=== PATIENT | male | born 1935 | race Caucasian/White ===

== ENCOUNTER 2022-10-25 07:07 | Emergency (ER) | payer OTHER, SELFPAY ==
[2022-10-25 07:12] VITALS: BP 136/78; PULSE 87; RESP 18; TEMP 36.4; O2SAT 96
--- NOTE | 2022-10-25 07:37 | ED_ITS ---
HPI - General Adult General Date Seen: 10/25/22 Chief complaint: Weakness Stated complaint: fall Time Seen by Provider: 10/25/22 07:20 History of Present Illness HPI narrative: Patient is an 87-year-old male with multiple medical problems who was just discharged from a residential to [facility] yesterday. This morning when he attempted to get out of bed his feet slid away from the bed and he slid to the floor. He denies any injury. He did not his head or lose consciousness. EMS was called and when they arrived they did attempt to stand him but his legs were weak and he is brought in for evaluation. He tells me that he feels just fine other than the fact that he is hungry. He is a diabetic in his medications have been recently adjusted. He denies any chest pain or shortness of breath. I did review his EPIC chart and update our record. 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 The reason he was placed in the residential to begin with was generalized weakness. Apparently his has a medical background and was concerned that his bed was going to be difficult for him to get out of. He normally uses a walker. Review of systems is otherwise noted to be negative. [facility] Medical History (Updated 10/25/22 @ 07:27 by Omi Sequeira MD) Diastolic congestive heart failure ?I50.30 - Unspecified diastolic (congestive) heart failure (ICD-10) History of osteomyelitis ?Z87.39 - Personal history of other diseases of the musculoskeletal system and connective tissue (ICD-10) Diabetic retinopathy ?E11.319 - Type 2 diabetes mellitus with unspecified diabetic retinopathy without macular edema (ICD-10) Hyperlipidemia ?E78.5 - Hyperlipidemia, unspecified (ICD-10) ASCVD (arteriosclerotic cardiovascular disease) ?I25.10 - Atherosclerotic heart disease of [place] coronary artery without angina pectoris (ICD-10) History of prostate cancer ?Z85.46 - Personal history of malignant neoplasm of prostate (ICD-10) Adenomatous polyps ?D36.9 - Benign neoplasm, unspecified site (ICD-10) B12 deficiency ?E53.8 - Deficiency of other specified B group vitamins (ICD-10) Peripheral arterial disease ?I73.9 - Peripheral vascular disease, unspecified (ICD-10) DNR (do not resuscitate) ?Z66 - Do not resuscitate (ICD-10) Diabetic nephropathy ?E11.21 - Type 2 diabetes mellitus with diabetic nephropathy (ICD-10) Primary hypertension ?I10 - Essential (primary) hypertension (ICD-10) Type 2 diabetes mellitus, with long-term current use of insulin ?E11.9 - Type 2 diabetes mellitus without complications (ICD-10) ?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 Cognitively he is sharp. HEENT: Conjunctiva clear. Tympanic membranes are pearly white bilaterally. Posterior pharynx is clear without erythema or exudate. Neck is supple without adenopathy, thyromegaly, carotid bruit. Lungs: Clear to auscultation in all plasencia. No wheezes, rales, rhonchi. Heart: Regular rate and rhythm without murmur. Pacemaker in the left upper chest. Abdomen: Soft and nontender. No guarding, rigidity, rebound. Bowel sounds are normal. No palpable masses. Extremities: He has dressings covering his legs from the knees down and I did not open those. No apparent edema. Skin: No abnormalities noted of the exposed skin. Neurologic: Awake, alert, fully oriented. Neurologic exam is nonfocal. Const: Vital Signs, click to edit/add: Vital Signs - 24 hr 10/25/22 07:12 Temperature 97.5 F L Pulse Rate [Right Pulse Oximeter] 87 Respiratory Rate 18 Blood Pressure [Ri ght Upper Arm] 136/78 Pulse Oximetry 96 Oxygen Delivery Me thod Room Air Course Course Hospital Course: Patient is seen and examined. Labs are ordered. His is on her way. He would like some breakfast and I think it would be fine to feed him. He denies any injury and I do not see any indication for imaging. Vital Signs Vital signs: Initial Vital Signs Temperature 97.5 F L 10/25/22 07:12 Temperature Source Temporal Artery Scan 10/25/22 07:12 Pulse Rate 87 10/25/22 07:12 Respiratory Rate 18 10/25/22 07:12 Blood Pressure 136/78 10/25/22 07:12 Blood Pressure Mean 97 10/25/22 07:12 Blood Pressure Position Sitting 10/25/22 07:12 Pulse Oximetry 96 10/25/22 07:12 Oxygen Delivery Method Room Air 10/25/22 07:12 Vital Signs Temperature 97.5 F L 10/25/22 07:12 Pulse Rate 87 10/25/22 07:12 Respiratory Rate 18 10/25/22 07:12 Blood Pressure 136/78 10/25/22 07:12 Pulse Oximetry 96 10/25/22 07:12 Oxygen Delivery Method Room Air 10/25/22 07:12 Temperature 97.5 F L 10/25/22 07:12 Pulse Rate 87 10/25/22 07:12 Respiratory Rate 18 10/25/22 07:12 Blood Pressure 136/78 10/25/22 07:12 Pulse Oximetry 96 10/25/22 07:12 Oxygen Delivery Method Room Air 10/25/22 07:12
[2022-10-25 08:10] LABS: Basophils Absolute Auto 0.03 K/uL (0.00-0.30); Basophils Percent Auto 0.5 % (0.0-3.0); Eosinophils Absolute Auto 0.18 K/uL (0.00-0.50); Eosinophils Percent Auto 2.9 % (0.0-7.0); Hematocrit 45.7 % (37.0-53.0); Hemoglobin* 14.6 gm/dL (13.5-17.5); Lymphocytes Percent Auto 18.3 % (20-44); Mean Corpuscular HGB Conc 32 gm/dL (32-36); Mean Corpuscular Hemoglobin 27 pg (26-34); Mean Corpuscular Volume 86 fL (80-100); Monocytes Percent Auto 11.7 % (0.0-11.0); Neutrophils Absolute Auto 4.14 K/uL (1.7-7.0); Neutrophils Percent Auto 66.6 % (42.0-72.0); Platelet Count* 186 K/uL (140-440); Red Blood Count 5.32 m/uL (4.30-5.90); White Blood Count* 6.22 K/uL (4.50-11.00)
[2022-10-25 08:14] LABS: Slide Review Reflex No
[2022-10-25 08:19] LABS: Chloride* 107 mmol/L (96-114); Potassium* 3.7 mmol/L (3.6-5.1); Sodium* 138 mmol/L (135-149)
[2022-10-25 08:22] LABS: Blood Urea Nitrogen* 26 mg/dL (7-30); Carbon Dioxide* 26 mmol/L (20-32); Estimated Glomerular Filt Rate 73 ml/min; Glucose* 85 mg/dL (60-115)
[2022-10-25 08:23] LABS: Calcium* 9.1 mg/dL (8.4-10.6)
--- NOTE | 2022-10-25 08:39 | ED.NURSE ---
sitting up in bed eating breakfast
== END 2022-10-25 09:50 | disposition home or self-care (01) ==
PROVIDERS: Family Medicine; Emergency Provider Family Medicine
DX: Z71.1 Person with feared health complaint in whom no diagnosis is made (principal); W06.XXXA Fall from bed, initial encounter
CPT/HCPCS: 36415; 80048; 85025; 99282; 99283; A0425; A0429

== ENCOUNTER 2022-11-18 16:37 | Outpatient (CLI) | payer OTHER, SELFPAY | END 2022-11-18 16:38 | disposition home or self-care (01) | LOC: AMB 12-11 15:59 | PROVIDERS: Visit Provider Student in an Organized Health Care Education/Training Program | DX: R53.1 Weakness (principal) | CPT/HCPCS: A0998 ==

== ENCOUNTER 2023-01-01 18:30 | Outpatient (CLI) | payer OTHER, MEDICARE, SELFPAY | END 2023-01-01 18:31 | disposition home or self-care (01) | LOC: AMB 01-31 01:48 | PROVIDERS: Visit Provider Family Medicine | DX: R53.1 Weakness (principal) | CPT/HCPCS: A0998 ==

== ENCOUNTER 2023-01-02 09:05 | Inpatient (IN) | payer OTHER, MEDICARE, SELFPAY ==
[2023-01-02] VITALS (21 sets, daily range): BP systolic 139–171; BP diastolic 65–89; PULSE 60–90; RESP 18–20; TEMP 36.8–37; O2SAT 96–98; BMI 21.9
--- NOTE | 2023-01-02 09:16 | ED.WEAKNESS ---
HPI - Weakness General Time Seen by Provider: 09:16 Date Seen: 01/02/23 Chief complaint: Weakness Stated complaint: weakness / COVID + Time Seen by Provider: 01/02/23 09:15 Source: patient, EMS and RN notes reviewed Mode of arrival: EMS Limitations: no limitations History of Present Illness HPI Narrative: This 87-year-old male is brought in by ambulance from [facility] where he resides in assisted living. He is coming in with weakness, they do not feel that he can manage his ADLs there. He developed weakness yesterday and did test positive for COVID on an antigen test last night. His whom is a physician at [facility] was here later, she did state that he got his 2nd by Debra and COVID booster just on Friday. He had had 1 prior already. He denies any myalgias, no sore throat, no nasal congestion, no cough or respiratory symptoms. Outside of the weakness he states he is having no symptoms. He has a history of type 2 diabetes with diabetic neuropathy, is insulin-dependent. History of chronic diastolic congestive heart failure. History of lumbar spondylosis. Hypertension. Peripheral vascular disease. Deficiency of B12. He has had a pacemaker placed. He does have stage 2 chronic kidney disease. Hyperlipidemia. ASCVD without angina. Atherosclerosis of aorta. Chronic vascular disorders of intestine. Age-related physical debility. History of heart valve replacement, further details not known at this time. History of prostate cancer. History of falling. Left great toe absence. Current medications 81 mg aspirin, atorvastatin 40 mg daily at bedtime. Vitamin B12 1000 mcg injected monthly. Zetia 10 mg daily Jardiance 25 mg daily Linzess 145 mcg daily Metamucil 1 tbsp b.i.d.. Novolin an 32 units q.a.m.. P.r.n. acetaminophen, biscadol, gavalax. Complaint: generalized weakness Related Data Home Medications Medication Instructions Recorded Confirmed atorvastatin 40 mg tablet 40 mg PO DAILY 01/02/23 01/02/23 cyanocobalamin (vitamin B-12) 1,000 mcg IM Q30D 01/02/23 01/02/23 1,000 mcg/mL injection solution empagliflozin 25 mg tablet 25 mg PO DAILY 01/02/23 01/02/23 (Jardiance) ezetimibe 10 mg tablet 10 mg PO DAILY 01/02/23 01/02/23 Allergies Allergy/AdvReac Type Severity Reaction Status Date / Time No Known Drug Allergies Allergy Verified 01/02/23 09:16 Review of Systems Status of ROS: Reports: 6 or more systems reviewed and unremarkable except as noted in History and below [facility] Medical History Diastolic congestive heart failure ?I50.30 - Unspecified diastolic (congestive) heart failure (ICD-10) History of osteomyelitis ?Z87.39 - Personal history of other diseases of the musculoskeletal system and connective tissue (ICD-10) Diabetic retinopathy ?E11.319 - Type 2 diabetes mellitus with unspecified diabetic retinopathy without macular edema (ICD-10) Hyperlipidemia ?E78.5 - Hyperlipidemia, unspecified (ICD-10) ASCVD (arteriosclerotic cardiovascular disease) ?I25.10 - Atherosclerotic heart disease of [place] coronary artery without angina pectoris (ICD-10) History of prostate cancer ?Z85.46 - Personal history of malignant neoplasm of prostate (ICD-10) Adenomatous polyps ?D36.9 - Benign neoplasm, unspecified site (ICD-10) B12 deficiency ?E53.8 - Deficiency of other specified B group vitamins (ICD-10) Peripheral arterial disease ?I73.9 - Peripheral vascular disease, unspecified (ICD-10) DNR (do not resuscitate) ?Z66 - Do not resuscitate (ICD-10) Diabetic nephropathy ?E11.21 - Type 2 diabetes mellitus with diabetic nephropathy (ICD-10) Primary hypertension ?I10 - Essential (primary) hypertension (ICD-10) Type 2 diabetes mellitus, with long-term current use of insulin ?E11.9 - Type 2 diabetes mellitus without complications (ICD-10) ?Z79.4 - longterm (current) use of insulin (ICD-10) Surgical History History of cardiac pacemaker ?Z95.0 - Presence of cardiac pacemaker (ICD-10) History of aortic valve replacement ?Z95.2 - Presence of prosthetic heart valve (ICD-10) Amputated toe of left foot ?S98.132A - Complete traumatic amputation of one left lesser toe, initial encounter (ICD-10) Social History Smoking Status: Never smoker Exam Const: Vital Signs, click to edit/add: Vital Signs - 24 hr 01/02/23 09:12 01/02/23 10:23 01/02/23 10:24 Temperature 98.3 F Pulse Rate 76 78 Pulse Rate [Right Pulse Oximeter] 73 Respiratory Rate 18 Blood Pressure 149/87 H Blood Pressure [Ri ght Upper Arm] 157/74 H Pulse Oximetry 96 96 96 Oxygen Delivery Me thod Room Air 01/02/23 10:30 01/02/23 10:32 01/02/23 10:39 Temperature Pulse Rate 70 70 Pulse Rate [Right Pulse Oximeter] Respiratory Rate Blood Pressure 157/82 H Blood Pressure [Ri ght Upper Arm] Pulse Oximetry 98 97 98 Oxygen Delivery Me thod This is a very pleasant 87-year-old male conversive, seen in exam room 2. He is tall stature, thin. Sclera clear, symmetrical facial function. Neck is slender, no masses noted, no thyromegaly masses or nodules. He is lying nearly flat. CV regular rate and rhythm, lungs are clear anteriorly. Abdomen is soft, no rebound or guarding, no organomegaly. He has Donald wraps on his lower extremities, do not feel any underlying edema. No focal neurologic deficit noted. Documenting provider has reviewed patient's vital signs: yes Course Course ED Course: This is a patient with new diagnosis of COVID last night and only other symptom is weakness but has profound. Did discuss with him oral treatment verses IV remdesivir. He would like to defer to his . He was hoping to be transferred to [facility]. Reviewed with him that I feel that that is extremely unlikely. Most often [facility] are on divert which is usually the case for [facility] but I will call immediately after leaving his room. We will get portable chest x-ray, EKG, labs and guide therapy accordingly. We will likely need to talk to his whom is a physician at [facility] at some point. Reevaluation(s) Time of Reevaluation #1: 09:19 Reevaluation #1: Did call [facility] in spoke with Magdalena HERNANDEZ in triage. [facility] is on MS/PCU diversion, [facility] is on ICU/MS/PCU diversion. I will let the patient know this. He will likely need hospitalization as he feels too weak to go home. He maybe candidate for 1 of the surrounding hospitals. We will have to see how are bed availability here pans out and what I find in his workup. Right now he is not hypoxic, really only symptom is that he is just significantly weak. Time of Reevaluation #2: 11:34 Reevaluation #2: Dr. Webb is actually in the room with the patient. Again the conversation about Paxlovid and remdesivir has come up. She still has not made a decision. His calculated creatinine clearance is 40, thus, would require renally dosed Paxlovid. Dr. Webb will let me know if I need to send in a prescription or order the 1st dose of remdesivir. Consultations Consultation #1: Did speak with Dr. Webb regarding this patient. Question him about the oral outpatient medication verses remdesivir. Our pharmacy does not carry Paxlovid but we can do the 3 day IV remdesivir while here. His alternatively could pick this up and we could administer the pills. We are still waiting for his kidney function. Time: 10:49 Vital Signs Vital signs: Initial Vital Signs Temperature 98.3 F 01/02/23 09:12 Temperature Source Temporal Artery Scan 01/02/23 09:12 Pulse Rate 73 01/02/23 09:12 Respiratory Rate 18 01/02/23 09:12 Blood Pressure 157/74 H 01/02/23 09:12 Blood Pressure Mean 101 01/02/23 09:12 Blood Pressure Position Sitting 01/02/23 09:12 Pulse Oximetry 96 01/02/23 09:12 Oxygen Delivery Method Room Air 01/02/23 09:12 Vital Signs Temperature 98.3 F 01/02/23 09:12 Pulse Rate 73 01/02/23 09:12 Respiratory Rate 18 01/02/23 09:12 Blood Pressure 157/74 H 01/02/23 09:12 Pulse Oximetry 96 01/02/23 09:12 Oxygen Delivery Method Room Air 01/02/23 09:12 Temperature 98.3 F 01/02/23 09:12 Pulse Rate 70 01/02/23 10:32 Respiratory Rate 18 01/02/23 09:12 Blood Pressure 157/82 H 01/02/23 10:32 Pulse Oximetry 98 01/02/23 10:39 Oxygen Delivery Method Room Air 01/02/23 09:12 MDM - Weakness Lab Data Attestation: I reviewed the patient's lab results. Labs: Lab Results 01/02/23 Range/Units 10:10 WBC 5.15 (4.50-11.00) K/uL RBC 5.82 (4.30-5.90) m/uL Hgb 15.9 (13.5-17.5) gm/dL Hct 50.3 (37.0-53.0) % MCV 86 (80-100) fL MCH 27 (26-34) pg MCHC 32 (32-36) gm/dL RDW Coeff of [place] 15.7 H (11.5-15.5) % Plt Count 150 (140-440) K/uL Neut % (Auto) 69.9 (42.0-72.0) % Lymph % (Auto) 9.1 L (20-44) % [place] % (Auto) 20.0 H (0.0-11.0) % Eos % (Auto) 0.4 (0.0-7.0) % Baso % (Auto) 0.4 (0.0-3.0) % Neut # (Auto) 3.60 (1.7-7.0) K/uL Lymph # (Auto) 0.50 L (0.90-2.90) K/uL [place] # (Auto) 1.00 H (0.00-0.90) K/UL Eos # (Auto) 0.02 (0.00-0.50) K/uL Baso # (Auto) 0.02 (0.00-0.30) K/uL Abs Immat Gran (auto) 0.01 (0.00-0.30) K/uL Imm/Tot Granulo (auto) 0.2 % VBG pH 7.391 (7.32-7.43) VBG pCO2 43 (40-50) mmHG VBG pO2 28.2 (25-47) mmHG VBG HCO3 26 (21-28) mmol/L Sodium 141 (135-149) mmol/L Potassium 4.3 (3.6-5.1) mmol/L Chloride 104 (96-114) mmol/L Carbon Dioxide 24 (20-32) mmol/L Anion Gap 13 (7-15) mEq/L BUN 25 (7-30) mg/dL Creatinine 1.2 (0.5-1.5) mg/dL Estimated GFR 59 ml/min Glucose 104 (60-115) mg/dL Lactate 1.3 (0.5-1.9) mmol/L Calcium 9.4 (8.4-10.6) mg/dL Total Bilirubin 0.7 (0.1-1.5) mg/dL AST 39 H (12-35) U/L ALT 42 (4-50) U/L Alkaline Phosphatase 92 (40-150) U/L Troponin I 0.02 (0.01-0.04) ng/mL C-Reactive Protein 1.2 H (0.5-1.0) mg/dL Total Protein 7.6 (6.0-8.3) g/dL Albumin 4.5 (3.3-5.0) g/dL Imaging Data Chest x-ray: Attestation: I have reviewed the pertinent imaging results. My impression: See patient's pacemaker, do not appreciate any COVID pneumonia. Radiologist's impression: Patient: [facility] Facility:?[facility] Patient ID:?[id number] Site Patient ID:?[id number]. Site :?[id number] Study:?XRay Chest 1V-01/02/2023 9:39:27 AM Ordering Physician:Tess Palacio Final Report: INDICATION: COVID, WEAKNESS (sic) TECHNIQUE: Chest 1 view (2 images). COMPARISON: 09/27/2019. FINDINGS: Heart and mediastinum: Interval aortic valve replacement. Otherwise unremarkable cardiomediastinal silhouette. Lungs and pleural spaces: A skinfold projects upon the peripheral left lung base on the 2nd image centered on the lower chest. Otherwise, lungs and pleural spaces are clear. Bones and soft tissues: Interval placement of a left-sided dual lead cardiac conduction device and aortic valve replacement. IMPRESSION: No acute cardiopulmonary process. Dictated by Jabari Slater MD @ 01/02/2023 9:46:46 AM (Electronic Signature) ECG Data Attestation: I personally reviewed and interpreted this ECG as follows: (Paced rhythm, 74 beats per minute.) ECG interpretation date: 01/02/23 ECG interpretation time: 12:02 Prior ECG tracings: not available for review Discharge Plan Discharge Clinical Impression: COVID-19, Weakness Patient Disposition: Admitted As Observation Prescriptions: No Action atorvastatin 40 mg tablet 40 mg PO DAILY cyanocobalamin (vitamin B-12) 1,000 mcg/mL solution 1,000 mcg IM Q30D ezetimibe 10 mg tablet 10 mg PO DAILY Jardiance 25 mg tablet 25 mg PO DAILY Follow Up/Referrals: Provider,Not a Local [Primary Care Provider] -
--- NOTE | 2023-01-02 09:17 | CRLHL7_ITS ---
For Patients: As a result of the Century Cures Act, medical imaging exams and procedure reports are released immediately into your electronic medical record. You may view this report before your referring provider. If you have questions, please contact your health care provider. INDICATION: COVID, WEAKNESS (sic) TECHNIQUE: Chest 1 view (2 images). COMPARISON: 09/27/2019. FINDINGS: Heart and mediastinum: Interval aortic valve replacement. Otherwise unremarkable cardiomediastinal silhouette. Lungs and pleural spaces: A skinfold projects upon the peripheral left lung base on the 2nd image centered on the lower chest. Otherwise, lungs and pleural spaces are clear. Bones and soft tissues: Interval placement of a left-sided dual lead cardiac conduction device and aortic valve replacement. IMPRESSION: No acute cardiopulmonary process. Dictated by Jabari Slater MD @ 01/02/2023 9:46:46 AM (Electronically Signed)
[2023-01-02 10:21] LABS: HCO3 VBG 26 mmol/L (21-28); PCO2 VBG 43 mmHG (40-50); PO2 VBG 28.2 mmHG (25-47); pH VBG 7.391 (7.32-7.43)
[2023-01-02 10:22] LABS: Lactate* 1.3 mmol/L (0.5-1.9)
[2023-01-02 10:23] LABS: Basophils Absolute Auto 0.02 K/uL (0.00-0.30); Basophils Percent Auto 0.4 % (0.0-3.0); Eosinophils Absolute Auto 0.02 K/uL (0.00-0.50); Eosinophils Percent Auto 0.4 % (0.0-7.0); Hematocrit 50.3 % (37.0-53.0); Hemoglobin* 15.9 gm/dL (13.5-17.5); Immature Granulocytes Abs Auto 0.01 K/uL (0.00-0.30); Immature Granulocytes Pct Auto 0.2 %; Lymphocytes Percent Auto 9.1 % (20-44); Mean Corpuscular HGB Conc 32 gm/dL (32-36); Mean Corpuscular Hemoglobin 27 pg (26-34); Mean Corpuscular Volume 86 fL (80-100); Neutrophils Percent Auto 69.9 % (42.0-72.0); Platelet Count* 150 K/uL (140-440); RDW Coefficient of Variation % 15.7 % (11.5-15.5); Red Blood Count 5.82 m/uL (4.30-5.90); White Blood Count* 5.15 K/uL (4.50-11.00)
[2023-01-02 10:28] LABS: Slide Review Reflex No
--- NOTE | 2023-01-02 10:42 | PC.NURSE ---
patients came out- BS on her monitor showed 69. Apple juice was given. Food was ordered about 15min ago.
[2023-01-02 10:43] LABS: Albumin* 4.5 g/dL (3.3-5.0); Chloride* 104 mmol/L (96-114)
[2023-01-02 10:44] LABS: Potassium* 4.3 mmol/L (3.6-5.1); Sodium* 141 mmol/L (135-149)
[2023-01-02 10:46] LABS: Bilirubin Total* 0.7 mg/dL (0.1-1.5); Creatinine* 1.2 mg/dL (0.5-1.5); Estimated Glomerular Filt Rate 59 ml/min
[2023-01-02 10:47] LABS: Alanine Aminotransferase* 42 U/L (4-50); Alkaline Phosphatase* 92 U/L (40-150); Anion Gap 13 mEq/L (7-15); Aspartate Amino Transferase* 39 U/L (12-35); Blood Urea Nitrogen* 25 mg/dL (7-30); Calcium* 9.4 mg/dL (8.4-10.6); Carbon Dioxide* 24 mmol/L (20-32); Glucose* 104 mg/dL (60-115); Total Protein* 7.6 g/dL (6.0-8.3)
[2023-01-02 10:50] LABS: C Reactive Protein* 1.2 mg/dL (0.5-1.0)
[2023-01-02 10:58] LABS: Troponin I* 0.02 ng/mL (0.01-0.04)
--- NOTE | 2023-01-02 12:12 | ED.NURSE ---
Patient transfered to M/S room 276. Report given to ADVID Chavez. All belongings sent with patient. at bedside. Renal dose Paxlovid called into [facility] pharmacy per request.
--- NOTE | 2023-01-02 14:38 | PC.NURSE ---
patient alert and oriented x4, comes from [facility] and lives there temporarily. Lives at home with Codie normally. Patient denies chest pain, n/V/sob. Patient is 95% on RA, Afebrile this shift. Tolerating a reg diet. Patient received first oral dose of paxlovid, will receive second dose at PM. Patient is a 1-2 assist with walker and GB, Incont. of bowel and bladder. Patient is SL, IV patent in left AC. Patient is type 2 DM and uses a Dexcom device to check BG. Plan for patient, Admit to observation, all forms signed by patient and patient verbalized understanding of observation status.
--- NOTE | 2023-01-02 17:58 | P.IMHP_ITS ---
Hospitalist- H&P: HPI History of Present Illness Date Seen: 01/02/23 Chief complaint: weakness / COVID + Narrative: Sheldon Bryson is a 87 year old male with dementia, diabetes, heart failure, TAVR, coronary artery disease, pacemaker, chronic kidney disease, prostate cancer, peripheral neuropathy and hypertension presents to the hospital with acute onset of weakness. Starting about a day or 2 prior to admission patient had onset of generalized weakness. He had fallen at his residence at [facility]. He was too weak to ambulate. He had a positive COVID test there. Three days ago he had influenza and COVID vaccination. Patient is had some frailty. He has been at [facility] since the end of September. Prior to that he was in a nursing facility getting rehab from a previous infection. He walks with a walker. He has some confusion which is significantly worse today with his current illness. Review of Systems Narrative: He has been generally doing fairly well in the past couple months up until the last couple days. His provides care to his legs which are prone to edema and diabetic foot ulcers. [facility] Medical History (Updated 01/02/23 @ 18:14 by Ángel Webb MD) Diastolic congestive heart failure ?I50.30 - Unspecified diastolic (congestive) heart failure (ICD-10) History of osteomyelitis ?Z87.39 - Personal history of other diseases of the musculoskeletal system and connective tissue (ICD-10) Diabetic retinopathy ?E11.319 - Type 2 diabetes mellitus with unspecified diabetic retinopathy without macular edema (ICD-10) Hyperlipidemia ?E78.5 - Hyperlipidemia, unspecified (ICD-10) ASCVD (arteriosclerotic cardiovascular disease) ?I25.10 - Atherosclerotic heart disease of [place] coronary artery without angina pectoris (ICD-10) History of prostate cancer ?Z85.46 - Personal history of malignant neoplasm of prostate (ICD-10) Adenomatous polyps ?D36.9 - Benign neoplasm, unspecified site (ICD-10) B12 deficiency ?E53.8 - Deficiency of other specified B group vitamins (ICD-10) Peripheral arterial disease ?I73.9 - Peripheral vascular disease, unspecified (ICD-10) DNR (do not resuscitate) ?Z66 - Do not resuscitate (ICD-10) Diabetic nephropathy ?E11.21 - Type 2 diabetes mellitus with diabetic nephropathy (ICD-10) Primary hypertension ?I10 - Essential (primary) hypertension (ICD-10) Type 2 diabetes mellitus, with long-term current use of insulin ?E11.9 - Type 2 diabetes mellitus without complications (ICD-10) ?Z79.4 - watermaster (current) use of insulin (ICD-10) Surgical History (Updated 01/02/23 @ 18:05 by Ángel Webb MD) H/O radical prostatectomy ?Z90.79 - Acquired absence of other genital organ(s) (ICD-10) History of cardiac pacemaker ?Z95.0 - Presence of cardiac pacemaker (ICD-10) History of aortic valve replacement ?Z95.2 - Presence of prosthetic heart valve (ICD-10) Amputated toe of left foot ?S98.132A - Complete traumatic amputation of one left lesser toe, initial encounter (ICD-10) Social History (Updated 01/02/23 @ 18:06 by Ángel Webb MD) Narrative: He lives at [facility]. He walks with a walker. Is relatively independent there. He is here today with his . She works at [employer]. 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 Does not drink alcohol. He does not smoke cigarettes. Code status is DNR DNI What is your current living situation?: I presently have a place to live Problems where you live: no known problems Problems where you live details: na In the past 12 months, utilities in danger of being shut off: no In past 12 months, lack of transportation kept you from medical appts, meetings, work, or getting things needed for daily living: no In the past 12 mos, have been you worried that your food would run out before you had money to buy more?: never true In the past 12 mos, the food you bought just didn't last and you didn't have money to buy more?: never true Highest level of school completed/degree received: Doctoral degree Smoking Status: Never smoker How often do you have a drink containing alcohol: never AUDIT-C Alcohol total score: 0 Non-prescribed substance use: denies use Caffeine: Yes (coffee) How often does anyone, including family, friends and others, physically hurt you : never How often does anyone, including family, friends and others, insult or talk down to you: never How often does anyone, including family, friends and others, threaten you with harm: never How often does anyone, including family, friends and others, scream or curse at you: never service: No Meds Home Medications and Allergies Home Medications Medication Instructions Recorded Confirmed Type acetaminophen 500 mg tablet 1,000 mg PO Q6H PRN 01/02/23 01/02/23 History aspirin 81 mg tablet,delayed 81 mg PO DAILY 01/02/23 01/02/23 History release atorvastatin 40 mg tablet 40 mg PO HS 01/02/23 01/02/23 History bisacodyl 10 mg rectal suppository 10 mg AL DAILY PRN 01/02/23 01/02/23 History cyanocobalamin (vitamin B-12) 1,000 mcg IM Q30D 01/02/23 01/02/23 History 1,000 mcg/mL injection solution empagliflozin 25 mg tablet 25 mg PO DAILY 01/02/23 01/02/23 History (Jardiance) ezetimibe 10 mg tablet 10 mg PO DAILY 01/02/23 01/02/23 History insulin NPH isoph U-100 human 100 32 unit subcut QAM 01/02/23 01/02/23 History unit/mL (3 mL) subcutaneous pen (Novolin N FlexPen) ketoconazole 2 % shampoo 1 applic topical 2XW PRN 01/02/23 01/02/23 History ketoconazole 2 % topical cream 1 applic topical BID PRN 01/02/23 01/02/23 History linaclotide 145 mcg capsule 145 mcg PO DAILY 01/02/23 01/02/23 History (Linzess) Allergies Allergy/AdvReac Type Severity Reaction Status Date / Time No Known Drug Allergies Allergy Verified 01/02/23 09:16 Exam Narrative: Exam Narrative: He is alert and appears in no distress. He is able to answer most questions though his passed answer number of questions especially about recent events. Head is without obvious trauma. Eyes normal. Oropharynx with some dental decay. Dry mucous membranes. Neck is supple without mass or adenopathy. Respirations are clear to auscultation. No wheezing rales or rhonchi. Cardiovascular: S1, S2, regular rate and rhythm. Abdomen is soft without tenderness or mass. He has approximately equal strength in upper and lower extremities. request I do not do the dressing changes on his legs today secondary to concerns about complications from inappropriately of reapplied dressings. (she will assist with this in the next day or 2). Const: Vital Signs, click to edit/add: Vital Signs - 24 hr 01/02/23 09:12 01/02/23 10:23 01/02/23 10:24 Temperature 98.3 F Pulse Rate 76 78 Pulse Rate [Left R adial] Pulse Rate [Right Pulse Oximeter] 73 Respiratory Rate 18 Blood Pressure 149/87 H Blood Pressure [Ri ght Arm] Blood Pressure [Ri ght Upper Arm] 157/74 H Pulse Oximetry 96 96 96 Oxygen Delivery Me thod Room Air 01/02/23 10:30 01/02/23 10:32 01/02/23 10:33 Temperature Pulse Rate 70 70 81 Pulse Rate [Left R adial] Pulse Rate [Right Pulse Oximeter] Respiratory Rate Blood Pressure 157/82 H Blood Pressure [Ri ght Arm] Blood Pressure [Ri ght Upper Arm] Pulse Oximetry 98 97 97 Oxygen Delivery Me thod 01/02/23 10:39 01/02/23 10:45 01/02/23 11:00 Temperature Pulse Rate 90 75 Pulse Rate [Left R adial] Pulse Rate [Right Pulse Oximeter] Respiratory Rate Blood Pressure Blood Pressure [Ri ght Arm] Blood Pressure [Ri ght Upper Arm] Pulse Oximetry 98 97 96 Oxygen Delivery Me thod 01/02/23 11:02 01/02/23 11:15 01/02/23 11:30 Temperature Pulse Rate 84 81 85 Pulse Rate [Left R adial] Pulse Rate [Right Pulse Oximeter] Respiratory Rate Blood Pressure 165/83 H Blood Pressure [Ri ght Arm] Blood Pressure [Ri ght Upper Arm] Pulse Oximetry 97 96 97 Oxygen Delivery Me thod 01/02/23 11:32 01/02/23 11:45 01/02/23 12:00 Temperature Pulse Rate 84 86 74 Pulse Rate [Left R adial] Pulse Rate [Right Pulse Oximeter] Respiratory Rate Blood Pressure 151/82 H Blood Pressure [Ri ght Arm] Blood Pressure [Ri ght Upper Arm] Pulse Oximetry 97 98 96 Oxygen Delivery Me thod 01/02/23 12:02 01/02/23 12:41 01/02/23 12:49 Temperature 98.6 F Pulse Rate 72 Pulse Rate [Left R adial] 76 Pulse Rate [Right Pulse Oximeter] Respiratory Rate 18 18 Blood Pressure 146/76 H Blood Pressure [Ri ght Arm] 171/89 H Blood Pressure [Ri ght Upper Arm] Pulse Oximetry 96 98 98 Oxygen Delivery Me thod Room Air Room Air Room Air Documenting provider has reviewed patient's vital signs: yes Hospitalist - H&P: Result Labs Labs: Short CBC 01/02/23 Range/Units 10:10 WBC 5.15 (4.50-11.00) K/uL Hgb 15.9 (13.5-17.5) gm/dL Hct 50.3 (37.0-53.0) % Plt Count 150 (140-440) K/uL BMP 01/02/23 10:10 Sodium 141 Potassium 4.3 Chloride 104 Carbon Dioxide 24 BUN 25 Creatinine 1.2 Glucose 104 Calcium 9.4 Cardiac Enzymes 01/02/23 Range/Units 10:10 Troponin I 0.02 (0.01-0.04) ng/mL Liver Function 01/02/23 Range/Units 10:10 Total Bilirubin 0.7 (0.1-1.5) mg/dL AST 39 H (12-35) U/L ALT 42 (4-50) U/L Alkaline Phosphatase 92 (40-150) U/L Albumin 4.5 (3.3-5.0) g/dL Assessment and Plan Assessment and plan (1) COVID-19: Problem comment: Discussed with patient and options for management. This point recommend Remdesivir or Paxlovid. She elects Paxil of id and obtains an outpatient prescription which he is initiated on taking here. This will be dosed for renal function Status: Acute (2) ASCVD (arteriosclerotic cardiovascular disease): Problem comment: Currently asymptomatic. Status: Acute (3) Diastolic congestive heart failure: Problem comment: Does not appear to be in heart failure at this time. Status: Acute (4) Hyperlipidemia: Problem comment: Hold atorvastatin due to interactions with Paxlovid Status: Acute (5) Weakness: Problem comment: Acute on chronic due to COVID infection. PT and OT to evaluate. Possible discharge when able to ambulate with a walker Status: Acute (6) Diabetic nephropathy: Problem comment: Monitor renal function Status: Acute (7) Type 2 diabetes mellitus, with long-term current use of insulin: Problem comment: According to his he has been having some low sugars. Current regiment for diabetes is NPH insulin 32 units in the morning. Will reduce this dose and provide sliding scale. Status: Acute Plan Patient is admitted to the hospital for management of COVID illness. Current affects appear to be primarily profound weakness and cognitive impairment or brain fog. Not obviously having respiratory illness. Will continue to monitor his functional status, p.o. intake, cardiac and respiratory status. VTE prophylaxis with enoxaparin. Paxlovid dosed for renal function. Monitor diabetes and renal function. I anticipate clinical improvement over the next few days with possible discharge back to [facility]. had requested transfer to [facility] in [place]. They are on divert for all medical admissions. Total time spent today is 80 minutes, 50 minutes in coordination of care and discussing with patient and and other providers ongoing evaluation management of COVID illness, other medical problems and disposition
--- NOTE | 2023-01-02 18:57 | PC.NURSE ---
Pt calm and cooperative with nsg interventions. Codie present for nursing assessment. Mars Chaney assisted the couple with signing documents. Pt up in recliner for meals. BG 188 and pt received 2 units of SS Novolog insulin. Report will be given to oncoming shift RN.
[2023-01-02] MEDS: ENOXAPARIN 40 MG/0.4 ML INJ SUBCUT (20:20)
[2023-01-02] MEDS: SODIUM CHLORIDE 0.9 % (FLUSH) 10 ML SYRINGE 5 ML IVF (20:21)
[2023-01-03] VITALS (7 sets, daily range): BP systolic 117–164; BP diastolic 60–82; PULSE 60–66; RESP 16–20; TEMP 36.6–36.9; O2SAT 96–99
--- NOTE | 2023-01-03 07:41 | PC.NURSE ---
SHIFT NOTE 19-7: Pt pleasant and cooperative, A&O. Denies pain, SOB, CP, and N/V. Pt in the recliner at the beginning of shift, attempted to get pt 2 assist with a walker from the recliner to bed, pt was hardly able to move his feet and needed a third person to get the pt from the chair to bed. Pt turned and repositioned with 2 assist, incontinent of urine, nancy care provided. VSS on RA. Pt's blood sugar reader, Dexcom, alarmed at a low blood sugar of 68 in the middle of the night, Apple juice and cheese stick given to pt, 15 minute recheck was 74, gave pt a pudding and rechecked at 109, pt asymptomatic.
[2023-01-03] MEDS: INSULIN NPH 100 UNIT/ML 20 UNIT SUBCUT (08:49)
[2023-01-03] MEDS: ASPIRIN 81 MG TABLET EC PO (09:02)
[2023-01-03] MEDS: EMPAGLIFLOZIN 10 MG TABLET 25 MG PO (09:03)
[2023-01-03] MEDS: EZETIMIBE 10 MG TABLET PO (09:04)
[2023-01-03] MEDS: SODIUM CHLORIDE 0.9 % (FLUSH) 10 ML SYRINGE 5 ML IVF ×2 (09:07→21:46)
--- NOTE | 2023-01-03 16:30 | PM.IMPN1 ---
Progress Note: A&P Assessment and plan (1) COVID-19: Problem details: Discussed with patient and options for management. This point recommend Remdesivir or Paxlovid. She elects Paxlovid and obtains an outpatient prescription which he is initiated on taking here. This will be dosed for renal function Status: Acute (2) Weakness: Problem details: Acute on chronic due to COVID infection. PT and OT to evaluate. Possible discharge when able to ambulate with a walker. Making good progress over the last day. Status: Acute (3) Diastolic congestive heart failure: Problem details: Does not appear to be in heart failure at this time. Status: Acute (4) ASCVD (arteriosclerotic cardiovascular disease): Problem details: Currently asymptomatic. Status: Acute (5) Type 2 diabetes mellitus, with long-term current use of insulin: Problem details: According to his he has been having some low sugars. Current regiment for diabetes is NPH insulin 32 units in the morning. Will reduce this dose and provide sliding scale. Status: Acute (6) Cognitive impairment: Problem details: Cognitive function seems worse with recent illness. A little better today. Status: Acute Plan Continue in hospital for management illness and disability associated with COVID. Monitor for further complications of COVID, development of pneumonia. Anticipate discharge to home when able to ambulate independently with a walker and therefore able to return home to assisted living Time Spent With Patient Total time spent: Total time spent today is 35 minutes, 25 minutes in coordination of care and discussing with patient and other providers ongoing evaluation management of COVID, diabetes and disposition Subjective Date Seen: 01/03/23 Interval history: 87-year-old male admitted to the hospital with profound weakness and increased confusion associated with COVID infection. No other obvious acute infection. No other obvious injury. Unable to care for himself at home in his assisted living environment. Unable to walk on admission. Overnight he feels quite a bit better. He is up walking with a walker with standby assistance. He is less confused today. Generally pleasant and cooperative. Exam Narrative: Exam Narrative: He is alert and appears in no distress. Speech is normal. Has some confusion about recent events. Respirations are clear to auscultation. Breathing is unlabored. Cardiovascular: S1, S2, regular rhythm. Abdomen is soft without tenderness or mass. Wraps on his legs noted. Plan for to change these. Const: Vital Signs, click to edit/add: Vital Signs - 24 hr 01/02/23 19:00 01/02/23 23:00 01/02/23 23:00 Temperature 98.5 F 98.2 F Pulse Rate [Left R adial] 66 60 60 Respiratory Rate 20 18 18 Blood Pressure [Ri ght Arm] 146/75 H 139/65 Pulse Oximetry 96 97 Oxygen Delivery Me thod Room Air Room Air 01/03/23 03:00 01/03/23 09:12 01/03/23 12:00 Temperature 98 F 98.3 F 98.3 F Pulse Rate [Left R adial] 61 62 66 Respiratory Rate 20 18 16 Blood Pressure [Ri ght Arm] 119/60 119/71 117/70 Pulse Oximetry 97 96 96 Oxygen Delivery Me thod Room Air Room Air Room Air 01/03/23 14:18 Temperature 98.2 F Pulse Rate [Left R adial] 60 Respiratory Rate 18 Blood Pressure [Ri ght Arm] 164/82 H Pulse Oximetry 99 Oxygen Delivery Me thod Room Air Documenting provider has reviewed patient's vital signs: yes
--- NOTE | 2023-01-03 18:37 | PC.NURSE ---
End of shift: COVID precautions... A&O but forgetful and repeats himself at times.. patient is pleasant and loves to converse. No respiratory symptoms other than occasional flem in his throat. Weakness is his main complaint at this time. Consult to physical therapy was completed. VSS on RA.Upon assessment patient had a reddened sacrum/coccyx.... right below his coccyx there is a hardened callus like bump that has developed. Sacral Mepilex was applied. Great appetite throughout the day. Incontinent at baseline, multiple voids throughout the day. Average fluid intake. The patients changed his lower extremity wraps this evening. Per the patients we should not put on the [place] [facility] socks... because they cause him to develop ulcers on his toes... instead use his slippers. He will call appropriately at times. Call light within reach in the chair eating dinner.
[2023-01-03] MEDS: ENOXAPARIN 40 MG/0.4 ML INJ SUBCUT (21:46)
[2023-01-04 03:00] VITALS: BP 146/76; PULSE 61; RESP 18; TEMP 36.6; O2SAT 96
--- NOTE | 2023-01-04 06:33 | PC.NURSE ---
End of Shift: Pt pleasant and cooperative throughout shift. Denied pain, remained on RA, VSS. Pt ambulated with walker, GB, SBA*2. Moved slow, tolerated well. Daily weight obtained at 0600. One void in bedside urinal, one incontinent in brief. No BM. LS CTAB.
[2023-01-04 07:00] VITALS: BP 159/80; PULSE 66; RESP 16; RESP 18; TEMP 36.5; O2SAT 97
[2023-01-04] MEDS: EMPAGLIFLOZIN 10 MG TABLET 25 MG PO (09:09)
[2023-01-04] MEDS: INSULIN NPH 100 UNIT/ML 24 UNIT SUBCUT (09:12)
[2023-01-04] MEDS: ASPIRIN 81 MG TABLET EC PO (09:13)
[2023-01-04] MEDS: SODIUM CHLORIDE 0.9 % (FLUSH) 10 ML SYRINGE 5 ML IVF ×2 (09:14→21:51)
[2023-01-04] MEDS: EZETIMIBE 10 MG TABLET PO (09:14)
[2023-01-04 11:00] VITALS: BP 147/73; PULSE 60; RESP 16; TEMP 36.6; O2SAT 97
--- NOTE | 2023-01-04 13:29 | P.IMPN_ITS ---
Progress Note: A&P Assessment and plan (1) COVID-19: Problem details: -Paxlovid day 3 of 5 -no oxygen -weakness improving Status: Acute (2) Weakness: Problem details: Acute on chronic due to COVID infection. PT and OT to evaluate. Possible discharge when able to ambulate with a walker. Making good progress. Status: Acute (3) Diastolic congestive heart failure: Problem details: Does not appear to be in heart failure at this time. Status: Acute (4) ASCVD (arteriosclerotic cardiovascular disease): Problem details: Currently asymptomatic. Status: Acute (5) Type 2 diabetes mellitus, with long-term current use of insulin: Problem details: According to his he has been having some low sugars. Current regiment for diabetes is NPH insulin 32 units in the morning. Will reduce this dose and provide sliding scale. Status: Acute (6) Cognitive impairment: Problem details: repeats himself. overall improving. Status: Acute Subjective Date Seen: 01/04/23 Interval history: Daily Progress Note - Hospital Medicine Day #: 3 Covid Day: 4, day 3 of Paxlovid Covid symptoms: 01/01 Covid Positive Test: Antigen test positive at [facility] on 01/01 CC: weakness related to Covid OVERNIGHT UPDATES FROM STAFF & MED, LAB, IMAGING UPDATES -slowly improving. up with 1SBA and gait belt with walker. - no new symtpoms - interested in chatting about the [place] [facility] from [facility] 147/73. Pulse 60. Respirations 16. Afebrile. Room air sats are 97%. Weight 76.6 kilos No new labs since arrival in the ED on 01/02 Objective: Vitals: see above Lungs: Clear. Cardiac: S1S2. Disposition/Potential discharge - Likely to return to previous living situation. Today I spent 50minutes seeing the patient, reviewing Expanse and EPIC notes/diagnostics, discussing the care plan with our care time that includes social work, PT/OT, pharmacy, RT, half-way and documenting my impressions and plan in the medical record. Exam Const: Vital Signs, click to edit/add: Vital Signs - 24 hr 01/03/23 14:18 01/03/23 19:00 01/03/23 22:24 Temperature 98.2 F 98.4 F 98.2 F Pulse Rate [Left R adial] 60 66 61 Pulse Rate [Pulse Oximeter] Respiratory Rate 18 18 18 Blood Pressure [Ri ght Arm] 164/82 H 155/77 H 126/60 Pulse Oximetry 99 96 96 Oxygen Delivery De thod Room Air Room Air Room Air 01/03/23 23:00 01/04/23 03:00 01/04/23 07:00 Temperature 98 F 97.7 F Pulse Rate [Left R adial] 60 61 Pulse Rate [Pulse Oximeter] 66 Respiratory Rate 18 18 16 Blood Pressure [Ri ght Arm] 146/76 H 159/80 H Pulse Oximetry 96 97 Oxygen Delivery De thod Room Air Room Air 01/04/23 07:00 01/04/23 11:00 Temperature 97.9 F Pulse Rate [Left R adial] Pulse Rate [Pulse Oximeter] 66 60 Respiratory Rate 18 16 Blood Pressure [Ri ght Arm] 147/73 H Pulse Oximetry 97 Oxygen Delivery De thod Room Air
[2023-01-04 15:00] VITALS: BP 134/71; PULSE 64; RESP 16; TEMP 36.8; O2SAT 96
--- NOTE | 2023-01-04 18:32 | PC.NURSE ---
VSS. RA. Some forgetfulness, repeats himself. LS diminshed. Tolerating regular diet, drinking well. Blood sugars well controlled, 2 units ss insulin w/ lunch & 2 units with dinner. Incontinent of bladder- wet brief x3. Pt has not had BM since 12/31, had prune juice w/ breakfast. Smear this evening. Gave dulcolax. Up with assist of 1 & walker, sat in chair a lot of the day. Moves slow. PIV- SL. Spouse visited this afternoon. Will continue to monitor, follow POC, and keep pt and family updated. Maria Victoria Wallace RN
[2023-01-04] MEDS: bisacodyL 5 MG TABLET DR 10 MG PO (19:07)
[2023-01-04 21:38] VITALS: BP 146/81; PULSE 60; RESP 28; TEMP 36.3; O2SAT 96
[2023-01-04] MEDS: ENOXAPARIN 40 MG/0.4 ML INJ SUBCUT (21:49)
[2023-01-05] VITALS (8 sets, daily range): BP systolic 123–152; BP diastolic 54–79; PULSE 60–77; RESP 16–33; TEMP 36.3–37.4; O2SAT 91–98
--- NOTE | 2023-01-05 05:54 | PC.NURSE ---
END OF SHIFT NOTE: PT PLEASANT AND COOPERATIVE. A&O WITH CONFUSION. HX OF DEMENTIA. PT DENIES?CP, SOB, N/V. AMBULATES WITH A1-2/WALKER. VSS ON RA; AFEBRILE. PT INCONTINENT OF BOWEL AND BLADDER. DENIES PAIN. BED ALARM ON AND CALL LIGHT WITHIN PT?S REACH.?
[2023-01-05] MEDS: INSULIN NPH 100 UNIT/ML 24 UNIT SUBCUT (09:28)
[2023-01-05] MEDS: EMPAGLIFLOZIN 10 MG TABLET 25 MG PO (09:29)
[2023-01-05] MEDS: ASPIRIN 81 MG TABLET EC PO (09:29)
[2023-01-05] MEDS: SODIUM CHLORIDE 0.9 % (FLUSH) 10 ML SYRINGE 5 ML IVF ×2 (09:30→20:41)
[2023-01-05] MEDS: EZETIMIBE 10 MG TABLET PO (09:30)
--- NOTE | 2023-01-05 15:06 | PM.IMPN1 ---
Progress Note: A&P Assessment and plan (1) COVID-19: Problem details: -Paxlovid day 4 of 5 -no oxygen -weakness improving Status: Acute (2) Weakness: Problem details: Acute on chronic due to COVID infection. PT and OT to evaluate. Possible discharge when able to ambulate with a walker. Making good progress. Status: Acute (3) Diastolic congestive heart failure: Problem details: Does not appear to be in heart failure at this time. Status: Acute (4) ASCVD (arteriosclerotic cardiovascular disease): Problem details: Currently asymptomatic. Status: Acute (5) Type 2 diabetes mellitus, with long-term current use of insulin: Problem details: According to his he has been having some low sugars. Current regiment for diabetes is NPH insulin 32 units in the morning. Will reduce this dose and provide sliding scale. Status: Acute (6) Cognitive impairment: Problem details: repeats himself. overall improving. Status: Acute Subjective Date Seen: 01/05/23 Interval history: Daily Progress Note - Hospital Medicine Day #: 4 Covid Day: 5, day 4 of Paxlovid Covid symptoms: 01/01 Covid Positive Test: Antigen test positive at [facility] on 01/01 CC: weakness related to Covid OVERNIGHT UPDATES FROM STAFF & MED, LAB, IMAGING UPDATES -continues to improve. Can stand up today, unassisted. - no new symtpoms - met with , bedside. 124/54. Pulse 60. Respirations 16. Afebrile. Room air sats are 97%. Weight 76.6 kilos No new labs since arrival in the ED on 01/02 Objective: Vitals: see above Lungs: Clear. Cardiac: S1S2. Disposition/Potential discharge - Likely to return to previous living situation. Today I spent 50minutes seeing the patient, reviewing Expanse and EPIC notes/diagnostics, discussing the care plan with our care time that includes social work, PT/OT, pharmacy, RT, care home and documenting my impressions and plan in the medical record. Exam Const: Vital Signs, click to edit/add: Vital Signs - 24 hr 01/04/23 21:38 01/04/23 21:38 01/05/23 00:00 Temperature 97.4 F L Pulse Rate [Pulse Oximeter] 60 60 60 Respiratory Rate 28 H 28 H 16 Blood Pressure [Le ft Arm] 131/70 Blood Pressure [Ri ght Arm] 146/81 H Pulse Oximetry 96 95 Oxygen Delivery Me thod Room Air Room Air Oxygen Flow Rate 01/05/23 03:45 01/05/23 07:00 01/05/23 07:00 Temperature 97.9 F Pulse Rate [Pulse Oximeter] 61 65 75 Respiratory Rate 16 18 18 Blood Pressure [Le ft Arm] 135/77 142/76 H Blood Pressure [Ri ght Arm] Pulse Oximetry 95 95 Oxygen Delivery Me thod Room Air Room Air Oxygen Flow Rate 01/05/23 10:55 Temperature 99.3 F Pulse Rate [Pulse Oximeter] 77 Respiratory Rate 33 H Blood Pressure [Le ft Arm] 124/54 L Blood Pressure [Ri ght Arm] Pulse Oximetry 91 Oxygen Delivery Me thod Nasal Cannula Oxygen Flow Rate 1
--- NOTE | 2023-01-05 19:41 | PC.NURSE ---
Nursing Care Hours: [id number] Pt this shift calm and cooperative, alert and oriented with occasional repetitive statements. VSS and on room air. Ax1 with walker and gait belt, walking from recliner to bathroom and back. In morning, pt needed the recliner brought closer as legs were beginning to feel weak. Rest of shift pt able to complete task. Multiple BMs this shift, one large urgent incontinent that leaked from brief. Bilat leg wraps that pt spouse puts on specially needed to be removed. Business Services Manager replaced with tubi director special education and celso wrap without socks until spouse could come with new supplies. Spouse shares that home medication Linzess would have prevented the loose stools. Business Services Manager explained that pharmacy does not carry that medication. Spouse unable to bring it in, pt planning on discharging tomorrow anyway. New Mepilex to coccyx applied. Pt eating and drinking sufficiently.
[2023-01-05] MEDS: ENOXAPARIN 40 MG/0.4 ML INJ SUBCUT (20:40)
[2023-01-06 07:00] VITALS: BP 115/61; PULSE 59; RESP 16; TEMP 35.9; O2SAT 95
--- NOTE | 2023-01-06 07:38 | PC.NURSE ---
END OF SHIFT NOTE: PT PLEASANT AND COOPERATIVE WITH OCCASIONAL CONFUSION. A&O. DENIES CP, SOB, N/V. AMBULATES A1/WALKER. VSS ON RA; AFEBRILE. INCONTINENT. BED ALARM ON AND CALL LIGHT WITHIN PT?S REACH.
[2023-01-06] MEDS: INSULIN NPH 100 UNIT/ML 24 UNIT SUBCUT (08:51)
[2023-01-06] MEDS: ASPIRIN 81 MG TABLET EC PO (08:56)
[2023-01-06] MEDS: EMPAGLIFLOZIN 10 MG TABLET 25 MG PO (08:56)
[2023-01-06] MEDS: EZETIMIBE 10 MG TABLET PO (08:57)
[2023-01-06] MEDS: SODIUM CHLORIDE 0.9 % (FLUSH) 10 ML SYRINGE 5 ML IVF ×2 (08:57→20:59)
--- NOTE | 2023-01-06 12:23 | P.DS_ITS ---
DS: Providers Provider Date Seen: 01/06/23 Date of admission: 01/05/23 14:18 Primary care physician: Not a Local Provider Admitting Clinician: Pia Polanco MD Attending Physician on discharge: Ángel Webb MD Date of Discharge: 01/06/23 DS: Diagnosis Discharge Diagnosis (1) COVID-19: Status: Acute Problem details: -Paxlovid day 4 of 5 -no oxygen -weakness improving (2) Weakness: Status: Acute Problem details: Acute on chronic due to COVID infection. PT and OT to evaluate. Possible discharge when able to ambulate with a walker. Making good progress. (3) Cognitive impairment: Status: Acute Problem details: repeats himself. overall improving. (4) Diastolic congestive heart failure: Status: Acute Problem details: Does not appear to be in heart failure at this time. (5) Type 2 diabetes mellitus, with long-term current use of insulin: Status: Acute Problem details: According to his he has been having some low sugars. Current regiment for diabetes is NPH insulin 32 units in the morning. Will reduce this dose and provide sliding scale. DS: Summary Hospital Course Hospital Course: 87-year-old male admitted to the hospital with acute weakness, inability to walk and acute confusion. Time of admission he was found to have a COVID infection thought to be the cause of his mental status changes and his weakness. He did not have hypoxia or pneumonia. He was treated with Paxlovid which he seemed to tolerate well. He had a good appetite. He made progress with improving strength and was able to walk with his walker independently. On admission his reported that he had been having some hypoglycemia. His diabetes management was NPH 32 units in the morning. This was decreased to 24 units in the morning and over the subsequent 2 days his blood sugars have ranged from 90-208. Status at Discharge Functional status at discharge: uses cane/walker Overall status at discharge: patient is progressing back to baseline Time Spent with Patient Time attestation: Total time spent providing and/or coordinating discharge services: 40 minutes Exam Narrative: Exam Narrative: He is alert and appears in no distress. Speech is normal. He is oriented to his circumstances. Respirations are clear to auscultation. Cardiovascular: S1, S2, relatively regular rhythm. Abdomen is soft without tenderness. Extremities are wrapped with dressings without edema Const: Vital Signs, click to edit/add: Vital Signs - 24 hr 01/05/23 15:00 01/05/23 15:00 01/05/23 19:00 Temperature 97.7 F 97.6 F Pulse Rate [Pulse Oximeter] 64 64 60 Respiratory Rate 18 18 18 Blood Pressure [Le ft Arm] 123/63 138/74 Pulse Oximetry 98 96 Oxygen Delivery Me thod Room Air Room Air 01/05/23 21:30 01/05/23 23:00 01/05/23 23:00 Temperature 97.4 F L Pulse Rate [Pulse Oximeter] 60 60 Respiratory Rate 18 18 18 Blood Pressure [Le ft Arm] 152/79 H Pulse Oximetry 95 Oxygen Delivery Me thod Room Air 01/06/23 07:00 01/06/23 07:00 Temperature 96.7 F L Pulse Rate [Pulse Oximeter] 59 L 59 L Respiratory Rate 16 16 Blood Pressure [Le ft Arm] 115/61 Pulse Oximetry 95 Oxygen Delivery Me thod Room Air Documenting provider has reviewed patient's vital signs: yes Discharge Plan Discharge Disposition: Home, Self-Care Date of Admission: 01/05/23 14:18 Attending Provider on Discharge: Ángel Webb Primary Care Provider: Provider,Not a Local Condition: Stable Anticipated Discharge Date/Time: 01/06/23 10:09 Discharge Medications: New Paxlovid 300 mg (150 mg x 2)-100 mg Tablets,Dose Pack 2 ea PO BID Qty: 30 0RF Continued cyanocobalamin (vitamin B-12) 1,000 mcg/mL solution 1,000 mcg IM Q30D ezetimibe 10 mg tablet 10 mg PO DAILY Jardiance 25 mg tablet 25 mg PO DAILY aspirin 81 mg tablet,delayed release (DR/EC) 81 mg PO DAILY Novolin N FlexPen 100 unit/mL (3 mL) insulin pen 32 unit subcut QAM Linzess 145 mcg capsule 145 mcg PO DAILY acetaminophen 500 mg tablet 1,000 mg PO Q6H PRN bisacodyl 10 mg suppository 10 mg MS DAILY PRN ketoconazole 2 % cream 1 applic topical BID PRN ketoconazole 2 % shampoo 1 applic topical 2XW PRN Held atorvastatin 40 mg tablet 40 mg PO HS Hold Instructions: Resume on 01/10/23. Restart atorvastatin 3 days after finishing paxlovid Discharge Orders: Discharge Order (Routine); Ordered 01/06/23 Ordered By: Ángel Webb Patient Education: Nirmatrelvir/Ritonavir (By mouth) (Paxlovid), COVID-19 (Coronavirus Disease 2019) (DC) Additional Instructions: Finish the 5 day treatment of paxlovid. Do not take atorvastatin until 3 days after finishing Paxlovid Activity Level: Activity as Tolerated and Use Walker Discharge Diet: Diabetic Follow Up Appointments: Provider,Not a Local [Primary Care Provider] - Forms: [employer] Info Instructions
--- NOTE | 2023-01-06 13:14 | PC.SOCIAL ---
Discharge planning: Pt lives at [facility]. Called [facility] and spoke with nurse, Linette, who is aware of recommendation for increased assistance with bathing and dressing. They requested a nurse to nurse call and that pt arrive back by 3:00 today. Called , Codie, who is aware of recommendation for discharge back to [facility] today with bathing and dressing assistance. had questions for MD regarding his level of care and functioning. states pt went for intensive rehab after a hospital stay at [place] and is intetested in exploring if this is needed at this time. MD to call regarding these questions. glassworker to follow up as needed.
[2023-01-06 13:18] LABS: SARS Antigen* POSITIVE (Negative)
--- NOTE | 2023-01-06 14:06 | PC.SOCIAL ---
Discharge planning: is refusing discharge to [facility] requesting short term rehab stay in a fpc facility. is requesting placement in [facility] where pt was for short term rehab after a stay at [facility] in June. Called [facility] [phone] and spoke with staff who confirmed there is availability and requested fax be sent to [phone]. Staff requested director social leave a message for DON as they were unsure about whether they could accept a COVID positive patient. distillery worker general to follow up as needed.
[2023-01-06 15:00] VITALS: BP 137/77; PULSE 60; PULSE 61; RESP 16; TEMP 37; O2SAT 97
[2023-01-06 19:00] VITALS: BP 157/73; PULSE 60; RESP 16; TEMP 35.7; O2SAT 98
--- NOTE | 2023-01-06 19:18 | PC.NURSE ---
End of shift-- Pleasant and cooperative, alert and oriented but forgetful patient. VSS and pt is afebrile. SPO2 maintained >90% on RA. He denied any pain. LS CTA. BS+ x4, he denied nausea and pt is passing flatus. No BM today. He ate 100% of 3 meals today with minor set up and no difficulty. He was up to the BR with SBA and walker and tolerated it well. Nurse to nurse report was given to Katherine at [facility] as it was planned for patient to return there and per her request an antigen COVID test was obtained. Per note from social work, plan has changed and pt will now discharge to rehab facility pending acceptance. Report to Daniella.
[2023-01-06] MEDS: ENOXAPARIN 40 MG/0.4 ML INJ SUBCUT (20:59)
--- NOTE | 2023-01-06 21:47 | PC.NURSE ---
VSS, RA. Denies pain. Tolerating regular diet- 2 units SS insulin w/ dinner, none at bedtime. Encouraged fluids. Void x2, no BM. Up stand-by assist + walker, in chair for dinner. PIV- SL'd. Will continue to monitor, follow POC, and keep pt and family updated. Maria Victoria Wallace RN
[2023-01-06 23:28] VITALS: BP 169/86; PULSE 60; RESP 16; TEMP 36.5; O2SAT 96
[2023-01-06 23:30] VITALS: PULSE 60; PULSE 61; RESP 16
[2023-01-07] VITALS (8 sets, daily range): BP systolic 123–137; BP diastolic 64–74; PULSE 60–65; RESP 16–18; TEMP 36.3–36.5; O2SAT 97–98
--- NOTE | 2023-01-07 02:54 | PC.NURSE ---
Pt rested well this night. Pleasant and cooperative. VSS.
[2023-01-07] MEDS: INSULIN NPH 100 UNIT/ML 24 UNIT SUBCUT (09:37)
[2023-01-07] MEDS: EZETIMIBE 10 MG TABLET PO (09:41)
[2023-01-07] MEDS: EMPAGLIFLOZIN 10 MG TABLET 25 MG PO (09:41)
[2023-01-07] MEDS: ASPIRIN 81 MG TABLET EC PO (09:41)
--- NOTE | 2023-01-07 10:11 | P.IMPN_ITS ---
Progress Note: A&P Assessment and plan (1) COVID-19: Problem details: -Paxlovid day 4 of 5 -no oxygen -weakness improving Status: Acute (2) Weakness: Problem details: Acute on chronic due to COVID infection. PT and OT to evaluate. Possible discharge when able to ambulate with a walker. Making good progress. Status: Acute (3) Cognitive impairment: Problem details: repeats himself. overall improving. Status: Acute (4) Diastolic congestive heart failure: Problem details: Does not appear to be in heart failure at this time. Status: Acute (5) Type 2 diabetes mellitus, with long-term current use of insulin: Problem details: According to his he has been having some low sugars. Current regiment for diabetes is NPH insulin 32 units in the morning. Reduced to 24 units in the morning with blood sugars between 90 and 210 Status: Acute Plan Patient is able to ambulate with a walker but he still needs assistance with toileting and dressing. This is a new deficit or disability. is seeking rehab for evaluation and management of this. Time Spent With Patient Total time spent: Total time spent today is 35 minutes, 25 minutes in coordination of care and discussing with other providers ongoing evaluation management of COVID weakness and confusion. Subjective Date Seen: 01/07/23 Interval history: 87-year-old male admitted to the hospital with acute confusion and weakness. At time of admission he was diagnosed with COVID infection. This was thought to be the cause of his acute deterioration. He has been treated with Paxlovid. Other than mental status changes and generalized weakness he has had no other acute complications attributable to COVID infection. Prior to hospitalization his notes that he has been having low blood sugars. Prior to hospitalization his insulin dosing was NPH 32 units in the morning. Here he has been on NPH 24 units in the morning. Blood sugars are fluctuating between about 90 and 210. He has no symptoms with this. He reports no current symptoms of illness. Specifically denies fever, cough, shortness of breath, chest pain, abdominal pain, nausea, loss of appetite, new bowel or bladder problems. Exam Narrative: Exam Narrative: He is alert and appears in no distress. Speech is normal. Respirations are clear to auscultation. Cardiovascular: S1, S2, regular rate and rhythm. Abdomen is soft without tenderness or mass. Extremities with bilateral knee- high compression bandages Const: Vital Signs, click to edit/add: Vital Signs - 24 hr 01/06/23 15:00 01/06/23 15:00 01/06/23 19:00 Temperature 98.6 F 96.3 F L Pulse Rate [Left R adial] 61 Pulse Rate [Pulse Oximeter] 60 60 60 Respiratory Rate 16 16 16 Blood Pressure [Le ft Arm] 157/73 H Blood Pressure [Ri ght Arm] 137/77 Pulse Oximetry 97 98 Oxygen Delivery Me thod Room Air Room Air 01/06/23 23:28 01/06/23 23:30 01/06/23 23:30 Temperature 97.7 F Pulse Rate [Left R adial] 61 Pulse Rate [Pulse Oximeter] 60 60 Respiratory Rate 16 16 16 Blood Pressure [Le ft Arm] 169/86 H Blood Pressure [Ri ght Arm] Pulse Oximetry 96 Oxygen Delivery Me thod Room Air 01/07/23 02:40 01/07/23 05:01 01/07/23 07:00 Temperature Pulse Rate [Left R adial] Pulse Rate [Pulse Oximeter] 61 Respiratory Rate 18 16 18 Blood Pressure [Le ft Arm] 137/64 Blood Pressure [Ri ght Arm] Pulse Oximetry 97 Oxygen Delivery Me thod Room Air Documenting provider has reviewed patient's vital signs: yes Labs Labs: Laboratory Results - last 24 hr 01/06/23 12:26 SARS-CoV-2 Ag (Rapid) POSITIVE A
--- NOTE | 2023-01-07 11:11 | PC.SOCIAL ---
Discharge planning: is requesting short term rehab placement at [facility] [phone]. section gang worker had talked to staff,faxed information and was awaiting call back yesterday. Called back and left additional message for Nayana requesting call back regarding decision on admission. section gang worker to follow up as needed.
[2023-01-07] MEDS: SODIUM CHLORIDE 0.9 % (FLUSH) 10 ML SYRINGE 5 ML IVF ×2 (17:31→20:56)
--- NOTE | 2023-01-07 19:20 | PC.NURSE ---
Addendum entered by Kaylie Martinez RN 01/07/23 19:54: Paxlovid therapy finished yesterday 01/06, one tab of evening dose found untouched in package. Per pharmacy, ok to discard. Original Note: Nursing Care Hours: [id number] Pt this shift calm and cooperative, alert and oriented to person, month, and place. Incontinent void x4, no BM. VSS on room air. IV patent et SL. SB assist with walker and gait belt, pt able to do most cares for self. Eating and drinking sufficiently. Insulin given per sliding scale. No c/o pain or SOB.
[2023-01-07] MEDS: ENOXAPARIN 40 MG/0.4 ML INJ SUBCUT (20:55)
[2023-01-08] VITALS (7 sets, daily range): BP systolic 130–150; BP diastolic 66–81; PULSE 60–61; RESP 16–18; TEMP 36.5–36.6; O2SAT 96–98
--- NOTE | 2023-01-08 07:26 | PC.NURSE ---
19-: pleasant and cooperative. T&R. Incont, assists with brief changes in bed. VS WNL.
[2023-01-08] MEDS: INSULIN NPH 100 UNIT/ML 24 UNIT SUBCUT (09:04)
[2023-01-08] MEDS: EZETIMIBE 10 MG TABLET PO (09:06)
[2023-01-08] MEDS: EMPAGLIFLOZIN 10 MG TABLET 25 MG PO (09:06)
[2023-01-08] MEDS: ASPIRIN 81 MG TABLET EC PO (09:06)
[2023-01-08] MEDS: SODIUM CHLORIDE 0.9 % (FLUSH) 10 ML SYRINGE 5 ML IVF ×2 (09:07→20:04)
--- NOTE | 2023-01-08 16:47 | PM.IMPN1 ---
Progress Note: A&P Assessment and plan (1) COVID-19: Problem details: Five days of Paxlovid. No hypoxia. Primary manifestation is weakness and acute confusion. Both are much better. Status: Acute (2) Weakness: Problem details: Acute on chronic due to COVID infection. PT and OT to evaluate. Possible discharge when able to ambulate with a walker. Making good progress. Status: Acute (3) Cognitive impairment: Problem details: Likely close to being back to baseline Status: Acute (4) Diastolic congestive heart failure: Problem details: Does not appear to be in heart failure at this time. Status: Acute (5) Type 2 diabetes mellitus, with long-term current use of insulin: Problem details: According to his he has been having some low sugars. Current regiment for diabetes is NPH insulin 32 units in the morning. Reduced to 24 units in the morning with blood sugars between 93 and 160. Reduce insulin to 20 units in the morning and follow Status: Acute Plan Continue in-hospital pending assessment to return home to [facility]. Time Spent With Patient Total time spent: Total time spent today is 45 minutes, 35 minutes in coordination of care and discussing with other providers ongoing evaluation management and discharge planning Subjective Date Seen: 01/08/23 Interval history: 87-year-old male admitted to the hospital with acute confusion and weakness. At time of admission he was diagnosed with COVID infection. This was thought to be the cause of his acute deterioration. He has been treated with Paxlovid. Other than mental status changes and generalized weakness he has had no other acute complications attributable to COVID infection. Prior to hospitalization his notes that he has been having low blood sugars. Prior to hospitalization his insulin dosing was NPH 32 units in the morning. Here he has been on NPH 24 units in the morning. Blood sugars are fluctuating between about 90 and 210. He has no symptoms with this. He reports no current symptoms of illness. Specifically denies fever, cough, shortness of breath, chest pain, abdominal pain, nausea, loss of appetite, new bowel or bladder problems. Patient and physical therapist both report that he is able to walk with a walker independently, get dressed and toilet himself. Exam Narrative: Exam Narrative: He is alert and appears in no distress. Respirations are clear to auscultation. Cardiovascular: S1, S2, regular rate and rhythm. Abdomen: Bowel sounds active. Abdomen is soft without tenderness or mass. No significant edema. Const: Vital Signs, click to edit/add: Vital Signs - 24 hr 01/07/23 20:00 01/07/23 22:55 01/07/23 23:30 Temperature 97.7 F Pulse Rate [Pulse Oximeter] 60 60 Respiratory Rate 16 16 16 Blood Pressure [Le ft Arm] 135/74 Pulse Oximetry 97 Oxygen Delivery Me thod Room Air 01/08/23 06:00 01/08/23 07:49 01/08/23 11:15 Temperature 97.7 F 97.9 F Pulse Rate [Pulse Oximeter] 60 60 Respiratory Rate 18 16 18 Blood Pressure [Le ft Arm] 150/72 H 137/81 Pulse Oximetry 96 96 Oxygen Delivery Me thod Room Air Room Air 01/08/23 15:40 Temperature 97.9 F Pulse Rate [Pulse Oximeter] 61 Respiratory Rate 18 Blood Pressure [Le ft Arm] 138/69 Pulse Oximetry 98 Oxygen Delivery Me thod Room Air Documenting provider has reviewed patient's vital signs: yes
--- NOTE | 2023-01-08 16:56 | PC.SOCIAL ---
Discharge planning: Called regarding discharge plan. Informed that per therapy, pt is back at baseline and will not meet criteria for short term [facility]ci rehab as he has been receiving rehab at the hospital daily and has made significant progress recently. questioned this and states she agrees to pt returning to [facility] assisted living only if the [facility] nurse does an assessment and determines that he is back to baseline and will not need any additional assistance there at discharge. When offered out-pt or home PT, states it is not going to be helpful in his environment and she is not interested in this being arranged. Shared by phone Important Notice From Medicare and reminded of right to appeal discharge if she feels pt is being discharged too early. states she wants the input of [facility] nurse regarding discharge plan. Called [facility] and spoke with nurse, Nahomy, who has spoken with . Nahomy states she will visit pt in the hospital tomorrow morning at 8:30 to assess his level of functioning to determine if he can return to [facility] without needing increased services. Secure emailed MD, PT/OT and nursing notes to Nahomy for assessment of pt's return to [facility]. carnival worker to follow up as needed.
--- NOTE | 2023-01-08 18:16 | PC.NURSE ---
Pt alert to self and place. Pt had no complaints of pain. Pt SBA with walker and gait belt. Pt?s spouse wraps Pt?s legs and does not want staff to unwrap or rewrap; BLE edema. RN from [facility] to assess Pt in am on 01/09.?
[2023-01-08] MEDS: ENOXAPARIN 40 MG/0.4 ML INJ SUBCUT (20:03)
[2023-01-09] VITALS (7 sets, daily range): BP systolic 126–152; BP diastolic 68–83; PULSE 60–64; RESP 16–18; TEMP 36.3–36.5; O2SAT 96–99
--- NOTE | 2023-01-09 05:47 | PC.NURSE ---
END OF SHIFT NOTE: PT IS PLEASANTLY CONFUSED. A&O TO SELF AND PLACE. DENIES CP, SOB, N/V. AMBULATES WITH SBA/WALKER. INCONTINENT OF BLADDER. T&R @HS. UNEVENTFUL NIGHT. VSS ON RA; AFEBRILE. BED ALARM ON AND CALL LIGHT WITHIN PT REACH.
[2023-01-09] MEDS: INSULIN NPH 100 UNIT/ML 20 UNIT SUBCUT (08:00)
[2023-01-09] MEDS: ASPIRIN 81 MG TABLET EC PO (08:09)
[2023-01-09] MEDS: EMPAGLIFLOZIN 10 MG TABLET 25 MG PO (08:09)
[2023-01-09] MEDS: SODIUM CHLORIDE 0.9 % (FLUSH) 10 ML SYRINGE 5 ML IVF ×2 (08:09→21:29)
[2023-01-09] MEDS: EZETIMIBE 10 MG TABLET PO (08:10)
--- NOTE | 2023-01-09 14:37 | PC.SOCIAL ---
[facility] for [facility] to return. Nahomy states they can meet pt's needs at [facility] with increasing care for check in morning and night for a few days. Nahomy spoke with regarding her assessment and called back to manager social media at request of the to state that she wants retirement rehab at discharge and does not want pt to return to [facility] with increased services. Per Nahomy, agrees to placement at [facility] if accepted. Called [facility] and faxed information for evaluation for admit. Received call back stating they can accept pt on Friday, 10 days post COVID positive test at [facility]. Stacie at [facility] to check insurance coverage and confirm coverage tomorrow. Called [facility] and spoke with Kristin who has already received the referral as requested by on Friday. They are assessing pt for admit and will call with decision. Per Nahomy at [facility], is not available to be contacted regarding discharge plans today and will receive a call with update tomorrow. hospitality workers to follow up as needed.
--- NOTE | 2023-01-09 17:50 | PM.IMPN1 ---
Progress Note: A&P Assessment and plan (1) COVID-19: Problem details: Five days of Paxlovid. No hypoxia. Primary manifestation is weakness and acute confusion. Both are much better. Status: Acute (2) Weakness: Problem details: Acute on chronic due to COVID infection. PT and OT to evaluate. Possible discharge when able to ambulate with a walker. Making good progress. Status: Acute (3) Cognitive impairment: Problem details: Likely close to being back to baseline Status: Acute (4) Diastolic congestive heart failure: Problem details: Does not appear to be in heart failure at this time. Status: Acute (5) Type 2 diabetes mellitus, with long-term current use of insulin: Problem details: According to his he has been having some low sugars. Current regiment for diabetes is NPH insulin 32 units in the morning. Reduced to 20 units in the morning with blood sugars between 137 and 234. Adjust insulin to 22 units in the morning. Status: Acute Plan Continuing in hospital for appropriate discharge plan Time Spent With Patient Total time spent: Total time spent is 45 minutes, 40 minutes in coordination of care and discussing with patient, other providers and geriatric social work professor plan of disposition Subjective Date Seen: 01/09/23 Interval history: 87-year-old male admitted to the hospital with acute confusion and weakness. At time of admission he was diagnosed with COVID infection. This was thought to be the cause of his acute deterioration. He has been treated with Paxlovid. Other than mental status changes and generalized weakness he has had no other acute complications attributable to COVID infection. Prior to hospitalization his notes that he has been having low blood sugars. Prior to hospitalization his insulin dosing was NPH 32 units in the morning. Here he has been on NPH 24 units in the morning. Blood sugars are fluctuating between about 90 and 210. He has no symptoms with this. He reports no current symptoms of illness. Specifically denies fever, cough, shortness of breath, chest pain, abdominal pain, nausea, loss of appetite, new bowel or bladder problems. Patient and physical therapist both report that he is able to walk with a walker independently, get dressed and toilet himself. He had evaluation by staff at [facility] who recommended some increase in Services, primarily checking on him in the morning. His is interested in custodial facility for rehab stay Exam Narrative: Exam Narrative: He is alert, pleasant and in no distress. He is oriented to his circumstances. Respirations are clear to auscultation. Cardiovascular: S1, S2, regular rate and rhythm. No murmur gallop or rub. Abdomen is soft without tenderness or mass. Const: Vital Signs, click to edit/add: Vital Signs - 24 hr 01/08/23 19:55 01/08/23 20:00 01/08/23 23:30 Temperature 97.7 F Pulse Rate [Pulse Oximeter] 60 60 Respiratory Rate 18 18 16 Blood Pressure [Le ft Arm] Blood Pressure [Ri ght Arm] 130/66 Pulse Oximetry 96 Oxygen Delivery Me thod Room Air 01/09/23 06:00 01/09/23 07:50 01/09/23 11:29 Temperature 97.5 F L 97.5 F L Pulse Rate [Pulse Oximeter] 63 64 Respiratory Rate 18 16 18 Blood Pressure [Le ft Arm] 132/74 138/83 Blood Pressure [Ri ght Arm] Pulse Oximetry 96 99 Oxygen Delivery Me thod Room Air Room Air 01/09/23 15:40 Temperature 97.7 F Pulse Rate [Pulse Oximeter] 60 Respiratory Rate 18 Blood Pressure [Le ft Arm] 139/68 Blood Pressure [Ri ght Arm] Pulse Oximetry 98 Oxygen Delivery Me thod Room Air Documenting provider has reviewed patient's vital signs: yes
--- NOTE | 2023-01-09 18:47 | PC.NURSE ---
Pt alert to self and place. Pt had no complaints of pain. Pt independent in room with walker. VSS.?
[2023-01-09] MEDS: ENOXAPARIN 40 MG/0.4 ML INJ SUBCUT (21:28)
--- NOTE | 2023-01-09 22:46 | PC.NURSE ---
End of shift nursing note, care provided from [id number]: Pt alert and oriented to questions this evening, pleasant, cooperative. Pt ind in room, pt states he feels stronger than days prior, denies pain. Vitals stable, on RA. Briefs in room for incontinence PRN. Tolerating diet, drinking fluids. Blood glucose 163, 2 units SSI admin per order. Pt has call light within reach and uses appropriately.
[2023-01-10 04:40] VITALS: BP 146/76; PULSE 60; RESP 16; TEMP 36.3; O2SAT 97
[2023-01-10 05:44] VITALS: RESP 16
--- NOTE | 2023-01-10 06:42 | PC.NURSE ---
Shift note [id number]: Pt is alert and oriented x3. Afebrile. Pt denies, pain, chest pain, SOB and N/V. Pt is up ad augie in room with walker. Pt slept throughout most of night. Night uneventful.???
[2023-01-10 07:30] VITALS: BP 153/75; PULSE 67; PULSE 71; RESP 16; RESP 18; TEMP 36.3; O2SAT 96
[2023-01-10] MEDS: EZETIMIBE 10 MG TABLET PO (09:17)
[2023-01-10] MEDS: ASPIRIN 81 MG TABLET EC PO (09:17)
[2023-01-10] MEDS: EMPAGLIFLOZIN 10 MG TABLET 25 MG PO (09:17)
[2023-01-10] MEDS: SODIUM CHLORIDE 0.9 % (FLUSH) 10 ML SYRINGE 5 ML IVF (09:18)
[2023-01-10] MEDS: INSULIN NPH 100 UNIT/ML 22 UNIT SUBCUT (09:38)
[2023-01-10 10:27] VITALS: BMI 21.4
--- NOTE | 2023-01-10 10:54 | P.IMPN_ITS ---
Progress Note: A&P Assessment and plan (1) COVID-19: Problem details: Five days of Paxlovid. No hypoxia. Primary manifestation is weakness and acute confusion. Both are much better. 01/10: completed paxlovid therapy; PT and OT feel patient does not require SNF/TCU for inpatient rehab; discussed with PT recommending [facility] for PT she feels he would benefit from short term rehab, she will be contacting for Medicare appeal of discharge larisa here in hospital till Friday for decision on appeals process Status: Acute (2) Cognitive impairment: Problem details: Likely close to being back to baseline Status: Acute (3) Diastolic congestive heart failure: Problem details: Does not appear to be in heart failure at this time. Status: Acute (4) Type 2 diabetes mellitus, with long-term current use of insulin: Problem details: According to his he has been having some low sugars. Current regiment for diabetes is NPH insulin 32 units in the morning. Reduced to 20 units in the morning with blood sugars between 137 and 234. Adjust insulin to 22 units in the morning. 01/10: AM glucose 97 units in the morning will decrease NPH 18 units Status: Acute (5) DNR (do not resuscitate): Status: Acute Subjective Date Seen: 01/10/23 Interval history: patient new to [place] patient remains in good spirits denies sob, cough cleared by PT for PT HHC discussed with patient's she feels he would benefit from short term rehab, she will be contacting for Medicare appeal of discharge Exam Narrative: Exam Narrative: Gen: no acute distress HEENT: NCAT EOMI mmm CV: RRR normal s1 s2 Lungs: CTAB Abd: Soft,nt, nd Neuro: Alert, nonfocal screening?exam Psych: appropriate affect MSK: age appropriate muscle mass Skin; Warm, dry no rash on face Const: Vital Signs, click to edit/add: Vital Signs - 24 hr 01/09/23 11:29 01/09/23 15:40 01/09/23 20:10 Temperature 97.5 F L 97.7 F 97.6 F Pulse Rate [Pulse Oximeter] 64 60 60 Respiratory Rate 18 18 18 Blood Pressure [Le ft Arm] 138/83 139/68 126/76 Pulse Oximetry 99 98 98 Oxygen Delivery Me thod Room Air Room Air Room Air Oxygen Flow Rate 0 01/10/23 04:40 01/10/23 05:44 01/10/23 07:30 Temperature 97.4 F L 97.4 F L Pulse Rate [Pulse Oximeter] 60 67 Respiratory Rate 16 16 16 Blood Pressure [Le ft Arm] 146/76 H 153/75 H Pulse Oximetry 97 96 Oxygen Delivery Me thod Room Air Room Air Oxygen Flow Rate 0
[2023-01-10 12:00] VITALS: BP 135/71; PULSE 78; RESP 18; TEMP 36.6; O2SAT 97
--- NOTE | 2023-01-10 12:37 | P.DS_ITS ---
DS: Providers Provider Date Seen: 01/10/23 Date of admission: 01/05/23 14:18 Primary care physician: Not a Local Provider Admitting Clinician: Pia Polanco MD Consults: 01/03/23 09:35 Consult to Physical Therapy [CONS] Routine Comment: Reason(s) for PT Consult:: Weakness Any Restrictions?:: No Restrictions Comment: Weakness due to COVID 01/03/23 10:18 Consult to Occupational Therapy [CONS] Routine Comment: Reason(s) for OT Consult:: Evaluate and Treat Any Restrictions?:: No Restrictions Consult to Physical Therapy [CONS] Routine Comment: Reason(s) for PT Consult:: Evaluate and Treat Any Restrictions?:: No Restrictions Attending Physician on discharge: Frank Prado Date of Discharge: 01/10/23 DS: Diagnosis Discharge Diagnosis (1) COVID-19: Status: Acute Problem details: Five days of Paxlovid. No hypoxia. Primary manifestation is weakness and acute confusion. Both are much better. 01/10: completed paxlovid therapy; PT and OT feel patient does not require SNF/TCU for inpatient rehab; discussed with PT recommending HHC for PT discharging back to [place] with HHC PT (2) Weakness: Status: Acute Problem details: Acute on chronic due to COVID infection. PT and OT evaluation completed (3) Diastolic congestive heart failure: Status: Acute Problem details: Does not appear to be in heart failure at this time. (4) Type 2 diabetes mellitus, with long-term current use of insulin: Status: Acute Problem details: According to his he has been having some low sugars. Current regiment for diabetes is NPH insulin 32 units in the morning. Reduced to 20 units in the morning with blood sugars between 137 and 234. Adjust insulin to 22 units in the morning. (5) Cognitive impairment: Status: Acute Problem details: Likely close to being back to baseline (6) DNR (do not resuscitate): Status: Acute DS: Summary Hospital Course Hospital Course: 87-year-old male admitted to the hospital with acute weakness, inability to walk and acute confusion. Time of admission he was found to have a COVID infection thought to be the cause of his mental status changes and his weakness. He did not have hypoxia or pneumonia. He was treated with Paxlovid which he seemed to tolerate well. Time Spent with Patient Time attestation: Total time spent providing and/or coordinating discharge services: Exam Narrative: Exam Narrative: Gen: no acute distress HEENT: NCAT EOMI mmm CV: RRR normal s1 s2 Lungs: CTAB Abd: Soft,nt, nd Neuro: Alert, nonfocal screening?exam Psych: appropriate affect MSK: age appropriate muscle mass Skin; Warm, dry no rash on face Const: Vital Signs, click to edit/add: Vital Signs - 24 hr 01/09/23 15:40 01/09/23 20:10 01/10/23 04:40 Temperature 97.7 F 97.6 F 97.4 F L Pulse Rate [Pulse Oximeter] 60 60 60 Respiratory Rate 18 18 16 Blood Pressure [Le ft Arm] 139/68 126/76 146/76 H Pulse Oximetry 98 98 97 Oxygen Delivery Me thod Room Air Room Air Room Air Oxygen Flow Rate 0 01/10/23 05:44 01/10/23 07:30 Temperature 97.4 F L Pulse Rate [Pulse Oximeter] 67 Respiratory Rate 16 16 Blood Pressure [Le ft Arm] 153/75 H Pulse Oximetry 96 Oxygen Delivery Me thod Room Air Oxygen Flow Rate 0 Discharge Plan Discharge Disposition: Home, Self-Care Date of Admission: 01/05/23 14:18 Attending Provider on Discharge: Ángel Webb Primary Care Provider: Provider,Not a Local Condition: Stable Anticipated Discharge Date/Time: 01/06/23 10:09 Discharge Medications: Continued atorvastatin 40 mg tablet 40 mg PO HS Hold Instructions: Resume on 01/10/23. Restart atorvastatin 3 days after finishing paxlovid cyanocobalamin (vitamin B-12) 1,000 mcg/mL solution 1,000 mcg IM Q30D ezetimibe 10 mg tablet 10 mg PO DAILY Jardiance 25 mg tablet 25 mg PO DAILY aspirin 81 mg tablet,delayed release (DR/EC) 81 mg PO DAILY Linzess 145 mcg capsule 145 mcg PO DAILY acetaminophen 500 mg tablet 1,000 mg PO Q6H PRN bisacodyl 10 mg suppository 10 mg VA DAILY PRN ketoconazole 2 % cream 1 applic topical BID PRN ketoconazole 2 % shampoo 1 applic topical 2XW PRN Changed Novolin N FlexPen 100 unit/mL (3 mL) insulin pen 20 unit subcut QAM Qty: 15 0RF Discharge Orders: Discharge Order (Routine); Ordered 01/10/23 Ordered By: Frank Prado Patient Education: COVID-19 (Coronavirus Disease 2019) (DC) Activity Level: Activity as Tolerated and Use Walker Discharge Diet: Diabetic Follow Up Appointments: Provider,Not a Local [Primary Care Provider] - (please follow up with PCP in 3- 5 days for post hospital follow up) Forms: [employer] Info Instructions
--- NOTE | 2023-01-10 16:39 | PC.SOCIAL ---
Discharge planning: Per healthcare team, pt no longer meets criteria for Medicare covered short term rehab stay and can return to [facility] assisted living at discharge today. Received a call from [facility] stating wants pt to return to [facility] today instead of going to a custodial. Called who confirms she wants pt to return to [facility] and wants home care with [facility] arranged to start next week for PT. Again, shared information on the Important Message from Medicare and her right to appeal pt's discharge and secure emailed the form to her at her request. states she is not going to appeal discharge and wants pt to return to [facility] today. called back later to confirm she will pick pt up at 3:00 today for admission [facility]. Face to face for home health PT faxed to [facility] at 's request and confirmed PT will start at [facility] on Friday01/13/23.
--- NOTE | 2023-01-10 17:59 | PC.NURSE ---
PATIENT DENIED PAIN AND TOLERATING REGULAR DIET WITH NO C/O N/V. UP WITH SBA AND WALKER TO BATHROOM. INC OF URINE. MAINTAINING O2 SATS 93-96%RA. SALINE LOCK D'D. REVIEWED DC INSTRUCTIONS WITH PATIENT AND . PATIENT DC'D TO [facility] VIA .
== END 2023-01-10 15:15 | disposition home or self-care (01) | DRG 178 ==
LOC: ED 12:08 → MEDSURG 12:10
PROVIDERS: Admitting Provider Family Medicine; Emergency Provider Family Medicine; Visit Provider Family Medicine
DX: U07.1 COVID-19 (principal); I13.0 Hypertensive heart and chronic kidney disease with heart failure and stage 1 through stage 4 chronic kidney disease, or unspecified chronic kidney disease; I50.32 Chronic diastolic (congestive) heart failure; I50.30 Unspecified diastolic (congestive) heart failure; R53.1 Weakness; E11.40 Type 2 diabetes mellitus with diabetic neuropathy, unspecified; E11.51 Type 2 diabetes mellitus with diabetic peripheral angiopathy without gangrene; E11.319 Type 2 diabetes mellitus with unspecified diabetic retinopathy without macular edema; E11.21 Type 2 diabetes mellitus with diabetic nephropathy; E11.22 Type 2 diabetes mellitus with diabetic chronic kidney disease; N18.2 Chronic kidney disease, stage 2 (mild); G31.84 Mild cognitive impairment of uncertain or unknown etiology; E53.8 Deficiency of other specified B group vitamins; Z79.4 Long term (current) use of insulin; E78.5 Hyperlipidemia, unspecified; I70.0 Atherosclerosis of aorta; I25.10 Atherosclerotic heart disease of native coronary artery without angina pectoris; Z95.2 Presence of prosthetic heart valve; Z95.0 Presence of cardiac pacemaker; Z85.46 Personal history of malignant neoplasm of prostate
CPT/HCPCS: 36415; 71045; 80053; 82803; 82962; 83605; 84484; 85025; 86140; 87426; 87635; 93005; 94761; 97110; 97116; 97161; 97165; 97530; 97535; 99284; 99285; A0425; A0427; A9270; G0378; J1650

== ENCOUNTER 2023-01-29 11:53 | Outpatient (CLI) | payer OTHER, SELFPAY | END 2023-01-29 11:54 | disposition home or self-care (01) | LOC: AMB 02-01 16:27 | PROVIDERS: Visit Provider Student in an Organized Health Care Education/Training Program | DX: R53.1 Weakness (principal) | CPT/HCPCS: A0998 ==

== ENCOUNTER 2023-02-06 14:39 | Outpatient (CLI) | payer OTHER, SELFPAY | END 2023-02-06 14:40 | disposition home or self-care (01) | LOC: AMB 02-07 12:27 | PROVIDERS: Visit Provider Student in an Organized Health Care Education/Training Program | DX: R53.1 Weakness (principal) | CPT/HCPCS: A0998 ==

== ENCOUNTER 2023-03-21 14:34 | Observation (INO) | payer OTHER, SELFPAY ==
[2023-03-21 14:48] VITALS: BP 166/91; PULSE 98; RESP 18; TEMP 37.2; O2SAT 96
--- NOTE | 2023-03-21 15:30 | CRLHL7_ITS ---
For Patients: As a result of the Cures Act, medical imaging exams and procedure reports are released immediately into your electronic medical record. You may view this report before your referring provider. If you have questions, please contact your health care provider. INDICATION: Chest pain. TECHNIQUE: Chest 2 views. COMPARISON: Chest radiograph on January 02, 2023 FINDINGS: Cardiovascular and mediastinum: Heart size and vasculature are normal in caliber and appearance. 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 Lungs and pleural spaces: Lungs are clear. No sign of infiltrate or mass. No sign of pleural effusion. No pneumothorax. Bones and soft tissues: No significant findings. IMPRESSION: No acute cardiopulmonary process. Dictated by Frankie Ridley MD @ 03/21/2023 4:56:00 PM (Electronically Signed)
--- NOTE | 2023-03-21 15:31 | ED_ITS ---
HPI - General Adult General Date Seen: 03/21/23 Chief complaint: Weakness Stated complaint: Weakness Time Seen by Provider: 03/21/23 15:01 History of Present Illness HPI narrative: This is a very pleasant 87-year-old male who was brought to the ER today from his assisted living by EMS for evaluation after for generalized weakness after he slipped and fell off the toilet today. 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 He has a past medical history including diastolic CHF, diabetes (on NovoLog, has CGM), diabetic retinopathy, hyperlipidemia, peripheral artery disease. He has advanced directives indicates that he does not want resuscitation. He reports that he has intermittent episodes of left leg weakness dating back months to years. He says they started a long time ago when he had an accidental slip and fall on his left side. Says some days his left leg is weaker than others. He also has a trouble with chronic constipation. He had gone at least 3 days at home without having had a bowel movement. He has also had a cough that started yesterday perhaps 2 days ago. He says actually the cough is getting better today than it was yesterday. He has not had a fever. No shortness of breath. No chest pain. No nausea or vomiting. He was feeling very weak yesterday, and the weakness was worse in his left leg than the rest of his body which is typical for him) and was feeling run down. This morning he was still having a mild cough but getting better. He was still weak but not as weak as yesterday. He went to the bathroom and had a large bowel movement while sitting on the toilet. While on the toilet he got weak and could not get up. He slid off the toilet onto the floor. He was not injured when he fell. He does not have any pain. However because of his weakness, he was sent here to the ER. EMS indicates that he was tested for COVID and influenza by his assisted facility staff today and the results came back negative for both just prior to them leaving the facility. His blood sugar is 263 according to his glucose monitor. At this time he has no complaints. He says he is not having any pain. No trouble breathing. He says he does feel a little bit weak but overall is feeling stronger today than yesterday. Related Data Home Medications Medication Instructions Recorded Confirmed acetaminophen 500 mg tablet 1,000 mg PO Q6H PRN 01/02/23 01/02/23 aspirin 81 mg tablet,delayed 81 mg PO DAILY 01/02/23 01/02/23 release atorvastatin 40 mg tablet 40 mg PO HS 01/02/23 01/02/23 bisacodyl 10 mg rectal suppository 10 mg ID DAILY PRN 01/02/23 01/02/23 cyanocobalamin (vitamin B-12) 1,000 mcg IM Q30D 01/02/23 01/02/23 1,000 mcg/mL injection solution empagliflozin 25 mg tablet 25 mg PO DAILY 01/02/23 01/02/23 (Jardiance) ezetimibe 10 mg tablet 10 mg PO DAILY 01/02/23 01/02/23 ketoconazole 2 % shampoo 1 applic topical 2XW PRN 01/02/23 01/02/23 ketoconazole 2 % topical cream 1 applic topical BID PRN 01/02/23 01/02/23 linaclotide 145 mcg capsule 145 mcg PO DAILY 01/02/23 01/02/23 (Linzess) Previous Rx's Medication Instructions Recorded insulin NPH isoph U-100 human 100 20 unit (0.2 mL) subcut QAM #15 mL 01/10/23 unit/mL (3 mL) subcutaneous pen (Novolin N FlexPen) Allergies Allergy/AdvReac Type Severity Reaction Status Date / Time No Known Drug Allergies Allergy Verified 03/21/23 14:56 [facility] Medical History (Updated 03/21/23 @ 17:51 by Lazaro Abdullahi MD) POLST (Physician Orders for Life-Sustaining Treatment) ?Z78.9 - Other specified health status (ICD-10) Cognitive impairment ?R41.89 - Other symptoms and signs involving cognitive functions and awareness (ICD-10) Diastolic congestive heart failure ?I50.30 - Unspecified diastolic (congestive) heart failure (ICD-10) History of osteomyelitis ?Z87.39 - Personal history of other diseases of the musculoskeletal system and connective tissue (ICD-10) Diabetic retinopathy ?E11.319 - Type 2 diabetes mellitus with unspecified diabetic retinopathy without macular edema (ICD-10) Hyperlipidemia ?E78.5 - Hyperlipidemia, unspecified (ICD-10) ASCVD (arteriosclerotic cardiovascular disease) ?I25.10 - Atherosclerotic heart disease of [place] coronary artery without angina pectoris (ICD-10) History of prostate cancer ?Z85.46 - Personal history of malignant neoplasm of prostate (ICD-10) Adenomatous polyps ?D36.9 - Benign neoplasm, unspecified site (ICD-10) B12 deficiency ?E53.8 - Deficiency of other specified B group vitamins (ICD-10) Peripheral arterial disease ?I73.9 - Peripheral vascular disease, unspecified (ICD-10) DNR (do not resuscitate) ?Z66 - Do not resuscitate (ICD-10) Diabetic nephropathy ?E11.21 - Type 2 diabetes mellitus with diabetic nephropathy (ICD-10) Primary hypertension ?I10 - Essential (primary) hypertension (ICD-10) Type 2 diabetes mellitus, with long-term current use of insulin ?E11.9 - Type 2 diabetes mellitus without complications (ICD-10) ?Z79.4 - parts counterman (current) use of insulin (ICD-10) Surgical History (Updated 01/02/23 @ 18:05 by Ángel Webb MD) H/O radical prostatectomy ?Z90.79 - Acquired absence of other genital organ(s) (ICD-10) History of cardiac pacemaker ?Z95.0 - Presence of cardiac pacemaker (ICD-10) History of aortic valve replacement ?Z95.2 - Presence of prosthetic heart valve (ICD-10) Amputated toe of left foot ?S98.132A - Complete traumatic amputation of one left lesser toe, initial encounter (ICD-10) Social History (Updated 01/02/23 @ 18:06 by Ángel Webb MD) Narrative: He lives at [facility]. He walks with a walker. Is relatively independent there. He is here today with his . She works at [employer]. 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 Does not drink alcohol. He does not smoke cigarettes. Code status is DNR DNI What is your current living situation?: I presently have a place to live Problems where you live: no known problems Problems where you live details: na In the past 12 months, utilities in danger of being shut off: no In past 12 months, lack of transportation kept you from medical appts, meetings, work, or getting things needed for daily living: no In the past 12 mos, have been you worried that your food would run out before you had money to buy more?: never true In the past 12 mos, the food you bought just didn't last and you didn't have money to buy more?: never true Highest level of school completed/degree received: Doctoral degree Smoking Status: Never smoker Second hand tobacco smoke exposure: No How often do you have a drink containing alcohol: never AUDIT-C Alcohol total score: 0 Non-prescribed substance use: denies use Caffeine: Yes (coffee) How often does anyone, including family, friends and others, physically hurt you : never How often does anyone, including family, friends and others, insult or talk down to you: never How often does anyone, including family, friends and others, threaten you with harm: never How often does anyone, including family, friends and others, scream or curse at you: never service: No Exam Narrative: Exam Narrative: Constitutional: Appears well-developed and well-nourished. Alert. Conversant, but a bit of a confusing historian. I have to her go over things a few times of them to get the chronology of his cough and stool and weakness correct. He is good humored. Non toxic. HENT: Head: Atraumatic. Nose: Nose normal. Mouth/Throat: Oral mucosa is clear and moist. no trismus. Pharynx normal. Tonsils symmetric. No tonsillar enlargement, erythema, or exudate. Eyes: Conjunctivae normal. EOM normal. Pupils equal, round, and reactive to light. No scleral icterus. Neck: Normal range of motion. Neck supple. No tracheal deviation present. Cardiovascular: Normal rate, regular rhythm. No gallop. No friction rub. No murmur heard. Symmetric radial artery pulses Pulmonary/Chest: Effort normal. No stridor. No respiratory distress. No wheezes. No rales. No rhonchi . No tenderness. Abdominal: Soft. Bowel sounds normal. No distension. No mass. No tenderness. No rebound. No guarding. Musculoskeletal: No T or L-spine tenderness. Pelvis stable. RUE: Normal range of motion. No tenderness. No deformity LUE: Normal range of motion. No tenderness. No deformity RLE: Normal range of motion. No edema. No tenderness. No deformity LLE: Normal range of motion. No edema. He has a superficial abrasion on his left anterior knee. No bony tenderness of the patella, distal femur, fibula, tibia. Normal range of motion. Mild discomfort with flexion. No tenderness. No deformity He has Donald wraps around both lower extremities and ankles. Lymph: No cervical adenopathy. Neurological: Alert and oriented to person, place, and time. Normal strength. CN II-VII intact. No sensory deficit. GCS eye subscore is 4. GCS verbal subscore is 5. GCS motor subscore is 6. Normal coordination Skin: Skin is warm and dry. No rash noted. No pallor. Normal capillary refill. Psychiatric: Normal mood. Normal affect. Const: Vital Signs, click to edit/add: Vital Signs - 24 hr 03/21/23 14:48 Temperature 98.9 F Pulse Rate [Right Pulse Oximeter] 98 Respiratory Rate 18 Blood Pressure [Ri ght Upper Arm] 166/91 H Pulse Oximetry 96 Oxygen Delivery Me thod Room Air Course Vital Signs Vital signs: Initial Vital Signs Temperature 98.9 F 03/21/23 14:48 Temperature Source Temporal Artery Scan 03/21/23 14:48 Pulse Rate 98 03/21/23 14:48 Respiratory Rate 18 03/21/23 14:48 Blood Pressure 166/91 H 03/21/23 14:48 Blood Pressure Mean 116 H 03/21/23 14:48 Blood Pressure Position Sitting 03/21/23 14:48 Pulse Oximetry 96 03/21/23 14:48 Oxygen Delivery Method Room Air 03/21/23 14:48 Vital Signs Temperature 98.9 F 03/21/23 14:48 Pulse Rate 98 03/21/23 14:48 Respiratory Rate 18 03/21/23 14:48 Blood Pressure 166/91 H 03/21/23 14:48 Pulse Oximetry 96 03/21/23 14:48 Oxygen Delivery Method Room Air 03/21/23 14:48 Temperature 98.9 F 03/21/23 14:48 Pulse Rate 98 03/21/23 14:48 Respiratory Rate 18 03/21/23 14:48 Blood Pressure 166/91 H 03/21/23 14:48 Pulse Oximetry 96 03/21/23 14:48 Oxygen Delivery Method Room Air 03/21/23 14:48 Medications Administered Medications: Discontinued Medications Generic Name Dose Route Start Last Admin Trade Name Freq PRN Reason Stop Dose Admin Sodium Chloride 1,000 mls @ 1,000 mls/hr 03/21/23 15:30 03/21/23 16:16 0.9 % Sodium Chloride 1000 Ml IV 03/21/23 16:29 1,000 mls/hr .Q1H CALE Administration Medical Decision Making MDM Narrative Medical decision making narrative: 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 He has generalized weakness that has worsened his left leg than his right. Initial concern was for possible acute stroke affecting his left leg. However, patient says that his left leg is always a bit weaker than his right and has been so for months to years. This is really not an acute focal neurologic deficits therefore will not pursue a stroke workup here in the ER today. He has had a cough and URI illness since yesterday. He was tested prior to coming in for coronavirus and influenza and was negative for both. We did obtain a chest x-ray to look for pneumonia and it is negative. After discussion with hospitalist we will double check a PCR based COVID/influenza/RSV test here in the ER today. Patient actually says his cough and his overall weakness was worse yesterday that and he is getting better today. He does have a tendency toward constipation and today he was passing a very large bowel movement on the toilet before he slipped off. He is not having any abdominal pain. No diarrhea or vomiting to suggest GI illness. He did clinically look a bit dehydrated. IV fluids administered. Blood pressure was stable at arrival and throughout. He did have some mild pain in his left knee that he injured when falling off the toilet. X-rays are negative for any acute fracture. No evidence for any other ligamentous injury to the knee at this time. Patient was not successful an ambulation trial. He is strong enough to stand the bedside and does not have any focal weakness of his left leg but he is not able to ambulate more than 2 very small steps. He is clearly not steady enough for strong enough to discharge home. He will be admitted to the hospitalist service under obstetrics for treatment of his generalized weakness and URI. Discussed with Dr. Webb at 5:50 p.m. and he graciously accepts the admission. Lab Data Labs: Lab Results 03/21/23 Range/Units 16:10 WBC 5.78 (4.50-11.00) K/uL RBC 5.49 (4.30-5.90) m/uL Hgb 15.3 (13.5-17.5) gm/dL Hct 48.5 (37.0-53.0) % MCV 88 (80-100) fL MCH 28 (26-34) pg MCHC 32 (32-36) gm/dL RDW Coeff of [place] 14.4 (11.5-15.5) % Plt Count 186 (140-440) K/uL Neut % (Auto) 70.7 (42.0-72.0) % Lymph % (Auto) 11.2 L (20-44) % [place] % (Auto) 17.1 H (0.0-11.0) % Eos % (Auto) 0.5 (0.0-7.0) % Baso % (Auto) 0.3 (0.0-3.0) % Neut # (Auto) 4.08 (1.7-7.0) K/uL Lymph # (Auto) 0.60 L (0.90-2.90) K/uL [place] # (Auto) 1.00 H (0.00-0.90) K/UL Eos # (Auto) 0.03 (0.00-0.50) K/uL Baso # (Auto) 0.02 (0.00-0.30) K/uL Abs Immat Gran (auto) 0.01 (0.00-0.30) K/uL Imm/Tot Granulo (auto) 0.2 % Sodium 136 (135-149) mmol/L Potassium 4.4 (3.6-5.1) mmol/L Chloride 99 (96-114) mmol/L Carbon Dioxide 23 (20-32) mmol/L Anion Gap 14 (7-15) mEq/L BUN 29 (7-30) mg/dL Creatinine 1.1 (0.5-1.5) mg/dL Estimated GFR 65 ml/min Glucose 211 H (60-115) mg/dL Calcium 9.3 (8.4-10.6) mg/dL POC Troponin I 0.02 (0.01-0.04) ng/ml Imaging Data XR left knee: Attestation: I have reviewed the pertinent imaging results. My impression: No acute fracture Radiologist's impression: IMPRESSION: No acute fractures or dislocation. Chest x-ray: Attestation: I have reviewed the pertinent imaging results. My impression: No acute CHF, pneumonia. No pleural effusion. No pneumothorax. Radiologist's impression: IMPRESSION: No acute cardiopulmonary process. ECG Data Attestation: I personally reviewed and interpreted this ECG as follows: Interpretation: AV paced. Rate 87 ID 188 QRS axis paced rhythm. Left axis deviation. ST segment/T wave: Consistent with pacemaker. No definite ischemia QTc: 507 Discharge Plan Discharge Clinical Impression: URI (upper respiratory infection), Generalized weakness Patient Disposition: Admitted As Observation
--- NOTE | 2023-03-21 15:36 | CRLHL7_ITS ---
For Patients: As a result of the Cures Act, medical imaging exams and procedure reports are released immediately into your electronic medical record. You may view this report before your referring provider. If you have questions, please contact your health care provider. INDICATION: Left knee trauma. TECHNIQUE: Left knee radiographs, 2 views. COMPARISON: None. FINDINGS: No acute fractures or dislocation. No significant joint effusion. No significant soft tissue edema or radiopaque foreign bodies. Extensive vascular calcifications. Small enthesophyte at the quadriceps insertion on the patella. Mild osteoarthritic degeneration. IMPRESSION: No acute fractures or dislocation. Dictated by Sahil Sims MD @ 03/21/2023 5:11:38 PM (Electronically Signed)
[2023-03-21] MEDS: 0.9 % SODIUM CHLORIDE 1000 ml 1,000 ML IV (16:16)
[2023-03-21 16:31] LABS: Chloride* 99 mmol/L (96-114); Potassium* 4.4 mmol/L (3.6-5.1); Sodium* 136 mmol/L (135-149)
[2023-03-21 16:34] LABS: Anion Gap 14 mEq/L (7-15); Blood Urea Nitrogen* 29 mg/dL (7-30); Carbon Dioxide* 23 mmol/L (20-32); Creatinine* 1.1 mg/dL (0.5-1.5); Estimated Glomerular Filt Rate 65 ml/min
[2023-03-21 16:35] LABS: Calcium* 9.3 mg/dL (8.4-10.6); Glucose* 211 mg/dL (60-115)
[2023-03-21 16:39] LABS: Troponin, Point-of-Care* 0.02 ng/ml (0.01-0.04)
[2023-03-21 16:56] LABS: Basophils Absolute Auto 0.02 K/uL (0.00-0.30); Basophils Percent Auto 0.3 % (0.0-3.0); Eosinophils Absolute Auto 0.03 K/uL (0.00-0.50); Eosinophils Percent Auto 0.5 % (0.0-7.0); Hematocrit 48.5 % (37.0-53.0); Hemoglobin* 15.3 gm/dL (13.5-17.5); Immature Granulocytes Abs Auto 0.01 K/uL (0.00-0.30); Immature Granulocytes Pct Auto 0.2 %; Lymphocytes Percent Auto 11.2 % (20-44); Mean Corpuscular HGB Conc 32 gm/dL (32-36); Mean Corpuscular Hemoglobin 28 pg (26-34); Mean Corpuscular Volume 88 fL (80-100); Monocytes Percent Auto 17.1 % (0.0-11.0); Neutrophils Absolute Auto 4.08 K/uL (1.7-7.0); Neutrophils Percent Auto 70.7 % (42.0-72.0); Platelet Count* 186 K/uL (140-440); RDW Coefficient of Variation % 14.4 % (11.5-15.5); Red Blood Count 5.49 m/uL (4.30-5.90); White Blood Count* 5.78 K/uL (4.50-11.00)
[2023-03-21 16:59] LABS: Slide Review Reflex No
[2023-03-21 17:54] LABS: Troponin I* 0.02 ng/mL (0.01-0.04)
[2023-03-21 18:35] VITALS: BP 150/70; PULSE 79; RESP 18; TEMP 37.2; O2SAT 96
--- NOTE | 2023-03-21 18:40 | PC.NURSE ---
Pt's , Codie called to give update on events that occurred earlier in day. States she was looking on camera and noticed pt was slumped over in his wheel chair this morning, states he appeared too weak to sit up and hold self in wheelchair. Pt was using the restroom this afternoon and when transferring from toilet to wheelchair slid down onto floor, was unable to get himself up, was too weak. She also stated there is a viral illness going around [facility] and pt developed cough yesterday. Attempted to stand and walk pt with walker and pt was able to stand for a few seconds and then had to sit down, was unable to take a step. Pt. assisted back to bed, bedding and pads changed.
[2023-03-21 18:43] LABS: PCR FLU A POSITIVE PCR FLU A (Negative); PCR FLU B Negative PCR FLU B (Negative); PCR RSV Negative PCR RSV (Negative)
[2023-03-21 18:53] LABS: SARS PCR* Negative SARS-CoV-2 (Negative)
--- NOTE | 2023-03-21 19:00 | P.IMHP_ITS ---
Hospitalist- H&P: HPI History of Present Illness Date Seen: 03/21/23 Chief complaint: Weakness Narrative: Sheldon Bryson is a 87 year old male with diastolic heart failure, diabetes, peripheral arterial disease, diabetic retinopathy admitted through the emergency department for weakness. Patient has had problems this past year with weakness and frailty. He was admitted here in December with COVID infection and weakness. He was admitted to [facility] in [place] in the spring with weakness. Following that he went to a [facility] facility for rehab for 3 months. He reports he is normally able to walk with a walker but starting about 2 days ago he was occasionally feeling too weak to stand and walk. Today he was using the toilet and was too weak to get up so he slid off the toilet onto the floor. He denies any injury. He reports for the last 2 days he has had some cold symptoms with a little congestion rhinorrhea and cough. He has not been short of breath. He is not aware of a fever. He has no chest pain. He has been eating normally. No nausea. No abdominal pain, diarrhea. No urinary problems. He does have a history of his left leg being weaker. This is been going on months to years. He reports his blood sugars have been fairly well controlled. He is not aware of hypoglycemia. Review of Systems Narrative: Other than his weakness, cold and cough he is not aware of any other recent illness [facility] Medical History POLST (Physician Orders for Life-Sustaining Treatment) ?Z78.9 - Other specified health status (ICD-10) Cognitive impairment ?R41.89 - Other symptoms and signs involving cognitive functions and awareness (ICD-10) Diastolic congestive heart failure ?I50.30 - Unspecified diastolic (congestive) heart failure (ICD-10) History of osteomyelitis ?Z87.39 - Personal history of other diseases of the musculoskeletal system and connective tissue (ICD-10) Diabetic retinopathy ?E11.319 - Type 2 diabetes mellitus with unspecified diabetic retinopathy without macular edema (ICD-10) Hyperlipidemia ?E78.5 - Hyperlipidemia, unspecified (ICD-10) ASCVD (arteriosclerotic cardiovascular disease) ?I25.10 - Atherosclerotic heart disease of [place] coronary artery without angina pectoris (ICD-10) History of prostate cancer ?Z85.46 - Personal history of malignant neoplasm of prostate (ICD-10) Adenomatous polyps ?D36.9 - Benign neoplasm, unspecified site (ICD-10) B12 deficiency ?E53.8 - Deficiency of other specified B group vitamins (ICD-10) Peripheral arterial disease ?I73.9 - Peripheral vascular disease, unspecified (ICD-10) DNR (do not resuscitate) ?Z66 - Do not resuscitate (ICD-10) Diabetic nephropathy ?E11.21 - Type 2 diabetes mellitus with diabetic nephropathy (ICD-10) Primary hypertension ?I10 - Essential (primary) hypertension (ICD-10) Type 2 diabetes mellitus, with long-term current use of insulin ?E11.9 - Type 2 diabetes mellitus without complications (ICD-10) ?Z79.4 - alf (current) use of insulin (ICD-10) Surgical History H/O radical prostatectomy ?Z90.79 - Acquired absence of other genital organ(s) (ICD-10) History of cardiac pacemaker ?Z95.0 - Presence of cardiac pacemaker (ICD-10) History of aortic valve replacement ?Z95.2 - Presence of prosthetic heart valve (ICD-10) Amputated toe of left foot ?S98.132A - Complete traumatic amputation of one left lesser toe, initial encounter (ICD-10) Social History Narrative: He lives at [facility]. He walks with a walker. Is relatively independent there. He is here today with his . She works at [employer]. 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 Does not drink alcohol. He does not smoke cigarettes. Code status is DNR DNI What is your current living situation?: I presently have a place to live Problems where you live: no known problems Problems where you live details: na In the past 12 months, utilities in danger of being shut off: no In past 12 months, lack of transportation kept you from medical appts, meetings, work, or getting things needed for daily living: no In the past 12 mos, have been you worried that your food would run out before you had money to buy more?: never true In the past 12 mos, the food you bought just didn't last and you didn't have money to buy more?: never true Highest level of school completed/degree received: Doctoral degree Smoking Status: Never smoker Second hand tobacco smoke exposure: No How often do you have a drink containing alcohol: never AUDIT-C Alcohol total score: 0 Non-prescribed substance use: denies use Caffeine: Yes (coffee) How often does anyone, including family, friends and others, physically hurt you : never How often does anyone, including family, friends and others, insult or talk down to you: never How often does anyone, including family, friends and others, threaten you with harm: never How often does anyone, including family, friends and others, scream or curse at you: never service: No Meds Home Medications and Allergies Home Medications Medication Instructions Recorded Confirmed Type acetaminophen 500 mg tablet 1,000 mg PO Q6H PRN 01/02/23 01/02/23 History aspirin 81 mg tablet,delayed 81 mg PO DAILY 01/02/23 01/02/23 History release atorvastatin 40 mg tablet 40 mg PO HS 01/02/23 01/02/23 History bisacodyl 10 mg rectal suppository 10 mg GA DAILY PRN 01/02/23 01/02/23 History cyanocobalamin (vitamin B-12) 1,000 mcg IM Q30D 01/02/23 01/02/23 History 1,000 mcg/mL injection solution empagliflozin 25 mg tablet 25 mg PO DAILY 01/02/23 01/02/23 History (Jardiance) ezetimibe 10 mg tablet 10 mg PO DAILY 01/02/23 01/02/23 History ketoconazole 2 % shampoo 1 applic topical 2XW PRN 01/02/23 01/02/23 History ketoconazole 2 % topical cream 1 applic topical BID PRN 01/02/23 01/02/23 History linaclotide 145 mcg capsule 145 mcg PO DAILY 01/02/23 01/02/23 History (Linzess) Allergies Allergy/AdvReac Type Severity Reaction Status Date / Time No Known Drug Allergies Allergy Verified 03/21/23 14:56 Exam Narrative: Exam Narrative: He is alert and appears in no distress. Head is without trauma. He has some eschar over lesion on his right cheek without redness, tenderness or other inflammatory changes. Neck is supple without mass or adenopathy. Respirations are clear to auscultation without wheezing rales or rhonchi. Cardiovascular: S1, S2, regular rate and rhythm. 1/6 systolic murmur. No gallop or rub. Abdomen: Bowel sounds active. Abdomen is soft without tenderness or mass. External genitalia normal. Extremities without edema. ED staff report that he is too weak to walk independently. Const: Vital Signs, click to edit/add: Vital Signs - 24 hr 03/21/23 14:48 03/21/23 18:35 Temperature 98.9 F 99.0 F Pulse Rate [Right Pulse Oximeter] 98 79 Respiratory Rate 18 18 Blood Pressure [Ri ght Upper Arm] 166/91 H 150/70 H Pulse Oximetry 96 96 Oxygen Delivery Me thod Room Air Room Air Documenting provider has reviewed patient's vital signs: yes Hospitalist - H&P: Result Labs Labs: Short CBC 03/21/23 Range/Units 16:10 WBC 5.78 (4.50-11.00) K/uL Hgb 15.3 (13.5-17.5) gm/dL Hct 48.5 (37.0-53.0) % Plt Count 186 (140-440) K/uL BMP 03/21/23 16:10 Sodium 136 Potassium 4.4 Chloride 99 Carbon Dioxide 23 BUN 29 Creatinine 1.1 Glucose 211 H Calcium 9.3 Cardiac Enzymes 03/21/23 Range/Units 16:10 Troponin I 0.02 (0.01-0.04) ng/mL Assessment and Plan Assessment and plan (1) Influenza A: Problem comment: Acute influenza a likely the cause of his acute weakness. Treat with oseltamivir Status: Acute (2) Weakness: Problem comment: Acute on chronic due to influenza infection. PT and OT evaluation pending Status: Acute (3) Diastolic congestive heart failure: Problem comment: Does not appear to be in heart failure at this time. Status: Acute (4) Type 2 diabetes mellitus, with long-term current use of insulin: Problem comment: Was previously on NPH insulin 32 units in the morning. With previous hospitalization decreased to 20 units in the morning. Continue to monitor and adjust insulin. Status: Acute (5) Cognitive impairment: Problem comment: Two months ago when admitted for COVID had [place] score of 15/30 Status: Acute Plan Patient is admitted to the hospital for management of weakness associated with influenza. Start Tamiflu. PT and OT to evaluate. Total time spent today is 60 minutes, 40 minutes in coordination of care and discussion with patient and other providers management of influenza and weakness
--- NOTE | 2023-03-21 19:01 | PC.NURSE ---
updated with Influenza A results, would like pt to receive tamiflu.
--- NOTE | 2023-03-21 19:23 | PC.NURSE ---
Report given to M/S RN, pt to room 247 via cart.
[2023-03-21 19:45] VITALS: BP 140/66; PULSE 79; RESP 20; TEMP 36.7; O2SAT 99; BMI 22.1
[2023-03-21] MEDS: OSELTAMIVIR 30 MG CAPSULE PO (22:01)
[2023-03-21] MEDS: ATORVASTATIN CALCIUM 40 MG TABLET PO (22:01)
[2023-03-21] MEDS: SODIUM CHLORIDE 0.9 % (FLUSH) 10 ML SYRINGE 5 ML IVF (22:02)
[2023-03-21 23:00] VITALS: BP 136/64; PULSE 71; PULSE 97; RESP 18; TEMP 36.6; O2SAT 97
[2023-03-22] VITALS (9 sets, daily range): BP systolic 125–171; BP diastolic 57–95; PULSE 62–83; RESP 16–22; TEMP 36.5–37.4; O2SAT 92–99
--- NOTE | 2023-03-22 05:42 | PC.NURSE ---
Patient arrived to med/Surg at 1930. Patient pleasant, alert and oriented. At times patient does?repeat conversations he had just had. Stand/pivoted with gait belt and assist of two to bedside commode. Stood well without any shaking or unsteadiness. Pivoted slowly to commode with cuing and reminders. PVR 268. Denied pain tonight. VSS.?
[2023-03-22] MEDS: EZETIMIBE 10 MG TABLET PO (09:12)
[2023-03-22] MEDS: ASPIRIN 81 MG TABLET EC PO (09:12)
[2023-03-22] MEDS: EMPAGLIFLOZIN 10 MG TABLET 25 MG PO (09:13)
[2023-03-22] MEDS: OSELTAMIVIR 30 MG CAPSULE PO ×2 (09:14→20:38)
[2023-03-22] MEDS: SODIUM CHLORIDE 0.9 % (FLUSH) 10 ML SYRINGE 5 ML IVF ×2 (09:15→20:39)
[2023-03-22] MEDS: INSULIN NPH 100 UNIT/ML 20 UNIT SUBCUT (10:52)
[2023-03-22] MEDS: INSULIN ASPART 100 UNIT/ML SUBCUT ×3 (12:31→20:43)
[2023-03-22] MEDS: ACETAMINOPHEN 325 MG TABLET 650 MG PO (13:42)
[2023-03-22] MEDS: Linaclotide [Linzess] 145 mcg capsule PO (14:26)
--- NOTE | 2023-03-22 14:32 | PC.NURSE ---
Pt's updated and pt evaluated by Dr. Webb. No behaviors, no dysphagia with meds. Please see eMar for scheduled medications provided. Low grade temp 99 orally treated with tylenol. BG 94 prior to bkfst, no ss insulin required, juice provided. BG 176 at lunch time and 2 units SS insulin given. Pt's Codie brought in pt's non-formulary med Linzess this afternoon and one pill given to replace scheduled morning dose. Pt has an excellent appetite, cooperative with nsg interventions. He remains largely incontinent of urine. Leg dressings remain CDI, teds on, covered with stockinette and celso wraps. DO NOT PUT ANY NON-SKID SLIPPERS ON THIS PATIENT AND MAKE SURE TOES ARE NOT COVERED BY PHILIP STOCKINGS PER HIS ! Rationale of is to prevent any foot ulcers d/to pt's diabetes and slow healing process.
--- NOTE | 2023-03-22 14:48 | PC.NURSE ---
Pt remains on droplet precautions for positive influenza A.
--- NOTE | 2023-03-22 16:09 | PM.IMPN1 ---
Progress Note: A&P Assessment and plan (1) Influenza A: Problem details: Acute influenza a likely the cause of his acute weakness. Treat with oseltamivir. Status: Acute (2) Cognitive impairment: Problem details: Two months ago when admitted for COVID had [place] score of 15/30 Status: Acute (3) Weakness: Problem details: Acute on chronic due to influenza infection. PT and OT evaluation pending Status: Acute (4) Type 2 diabetes mellitus, with long-term current use of insulin: Problem details: Was previously on NPH insulin 32 units in the morning. With previous hospitalization decreased to 20 units in the morning. Continue to monitor and adjust insulin. Blood sugars so far are 94, 131, 176. Status: Acute (5) Discharge planning issues: Problem details: Patient lives at [facility]. Not yet strong enough to return there for independent living. Continue to coordinate with his about plan of care Status: Acute Plan Continue in hospital for supportive cares and treatment of influenza with Tamiflu. Monitor for complications of influenza. Time Spent With Patient Total time spent: Total time spent today is 35 minutes, 20 minutes in coordination of care and discussing with patient and other providers ongoing evaluation management of influenza and weakness Subjective Date Seen: 03/22/23 Interval history: All 87-year-old male admitted to the hospital with acute on chronic weakness due to influenza a. Patient reports generally doing well with only mild upper respiratory symptoms. He is not aware of any fever or shortness of breath. He reports feeling better today than yesterday. He has been able to get up and walk with a walker with standby assistance from physical therapy today. He has no other concerns today. He has been eating. He is not having any significant pain. Exam Narrative: Exam Narrative: He is alert and appears in no distress. Appropriate in conversation. Does not remember much of the details of yesterday. Respirations are clear to auscultation except for an occasional basilar crackle. No wheezing. Fair air exchange all lung plasencia. Cardiovascular: S1, S2, regular rate and rhythm. No murmur gallop or rub. Abdomen is soft without tenderness or mass. Dressings are removed from his legs to reveal entirely normal appearing legs below the knees including no edema no skin rash or skin breakdown. Intact pedal pulses. He moves all 4 extremities well. Const: Vital Signs, click to edit/add: Vital Signs - 24 hr 03/21/23 18:35 03/21/23 19:45 03/21/23 23:00 Temperature 99.0 F 98.1 F 97.9 F Pulse Rate [Bilate ral Radial] 71 Pulse Rate [Left A pical] Pulse Rate [Pulse Oximeter] 79 97 Pulse Rate [Right Pulse Oximeter] 79 Respiratory Rate 18 20 18 Blood Pressure [Ri ght Arm] 140/66 H 136/64 Blood Pressure [Ri ght Upper Arm] 150/70 H Pulse Oximetry 96 99 97 Oxygen Delivery Me thod Room Air Room Air Room Air 03/22/23 02:12 03/22/23 08:15 03/22/23 12:01 Temperature 98.1 F 98.9 F 99 F Pulse Rate [Bilate ral Radial] 81 83 Pulse Rate [Left A pical] Pulse Rate [Pulse Oximeter] 67 81 83 Pulse Rate [Right Pulse Oximeter] Respiratory Rate 20 18 20 Blood Pressure [Ri ght Arm] 130/57 L 157/76 H 163/91 H Blood Pressure [Ri ght Upper Arm] Pulse Oximetry 97 97 99 Oxygen Delivery Me thod Room Air Room Air Room Air 03/22/23 12:09 03/22/23 13:42 03/22/23 15:00 Temperature 99 F 99.3 F Pulse Rate [Bilate ral Radial] 76 Pulse Rate [Left A pical] Pulse Rate [Pulse Oximeter] 76 Pulse Rate [Right Pulse Oximeter] Respiratory Rate 18 Blood Pressure [Ri ght Arm] 171/95 H 129/71 Blood Pressure [Ri ght Upper Arm] Pulse Oximetry 98 Oxygen Delivery Me thod Room Air 03/22/23 15:59 Temperature Pulse Rate [Bilate ral Radial] 76 Pulse Rate [Left A pical] 76 Pulse Rate [Pulse Oximeter] 76 Pulse Rate [Right Pulse Oximeter] Respiratory Rate 18 Blood Pressure [Ri ght Arm] Blood Pressure [Ri ght Upper Arm] Pulse Oximetry Oxygen Delivery Me thod Documenting provider has reviewed patient's vital signs: yes Labs Labs: Laboratory Results - last 24 hr 03/21/23 03/21/23 16:10 17:58 WBC 5.78 RBC 5.49 Hgb 15.3 Hct 48.5 MCV 88 MCH 28 MCHC 32 RDW Coeff of [place] 14.4 Plt Count 186 Neut % (Auto) 70.7 Lymph % (Auto) 11.2 L [place] % (Auto) 17.1 H Eos % (Auto) 0.5 Baso % (Auto) 0.3 Neut # (Auto) 4.08 Lymph # (Auto) 0.60 L [place] # (Auto) 1.00 H Eos # (Auto) 0.03 Baso # (Auto) 0.02 Abs Immat Gran (auto) 0.01 Imm/Tot Granulo (auto) 0.2 Sodium 136 Potassium 4.4 Chloride 99 Carbon Dioxide 23 Anion Gap 14 BUN 29 Creatinine 1.1 Estimated GFR 65 Glucose 211 H Calcium 9.3 Troponin I 0.02 SARS-CoV-2 (PCR) Negative SARS-CoV-2 Influenza Type A (PCR) POSITIVE PCR FLU A A Influenza Type B (PCR) Negative PCR FLU B RSV (PCR) Negative PCR RSV POC Troponin I 0.02
--- NOTE | 2023-03-22 17:32 | PC.NURSE ---
Pt's BG 224 and he received coverage of 4 units of SS insulin. Pt eating dinne in his recliner, bp has improved, report will be provided to oncoming shift RN.
[2023-03-22] MEDS: ATORVASTATIN CALCIUM 40 MG TABLET PO (20:37)
--- NOTE | 2023-03-23 00:11 | PC.NURSE ---
Patient pleasant, alert and oriented. Denies pain. VSS. ?
[2023-03-23 04:14] VITALS: BP 146/86; PULSE 75; RESP 22; TEMP 37.1; O2SAT 97
--- NOTE | 2023-03-23 06:24 | PC.NURSE ---
[id number]: Patient pleasant and cooperative. A1/walker/GB. Moves well but verbalizes weakness. A&Ox3 with periodic confusion. Denies pain. Denies SOB/N/V/Dizziness. Afebrile. BLE remain wrapped per POC. Incontinent of urine. Appeared to rest well during noc.
[2023-03-23 08:00] VITALS: BP 133/87; PULSE 84; RESP 20; TEMP 36.9; O2SAT 97
[2023-03-23] MEDS: Linaclotide [Linzess] 145 mcg capsule PO (09:01)
[2023-03-23] MEDS: EMPAGLIFLOZIN 10 MG TABLET 25 MG PO (09:01)
[2023-03-23] MEDS: OSELTAMIVIR 30 MG CAPSULE PO ×2 (09:02→20:50)
[2023-03-23] MEDS: ASPIRIN 81 MG TABLET EC PO (09:02)
[2023-03-23] MEDS: EZETIMIBE 10 MG TABLET PO (09:02)
[2023-03-23] MEDS: SODIUM CHLORIDE 0.9 % (FLUSH) 10 ML SYRINGE 5 ML IVF ×2 (09:03→20:53)
[2023-03-23] MEDS: INSULIN NPH 100 UNIT/ML 20 UNIT SUBCUT (09:03)
--- NOTE | 2023-03-23 11:27 | PM.IMPN1 ---
Progress Note: A&P Assessment and plan (1) Influenza A: Problem details: Acute influenza a likely the cause of his acute weakness. Treat with oseltamivir. Status: Acute (2) Cognitive impairment: Problem details: Two months ago when admitted for COVID had [place] score of 15/30 Status: Acute (3) Weakness: Problem details: Acute on chronic due to influenza infection. PT and OT evaluation and treatment Status: Acute (4) Type 2 diabetes mellitus, with long-term current use of insulin: Problem details: Was previously on NPH insulin 32 units in the morning. With previous hospitalization decreased to 20 units in the morning. Continue to monitor and adjust insulin. Blood sugars so far are fairly well controlled Status: Acute (5) Discharge planning issues: Problem details: Patient lives at [facility]. Not yet strong enough to return there for independent living. Continue to coordinate with his about plan of care Status: Acute Plan Continue in-hospital pending safe discharge plan. Patient not yet able to ambulate independently. Continue to monitor for complications of influenza. Time Spent With Patient Total time spent: Total time spent today is 25 minutes, 15 minutes in coordination of care discussing with patient and other providers ongoing evaluation and management influenza and we S Subjective Date Seen: 03/23/23 Interval history: All 87-year-old male admitted to the hospital with acute on chronic weakness due to influenza a. Patient reports generally doing well with only mild upper respiratory symptoms. Cough and congestion are better. He is not aware of any fever or shortness of breath. He reports feeling better today than yesterday. He has been able to get up and walk with a walker with standby assistance from physical therapy today. He has no other concerns today. He has been eating. He is not having any significant pain. Exam Narrative: Exam Narrative: He is alert and appears in no distress. Respirations are clear to auscultation. Cardiovascular: S1, S2, regular rate and rhythm. Abdomen is soft without tenderness or mass. Extremities without edema. Const: Vital Signs, click to edit/add: Vital Signs - 24 hr 03/22/23 12:01 03/22/23 12:09 03/22/23 13:42 Temperature 99 F 99 F Pulse Rate [Bilate ral Radial] 83 Pulse Rate [Left A pical] Pulse Rate [Pulse Oximeter] 83 Respiratory Rate 20 Blood Pressure [Ri ght Arm] 163/91 H 171/95 H Pulse Oximetry 99 Oxygen Delivery Me thod Room Air 03/22/23 15:00 03/22/23 15:59 03/22/23 19:00 Temperature 99.3 F 97.7 F Pulse Rate [Bilate ral Radial] 76 76 Pulse Rate [Left A pical] 76 Pulse Rate [Pulse Oximeter] 76 76 62 Respiratory Rate 18 18 16 Blood Pressure [Ri t Arm] 129/71 125/65 Pulse Oximetry 98 99 Oxygen Delivery Me thod Room Air Room Air 03/22/23 23:16 03/23/23 04:14 Temperature 98.1 F 98.7 F Pulse Rate [Bilate ral Radial] Pulse Rate [Left A pical] Pulse Rate [Pulse Oximeter] 66 75 Respiratory Rate 22 22 Blood Pressure [Ri ght Arm] 156/81 H 146/86 H Pulse Oximetry 92 97 Oxygen Delivery Me thod Room Air Room Air
[2023-03-23 12:25] VITALS: BP 113/82; PULSE 86; RESP 20; TEMP 36.8; O2SAT 97
[2023-03-23] MEDS: DOCUSATE SODIUM 100 MG CAPSULE PO (12:40)
[2023-03-23] MEDS: SENNOSIDES/DOCUSATE TABLET PO (12:40)
[2023-03-23] MEDS: INSULIN ASPART 100 UNIT/ML SUBCUT ×3 (12:41→20:59)
--- NOTE | 2023-03-23 15:54 | PC.NURSE ---
Please see eMar for scheduled meds provided. No dysphagia with meds. Pt remains incontinent of urine. Legs remain wrapped with 3 layers, CDI. PT eval and eval by Dr. Webb. Droplet ad contact precautions continue for positive influenza A. BG 128 at bkfst w/no coverage. BG 205 at lunchtime and 4 units SS insulin provided. Pt worried about being constipated. Prn docusate, senna and prune juice provided. Report to Courtney bustillo RN.
[2023-03-23 16:45] VITALS: BP 137/74; PULSE 77; RESP 18; TEMP 36.7; O2SAT 98
[2023-03-23 19:25] VITALS: BP 121/66; PULSE 68; RESP 16; TEMP 36.5; O2SAT 100
[2023-03-23] MEDS: ATORVASTATIN CALCIUM 40 MG TABLET PO (20:50)
--- NOTE | 2023-03-23 23:28 | PC.NURSE ---
Pt alert and oriented x3, pt is forgetful at times and makes repetitive statements but is easily reorientable. afebrile. On room air. Pt denies pain, chest pain, SOB, and N/V. Pt had 3 incontinent lose/soft bm's. Pt is up SBA with walker and gait belt to bathroom and chair.
[2023-03-24] VITALS: BP 149/77; PULSE 60; RESP 18; TEMP 36.5; O2SAT 97
[2023-03-24 02:52] VITALS: BP 153/85; PULSE 63; RESP 20; TEMP 36.7; O2SAT 97
--- NOTE | 2023-03-24 05:16 | PC.NURSE ---
[id number]: Patient pleasant. A&Ox3 w/some cogitative impairment. A1/walker/GB. Able to get up from the bed and toilet with SBA. Afebrile. Denies pain. Incontinent.
[2023-03-24 07:35] VITALS: BP 138/80; PULSE 73; RESP 20; TEMP 36.6; O2SAT 99
[2023-03-24] MEDS: OSELTAMIVIR 30 MG CAPSULE PO (09:49)
[2023-03-24] MEDS: EMPAGLIFLOZIN 10 MG TABLET 25 MG PO (09:49)
[2023-03-24] MEDS: EZETIMIBE 10 MG TABLET PO (09:50)
[2023-03-24] MEDS: ASPIRIN 81 MG TABLET EC PO (09:50)
[2023-03-24] MEDS: Linaclotide [Linzess] 145 mcg capsule PO (09:50)
[2023-03-24] MEDS: INSULIN NPH 100 UNIT/ML 20 UNIT SUBCUT (09:51)
[2023-03-24] MEDS: SODIUM CHLORIDE 0.9 % (FLUSH) 10 ML SYRINGE 5 ML IVF (09:52)
--- NOTE | 2023-03-24 11:47 | P.DS_ITS ---
DS: Providers Provider Date Seen: 03/24/23 Date of admission: 03/21/23 19:24 Primary care physician: Not a Local Provider Admitting Clinician: Ángel Webb MD Attending Physician on discharge: Ángel Webb MD Date of Discharge: 03/24/23 DS: Diagnosis Discharge Diagnosis (1) Influenza A: Status: Acute Problem details: Acute influenza a likely the cause of his acute weakness. Treat with oseltamivir. Clinically did well with only mild respiratory symptoms, no hypoxia or fever. (2) Cognitive impairment: Status: Acute Problem details: Two months ago when admitted for COVID had Morrison score of 15/30. No significant delirium or encephalopathy. (3) Weakness: Status: Acute Problem details: Acute on chronic due to influenza infection. PT and OT evaluation and treatment. Back to baseline (4) Type 2 diabetes mellitus, with long-term current use of insulin: Status: Acute Problem details: Was previously on NPH insulin 32 units in the morning. With previous hospitalization decreased to 20 units in the morning. Continue to monitor and adjust insulin. Blood sugars so far are fairly well controlled (5) Discharge planning issues: Status: Acute Problem details: Patient lives at [facility]. Not yet strong enough to return there for independent living. Met with patient and today. She is going to take him home today. DS: Summary Hospital Course Hospital Course: Admission HPI: Sheldon Bryson is a 87 year old male with diastolic heart failure, diabetes, peripheral arterial disease, diabetic retinopathy admitted through the emergency department for weakness. Patient has had problems this past year with weakness and frailty. He was admitted here in December with COVID infection and weakness. He was admitted to [facility] in the spring with weakness. Following that he went to a correction facility for rehab for 3 months. He reports he is normally able to walk with a walker but starting about 2 days ago he was occasionally feeling too weak to stand and walk. Today he was using the toilet and was too weak to get up so he slid off the toilet onto the floor. He denies any injury. He reports for the last 2 days he has had some cold symptoms with a little congestion rhinorrhea and cough. He has not been short of breath. He is not aware of a fever. He has no chest pain. He has been eating normally. No nausea. No abdominal pain, diarrhea. No urinary problems. He does have a history of his left leg being weaker. This is been going on josee hs to years. He reports his blood sugars have been fairly well controlled. He is not aware of hypoglycemia. Over the last 3 days patient has had steady improvement with his strength. He has done much better than he did with his COVID infection previously. He is now ambulating well with a walker and did walk stairs today. He has had minimal respiratory symptoms with some cough and congestion. No fever or hypoxia. He has been treated with Tamiflu and tolerated this well. Status at Discharge Functional status at discharge: uses cane/walker Overall status at discharge: patient is progressing back to baseline Time Spent with Patient Time attestation: Total time spent providing and/or coordinating discharge services: Time spent: Greater than 30 minutes Exam Narrative: Exam Narrative: He is alert and appears in no distress. Mental status appears back to baseline. Breathing is unlabored. He is observed to walk with a walker in the hallway. Const: Vital Signs, click to edit/add: Vital Signs - 24 hr 03/23/23 12:25 03/23/23 16:45 03/23/23 16:45 Temperature 98.3 F 98.0 F Pulse Rate [Left A pical] 86 Pulse Rate [Pulse Oximeter] 86 77 77 Respiratory Rate 20 18 18 Blood Pressure [Ri t Arm] 113/82 137/74 Pulse Oximetry 97 98 Oxygen Delivery Me thod Room Air Room Air 03/23/23 19:25 03/24/23 00:00 03/24/23 02:52 Temperature 97.7 F 97.7 F 98.1 F Pulse Rate [Left A pical] Pulse Rate [Pulse Oximeter] 68 60 63 Respiratory Rate 16 18 20 Blood Pressure [Ri ght Arm] 121/66 149/77 H 153/85 H Pulse Oximetry 100 97 97 Oxygen Delivery Me thod Room Air Room Air Room Air Documenting provider has reviewed patient's vital signs: yes Discharge Plan Discharge Disposition: Home, Self-Care Date of Admission: 03/21/23 19:24 Attending Provider on Discharge: Ángel Webb Primary Care Provider: Provider,Not a Local Condition: Improved Anticipated Discharge Date/Time: 03/24/23 10:57 Discharge Medications: New oseltamivir [Tamiflu] 30 mg Capsule 30 mg PO BID Qty: 4 0RF Continued atorvastatin 40 mg tablet 40 mg PO HS Hold Instructions: Resume on 01/10/23. Restart atorvastatin 3 days after finishing paxlovid cyanocobalamin (vitamin B-12) 1,000 mcg/mL solution 1,000 mcg IM Q30D ezetimibe 10 mg tablet 10 mg PO DAILY Jardiance 25 mg tablet 25 mg PO DAILY aspirin 81 mg tablet,delayed release (DR/EC) 81 mg PO DAILY Linzess 145 mcg capsule 145 mcg PO DAILY acetaminophen 500 mg tablet 1,000 mg PO Q6H PRN bisacodyl 10 mg suppository 10 mg IN DAILY PRN ketoconazole 2 % cream 1 applic topical BID PRN ketoconazole 2 % shampoo 1 applic topical 2XW PRN Novolin N FlexPen 100 unit/mL (3 mL) insulin pen 20 unit subcut QAM Qty: 15 0RF Discharge Orders: Discharge Order (Routine); Ordered 03/24/23 Ordered By: Ángel Webb Patient Education: Oseltamivir (By mouth), Influenza (DC) Additional Instructions: Your influenza symptoms are likely to improve over the next few days. Return to the emergency department if you are getting worse. I have prescribed 4 more doses of Tamiflu 30 mg twice a day to complete a 5 day course of treatment. Activity Level: Activity as Tolerated and Use Walker Discharge Diet: Diabetic Follow Up Appointments: Provider,Not a Local [Primary Care Provider] - Forms: [facility] Info Inst[facility]
--- NOTE | 2023-03-24 14:30 | PC.NURSE ---
BG did not require insulin coverage at [facility]. No dysphagia with meds. Walk and stairs completed with PT. Eval by Dr. Webb. present at bedside to rewrap pt's BLE with her own supplies. Pt and verbalized understanding of d/c diagnosis, new RX, home meds, f/up appt and sx to report urgently to physician. Discharged at 1137 via W/C to 's home with personal belongings for the , then Guerrero will return to [facility] his prior living situation.
== END 2023-03-24 11:37 | disposition home or self-care (01) ==
LOC: ED 17:51 → MEDSURG 19:25
PROVIDERS: Admitting Provider Family Medicine; Emergency Provider Emergency Medicine; Visit Provider Family Medicine
DX: J10.1 Influenza due to other identified influenza virus with other respiratory manifestations (principal); M62.81 Muscle weakness (generalized); J06.9 Acute upper respiratory infection, unspecified; R05.9 Cough, unspecified; M25.562 Pain in left knee; I11.0 Hypertensive heart disease with heart failure; I50.30 Unspecified diastolic (congestive) heart failure; I73.9 Peripheral vascular disease, unspecified; E11.319 Type 2 diabetes mellitus with unspecified diabetic retinopathy without macular edema; I25.10 Atherosclerotic heart disease of native coronary artery without angina pectoris; E78.5 Hyperlipidemia, unspecified; W19.XXXA Unspecified fall, initial encounter; R41.89 Other symptoms and signs involving cognitive functions and awareness; Z79.4 Long term (current) use of insulin; Z79.82 Long term (current) use of aspirin; Z86.16 Personal history of COVID-19; Z87.39 Personal history of other diseases of the musculoskeletal system and connective tissue; Z85.46 Personal history of malignant neoplasm of prostate; Z90.79 Acquired absence of other genital organ(s); Z89.422 Acquired absence of other left toe(s); Z95.0 Presence of cardiac pacemaker; Z95.2 Presence of prosthetic heart valve; Z78.9 Other specified health status; Z74.09 Other reduced mobility; Z66 Do not resuscitate
CPT/HCPCS: 36415; 51798; 71046; 73560; 80048; 82962; 84484; 85025; 87631; 96360; 96372; 97110; 97116; 97161; 97165; 97530; 97535; 99284; 99285; A0425; A0427; A9270; G0378; J7030

== ENCOUNTER 2024-04-11 02:18 | Outpatient (CLI) | payer OTHER, SELFPAY | END 2024-04-11 02:19 | disposition home or self-care (01) | LOC: AMB 04-24 07:18 | PROVIDERS: Visit Provider Family Medicine | DX: M79.605 Pain in left leg (principal); M62.81 Muscle weakness (generalized) | CPT/HCPCS: A0425; A0427 ==

== ENCOUNTER 2024-04-11 03:03 | Emergency (ER) | payer OTHER, SELFPAY ==
--- NOTE | 2024-04-11 03:31 | ED_ITS ---
HPI - General Adult General Chief complaint: Weakness Stated complaint: Weakness Time Seen by Provider: 04/11/24 03:30 History of Present Illness HPI narrative: Pt has feeling weak the last few days, asked EMS to transport pt to ER at this time. 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 Not localizing. Arrives via EMS. No fever. Went to bed feeling fine he says. This was a change. Particularly weak in his legs as reported. No chest pain or shortness of breath. No new rashes. Wraps lower legs with compression bandages for edema. Denies diarrhea or dysuria. Information obtained much later from spouse that the staff had alerted her at around 2am that he was having trouble moving his left leg and she suggested adjusting the compression bandages and they noted that it was actually lifting his left leg that was difficult and so she advised to call EMS. Mr. Bryson arrived here shortly after 3am. Asymptomatic at 3am here. Other than reporting feeling generally weak. Last hospitalized at this facility for influenza A and associated weakness in February of 2023 Related Data Home Medications ?Medication ?Instructions ?Recorded ?Confirmed acetaminophen 500 mg tablet 1,000 mg PO Q6H PRN 01/02/23 03/22/23 aspirin 81 mg tablet,delayed 81 mg PO DAILY 01/02/23 03/22/23 release atorvastatin 40 mg tablet 40 mg PO HS 01/02/23 03/22/23 bisacodyl 10 mg rectal suppository 10 mg ID DAILY PRN 01/02/23 01/02/23 cyanocobalamin (vitamin B-12) 1,000 mcg IM Q30D 01/02/23 03/22/23 1,000 mcg/mL injection solution empagliflozin 25 mg tablet 25 mg PO DAILY 01/02/23 03/22/23 (Jardiance) ezetimibe 10 mg tablet 10 mg PO DAILY 01/02/23 03/22/23 ketoconazole 2 % shampoo 1 applic topical 2XW PRN 01/02/23 03/22/23 ketoconazole 2 % topical cream 1 applic topical BID PRN 01/02/23 03/22/23 linaclotide 145 mcg capsule 145 mcg PO DAILY 01/02/23 03/22/23 (Linzess) Previous Rx's ?Medication ?Instructions ?Recorded insulin NPH isoph U-100 human 100 20 unit (0.2 mL) subcut QAM #15 mL 01/10/23 unit/mL (3 mL) subcutaneous pen (Novolin N FlexPen) oseltamivir 30 mg capsule (Tamiflu) 30 mg PO BID #4 caps 03/24/23 clopidogrel 75 mg tablet (Plavix) 75 mg PO DAILY #30 tabs 04/11/24 Allergies Allergy/AdvReac Type Severity Reaction Status Date / Time No Known Drug Allergies Allergy Verified 04/11/24 03:55 Review of Systems Status of ROS: Reports: unobtainable due to mental status [facility] Medical History Discharge planning issues ?Z02.9 - Encounter for administrative examinations, unspecified (ICD-10) URI (upper respiratory infection) ?J06.9 - Acute upper respiratory infection, unspecified (ICD-10) POLST (Physician Orders for Life-Sustaining Treatment) ?Z78.9 - Other specified health status (ICD-10) Cognitive impairment ?R41.89 - Other symptoms and signs involving cognitive functions and awareness (ICD-10) Diastolic congestive heart failure ?I50.30 - Unspecified diastolic (congestive) heart failure (ICD-10) History of osteomyelitis ?Z87.39 - Personal history of other diseases of the musculoskeletal system and connective tissue (ICD-10) Diabetic retinopathy ?E11.319 - Type 2 diabetes mellitus with unspecified diabetic retinopathy without macular edema (ICD-10) Hyperlipidemia ?E78.5 - Hyperlipidemia, unspecified (ICD-10) ASCVD (arteriosclerotic cardiovascular disease) ?I25.10 - Atherosclerotic heart disease of [place] coronary artery without angina pectoris (ICD-10) History of prostate cancer ?Z85.46 - Personal history of malignant neoplasm of prostate (ICD-10) Adenomatous polyps ?D36.9 - Benign neoplasm, unspecified site (ICD-10) B12 deficiency ?E53.8 - Deficiency of other specified B group vitamins (ICD-10) Peripheral arterial disease ?I73.9 - Peripheral vascular disease, unspecified (ICD-10) DNR (do not resuscitate) ?Z66 - Do not resuscitate (ICD-10) Diabetic nephropathy ?E11.21 - Type 2 diabetes mellitus with diabetic nephropathy (ICD-10) Primary hypertension ?I10 - Essential (primary) hypertension (ICD-10) Type 2 diabetes mellitus, with long-term current use of insulin ?E11.9 - Type 2 diabetes mellitus without complications (ICD-10) ?Z79.4 - USP (current) use of insulin (ICD-10) Surgical History H/O radical prostatectomy ?Z90.79 - Acquired absence of other genital organ(s) (ICD-10) History of cardiac pacemaker ?Z95.0 - Presence of cardiac pacemaker (ICD-10) History of aortic valve replacement ?Z95.2 - Presence of prosthetic heart valve (ICD-10) Amputated toe of left foot ?S98.132A - Complete traumatic amputation of one left lesser toe, initial encounter (ICD-10) Social History Narrative: He lives at [facility]. He walks with a walker. Is relatively independent there. He is here today with his . She works at [employer]. 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 Does not drink alcohol. He does not smoke cigarettes. Code status is DNR DNI What is your current living situation?: I presently have a place to live Problems where you live: no known problems Problems where you live details: n/a In the past 12 months, utilities in danger of being shut off: no In past 12 months, lack of transportation kept you from medical appts, meetings, work, or getting things needed for daily living: no In the past 12 mos, have been you worried that your food would run out before you had money to buy more?: never true In the past 12 mos, the food you bought just didn't last and you didn't have money to buy more?: never true Highest level of school completed/degree received: Doctoral degree Smoking Status: Never smoker Second hand tobacco smoke exposure: No How often do you have a drink containing alcohol: never AUDIT-C Alcohol total score: 0 Non-prescribed substance use: denies use Caffeine: Yes (coffee) How often does anyone, including family, friends and others, physically hurt you : never How often does anyone, including family, friends and others, insult or talk down to you: never How often does anyone, including family, friends and others, threaten you with harm: never How often does anyone, including family, friends and others, scream or curse at you: never service: No Exam Narrative: Exam Narrative: Pleasant. NAD. Extensive facial rash/erythema. Answers questions quickly, easily. Speaking fluidly. Cranial nerves 2-12 intact. Moving all extremities without apparent difficulty. Lower extremities are wrapped from just below the knees and down. He is disinclined for me to remove this bandages as he says they are evaluated regularly were just checked by his spouse. Lungs are clear. Heart in slower but regular rate and in a regular rhythm. Distant. Abdomen is soft and nontender. Const: Vital Signs, click to edit/add: Vital Signs - 24 hr 04/11/24 03:52 Temperature 97.4 F L Pulse Rate [Right Pulse Oximeter] 61 Respiratory Rate 16 Blood Pressure [Ri ght Upper Arm] 118/77 Pulse Oximetry 94 Oxygen Delivery Me thod Room Air Documenting provider has reviewed patient's vital signs: yes Course Vital Signs Vital signs: Initial Vital Signs Temperature 97.4 F L 04/11/24 03:52 Temperature Source Temporal Artery Scan 04/11/24 03:52 Pulse Rate 61 04/11/24 03:52 Pulse Rhythm Regular 04/11/24 03:52 Pulse Strength 3+ Normal 04/11/24 03:52 Respiratory Rate 16 04/11/24 03:52 Blood Pressure 118/77 04/11/24 03:52 Blood Pressure Mean 90 04/11/24 03:52 Blood Pressure Position Supine 04/11/24 03:52 Pulse Oximetry 94 04/11/24 03:52 Oxygen Delivery Method Room Air 04/11/24 03:52 Vital Signs Temperature 97.4 F L 04/11/24 03:52 Pulse Rate 61 04/11/24 03:52 Respiratory Rate 16 04/11/24 03:52 Blood Pressure 118/77 04/11/24 03:52 Pulse Oximetry 94 04/11/24 03:52 Oxygen Delivery Method Room Air 04/11/24 03:52 Temperature 97.4 F L 04/11/24 03:52 Pulse Rate 61 04/11/24 03:52 Respiratory Rate 16 04/11/24 03:52 Blood Pressure 118/77 04/11/24 03:52 Pulse Oximetry 94 04/11/24 03:52 Oxygen Delivery Method Room Air 04/11/24 03:52 Medications Administered Medications: Generic Name Dose Route Start Last Admin Trade Name Freq PRN Reason Stop Dose Admin Insulin Human NPH 20 unit 04/11/24 21:00 04/11/24 09:07 Insulin Nph 100 Unit/Ml SUBCUT 20 unit HS CALE Administration Discontinued Medications Generic Name Dose Route Start Last Admin Trade Name Freq PRN Reason Stop Dose Admin Sodium Chloride 500 mls @ 1,000 mls/hr 04/11/24 09:05 04/11/24 09:18 0.9 % Sodium Chloride 500 Ml IV 04/11/24 09:34 1,000 mls/hr .Q30M ONE Administration Medical Decision Making MDM Narrative Medical decision making narrative: Initiating evaluation for weakness. Will check labs and consider IV hydration. Cardiac event? Labs are generally reassuring. Cognitive impairment; some degree of dementia becomes more apparent later in course. Initial reports noted weakness generally and/or pain in right hip area where spouse reports he has a wound. Spouse later requires regarding TIA or stroke workup given unilateral leg weakness, contrary to initial reports. She does have video from Mr. Bryson's room showing some difficulty/weakness with the left leg during assisted transfer with walker I am not in disagreement of potential TIA given this new information. Possibly was hypoperfusion in early waking otherwise. Has remained without event during time in the emergency department. Did place a call to Stroke Neuro. This is the weekend and without MRI ability. Would also be considering focal cerebral hypoperfusion or exposure of old CVA. They would however consider vascular studies of head and neck looking for high- grade stenosis and otherwise place on a month of Plavix. Load with 300 mg of Plavix. Suspect MRI of limited use in this case. CT HEAD DATE: 04/11/2024 CLINICAL HISTORY: Patient with transient left leg weakness. TECHNIQUE: Standard CT scanning of the head was performed. COMPARISON: 09/27/2019. FINDINGS: There is no intracranial hemorrhage. There is no territorial infarction. There are severe microangiopathic changes. There is diffuse parenchymal volume loss. There is no mass effect or midline shift. The calvarium is unremarkable. The orbits are unremarkable. The paranasal sinuses are unremarkable. The mastoid air cells are unremarkable. The soft tissues are unremarkable. IMPRESSION: 1. No intracranial hemorrhage or territorial infarction. 2. 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 CT ANGIOGRAM HEAD DATE: 04/11/2024 CLINICAL HISTORY: Patient with transient left leg weakness. TECHNIQUE: Standard helical CT image acquisition through the intracranial circulation following intravenous administration of contrast material with bolus tracking. 2D and 3D MIP images for post-processing were performed and interpreted on an independent workstation and 3D images were permanently archived. COMPARISON: CT same day. FINDINGS: There is no proximal intracranial large vessel occlusion. There is mild intracranial atherosclerosis in the carotid siphons and vertebral arteries bilaterally. There is no intracranial aneurysm. The right middle cerebral artery and its branches are normal. The right anterior cerebral artery and its branches are normal. The left middle cerebral artery and its branches are normal. The left anterior cerebral artery and its branches are normal. The anterior communicating artery is well visualized and appears normal. The left vertebral artery is dominant. The basilar artery is patent and appears normal. The right posterior cerebral artery is normal. The left posterior cerebral artery is normal. IMPRESSION: 1. No proximal intracranial large vessel occlusion. 2. 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 CT ANGIOGRAM NECK DATE: 04/11/2024 CLINICAL HISTORY: Patient with transient left leg weakness. TECHNIQUE: Standard helical CT image acquisition of the neck up to the skull base after bolus intravenous contrast enhancement. 2D and 3D MIP images for post-processing were performed and interpreted on an independent workstation and 3D images were permanently archived. COMPARISON: CT same day. FINDINGS: The origins of the great vessels from the aortic arch are patent. The origin of the right vertebral artery is patent. The origin of the left vertebral artery is patent. The common carotid arteries are patent. There is plaque without stenosis at the origin of the right internal carotid artery. There is plaque without stenosis at the origin of the left internal carotid artery. The rest of the cervical segments of the internal carotid arteries are patent up to the skull base. The left vertebral artery is dominant. The cervical segments of the vertebral arteries are patent up to the skull base. The visualized lung apices are unremarkable. The thyroid gland is unremarkable. The soft tissues of the neck are unremarkable. There are degenerative changes in the cervical spine. IMPRESSION: Patent cervical vasculature. Atherosclerotic disease noted but no high-grade stenosis. Would offer a month of Plavix and follow up with primary care provider for cardiac echo. They would like to proceed with this treatment option. Has been eating breakfast. Will need to ambulate with walker to go home with spouse. Urinalysis was never obtained but unlikely to explain transient symptoms. Medical Records Medical records reviewed: Yes I reviewed the patient's medical records Lab Data Lab results reviewed: Yes I reviewed the patient's lab results Labs: Lab Results 04/11/24 04/11/24 04/11/24 Range/Units 03:33 03:49 03:49 WBC 8.33 (4.50-11.00) K/uL RBC 5.21 (4.30-5.90) m/uL Hgb 14.9 (13.5-17.5) gm/dL Hct 46.0 (37.0-53.0) % MCV 88 (80-100) fL MCH 29 (26-34) pg MCHC 32 (32-36) gm/dL RDW Coeff of [place] 14.0 (11.5-15.5) % Plt Count 184 (140-440) K/uL Neut % (Auto) 58.8 (42.0-72.0) % Lymph % (Auto) 25.7 (20-44) % [place] % (Auto) 11.2 H (0.0-11.0) % Eos % (Auto) 3.0 (0.0-7.0) % Baso % (Auto) 0.5 (0.0-3.0) % Neut # (Auto) 4.90 (1.7-7.0) K/uL Lymph # (Auto) 2.14 (0.90-2.90) K/uL [place] # (Auto) 0.90 (0.00-0.90) K/UL Eos # (Auto) 0.25 (0.00-0.50) K/uL Baso # (Auto) 0.04 (0.00-0.30) K/uL Abs Immat Gran (auto) 0.07 (0.00-0.30) K/uL Imm/Tot Granulo (auto) 0.8 % Sodium 137 (135-149) mmol/L Potassium 3.9 (3.6-5.1) mmol/L Chloride 106 (96-114) mmol/L Carbon Dioxide 23 (20-32) mmol/L Anion Gap 8 (7-15) mEq/L BUN 26 (7-30) mg/dL Creatinine 1.0 (0.5-1.5) mg/dL Estimated Creat Clear 57.33 Estimated GFR 72 ml/min Glucose 128 H (60-115) mg/dL Calcium 9.1 (8.4-10.6) mg/dL Troponin I < 0.01 L Cancelled (0.01-0.04) ng/mL C-Reactive Protein < 0.5 L (0.5-1.0) mg/dL NT-Pro-B Natriuret Pep 282 pg/mL SARS-CoV-2 (PCR) Negative SARS-CoV-2 (Negative) Influenza Type A (PCR) Negative PCR FLU A (Negative) Influenza Type B (PCR) Negative PCR FLU B (Negative) RSV (PCR) Negative PCR RSV (Negative) 04/11/24 Range/Units 03:49 WBC (4.50-11.00) K/uL RBC (4.30-5.90) m/uL Hgb (13.5-17.5) gm/dL Hct (37.0-53.0) % MCV (80-100) fL MCH (26-34) pg MCHC (32-36) gm/dL RDW Coeff of [place] (11.5-15.5) % Plt Count (140-440) K/uL Neut % (Auto) (42.0-72.0) % Lymph % (Auto) (20-44) % [place] % (Auto) (0.0-11.0) % Eos % (Auto) (0.0-7.0) % Baso % (Auto) (0.0-3.0) % Neut # (Auto) (1.7-7.0) K/uL Lymph # (Auto) (0.90-2.90) K/uL [place] # (Auto) (0.00-0.90) K/UL Eos # (Auto) (0.00-0.50) K/uL Baso # (Auto) (0.00-0.30) K/uL Abs Immat Gran (auto) (0.00-0.30) K/uL Imm/Tot Granulo (auto) % Sodium (135-149) mmol/L Potassium (3.6-5.1) mmol/L Chloride (96-114) mmol/L Carbon Dioxide (20-32) mmol/L Anion Gap (7-15) mEq/L BUN (7-30) mg/dL Creatinine (0.5-1.5) mg/dL Estimated Creat Clear Estimated GFR ml/min Glucose (60-115) mg/dL Calcium (8.4-10.6) mg/dL Troponin I (0.01-0.04) ng/mL C-Reactive Protein (0.5-1.0) mg/dL NT-Pro-B Natriuret Pep Cancelled pg/mL SARS-CoV-2 (PCR) (Negative) Influenza Type A (PCR) (Negative) Influenza Type B (PCR) (Negative) RSV (PCR) (Negative) ECG Data Attestation: I personally reviewed and interpreted this ECG as follows: (Appears similar to prior. Though I do not clearly see pacer spikes here. Otherwise would look like right bundle. Sinus. Rate is 73) Discharge Plan Discharge Clinical Impression: Transient left leg weakness Patient Disposition: Home w/ Parent or Adult Condition: Improved Additional Instructions: Stay well-hydrated. Be sure to ambulate only with your walker. Take care transitions. Prescribing Plavix for 1 month. Would recommend follow-up with primary care provider for further recommendations and to schedule cardiac echocardiogram per recommendations by Stroke Neuro. Prescriptions: New clopidogrel [Plavix] 75 mg tablet 75 mg PO DAILY Qty: 30 0RF No Action atorvastatin 40 mg tablet 40 mg PO HS cyanocobalamin (vitamin B-12) 1,000 mcg/mL solution 1,000 mcg IM Q30D ezetimibe 10 mg tablet 10 mg PO DAILY Jardiance 25 mg tablet 25 mg PO DAILY aspirin 81 mg tablet,delayed release (DR/EC) 81 mg PO DAILY Linzess 145 mcg capsule 145 mcg PO DAILY acetaminophen 500 mg tablet 1,000 mg PO Q6H PRN bisacodyl 10 mg suppository 10 mg ID DAILY PRN ketoconazole 2 % cream 1 applic topical BID PRN ketoconazole 2 % shampoo 1 applic topical 2XW PRN Novolin N FlexPen 100 unit/mL (3 mL) insulin pen 20 unit subcut QAM Qty: 15 0RF oseltamivir [Tamiflu] 30 mg Capsule 30 mg PO BID Qty: 4 0RF Follow Up/Referrals: Provider,Not a Local [Primary Care Provider] - Stand Alone Forms: [facility] Info Instructions
--- OUTSIDE RECORDS SUMMARY | 2024-04-11 03:32 | XMS_ITS | Clinical Summary ---
Author Organization [facility] Address [place], [place] [address] Care Team Providers Care Lineworker Name Role Phone Pcp, No Primary Care Provider Unavailabl e Allergies No known active allergies Medications atorvastatin (LIPITOR) 40 mg tablet TAKE 1 TABLET BY MOUTH DAILY 06/13/2019 Active cyanocobalamin (VITAMIN B12) 1,000 mcg/mL injection Inject 1,000 mcg subcutaneous . 10/26/2019 Active glimepiride (AMARYL) 2 mg tablet TAKE 2 TABLETS BY MOUTH TWO TIMES A DAY 04/05/2019 Active lisinopriL (PRINIVIL; ZESTRIL) 5 mg tablet Take 5 mg by mouth. 10/01/2019 Active metFORMIN (GLUCOPHAGE) 500 mg tablet Take 1,000 mg by mouth 2 times daily with meals. 04/06/2018 Active loperamide (IMODIUM) 2 mg capsule TAKE ONE CAPSULE BY MOUTH FOUR TIMES DAILY NEEDED for diarrhea. 10/11/2019 Active Encounters Date Type Department Care Team Description 01/27/2024 Transcribe Orders [facility] [address] [place] [address] [facility] [address] [place] [address] Santana Mullen MD from Last 3 Months Social History Tobacco Use Types Packs/Day Years Used Date Smoking Tobacco: Former Cigarettes Q uit: 1985 Smokeless Tobacco: Never Tobacco Cessation:Counseling Given: Yes Sex and Gender Information Value Date Recorded Sex Assigned at Not on file Legal Sex Male 2:51 PM CDT Gender Identity Not on file Sexual Orientation Not on file Obstetrics History Plan of Treatment Health Maintenance Due Date Last Done Comments Tdap 1946 Depression screening for age 12+ 1947 BMI (ht and wt on same day) for age 18+ 1953 Tetanus booster 1955 Pneumococcal series for age 50+ (1 of 1 - PCV) 1985 Zoster (shingles) series for age 50+ (1 of 2) 1985 RSV vaccine for adults or (1 - 1-dose 75+ series) 2010 COVID-19 vaccine series ( season) 2023 07/17/2022, 01/05/2021, 05/22/2020, Additional history exists Influenza for age 65+ 11/30/2023 Insurance [employer] Care Teams Lineworker Relationship Specialty Start Date End Date Pcp, No . PCP - General 10/12/19
--- OUTSIDE RECORDS SUMMARY | 2024-04-11 03:32 | XMS_ITS | Continuity of Care Document ---
Author Name NwHIN User [email or web address] llowed Address Unknown Organization Unknown Address Unknown Procedures FILTER APPLIED:Only known Procedures with Onset Date within the last 5 years Procedure Date Procedure Provider Additiona l Information Status THERAPEUTIC EXERCISES (13864) Completed US URINE CAPACITY MEASURE (32575) Completed THER/PROPH/DIAG INJ SC/IM (03880) Completed GAIT TRAINING THERAPY (39259) Completed PT EVAL LOW COMPLEX 20 MIN (11162) Completed OT EVAL LOW COMPLEX 30 MIN (73826) Completed THERAPEUTIC ACTIVITIES (12447) Completed SELF CARE MNGMENT TRAINING (73317) Completed HYDRATION IV INFUSION INIT (52674) Completed EMERGENCY DEPT VISIT HI MDM (60118) Completed EMERGENCY DEPT VISIT MOD MDM (35059) Completed RESP VIRUS 3-5 TARGETS (07129) Completed COMPLETE CBC W/AUTO DIFF WBC (90023) Completed X-RAY EXAM CHEST 2 VIEWS (85671) Completed GLUCOSE BLOOD TEST (54984) Completed ROUTINE VENIPUNCTURE (99695) Completed METABOLIC PANEL TOTAL CA (57975) Completed ASSAY OF TROPONIN QUANT (87203) Completed X-RAY EXAM OF KNEE 1 OR 2 (92740) Completed THERAPEUTIC EXERCISES (31193) Completed SARSCOV CORONAVIRUS AG IA (16119) Completed GAIT TRAINING THERAPY (01922) Completed PT EVAL LOW COMPLEX 20 MIN (86164) Completed OT EVAL LOW COMPLEX 30 MIN (77750) Completed THERAPEUTIC ACTIVITIES (68772) Completed SELF CARE MNGMENT TRAINING (41343) Completed ASSAY OF TROPONIN QUANT (88708) Completed ASSAY OF LACTIC ACID (93178) Completed BLOOD GASES ANY COMBINATION (93897) Completed COMPREHEN METABOLIC PANEL (46959) Completed X-RAY EXAM CHEST 1 VIEW (28204) Completed ROUTINE VENIPUNCTURE (47766) Completed COMPLETE CBC W/AUTO DIFF WBC (99918) Completed EMERGENCY DEPT VISIT HI MDM (11646) Completed ELECTROCARDIOGRAM TRACING (72308) Completed MEASURE BLOOD OXYGEN LEVEL (26410) Completed GLUCOSE BLOOD TEST (31665) Completed C-REACTIVE PROTEIN (51603) Completed Encounters FILTER APPLIED:Only known Encounters with Admission Date within the last 5 years Encounter Location Admission Discharge Billing Code Toilet And Laundry Soap Supervisor A crow Outpatient [facility] Outpatient Omi Frances Inpatient [id number] Eh Webb Outpatient [facility] Outpatient [facility]acon Unknown [id number] Abbie Webb
--- OUTSIDE RECORDS SUMMARY | 2024-04-11 03:33 | XMS_ITS | Encounter Summary ---
Author Organization [facility] Address [address] [place] [address] Care Team Providers Care Stationary Steam Engineer Name Role Phone Minnie Avery M.D. Primary Care Provider [phone]- [phone] Reason for Visit * Reason Onset Date Comments [facility] 04/05/2024 Discharge Order Encounter Details Date Type Department Care Team (Latest Contact Info) Description 04/05/2024 Clinical Communication Division of Community Internal Medicine, [facility] in [place], [place] [address] [place] [phone] Ash Figueredo M.D. [address] [place] [address] [facility] (Discharge Order) Social History Tobacco Use Types Packs/Day Years Used Date Smoking Tobacco: Former Pipe Passive Smoke Exposure: Never Smokeless Tobacco: Never Alcohol Use Standard Drinks/Week Comments Not Currently 1 (1 standard drink = 0.6 oz pur e alcohol) [facility] Utilities Answer Date Recorded In the past 12 months has e [employer], gas, oil, or water company threatened to shut off services in your home? No 11/14/2023 Humiliation, Afraid, Rape, and Kick questionnair e Answer Date Recorded Within the last year, have y ou been afraid of your partner or ex-partner? No 11/07/2022 Within the last year, have y ou been humiliated or emotionally abused in other ways by your partner or ex-partner? No Within the last year, have y ou been kicked, hit, slapped, or otherwise physically hurt by your partner or ex-partner? No 11/07/2022 Within the last year, have y ou been raped or forced to have any kind of sexual activity by your partner or ex-partner? No 11/07/2022 Social Connection and Isolat ion Panel [NHANES] Answer Date Recorded In a typical week, how many times do you talk on the phone with family, friends, or neighbors? More than three times a week 06/27/2021 How often do you get togethe r with friends or relatives? More than three times a week 06/27/2021 How often do you attend [facility] or taoist services? Patient declined 06/27/2021 Do you belong to any clubs o r organizations such as scientology groups, unions, fraternal or athletic groups, or school groups? No 06/27/2021 How often do you attend meet ings of the clubs or organizations you belong to? Patient declined 06/27/2021 Are you , , di vorced, , never , or living with a partner? 06/27/2021 AUDIT-C Answer Date Recorded Q1: How often do you have a drink containing alc ohol? Never 06/27/2021 Average Number of Drinks Not on file 022 Frequency of Binge Drinking Not on file 05/31 Overall Financial Resource Strain (CARDIA) Answe r Date Recorded How hard is it for you to pa y for the very basics like food, housing, medical care, and heating? Not hard at all 11/07/2022 PHQ-2 Answer Date Recorded PHQ-2 Score 1 04/08/2023 [facility] of Occupat ional Health - Occupational Stress Questionnaire Answer Date Recorded Do you feel stress - tense, restless, nervous, or anxious, or unable to sleep at night because your mind is troubled all the time - these days? Not at all 06/27/2021 Exercise Vital Sign Answer Date Recorde d On average, how many days pe r week do you engage in moderate to strenuous exercise (like a brisk walk)? 0 days On average, how many minutes do you engage in exercise at this level? Patient declined 11/14/2023 Hunger Vital Sign Answer Date Recorded Within the past 12 months, y ou worried that your food would run out before you got the money to buy more. Never true 11/14/19 Within the past 12 months, t he food you bought just didn't last and you didn't have money to get more. Never true 11/14/2023 PRAPARE - Transportation Answer Date Re corded In the past 12 months, has l ack of transportation kept you from medical appointments or from getting medications? No 10/29 In the past 12 months, has l ack of transportation kept you from meetings, work, or from getting things needed for daily living? No 11/14/2023 Depression Answer Date Recor ded PHQ-9 Total Score (max 27) 0 05/10 Nutrition Answer Date Recorded On average, how many serving s of fruits and vegetables do you eat per day (serving size is equal to 1 cup or approximately the size of a tennis ball)? 0-2 11/14/2023 Dental Answer Date Recorded Dental: Regular Dentist Yes 11/14/19 Employment Answer Date Recorded Employment status Retired 11/14/2023 Housing Stability Answer Date Recorded What is your living situation today? I have a [facility] place to live 11/14/2023 Education Answer Date Recorded What is the highest level of school you have completed or the highest degree you have received? Doctorate 06/27/2021 Sex and Gender Information Value Date Recorded Sex Assigned at Male 01/12/2020 12:55 PM CDT Legal Sex Male 3:34 PM VP SCIENTIFIC Gender Identity Male 06/26/2018 10:58 AM CDT Sexual Orientation Straight 06/26/2018 10 :58 AM CDT documented as of this encounter Plan of Treatment Upcoming Encounters Date Type Department Care Team (Late st Contact Info) Description 05/07/2024 10:00 AM VP SCIENTIFIC Office Visit Department of Vascular Medicine in [place], [place] [address] [place] [address] Santana Mullen M.D. [address] [place] [address] Discharge Disposition: Home or Self Care 05/20/2024 1:40 PM VP SCIENTIFIC Office Visit Department of Dermatology in [place], [place] [address] [place] [phone] Aldo Quarles M.D. [address] [place] [phone] documented as of this encounter Visit Diagnoses Not on filedocumented in this encounter Additional Health Concerns Assessment Noted Time PHQ-9 Depression Total Score: 0 05/10/19 21 11:00 AM VP SCIENTIFIC documented as of this encounter Care Teams Stationary Steam Engineer Relationship Specialty Start Date End Date Minnie Avery M.D. [address] [place] [phone] PCP - General Internal Medicine 10/24/22 documented as of this encounter
--- OUTSIDE RECORDS SUMMARY | 2024-04-11 03:33 | XMS_ITS | Encounter Summary ---
Author Organization [facility] Address [address] [place] [address] Care Team Providers Care Press Department Manager Name Role Phone Minnie Avery M.D. 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 [address] [place] [phone] Phone: tel: fax: [facility] Referral ID Status Reason Start Date Expiration Date Visits Re quested Visits Authorized [id number] Closed 04/09/2024 04/09/2025 1 1 Encounter Details Date Type Department Care Team (Latest Contact Info) Description 04/09/2024 10:12 AM BARREL DEDENTING MACHINE OPERATOR - 04/09/2024 11:59 PM BARREL DEDENTING MACHINE OPERATOR Hospital Encounter Department of Radiology, [facility], in [place], [place] [address] [place] [address] Gaby Davila APRN, C.N.P. 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 Patient declined 06/27/2021 Do you belong to any clubs o r organizations such as hindu groups, unions, fraternal or athletic groups, or [...] Answer Date Recorded PHQ-2 Score 1 04/08/2023 [facility] Occupat ional [facility] - Occupational Stress Questionnaire Answer Date Recorded [...] money to buy more. Never true 11/14/19 24 Within the past 12 months, t he [...] Date Recorded Dental: Regular Dentist Yes 11/14/19 24 Employment Answer Date Recorded Employment status Retired 11/14/2023 Housing Stability Answer Date Recorded What is your living situation today? I have a [facility] place to live 11/14/2023 Education Answer Date Recorded What is the highest level of school you have completed or the highest degree you have received? Doctorate 06/27/2021 Sex and Gender Information Value Date Recorded Sex Assigned at Male 01/12/2020 12:55 PM CDT Legal Sex Male 3:34 PM BARREL DEDENTING MACHINE OPERATOR Gender Identity Male 06/26/2018 10:58 AM CDT Sexual Orientation Straight 06/26/2018 10 :58 AM CDT documented as of this encounter Medications at Time of Discharge acetaminophen (TYLENOL) 500 mg tablet Take 2 tablets (1,000 mg total) by mouth every 6 (six) hours as needed. 0 amoxicillin (AmoxiL) 500 mg tablet Take 500 mg by mouth as needed. 4 TABLETS BEFORE DENTAL PROC. 2000MG DOSE ascorbic acid, vitamin C, (ascorbic acid) 500 mg tablet Take 500 mg by mouth daily. aspirin [address] tablet Take 1 tablet (81 mg total) by mouth daily. 120 tablet 2 02/13/2024 1:32 PM BARREL DEDENTING MACHINE OPERATOR 4 atorvastatin (Lipitor) 40 mg tabletIndications:Hy perlipidemia Take 1 tablet (40 mg total) by mouth daily. 90 tablet 3 02/13/2024 12:58 PM BARREL DEDENTING MACHINE OPERATOR 4 B complex-vitamin (Super B-50) capsule Take 1 capsule by mouth daily. bisacodyL (Dulcolax) 5 mg EC tablet Take 2 tablets (10 mg total) by mouth daily as needed for constipation. 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 Change every 14 days for continuous glucose monitoring. 6 each 3 04/02/2024 4:26 PM BARREL DEDENTING MACHINE OPERATOR 4 025 cefadroxil (Duricef) 500 mg capsule Take 1 capsule (500 mg total) by mouth 2 (two) times a day. 10 capsule 01/23/2024 5:42 PM CDT 4 cholecalciferol (Vitamin D3) 50 mcg (2,000 Unit) tablet Take 50 mcg by mouth daily. cyanocobalamin (Vitamin B-12) 1,000 mcg/mL injection Inject 1 mL (1,000 mcg total) under the skin every 30 (thirty) days. 3 mL 3 04/02/2024 4:26 PM BARREL DEDENTING MACHINE OPERATOR 4 025 DME Wound dressingsIndications :Cellulitis Leg Right,Diabetes Mellitus Type 2 Ulcer Leg (HCC) DME Order 1 Unspecified 1 DME Wound dressingsIndications :Cellulitis Leg Right DME Order 1 Unspecified 3 4 doxycycline monohydrate (Monodox) 100 mg capsuleIndications:I mpetigo Take 1 capsule (100 mg total) by mouth 2 (two) times a day before morning and evening meals. 60 capsule 04/05/2024 5:26 PM BARREL DEDENTING MACHINE OPERATOR 5 025 empagliflozin (Jardiance) 25 mg tablet Take 1 tablet (25 mg total) by mouth every morning before breakfast. 90 tablet 3 04/02/2024 4:26 PM BARREL DEDENTING MACHINE OPERATOR 4 ezetimibe (Zetia) 10 mg tabletIndications:De meredith Functional Status Take 1 tablet (10 mg total) by mouth daily. 90 tablet 3 04/02/2024 4:26 PM BARREL DEDENTING MACHINE OPERATOR 4 025 glucagon (Gvoke PFS) 1 mg/0.2 mL syringe syringe Inject 0.2 mL (1 mg total) under the skin as needed for low blood sugar (if unable to treat hypoglycemia by mouth with carbohydrates). 0.2 mL 2 4 honey (MediHoney, honey,) 80 % gel Apply 1 mL topically daily. Apply to left 3rd and 4th toe 44 mL 1 4 insulin NPH (NovoLIN N FlexPen) 100 unit/mL (3 mL) penIndications:Diabe caroline Mellitus Type 2 With Diabetic Nephropathy (HCC) Inject 20 Units under the skin every morning. Indication: type 2 diabetes 15 mL 4 5 ketoconazole (Nizoral) 2 % creamIndications:Carlitos matitis Seborrheic Apply topically to face 2 (two) times a day. 30 g 3 02/13/2024 12:58 PM BARREL DEDENTING MACHINE OPERATOR 4 ketoconazole (Nizoral) 2 % shampooIndications:D ermatitis Seborrheic Apply topically to affected area(s) on ears and scalp two times a day as needed 120 mL 11 04/02/2024 4:26 PM BARREL DEDENTING MACHINE OPERATOR 4 lancets (Accu-Chek Fastclix Lancet Drum) Use as directed, test 1 time daily 102 each 3 04/02/2024 4:26 PM BARREL DEDENTING MACHINE OPERATOR 4 linaCLOtide (Linzess) 290 mcg capsule Take 1 capsule (290 mcg total) by mouth every morning before breakfast. 90 capsule 3 5 mupirocin (Bactroban) 2 % ointment 5 NaCl 0.9 % irrigationIndication s:Insufficiency Vascular With Ulcer Toe (HCC) Irrigate with 30 mL as directed daily. 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 Dissolve each 17 g dose in 240 mL (8 ounces) of beverage. If no bowel movement 3 psyllium (METAMUCIL) powder Take 1 packet by mouth 2 (two) times a day. 1TBSP documented as of this encounter Plan of Treatment Upcoming Encounters Date Type Department Care Team (Late st Contact Info) Description 05/07/2024 10:00 AM BARREL DEDENTING MACHINE OPERATOR Office Visit Department of Vascular Medicine in [place], [place] [address] [place] [phone] Santana Mullen M.D. [address] [place] [phone] Discharge Disposition: Home or Self Care 05/20/2024 1:40 PM BARREL DEDENTING MACHINE OPERATOR Office Visit Department of Dermatology in [place], [place] [address] [place] [phone] Aldo Quarles M.D. 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 No radiographic evidence of osteomyelitis. No tracking soft tissue gas. Scattered moderate hypertrophic arthritis. Chronic spurs 5th metatarsal base. Old healed deformity 5th proximal phalanx. No acute fracture. Dense arterial calcifications. Narrative 04/09/2024 11:45 AM BARREL DEDENTING MACHINE OPERATOR EXAM: DX FOOT RIGHT 3+ VIEWS Procedure Note Boaz Bloom M.D. - 04/09/2024 EXAM: DX FOOT RIGHT 3+ VIEWS IMPRESSION: Lateral foot soft tissue ulceration at the level of the 5th metatarsalbase. No radiographic evidence of osteomyelitis. No tracking soft tissuegas. Scattered moderate hypertrophic arthritis. Chronic spurs 5thmetatarsal base. Old healed deformity 5th proximal phalanx. No acute fracture. Dense arterialcalcifications. Gaby Davila APRN, C.N.P. 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 [address] [place] [phone] PCP - General Internal Medicine 10/24/22 documented as of this encounter
--- OUTSIDE RECORDS SUMMARY | 2024-04-11 03:33 | XMS_ITS | Encounter Summary ---
Author Organization [facility] Address [address] [place] [address] Care Team Providers Care Transition Teacher Name Role Phone Minnie Avery M.D. Primary Care Provider +1- [phone] Encounter Details Date Type Department Care Team (Late st Contact Info) Description 04/05/2024 Ancillary Procedure Department of Dermatology Social History Tobacco Use Types Packs/Day Years Used Date Smoking Tobacco: Former Pipe Passive Smoke Exposure: Never Smokeless Tobacco: Never Alcohol Use Standard Drinks/Week Comments Not Currently 1 (1 standard drink = 0.6 oz pur e alcohol) [facility] Utilities Answer Date Recorded In the past 12 months has e electric, gas, oil, or water [employer] threatened to shut off services in your [...] often do you attend chur ch or alevism services? Patient declined 06/27/2021 Do you belong to any clubs o r organizations such as congregational groups, unions, fraternal or athletic groups, or [...] Answer Date Recorded PHQ-2 Score 1 04/08/2023 [facility] of Occupat ional Health - Occupational Stress [...] your living situation today? I have a [employer] [facility] [employer] [facility] [employer] place to live 11/14/2023 Education Answer Date Recorded What is the highest level of school you have completed or the highest degree you have received? Doctorate 06/27/2021 Sex and Gender Information Value Date Recorded Sex Assigned at Male 01/12/2020 12:55 PM CDT Legal Sex Male 3:34 PM BUS AND RAIL OPERATOR Gender Identity Male 06/26/2018 10:58 AM CDT Sexual Orientation Straight 06/26/2018 10 :58 AM CDT documented as of this encounter Plan of Treatment Upcoming Encounters Date Type Department Care Team (Late st Contact Info) Description 05/07/2024 10:00 AM BUS AND RAIL OPERATOR Office Visit Department of Vascular Medicine in [place], [place] [address] [place] [phone] Santana Mullen M.D. [address] [place] [phone] Discharge Disposition: Home or Self Care 05/20/2024 1:40 PM BUS AND RAIL OPERATOR Office Visit Department of Dermatology in [place], [place] [address] [place] [phone] Aldo Quarles M.D. [address] [place] [phone] documented as of this encounter Procedures Procedure Name Priority Date/Time Associated Diagnosis Comments DERMATOLOGY IMAGE EXAM Routine 04/05/2024 12:00 AM BUS AND RAIL OPERATOR documented in this encounter Results * Face 507-Dermatology Image Exam (04/05/2024 12:00 AM BUS AND RAIL OPERATOR) Narrative [facility] - 04/06/2024 6:38 AM BUS AND RAIL OPERATOR This order has been created and auto-finalized to support the import of images acquired without order. The clinical documentation to support these images can be found on the encounter that produced images. us Provider Not In System IMG NON RAD IMAGING PROCE DURES Final Result [facility] NA documented in this encounter Visit Diagnoses Not on filedocumented in this encounter Additional Health Concerns Assessment Noted Time PHQ-9 Depression Total Score: 0 05/10/19 21 11:00 AM BUS AND RAIL OPERATOR documented as of this encounter Care Teams Transition Teacher Relationship Specialty Start Date End Date Minnie Avery M.D. [address] [place] [phone] PCP - General Internal Medicine 10/24/22 documented as of this encounter
--- OUTSIDE RECORDS SUMMARY | 2024-04-11 03:33 | XMS_ITS | Encounter Summary ---
Author Organization [facility] Address [address] [place] [phone] Care Team Providers Care Appeals Board Referee Name Role Phone Minnie Avery M.D. Primary Care Provider +1- [phone] Reason for Visit * Reason Onset Date Comments Forms 04/07/2024 Physician order review Encounter Details Date Type Department Care Team (Latest Contact Info) Description 04/07/2024 Clinical Communication Division of Community Internal Medicine, [facility], in [place], [place] [address] [place] [phone] Minnie Avery M.D. [address] [place] [phone] Forms ( Physician order review ) Social History Tobacco Use Types Packs/Day Years Used Date Smoking Tobacco: Former Pipe Passive Smoke Exposure: Never Smokeless Tobacco: Never Alcohol Use Standard Drinks/Week Comments Not Currently 1 (1 standard drink = 0.6 oz pur e alcohol) [facility] Utilities Answer Date Recorded In the past 12 months has e [employer], gas, oil, or water company threatened to [...] week 06/27/2021 How often do you attend [facility] or holiness services? Patient declined 06/27/2021 Do you belong to any clubs o r organizations such as adventist groups, unions, fraternal or athletic groups, or [...] Answer Date Recorded PHQ-2 Score 1 04/08/2023 [facility] of Occupat ional Health - Occupational Stress [...] your living situation today? I have a [facility] place to live 11/14/2023 Education Answer Date Recorded What is the highest level of school you have completed or the highest degree you have received? Doctorate 06/27/2021 Sex and Gender Information Value Date Recorded Sex Assigned at Male 01/12/2020 12:55 PM CDT Legal Sex Male 3:34 PM TRAVEL SPECIALIST Gender Identity Male 06/26/2018 10:58 AM CDT Sexual Orientation Straight 06/26/2018 10 :58 AM CDT documented as of this encounter Plan of Treatment Upcoming Encounters Date Type Department Care Team (Late st Contact Info) Description 05/07/2024 10:00 AM TRAVEL SPECIALIST Office Visit Department of Vascular Medicine in [place], [place] 200 [place] [phone] Santana Mullen M.D. 200 [place] [phone] Discharge Disposition: Home or Self Care 05/20/2024 1:40 PM TRAVEL SPECIALIST Office Visit Department of Dermatology in [place], [place] [address] [place] [address] Aldo Quarles M.D. [address] [place] [phone] documented as of this encounter Visit Diagnoses Not on filedocumented in this encounter Additional Health Concerns Assessment Noted Time PHQ-9 Depression Total Score: 0 05/10/19 21 11:00 AM TRAVEL SPECIALIST documented as of this encounter Care Teams Appeals Board Referee Relationship Specialty Start Date End Date Minnie Avery M.D. [address] [place] [phone] PCP - General Internal Medicine 10/24/22 documented as of this encounter
--- OUTSIDE RECORDS SUMMARY | 2024-04-11 03:33 | XMS_ITS | Encounter Summary ---
Author Organization [facility] Address [address] [place] [address] Care Team Providers Care Surgery Center Administrator Name Role Phone Minnie Avery M.D. Primary Care Provider +1- [phone] Reason for Referral * Outpatient (Routine) - Authorized Specialty Diagnoses / Procedures Referred By Contac t Referred To Contact Dermatology Juan Mccoy M.D., M.B.A. 200 [place] [address] Phone: tel: fax: [facility] Referral ID Status Reason Start Date Expiration Date V isits Requested Visits Authorized [id number] Authorized 04/05/2024 10/05/2025 1 1 ESS DIRECTOR * Outpatient (Routine) - Authorized Specialty Diagnoses / Procedures Referred By Contmeera t Referred To Contact Dermatology Diagnoses Cancer Skin Basal Cell Personal History Procedures Professional Photography Services Juan Mccoy M.D., M.B.A. [address] [place] [phone] Phone: tel: fax: [facility] Referral ID Status Reason Start Date Expiration Date V isits Requested Visits Authorized [id number] Authorized 04/05/2024 04/05/2025 1 1 ESS DIRECTOR Reason for Visit * Outpatient (Routine) - Closed Specialty Diagnoses / Procedures Referred By Ashley mack Referred To Contact Dermatology Diagnoses Cancer Skin Basal Cell Personal History Priya Reyez M.D. [address] [place] [phone] Phone: tel: fax: [facility] Referral ID Status Reason Start Date Expiration Date Visits Re quested Visits Authorized [id number] Closed 03/23/2024 09/22/2025 1 1 Encounter Details Date Type Department Care Team (Late st Contact Info) Description 04/05/2024 4:40 PM FITNESS DIRECTOR Office Visit Department of Dermatology in [place], [place] [address] [place] [phone] Juan Mccoy M.D., M.B.A. [address] [place] [phone] Impetigo (Primary Dx); Cancer Skin Basal Cell Personal History Discharge Disposition: Home or Self Care Social History Tobacco Use Types Packs/Day Years Used Date Smoking Tobacco: Former Pipe Passive Smoke Exposure: Never Smokeless Tobacco: Never Alcohol Use Standard Drinks/Week Comments Not Currently 1 (1 standard drink = 0.6 oz pur e alcohol) [facility] Utilities Answer Date Recorded In the past 12 months has [facility] [employer], gas, oil, or water [employer] threatened to shut off services in your [...] often do you attend chur ch or restorationism services? Patient declined 06/27/2021 Do you belong to any clubs o r organizations such as confucianist groups, unions, fraternal or athletic groups, or [...] Recorded PHQ-2 Score 1 04/08/2023 [facility] Questionnaire Answer [...] your living situation today? I have a [facility] place to live 11/14/2023 Education Answer Date Recorded What is the highest level of school you have completed or the highest degree you have received? Doctorate 06/27/2021 Sex and Gender Information Value Date Recorded Sex Assigned at Male 01/12/2020 12:55 PM CDT Legal Sex Male 3:34 PM FITNESS DIRECTOR Gender Identity Male 06/26/2018 10:58 AM CDT Sexual Orientation Straight 06/26/2018 10 :58 AM CDT documented as of this encounter Progress Notes * Juan Mccoy M.D., M.B.A. - 04/05/2024 4:40 PM CST SUBJECTIVE CHIEF COMPLAINT/REASON FOR VISIT Rash, face. HISTORY OF PRESENT ILLNESS Mr. Bryson is a very pleasant 88-year-old patient who had a significant reaction to field treatment with 5-FU plus calcipotriene compounded in [employer] involving the face. Patient started this treatment in February of 2024, then presented to Dr. Jerry for evaluation of his significant reaction. Patient was provided with hydrocortisone 2.5% cream to be applied twice daily for 2 weeks to calm downthe inflammation. Followup was scheduled for 2 weeks later. Patient presents now with a rash that is worse. He has significantly more erythema involving the face; and also there is significant crusting, especially adjacent to the ears and jawline areas. Patient notes that the hydrocortisone appeared to have made the rash somewhat worse. He is interested in a review and treatment recommendations. OBJECTIVE PHYSICAL EXAMINATION General: Very pleasant 88-year-old patient in no acute distress. Skin: Limited exam of the patient's facial skin performed per patient request. Exam significant forfacial erythema with crusting and likely impetiginization. Neuro: Patient alert and oriented to time, place, and person. ASSESSMENT / PLAN #1 Contact dermatitis to 5-FU plus calcipotriene, face PLAN: 1. Patient's caregiver and patient will discontinue Bactroban topical antibiotic. 2. Instead, the patient will try to do vinegar wet dressings once to twice daily for 1 hour per set. 3. I provided the patient with a prescription for doxycycline 100 mg by mouth twice daily for at least 2 weeks. 4. We will see the patient back in 2 weeks for reassessment. Patient will let me know if his condition deteriorates. I would be happy to see him back at any time before the 2 weeks. 5. I also obtained swab cultures of his skin. We will check for bacterial growth and request susceptibilities to antibiotics. In addition, we will test for HSV and VZV by PCR. PATIENT EDUCATION: Ready to learn. No apparent learning barriers were identified. Learning preferences include listening. Explained diagnosis and treatment plan; patient/guardian of patient expressed understanding of the content. Juan Mccoy M.D., M.B.A. CT CT Job ID: [id number] ESS DIRECTOR documented in this encounter Plan of Treatment Upcoming Encounters Date Type Department Care Team (Late st Contact Info) Description 05/07/2024 10:00 AM FITNESS DIRECTOR Office Visit Department of Vascular Medicine in [place], [place] [address] [place] [phone] Santana Mullen M.D. [address] [place] [address] Discharge Disposition: Home or Self Care 05/20/2024 1:40 PM FITNESS DIRECTOR Office Visit Department of Dermatology in [place], [place] 200 [place] [address] Aldo Quarles M.D. [address] [place] [phone] Scheduled Orders Name Type Priority Associated Diagnoses Orde r Schedule Professional Photography Services Procedures Routine Cancer Skin Basal Cell Personal History Ordered: 04/05/2024 Scheduled Referrals Name Type Priority Associated Diagnoses Order Schedule Dermatology office visit (clinic) Outpatient Referral Routine Expected: 04/19/2024, Expires: 07/04/2025 documented as of this encounter Procedures Procedure Name Priority Date/Time Associated Diagnosis Comments VARICELLA-ZOSTER VIRUS PCR, V Routine 04/05/2024 4:51 PM FITNESS DIRECTOR Cancer Skin Basal Cell Personal History HERPES SIMPLEX VIRUS PCR Routine 04/05/2024 4:51 PM FITNESS DIRECTOR Cancer Skin Basal Cell Personal History BACTERIAL CULTURE, AEROBIC + SUSC Routine 04/05/2024 4:48 PM FITNESS DIRECTOR Cancer Skin Basal Cell Personal History documented in this encounter Results * Varicella-Zoster Virus PCR (04/05/2024 4:51 PM FITNESS DIRECTOR) Specimen Source RIGHT MALAR CHEEK,SWAB 04/07/2024 12:53 PM FITNESS DIRECTOR DTL Varicella-Zoster Virus PCR Negative Negative 04/07/2024 12:53 PM FITNESS DIRECTOR DTL Comment: ----ADDITIONAL INFORMATION---- This test was developed and its performance characteristics determined by [facility] in a manner consistent with CLIA requirements. This test has not been cleared or approved by the U.S. Food and Drug Administration. Skin (Right Malar Cheek) 04/05/2024 4:51 PM FITNESS DIRECTOR Juan Mccoy M.D., M.B.A. LAB MICROBIOLOGY - GENERAL ORDERABLES Final Result [facility] [address] [place] [address], [facility] DTL 200 [facility] 200 [place] [address] * Herpes Simplex Virus PCR (04/05/2024 4:51 PM FITNESS DIRECTOR) Specimen Source RIGHT MALAR CHEEK,SWAB 04/06/2024 10:03 PM FITNESS DIRECTOR DTL HSV 1, PCR Negative Negative 04/06/2024 10:03 PM FITNESS DIRECTOR DTL HSV 2, PCR Negative Negative 04/06/2024 10:03 PM FITNESS DIRECTOR DTL Comment: ----ADDITIONAL INFORMATION---- This test was developed and its performance characteristics determined by [facility] in a manner consistent with CLIA requirements. This test has not been cleared or approved by the U.S. Food and Drug Administration. Skin (Right Malar Cheek) 04/05/2024 4:51 PM FITNESS DIRECTOR Juan Mccoy M.D., M.B.A. LAB MICROBIOLOGY - GENERAL ORDERABLES Final Result Performing Organization Address [facility]/ZIP Co de Phone Number [facility] [address] [place] [address] [address] * Bacterial Culture, Aerobic + Susceptibility (04/05/2024 4:48 PM FITNESS DIRECTOR) Bacterial Culture, Aerobic + Susc Skin microbiota 04/07/2024 10:03 AM FITNESS DIRECTOR DTL Skin (Right Malar Cheek) 04/05/2024 4:48 PM FITNESS DIRECTOR Juan Mccoy M.D., M.B.A. LAB MICROBIOLOGY - GENERAL ORDERABLES Final Result Performing Organization Address City/[facility] Co de Phone Number [facility] [address] [place] [address] documented in this encounter Visit Diagnoses Diagnosis Impetigo- Primary Cancer Skin Basal Cell Personal History documented in this encounter Additional Health Concerns Assessment Noted Time PHQ-9 Depression Total Score: 0 05/10/19 21 11:00 AM FITNESS DIRECTOR documented as of this encounter Care Teams Surgery Center Administrator Relationship Specialty Start Date End Date Minnie Avery M.D. 200 [place] [phone] PCP - General Internal Medicine 10/24/22 documented as of this encounter
--- OUTSIDE RECORDS SUMMARY | 2024-04-11 03:33 | XMS_ITS ---
Author Organization [facility] Address [address] [place] [address] Care Team Providers Care Real Estate Attorney Name Role Phone Unavailable Unavailable Unavailable Surgery Details Not on file Complications Check Surgery Details section. Procedure Estimated Blood Loss Check Surgery Details section. Procedure Findings Check Surgery Details section. Procedure Specimens Taken Check Surgery Details section.
--- OUTSIDE RECORDS SUMMARY | 2024-04-11 03:33 | XMS_ITS | Encounter Summary ---
Author Organization [facility] Address [address] [place] [address] Care Team Providers Care Draw In Hand Name Role Phone Minnie Avery M.D. Primary Care Provider +1- [phone] Reason for Referral * Outpatient (Routine) - Authorized Specialty Diagnoses / Procedures Referred By Ashley mack Referred To Contact Vascular Medicine Gaby Davila APRN, C.N.P. [address] [place] [phone] Phone: tel: fax: [facility] Referral ID Status Reason Start Date Expiration Date V isits Requested Visits Authorized [id number] Authorized 04/09/2024 10/09/2025 1 1 BOTOMIST PRN * Outpatient (Routine) - Closed Specialty Diagnoses / Procedures Referred By Ashley mack Referred To Contact Diagnoses Peripheral Arterial Disease (HCC) 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) Diabetes Mellitus Type 2 With Diabetic Neuropathy (HCC) Procedures DX Foot Right 3+ Views Gaby Davila APRN, C.N.P. [address] [place] [phone] Phone: tel: fax: [facility] Referral ID Status Reason Start Date Expiration Date Visits Re quested Visits Authorized [id number] Closed 04/09/2024 04/09/2025 1 1 BOTOMIST PRN Reason for Visit * Outpatient (Routine) - Closed Specialty Diagnoses / Procedures Referred By Ashley makc Referred To Contact Vascular Medicine Nila Schafer APRN, C.N.PBianca, TammieNFarshad [address] [place] [phone] Phone: tel: fax: [facility] Referral ID Status Reason Start Date Expiration Date Visits Re quested Visits Authorized [id number] Closed 02/24/2024 08/25/2025 1 1 Encounter Details Date Type Department Care Team (Late st Contact Info) Description 04/09/2024 9:00 AM PHLEBOTOMIST PRN Office Visit Department of Vascular Medicine in [place], [place] [address] [place] [phone] Gaby Davila APRN, C.N.PBianca [address] [place] [phone] Peripheral Arterial Disease (HCC) (Primary Dx); 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); Diabetes Mellitus Type 2 With Diabetic Neuropathy (HCC) Discharge Disposition: Home or Self Care Social History Tobacco Use Types Packs/Day Years Used Date Smoking Tobacco: Former Pipe Passive Smoke Exposure: Never Smokeless Tobacco: Never Alcohol Use Standard Drinks/Week Comments Not Currently 1 (1 standard drink = 0.6 oz pur e alcohol) [facility] Utilities Answer Date Recorded In the past 12 months has [facility] [employer], [employer], or water [employer] threatened to shut off services in your [...] often do you attend chur ch or sabianism services? Patient declined 06/27/2021 Do you belong to any clubs o r organizations such as moravian groups, unions, fraternal or athletic groups, or [...] Answer Date Recorded PHQ-2 Score 1 04/08/2023 [facility] of Occupat ional Health - Occupational Stress [...] your living situation today? I have a [facility] place to live 11/14/2023 Education Answer Date Recorded What is the highest level of school you have completed or the highest degree you have received? Doctorate 06/27/2021 Sex and Gender Information Value Date Recorded Sex Assigned at Male 01/12/2020 12:55 PM CDT Legal Sex Male 3:34 PM PHLEBOTOMIST PRN Gender Identity Male 06/26/2018 10:58 AM CDT Sexual Orientation Straight 06/26/2018 10 :58 AM CDT documented as of this encounter Last Filed Vital Signs Vital Sign Reading Time Taken Comments Blood Pressure 151/76 04/09/2024 8:55 AM PHLEBOTOMIST PRN Pulse 70 04/09/2024 8:55 AM PHLEBOTOMIST PRN Temperature 36.9 C (98.4 F) 04/09/2024 8:55 AM PHLEBOTOMIST PRN Respiratory Rate - - Oxygen Saturation - - Inhaled Oxygen Concentration - - Weight 77 kg (169 lb 12.1 oz) 04/09/2024 8:55 AM PHLEBOTOMIST PRN Height - - Body Mass Index 23.69 01/02/2024 8:48 AM CDT documented in this encounter Patient Instructions * Patient Instructions* Rani Bangura, R.N. - 04/09/2024 9:00 AM PHLEBOTOMIST PRN 04/09/24: Xspan size 1 is the size over the toes. Xray of the foot to help rule out possible bone infection. Recommend staying off of your foot as much as possible. Wound Dressing: Side of Right Foot Wash hands. Remove old dressing. Cleanse ulcer base with rough gauze and hypochlorous acid (VASHE) wound cleanser in a gentle, circular motion. Moisten new rough gauze with hypochlorous acid (VASHE) wound cleanser. Apply gauze directly to wound base. Allow gauze to sit for 15 minutes. Remove gauze dressing and pat dry. Apply critic aid clear barrier ointment to skin surrounding wound. Pack the wound with some Aquacel Ag. Cover with Mepilex Border Apply Komprex II pad to dorsal feet, Tubigrip and low stretch wraps. Change dressing three times a week and PRN. Wound Dressing:Side of Left Foot Protect area with Mepilex border Check area daily for signs of wound re-opening Change dressing every three to five days or if dressing gets soiled or wet Continue until the skin has matured - approximately 6-8 weeks Continue to cut and apply X-span size 1 tubular stockings to bilateral toes. Newly healed area on the right lateral foot (by pinky toe) Continue to pad and protect with Mepilex foam secured with cover roll stretch tape. Change every 3-5 days or as needed. Right heel: May use Mepilex heel border to protect. Skin Care Apply a non-perfumed moisturizing cream to your legs and feet. Recommended brand is Cera Ve or may Apply a callus-softening cream, Amlactin, to the calloused areas of the feet daily. Wound Care 101: Watch for signs of infection: Increased redness, swelling, odor, drainage or pain. Elevated blood sugars or elevated temperature may indicate infection. Seek medical attention immediately with any ofthese signs. Check lower extremities/feet daily for new wounds. Never walk barefoot/stocking foot. Always wear protective footwear when walking. Do not use tape or band-aids on skin unless recommended by provider. Do not leave wounds open to air. Recommending to utilize CeraVe lotion to help with skin moisturization Continuing to use conn wool socks to help keep the foot warm while wicking away moisture Diet and Supplement Recommendations: Renetta-C 1,000 mg 1 tablet daily Vitamin D 2,000 IU daily Vein Formula Evan MAXWELL Micronized MPFF 1000mg daily. Take one tablet twice a day. Please purchase this directly from the website. Information given in clinic. Since you are getting B12 shots, you can add B6 vitamin and folate Supplies: This order is good for 3 months. It can be refilled each month. This order can be filled at the [facility] or other durable medical equipment store. Directions to the [facility] Downtown: Take the elevator down to the Subway level. Go straight out of the elevator. The [facility] Store will be just past the [employer] on the left. [facility], Address: [address] [place] [address] 36. . The [facility] also has a Mail-Order Service available to most states. [phone] Nearly all these items can be found for purchase online (if insurance does not provide coverage foryour dressings). Most standard drug stores do not carry wound supplies. Durable medical supply stores do. We cannot renew a supply order for you after three months unless you are re-assessed by a wound care provider, so be sure to come to your next appointment. Tell the [facility] when your next appointment is. Your insurance will not pay for supplies unless you are seen at least every month. Edemawear can be found on [employer] Vashe can be found at the [facility], online on [employer], MostLikely, or Orck[employer]. It is sometimes found in stores at [employer]. Xspan netting can be found on [employer]. Get size 1 for fingers or toes. If you have any wound care questions or concerns please contact the Vascular Center at [phone]. If you need to cancel, reschedule, or schedule a wound care appointment please call [phone]. Provider Signature Gaby Davila APRN, C.N.P. BOTOMIST PRN BOTOMIST PRN BOTOMIST PRN BOTOMIST PRN BOTOMIST PRN documented in this encounter Progress Notes * Gaby Davila APRN, C.N.P. - 04/09/2024 9:00 AM CST SUBJECTIVE CHIEF COMPLAINT / REASON FOR VISIT Re-evaluation of right foot ulcer HISTORY OF PRESENT ILLNESS Mr. Sheldon Bryson is a pleasant 88 y.o. male here today returning to the [facility] for re-evaluation of right lateral foot ulcer. 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 He is a former tobacco user. He has a history of recurrent bilateral foot ulcers in the setting of structural deformity, swelling, and peripheral arterial disease. Home health is changing dressings 2 X weekly. His is changing dressings once weekly. He has been followed at the [facility] vascular [facility]ound [facility] since October of 2023. He was most recentlyseen on 02/24/2024. He was recommended to continue with Vashe compresses followed by application ofMedihoney and Mepilex Lite. Change Dressing 3 X weekly. Utilize x-span to toes and low stretch wraps to right leg for compression. Offload with a Darco shoe. Patient presents today accompanied by his spouse. After his last appointment he was seen by lymphedema clinic who provided additional recommendations for compression therapy. Per spouse some of the recommendations are going well while others may be causing further issues. Currently, using x span for the toes and foam padding followed by low stretch wraps for edema management bilaterally. Patient also recently started physical therapy which will continue twice per week. He uses a walker for ambulation and they have been working on walking up and down the stairs. He was recently seen by Dermatology for facial rash and was started on doxycycline 100 mg b.i.d.. Overall, patient has been doing well with no recent signs or symptoms of soft tissue infection. The following portions of the patient's history were reviewed and updated as appropriate: allergies, current medications, family history, medical history, social history, surgical history, problem list, labs, diagnostics tests.. I reviewed the pertinent clinical notes in the electronic health record. OBJECTIVE VITALS BP 151/76 (BP Location: Left arm, Patient Position: Semi-recumbent, Cuff Size: Regular) Pulse 70 Temp 36.9 ??C (Temporal) Wt 77 kg BMI 23.69 kg/m?? PHYSICAL EXAMINATION General: Patient is a pleasant 88-year-old male in no acute distress. He was accompanied by his spouse to today's visit Mental: Alert and oriented with normal affect. Conversive and answers all questions appropriately. Head: Atraumatic and normocephalic. Vessels: palpable pedal pulses bilaterally Extremities: bilateral lower extremities are well perfused and appropriately warm to touch. Mild edema noted in the feet Gait: utilized a wheelchair for today's appointment Skin: There is a full-thickness ulcer on the right lateral foot with presence of nonviable slough within the base. Small to moderate amount of serous drainage appreciated with no odor. After obtaining patient consent and application of 2% lidocaine, meticulous debridement was completed with the useof forceps and Iris scissors. Patient tolerated debridement well and without any difficulty or incid ent. After debridement, there remains slough within the ulcer base. The ulcer does probe to the bone. No tracking or undermining. No signs of soft tissue infection -After debridement, a 5 minutes hypochlorous acid compress was performed to reduce microbial contamination and restore acid-base balance. PROCEDURE DETAILS As indicated, sharp debridement was performed today removing devitalized tissue from the following ulcers/wounds: Right lateral foot ulcer: Topical anesthetic (Lidocaine):2%. Debridement performed using: Forceps and Iris scissors . Level of Debridement: Full thickness. . Complications: No bleeding with debridement today. DIAGNOSTIC REVIEW All labs and diagnostic studies were reviewed. Noninvasive arterial studies completed 01/02/2024 noted noncompressible vessels. PAD bilaterally ofindeterminate severity starting at the infrapopliteal level. TcPO2 values are normal at all sites. 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 Bryson and his spouse Codie who was present throughout the visit today. Unfortunately, the ulceration on the right lateral foot has slightly worsened in depth with bone palpable. We will go ahead and obtain an x-ray to rule out osteomyelitis. If inconclusive may need MRI. Unfortunately, since dressing changes can be done only 3 times per week wound care is somewhat challenging. Therefore, I recommend use of Vashe soaks for 10-15 minutes followed by Aquacel Ag and Mepilex foam dressing to be changed 3 times per week and more often ifable to. Continue with aggressive compression therapy with foam padding followed by low stretch wraps bilaterally. Continue with x-span to toes. Patient recently started physical therapy and is likely putting excess pressure to the ulcer site. He is using a Darco shoe for ambulation and should continue to do so. I recommend modifying the physical therapy as much as possible to prevent excess pressure and trauma to the ulcer site. They were encouraged to discuss this with their physical therapist. Patient and his spouse verbalized understanding of all the recommendations and were in agreement with the plan. Patient should return to the Vascular Wound Center in 4 weeks for continued cares and assessment. In the interim if they have any additional questions or concerns they should contact Vascular Wound Center. INFORMED CONSENT: Discussed the risks, benefits, alternatives, and the necessity of other members of the healthcare team participating in the procedure. All questions answered and consent given. PATIENT EDUCATION Ready to learn, no apparent learning barriers were identified; learning preferences include listening. Explained diagnosis and treatment plan; patient expressed understanding of the content. Gaby Davila APRN, C.N.P. Excisional sharp debridement under 20 cm performed by IDNORAH CHINO. BOTOMIST PRN documented in this encounter Plan of Treatment Upcoming Encounters Date Type Department Care Team (Late st Contact Info) Description 05/07/2024 10:00 AM PHLEBOTOMIST PRN Office Visit Department of Vascular Medicine in [place], [place] [address] [place] [address] Santana Mullen M.D. [address] [place] [address] Discharge Disposition: Home or Self Care 05/20/2024 1:40 PM PHLEBOTOMIST PRN Office Visit Department of Dermatology in [place], [place] [address] [place] [address] Aldo Quarles M.D. [address] [place] [address] Scheduled Referrals Name Type Priority Associated Diagnoses Orde r Schedule Vascular Medicine office visit (clinic) Outpatient Referral Routine Expected: 05/07/2024, Expires: 07/08/2025 documented as of this encounter Results * DX Foot Right 3+ Views (04/09/2024 10:49 AM PHLEBOTOMIST PRN) Anatomical Region Laterality Modality Lower Extremity, Foot, Muscu loskeletal RST LOS, Musculoskeletal ARZ LOS, Muskuloskeletal FLA LOS Right Digit al Radiography Impressions 04/09/2024 11:45 AM PHLEBOTOMIST PRN Lateral foot soft tissue ulceration at the level of the 5th metatarsal base. No radiographic evidence of osteomyelitis. No tracking soft tissue gas. Scattered moderate hypertrophic arthritis. Chronic spurs 5th metatarsal base. Old healed deformity 5th proximal phalanx. No acute fracture. Dense arterial calcifications. Narrative 04/09/2024 11:45 AM PHLEBOTOMIST PRN EXAM: DX FOOT RIGHT 3+ VIEWS Procedure Note Boaz Bloom M.D. - 04/09/2024 EXAM: DX FOOT RIGHT 3+ VIEWS IMPRESSION: Lateral foot soft tissue ulceration at the level of the 5th metatarsalbase. No radiographic evidence of osteomyelitis. No tracking soft tissuegas. Scattered moderate hypertrophic arthritis. Chronic spurs 5thmetatarsal base. Old healed deformity 5th proximal phalanx. No acute fracture. Dense arterialcalcifications. us Gaby Davila APRN, C.N.P. 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 NPGissell: [phone] [address] [place] [phone] PCP - General Internal Medicine 10/24/22 documented as of this encounter
--- OUTSIDE RECORDS SUMMARY | 2024-04-11 03:33 | XMS_ITS | Encounter Summary ---
Author Organization [facility] Address [address] [place] [id number] Care Team Providers Care Personal Fitness Manager Name Role Phone Minnie Avery M.D. Primary Care Provider +1- [phone] Encounter Details Date Type Department Care Team (Late st Contact Info) Description 04/07/2024 Orders Only Division of Community Internal Medicine, [facility] in [place], [place] [address] [place] [phone] Amy Crane M.D., M.P.H. [address] [place] [phone] Social History Tobacco Use Types Packs/Day Years Used Date Smoking Tobacco: Former Pipe Passive Smoke Exposure: Never Smokeless Tobacco: Never Alcohol Use Standard Drinks/Week Comments Not Currently 1 (1 standard drink = 0.6 oz pur e alcohol) [facility] Utilities Answer Date Recorded In the past [...] 06/27/2021 How often do you attend chur or congregational services? Patient declined 06/27/2021 Do you belong to any clubs o r organizations such as bahai groups, unions, fraternal or athletic groups, or [...] Answer Date Recorded PHQ-2 Score 1 04/08/2023 [facility] of Occupat ional Health - Occupational Stress [...] your living situation today? I have a [facility] place to live 11/14/2023 Education Answer Date Recorded What is the highest level of school you have completed or the highest degree you have received? Doctorate 06/27/2021 Sex and Gender Information Value Date Recorded Sex Assigned at Male 01/12/2020 12:55 PM CDT Legal Sex Male 3:34 PM [employer] Gender Identity Male 06/26/2018 10:58 AM CDT Sexual Orientation Straight 06/26/2018 10 :58 AM CDT documented as of this encounter Plan of Treatment Upcoming Encounters Date Type Department Care Team (Late st Contact Info) Description 05/07/2024 10:00 AM TRADEMARK PARALEGAL Office Visit Department of Vascular Medicine in [place], [place] [address] [place] [address] Santana Mullen M.D. [address] [place] [address] Discharge Disposition: Home or Self Care 05/20/2024 1:40 PM TR[employer]EMARK [employer]GAL Office Visit Department of Dermatology in [place], [place] [address] [place] [address] Aldo Quarles M.D. [address] [place] [address] documented as of this encounter Visit Diagnoses Not on filedocumented in this encounter Additional Health Concerns Assessment Noted Time PHQ-9 Depression Total Score: 0 05/10/19 21 11:00 AM TR[employer]EMARK [employer]GAL documented as of this encounter Care Teams Personal Fitness Manager Relationship Specialty Start Date End Date Minnie Avery M.D. [address] [place] [address] PCP - General Internal Medicine 10/24/22 documented as of this encounter
--- OUTSIDE RECORDS SUMMARY | 2024-04-11 03:33 | XMS_ITS | Encounter Summary ---
Author Organization [facility] Address [address] [place] [address] Care Team Providers Care Log Sorter Name Role Phone Minnie Avery M.D. Primary Care Provider +1- [phone] Encounter Details Date Type Department Care Team (Late st Contact Info) Description 04/09/2024 9:40 AM ASSISTANT SALES MANAGER Ancillary Procedure Department of Vascular Arrived Social History Tobacco Use Types Packs/Day Years Used Date Smoking Tobacco: Former Pipe Passive Smoke Exposure: Never Smokeless Tobacco: Never Alcohol Use Standard Drinks/Week Comments Not Currently 1 (1 standard drink = 0.6 oz pur e alcohol) [facility] Utilities Answer Date Recorded In the past 12 months has e [employer], gas, oil, or water [employer] threatened to shut off services in your [...] often do you attend chur ch or restorationist services? Patient declined 06/27/2021 Do you belong to any clubs o r organizations such as episcopal groups, unions, fraternal or athletic groups, or [...] Answer Date Recorded PHQ-2 Score 1 04/08/2023 [facility] of Occupat ional Health - Occupational Stress [...] your living situation today? I have a [facility] place to live 11/14/2023 Education Answer Date Recorded What is the highest level of school you have completed or the highest degree you have received? Doctorate 06/27/2021 Sex and Gender Information Value Date Recorded Sex Assigned at Male 01/12/2020 12:55 PM CDT Legal Sex Male 3:34 PM ASSISTANT SALES MANAGER Gender Identity Male 06/26/2018 10:58 AM CDT Sexual Orientation Straight 06/26/2018 10 :58 AM CDT documented as of this encounter Plan of Treatment Upcoming Encounters Date Type Department Care Team (Late st Contact Info) Description 05/07/2024 10:00 AM ASSISTANT SALES MANAGER Office Visit Department of Vascular Medicine in [place], [place] [address] [place] [address] Santana Mullen M.D. [address] [place] [phone] Discharge Disposition: Home or Self Care 05/20/2024 1:40 PM ASSISTANT SALES MANAGER Office Visit Department of Dermatology in [place], [place] [address] [place] [phone] Aldo Quarles M.D. [address] [place] [phone] documented as of this encounter Procedures Procedure Name Priority Date/Time Associated Diagnosis Comments VASCULAR IMAGE EXAM Routine 04/09/2024 9 :40 AM ASSISTANT SALES MANAGER documented in this encounter Results * Leg-Vascular Image Exam (04/09/2024 9:40 AM ASSISTANT SALES MANAGER) 04/09/2024 9:39 AM ASSISTANT SALES MANAGER Narrative [facility] - 04/09/2024 9:40 AM ASSISTANT SALES MANAGER This order has been created and auto-finalized [...] Total Score: 0 05/10/19 21 11:00 AM ASSISTANT SALES MANAGER documented as of this encounter Care Teams Log Sorter Relationship Specialty Start Date End Date Minnie Avery M.D. NPGissell: [phone] [address] [place] [phone] PCP - General Internal Medicine 10/24/22 documented as of this encounter
--- OUTSIDE RECORDS SUMMARY | 2024-04-11 03:33 | XMS_ITS | Encounter Summary ---
Author Organization [facility] Address [address] [place] [address] Care Team Providers Care Broiler Supervisor Name Role Phone Minnie Avery M.D. Primary Care Provider [phone] Reason for Visit * Reason Onset Date Comments FORM - [facility] 04/05/2024 Sadi n of Care 03/31/2024 to 05/29/2024 Encounter Details Date Type Department Care Team (Latest Contact Info) Description 04/05/2024 Clinical Communication Division of Community Internal Medicine, [facility], in [place], [place] [address] [place] [phone] Ash Figueredo M.D. [address] [place] [phone] FORM - [facility] (Plan of Care 03/31/2024 to 05/29/2024) Social History Tobacco Use Types Packs/Day Years Used Date Smoking Tobacco: Former Pipe Passive Smoke Exposure: Never Smokeless Tobacco: Never Alcohol Use Standard Drinks/Week Comments Not Currently 1 (1 standard drink = 0.6 oz pur e alcohol) [facility] Utilities Answer Date Recorded In the [...] week 06/27/2021 How often do you attend [facility] or anglican services? Patient declined 06/27/2021 Do you belong to any clubs o r organizations such as methodist groups, unions, fraternal or athletic groups, or [...] Answer Date Recorded PHQ-2 Score 1 04/08/2023 [facility] [place] [facility] - Occupational Stress [...] your living situation today? I have a [facility] place to live 11/14/2023 Education Answer Date Recorded What is the highest level of school you have completed or the highest degree you have received? Doctorate 06/27/2021 Sex and Gender Information Value Date Recorded Sex Assigned at Male 01/12/2020 12:55 PM CDT Legal Sex Male 3:34 PM [employer] Gender Identity Male 06/26/2018 10:58 AM CDT Sexual Orientation Straight 06/26/2018 10 :58 AM CDT documented as of this encounter Plan of Treatment Upcoming Encounters Date Type Department Care Team (Late st Contact Info) Description 05/07/2024 10:00 AM [employer] Office Visit Department of Vascular Medicine in [place], [place] [address] [place] [address] Santana Mullen M.D. [address] [place] [phone] Discharge Disposition: Home or Self Care 05/20/2024 1:40 PM [employer] Office Visit Department of Dermatology in [place], [place] [address] [place] [address] Aldo Quarles M.D. [address] [place] [phone] documented as of this encounter Visit Diagnoses Not on filedocumented in this encounter Additional Health Concerns Assessment Noted Time PHQ-9 Depression Total Score: 0 05/10/19 21 11:00 AM [employer] documented as of this encounter Care Teams Broiler Supervisor Relationship Specialty Start Date End Date Minnie Avery M.D. [address] [place] [phone] PCP - General Internal Medicine 10/24/22 documented as of this encounter
--- OUTSIDE RECORDS SUMMARY | 2024-04-11 03:33 | XMS_ITS | Clinical Summary ---
Author Organization [facility] Address [address] [place] [address] Care Team Providers Care [employer]opedic Shoes Salesperson Name Role Phone Minnie Avery M.D. Primary Care Provider [phone] Source Comments Patient records contain information from all sites at [facility]. For routine questions regarding patient records, call [phone] during business hours, M-F 8:00 AM - 5:00 PM Central Time. Record requests for emergency care only can be directed to [phone] at any time.[facility] Allergies No known active allergies Medications * This document contains information received from the source organization and may not represent a complete record from that organization. blood-glucose meter (ACCU-CHEK CHRISTY PLUS METER) [facility] [place] Use as directed for testing blood glucose 1 each 019 Active acetaminophen (TYLENOL) 500 mg tablet Take 2 tablets (1,000 mg total) by mouth every 6 (six) hours as needed. 020 Active DME Wound dressingsIndication s:Cellulitis Leg Right,Diabetes Mellitus Type 2 Ulcer Leg (HCC) DME Order 1 Unspecified 021 Active psyllium (METAMUCIL) powder Take 1 packet by mouth 2 (two) times a day. 1TBSP Active polyethylene glycol (MIRALAX) 17 gram/dose oral powder Take 17 g by mouth daily as needed for constipation. Dissolve each 17 g dose in 240 mL (8 ounces) of beverage. If no bowel movement Active DME Wound dressingsIndication s:Cellulitis Leg Right DME Order 1 Unspecified 3 Active ketoconazole (Nizoral) 2 % creamIndications:De rmatitis Seborrheic Apply topically to face 2 (two) times a day. 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 Change every 14 days for continuous glucose monitoring. 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 1 each 08/18/19 24 7:39 AM CDT 024 2024 Active ezetimibe (Zetia) 10 mg tabletIndications:D ecline Functional Status Take 1 tablet (10 mg total) by mouth daily. 90 tablet 04/02/19 4:26 PM HEATING SYSTEMS INSTALLER 024 2024 Active cyanocobalamin (Vitamin B-12) 1,000 mcg/mL injection Inject 1 mL (1,000 mcg total) under the skin every 30 (thirty) days. 3 mL 04/02/19 4:26 PM HEATING SYSTEMS INSTALLER 024 2024 Active empagliflozin (Jardiance) 25 mg tablet Take 1 tablet (25 mg total) by mouth every morning before breakfast. 90 tablet 3 04/02/19 4:26 PM HEATING SYSTEMS INSTALLER Active amoxicillin (AmoxiL) 500 mg tablet Take 500 mg by mouth as needed. 4 TABLETS BEFORE DENTAL PROC. 2000MG DOSE Active glucagon (Gvoke PFS) 1 mg/0.2 mL syringe syringe Inject 0.2 mL (1 mg total) under the skin as needed for low blood sugar (if unable to treat hypoglycemia by mouth with carbohydrates). 0.2 mL 2 Active lancets (Accu-Chek Fastclix Lancet Drum) Use as directed, test 1 time daily 102 each 3 04/02/19 25 4:26 PM HEATING SYSTEMS INSTALLER 024 Active atorvastatin (Lipitor) 40 mg tabletIndications:H yperlipidemia Take 1 tablet (40 mg total) by mouth daily. 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) Use as directed test one time daily 100 strip 3 04/02/19 25 4:26 PM HEATING SYSTEMS INSTALLER 024 Active ketoconazole (Nizoral) 2 % shampooIndications: Dermatitis Seborrheic Apply topically to affected area(s) on ears and scalp two times a day as needed 120 mL 11 04/02/19 4:26 PM HEATING SYSTEMS INSTALLER 024 Active pen needle,diabetic dual safty (BD AutoShield Duo Pen Needle) 30 gauge x 3/16 needleIndications:D 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 10 capsule 01/23/20 5:42 PM CDT 024 Active aspirin [address] tablet Take 1 tablet (81 mg total) by mouth daily. 120 tablet 2 02/13/20 24 1:32 PM HEATING SYSTEMS INSTALLER 024 Active bisacodyL (Dulcolax) 5 mg EC tablet Take 2 tablets (10 mg total) by mouth daily as needed for constipation. 25 tablet 4 04/02/19 25 4:26 PM HEATING SYSTEMS INSTALLER 024 Active NaCl 0.9 % irrigationIndicatio ns:Insufficiency Vascular With Ulcer Toe (HCC) Irrigate with 30 mL as directed daily. 500 mL 11 02/13/20 24 3:28 PM HEATING SYSTEMS INSTALLER 024 Active honey (MediHoney, honey,) 80 % gel Apply 1 mL topically daily. Apply to left 3rd and 4th toe 44 mL 1 024 Active cholecalciferol (Vitamin D3) 50 mcg (2,000 Unit) tablet Take 50 mcg by mouth daily. Active B complex-vitamin (Super B-50) capsule Take 1 capsule by mouth daily. Active ascorbic acid, vitamin C, (ascorbic acid) 500 mg tablet Take 500 mg by mouth daily. Active linaCLOtide (Linzess) 290 mcg capsule Take 1 capsule (290 mcg total) by mouth every morning before breakfast. 90 capsule 3 025 Active insulin NPH (NovoLIN N FlexPen) 100 unit/mL (3 mL) penIndications:Diab etes Mellitus Type 2 With Diabetic Nephropathy (HCC) Inject 20 Units under the skin every morning. Indication: type 2 diabetes 15 mL 4 025 Active doxycycline monohydrate (Monodox) 100 mg capsuleIndications: Impetigo Take 1 capsule (100 mg total) by mouth 2 (two) times a day before morning and evening meals. 60 capsule 04/05/19 25 5:26 PM HEATING SYSTEMS INSTALLER 025 2024 Active mupirocin (Bactroban) 2 % ointment 025 Active linaCLOtide (Linzess) 290 mcg capsule Take 1 capsule (290 mcg total) by mouth every morning before breakfast. 90 capsule 3 02/13/20 24 12:58 PM HEATING SYSTEMS INSTALLER 024 2024 Discontin ued(Reord er) insulin NPH (NovoLIN N FlexPen) 100 unit/mL (3 mL) penIndications:Diab etes Mellitus Type 2 With Diabetic Nephropathy (HCC) Inject 20 Units under the skin every morning. Indication: type 2 diabetes 20 mL 3 024 2024 Discontin ued(Reord er) hydrocortisone (Hytone) 2.5 % ointmentIndications :Rash Apply 1 Application topically 2 (two) times a day for 14 days. Apply to face. 28.35 g 03/23/20 24 12:29 PM HEATING SYSTEMS INSTALLER 024 2024 Active Problems Problem Noted Date Diagnosed Date History Of Falling 07/09/2023 Constipation 04/08/2023 Overview (04/09/2023): Chronic constipation and diarrhea. Assessment & Plan (04/09/2023 7:49 AM HEATING SYSTEMS INSTALLER): Chronic constipation is his baseline. Possibly related to diabetic neuropathy. If he uses daily MiraLax or senna he will developed significant diarrhea. Fiber alone causes constipation. At present he will go about 1 week without having a bowel movement and then have what sounds like overflow incontinence followed by a large evacuation. His current regimen includes Dulcolax oral tablets every other day and fiber tablets. Will appreciate our GI colleagues in helping to assist him find the right bowel regimen. Assessment & Plan (04/08/2023 11:25 AM HEATING SYSTEMS INSTALLER): Taking Linzess. Also uses bisacodyl every other day. notes he can go for 5 days without a stool and then has a large blow out. Notes that increasing fiber or bisacodyl causes diarrhea. Plan: Have encouraged him to increase water intake to 3-4 bottles daily. Discuss further with primary care team. Personal History Of Infectio us And Parasitic Disease (COVID-19) 01/15/2023 Overview (01/15/2023): - sustained a fall on January 01 - diagnosed with COVID-19 on January 02 - presented to [facility] with weakness, inability to walk and acute confusion. He was noted to have rebound COVID-19 infection. Treated with Paxlovid. Discharged on January 10. - currently at [facility] receiving physical therapy. - still requiring assistance with all activities of daily living including ambulation, bathing, feeding, transferring, toileting, medication administration. - concerned today about possible sacral pressure injury development Assessment & Plan (01/15/2023 5:27 PM CDT): Sheldon Dominguez III is a 87 y.o. male here for post hospital follow-up from [facility]. He was admitted on January 02 for acute weakness in the setting of COVID-19 infection. He was treated in hospital with renally dose Paxlovid. He was discharged on the to [facility]. He has been receiving physical therapy and assistance with all ADLs at this time. He is recovered from respiratory symptoms but has not recovered his strength. He reports a good appetite. Pressure Injury (Ulcer) Of Sacral Region Stage 1 01/15/2023 Overview (01/15/2023): Pressure injury concern. Assessment & Plan (01/15/2023 5:29 PM CDT): He was placed in a seated position with pressure to the sacrum. On exam today, there is a large area of erythema centrally to that area there is failure to jefry as well as a callus development at the gluteal cleft. Currently recommending wound care clinic. In the meantime recommending offloading every 1-2 hours and a foam dressing to the sacrum to be change every 48 hours. They reporting decent nutrition. Insufficiency Vascular With Ulcer Toe 10/22/2022 Overview (01/21/2024): Left foot, 3rd and 4th digit. History of ischemic ulcers w/ infection previously. prefers this be dressed with medihoney, non-stick gauze, wrapped. Evaluated 10/22/22, no sign of infection. 01/21/2024: Had been receiving wound care on a daily basis through [facility] with all ulcers healed. He had his right lower extremity wrapped a final time two weeks ago, and unfortunately his spouse noted development of an ulcer on the right proximal 5th metatarsal three days later. Since then, the ulcer has begun draining with fairly significant surrounding skin breakdown. He also has an ulcer on the left 5th proximal metatarsal that is not yet oozing. Patient and spouse are here today to get home health wound care reinstated. They have an appointment with the wound clinic this afternoon. Assessment & Plan (01/21/2024 2:41 PM CDT): I reviewed photos of the wounds and the ulcer on the right 5th metatarsal does appear to be infected. I will defer to recommendations from the wound team with respect to wound management. I will reach out to social work to get home health care reinstated for wound care. Assessment & Plan (04/09/2023 7:44 AM HEATING SYSTEMS INSTALLER): He has a another wound to the left foot in the metatarsal head region. The wound was not visualized as it was wrapped in Donald bandage. No systemic symptoms. They were supposed to see wound care today but due to scheduling conflicts for not able to. We spent a good bit of time ordering wound care materials. He does have follow-up with vascular wound clinic. Decline Cognitive 09/16/2022 Overview (09/16/2022): MoCA 15/30 on 08/15/2022 Assessment & Plan (09/16/2022 1:12 PM CDT): Is looking at assisted living options for after rehab stay. 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 Assessment & Plan (09/16/2022 1:08 PM CDT): Continues on aspirin and statin. No abdominal pain reported at this time. Change to looser stools sounds related to constipation regimen. Weights monitored. Assessment & Plan (07/24/2022 11:29 AM CDT): No appetite concerns reported. Body weight is lower end of normal range with BMI of 21. Weight appears relatively stable over the last 2 years. Continues on aspirin and statin. Atherosclerosis Aortic 05/28/2020 Peripheral Arterial Disease 05/28/2020 Overview (07/24/2022): 07/2021: Vascular clinic; right LE arterial study: - Infrapopliteal level arterial occlusive disease of indeterminate severity due to poorly compressible vessels. -TcPO2 right lower extremity: Proximal foot site is normal. Distal foot site is moderately reduced. Minimal improvement with dependency. Left lower extremity: Infrapopliteal level arterial occlusive disease of indeterminate severity due to poorly compressible vessels. -TcPO2 left lower extremity: Foot sites are normal. No significant improvement with dependency. Compared to the prior study on December 01, 2019, right infrapopliteal level arterial occlusive disease is now apparent and the right foot TcPO2s are worse. Assessment & Plan (07/24/2022 11:28 AM CDT): Maintained on aspirin and atorvastatin. Frailty Age Related Physical Debility 05/28/2020 Assessment & Plan (11/07/2022 2:37 PM CDT): Given his degree of frailty and recurrent falls, he is considered homebound and would certainly benefit from ongoing physical therapy and occupational therapy delivered at his assisted living facility. Referrals for these services have been ordered. Assessment & Plan (09/16/2022 1:05 PM CDT): Continues to work with PT and OT and is making progress. Goal is for discharge to assisted living. Assessment & Plan (07/24/2022 11:35 AM CDT): Multifactorial. Question if Jardiance played a role in weakness leading to recent hospital stay. Patient has resumed Jardiance as part of his diabetes regimen, making progress therapy. 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 Assessment & Plan (07/24/2022 11:27 AM CDT): Next remote device check planned for July. Chronic Kidney Disease (CKD) , Stage 3b Glomerular Filtration Rate (GFR) 30 To 44 05/11/2020 Overview (10/08/2023): 07/2021: eGFR by cystatin decreased (38 ml/min/BSA); stable creatinine 06/2023: eGFR by cystatin: 42 Chronic Diastolic (Congestive) Heart Failure 12/2020 Assessment & Plan (09/16/2022 1:05 PM CDT): No signs of volume overload at this time. Appears to be tolerating the Jardiance at current dose. Assessment & Plan (09/05/2022 12:01 PM CDT): Weight is increased, no signs of fluid volume excess on exam today Continues with lower extremity wraps. He endorses excellent appetite and intake. No changes to plan of care Assessment & Plan (07/24/2022 11:40 AM CDT): No signs volume overload. Has been resumed on Jardiance. Atherosclerotic Heart Diseas e Of [place] Coronary Artery Without Angina Pectoris 02/15/2020 Overview (07/24/2022): Successful PCI with drug eluding stent to the ramus and proximal left anterior descending coronary arteries via right femoral arterial approach with Dr. Tejada on 02/17/2020. -On ASA indefinitely Assessment & Plan (09/16/2022 1:06 PM CDT): Continues on aspirin, statin and ezetimibe. Amputation Great Toe Status Post Left 01/10/2020 Overview (07/24/2022): - left great toe partial amputation 09/2019 for osteomyelitis - Left 2nd toe partial amputation 11/2019 for osteomyelitis Membrane Macula Epiretinal Left 12/20/2019 Replacement Aortic Valve Tissue 12/10/2019 Overview (07/24/2022): 05/10/20: S/P TVAR with 26 mm Sangeeta 3 and dual chamber pacemaker placement. Echo 10/2021: 1. Status post 26mm Orellana Sangeeta 3 Ultra pericardial aortic valve prosthesis (10-MAY-2020). 2. Aortic valve prosthesis systolic mean Doppler gradient 12 mmHg. No aortic valve prosthetic or periprosthetic regurgitation. 3. Normal left ventricular chamber size. Estimated left ventricular ejection fraction 55%. There is ventricular dyssynchrony in the setting of pacing and rhythm abnormality. Otherwise no obvious regional wall motion abnormalities. Diabetes Mellitus Type 2 With Diabetic Nephropat hy 10/11/2019 Overview (11/21/2023): Elevated microalbumin:Cr ratio since at least 2011. No substantial CKD. See details under Diabetes with Retinopathy. 10/2023: Urine negative for microalbumin. 06/2022: Hospitalized for generalized weakness (most likely due to hypovolemia); A1c: 8.5%. Empaglifoxin discontinued. 07/2022: Metformin discontinued, emaglifolozin restarted; NPH started Hemoglobin A1c, B Date Value Ref Range Status 08/16/2022 8.0 (H) 4.0 - 5.6 % Final Comment: Hemoglobin A1c values greater than or equal to 6.5 percent are diagnostic for diabetes mellitus. Diagnosis should be confirmed by repeat testing. In diabetic patients, HbA1c goals should be discussed with healthcare provider. 12/2022: A1c: 8.0%; eGFR 33 (by cystatin); 34 (creatinine) 10/2023: A1c: 9.1%. Continued on NPH and Jardiance Assessment & Plan (11/21/2023 3:22 PM CDT): Hemoglobin A1c 9.1% but sensor shows that recent control has been good with a 14 day average of 178 which includes 53% time in range and 0% hypoglycemia. He is on NPH insulin in the morning and Jardiance. Diabetes-related complications include retinopathy, nephropathy, coronary artery disease, heart failure, peripheral vascular disease, foot ulcerations. Plan is as follows: Medication: No change recommended. We have discussed at length the risk with the Jardiance and they wish to continue. Monitoring: Continue to use freestyle Debi 3. Goal glucose 100-180. Goal hemoglobin A1c 7-8%. Emphasis on avoiding hypoglycemia. Change sensor low alert to 75 and high alert to 350. Follow-up: Wants to continue specialty care. See him back in 6 months (video visit is okay) with hemoglobin A1c prior. Other: Continue to be vigilant with watching for urinary tract and yeast infection in setting of S GLT 2 inhibitor. Other: Blood pressure is controlled at 139/72. He is not on antihypertensive. Continue Jardiance. Other: Continue close follow-up with vascular for right foot ulceration. Assessment & Plan (04/08/2023 11:23 AM HEATING SYSTEMS INSTALLER): Hemoglobin A1c 8.2%. This is consistent with his sensor which shows a 14 day average of 183. Hypoglycemia is rare with only 1 in the past 30 days. Diabetes-related complications include retinopathy, nephropathy, coronary artery disease, neuropathy. Plan is as follows: Medication: No change recommended. We previously have talked about the risk of euglycemic ketoacidosis and patient and have wanted to continue Jardiance. They feel the benefit far outweighs the risk. Monitoring: Continue sensor. Goal glucose 100-200. Goal hemoglobin A1c 7-8.5% emphasis is on avoiding hypoglycemia. Follow-up: Overall doing well. Plan to see him back in 6 months with hemoglobin A1c, creatinine, urine albumin. Prescription for glucagon G-Voke. Orders for assisted living facility are listed on his after visit summary and I have given patient's a copy to give to the facility. Other: Blood pressure is controlled at 145/71. Using more liberal blood pressure goal in the setting of his advanced age and history of falls. Assessment & Plan (10/02/2022 6:10 PM CDT): Past Week FS BG Level Review: AM: 105-142 Noon: 143-251 PM: 181-337; 04/05>300 Assessment & Plan (09/16/2022 1:09 PM CDT): Has tolerated the start of NPH. Is running high still, which was expected, knowing that further titration of NPH would be needed. Will increase NPH to 15 units and have requested follow up blood sugar review in 1 week. Assessment & Plan (09/12/2022 2:25 PM CDT): AM: 121-179 Noon: 180-318; 07/05>300 PM: 182-335; 04/06>300 Currently he is taking NPH 22 units q. AM AM blood glucose levels have been satisfactory; largely elevated around noon time. Will increase NPH to 26 units q.a.m. Assessment & Plan (09/04/2022 4:43 PM CDT): Images from the original note were not included. Currently taking Jardiance, NPH 18 units and SS insulin Assessment & Plan (08/16/2022 2:38 PM CDT): Hemoglobin A1c 8% on current regimen of Jardiance, metformin, NovoLog correction scale. Patient is [facility] a [facility] but the plan is to transition to an assisted living in the near future. There wanting to simplify his medication regimen so he does not require the correction scale insulin. Diabetes-related complications include retinopathy, nephropathy, coronary artery disease, peripheral vascular disease, neuropathy. Plan is as follows: Medication: He is on very low-dose metformin but continues to have fecal incontinence. Additionally he had metabolic acidosis on this medication. I have recommended stopping this as I question how much benefit he is receiving and the risks are great. Additionally he is on Jardiance. Reviewed the risk/benefit profile with patient and his , who is a physician. Both her in favor of continuing this as they feel the benefits outweigh the risks. Reviewed the need to stay well hydrated while taking this agent. Also discussed that if he is ill this medication should be held. Given the ongoing hyperglycemia I think we do need to start low-dose insulin. I have recommended using NPH insulin as this would fit his glycemic profile which shows best glucose readings in the morning with higher readings midday and into the pre supper hours. Will start NPH insulin 12 units with breakfast. Will touch base with his provider at the penitentiary facility to see if they wish to adjust his insulin or if they would like me to do so. Will reduce the NovoLog correction scale. Monitoring: Continue to test 3 times daily, before meals. Goal glucose 100-200. Goal hemoglobin A1c 7.5-8.5%. Emphasis on avoiding hypoglycemia in this elderly, frail gentleman. They are interested in a continuous glucose sensor. I think this is a fantastic idea. Have sent prescription for freestyle Debi 2 to [facility]. If they have not heard from this company by next week recommend that they call to follow-up. Reviewed that there [place] insurance would not cover this device but his Medicare insurance should. Diet: Encouraged him to use half servings of the desserts. Follow-up: Plan to see him back in 3 months with hemoglobin A1c then. Assessment & Plan (07/24/2022 11:38 AM CDT): Jardiance has been resumed on request of his . Also on metformin 500 mg once daily. He also discharged from the hospital sliding scale aspart, she is required intermittently. Had discussed increasing metformin 500 mg b.i.d. with goal of working away from aspart. He has been on higher doses of metformin in the past, but his notes that this was not tolerated due to GI side effects and metabolic disturbances. Therefore, she perfers to keep the metformin limited to just 500 mg daily. Previously was on glimepiride. From a risks/benefits standpoint think Jardiance would be preferable over glimepiride. But, will have to monitor volume status. Follow-up BMP planned. Advanced Care Planning 10/11/2019 Overview (08/01/2022): 07/2022: Received POLST copy indicating DNR code status Deficiency Vitamin D 10/11/2019 Overview (10/11/2019): Borderline low 2008, started on daily PO replacement. BMD 2008 without osteoporosis or osteopenia. Weakness General 10/01/2019 Overview (09/17/2022): Improving, eating majority of his meals and continues to work with physical therapy daily Assessment & Plan (08/14/2021 6:15 PM CDT): Discussed referral to Physical Medicine and Rehabilitation for safety evaluation. Would benefit from recommendations regarding gait assistive devices as well as exercises to maintain lower extremity strength. 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 Discussed lifestyle modifications, will continue to discuss increased physical activity as he will discharge to assisted living with increased independence and ongoing physical therapy and limiting noon and between meal snacks. Assessment & Plan (11/07/2022 2:35 PM CDT): We will continue NPH 32 units q.a.m.. I reviewed his glucose meter readings, which show a range of 70-240, with most measurements falling between 100-140. He is scheduled to see Endocrinology. We will continue empagliflozin. Refills sent for diabetic supplies. 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 Lab Results Component Value Date [id number] 144 (L) 10/25/2019 MMA 0.27 (normal) Mar 2019. 10/25/19: B12 level: 144. Had stopped injections; restarted. 07/2021: MMA satisfactory Assessment & Plan (09/16/2022 1:04 PM CDT): Continue with B12 injections. Personal History Of Malignant Neoplasm Of Prosta te 06/15/2014 Overview (10/11/2019): Localized prostate cancer status post resection. No recurrence. Lab Results Component Value Date PSA <0.10 03/02/2018 PSA <0.10 02/04/2017 PSA <0.10 08/30/2015 Hypertensive Heart Disease Without Heart Failure 04/07/2009 Overview (09/16/2022): Lab Results Component Value Date CREATININE 0.98 07/12/2022 Lab Results Component Value Date EGFR 75 07/12/2022 Lisinopril dose reduction August 2019 (5 mg daily from 5 mg a.m. and 2.5 mg p.m., stopped 06/2022 hospitalization. Assessment & Plan (09/16/2022 1:07 PM CDT): Blood pressures remains acceptable off of lisinopril. Assessment & Plan (07/24/2022 11:34 AM CDT): Blood pressures remain acceptable off of antihypertensives. Cancer Skin Basal Cell Personal History 01/23/20 07 Overview (09/10/2021): BCC, s/p resections. 05/2020: Excision lesion right yarsanism; pathology: SCC with follicular extensions, borders involved. 08/2021: Dermatology skin check; 7 AKs treated; solar lentigines, dermatoheliosis, Sks; no worrisome skin lesion Dysfunction Erectile Organic 02/06/2006 Onychomycosis 01/30/2006 Overview (10/11/2019): Receives periodic Podiatry care Hyperlipidemia 11/02/2004 Overview (07/24/2022): Managed with statin and ezetimibe. Indications for treatment: PAD, CAD, and type 2 DM. Lab Results Component Value Date CHOL 131 06/11/2022 Lab Results Component Value Date HDL 57 06/11/2022 Lab Results Component Value Date LDLCALC 55 06/11/2022 Lab Results Component Value Date TRIG 103 06/11/2022 Assessment & Plan (11/07/2022 2:34 PM CDT): Currently stable on atorvastatin. Assessment & Plan (07/24/2022 11:43 AM CDT): Continues on Zetia and atorvastatin Polyp Colon Adenomatous Personal History 005 Overview (09/25/2021): Numerous over the years. 06/2013: 8 tubular adenomas with low grade dysplasia 2016: colonoscopy negative except for diverticulosis. 08/2021: Colonoscopy: three 3-5 mm polyps in descending and transverse colon; completely excised; mild inflammation distal rectum consistent with proctitis, biopsied. Pathology: tubular adenoma with LGD; normal rectal mucosa --with diverticulosis Resolved Problems Problem Noted Date Diagnosed Date Resolved Date Lesion Skin Face 08/14/2021 09/17/2022 Overview (08/14/2021): Has several pinkish slightly rough surface plaques on face both on lateral left cheek region as well as right yarsanism region. Has personal history of squamous cell carcinoma. Also has small rough spots on dorsum of hands. Assessment & Plan (08/14/2021 6:16 PM CDT): Will refer back to Dermatology for evaluation and management of facial skin lesions. Other Osteomyelitis Ankle And Foot 08/13/2021 07/23/2022 Diabetes Mellitus 2 Ulcer Toe 06/28/2021 07/23/2022 Overview (12/12/2021): 05/2021: Seen at Vascular Wound clinic for left foot 3rd toe ulcer. Recommendation for wound care: continue with Iodosorb/Hydrogel at 50:50 mixture to clean wound base and provide moisture balance. Follow with soft gauze and secure with cover roll tape. Leg wraps to control edema; off loading foot (no more than 30 minutes on feet per day); use orthotics and assistive device to relieve pressure; moisturization of dry skin 07/2021: X-ray showed no radiographic evidence of osteomyelitis; healing significantly improved with use of medicinal honey. 11/2021: New wound 2nd digit right foot; re-start medicinal honey treatment, antibiotics for 7 days and referral to Wound Clinic. Hypoglycemia 06/04/2020 09/17/2022 Overview (06/19/2020): Having asymptomatic hypoglycemia. Had an episode during hospitalization in February 2020 an several episodes at home. -now checks home glucose at least twice a day. Interested in and having a continuous glucose monitor or. Assessment & Plan (06/19/2020 11:35 AM CDT): Given his several comorbidities, I think it is very reasonable for him to have a continuous glucose monitor in place. He had difficulty checking glucose by fingerstick whenever he would get hypoglycemic as he remain asymptomatic and does not experience symptom until glucose reading is quite low. Malnutrition Protein-Calorie Unspecified 06/04/2020 06/19/2020 Diarrhea 06/04/2020 08/13/2021 Satiety Early 06/03/2020 09/17/2022 Nodule Thyroid 05/28/2020 09/17/2022 Coronary Stent Status Post 02/17/2020 0 06/19/2020 Overview (02/17/2020): DAKSHA to ramus and pLAD 02/16 Overweight Body Mass Index 25-29.9 Adult 01/10/2020 06/19/2020 Overview (06/19/2020): Lost weight due to illnesses. Amputation Toe Status Post Left 01/10/2020 08/13/2021 [facility] 12/27/2019 06/19/2020 Overview (06/19/2020): Underwent teeth extractions. Stenosis Aortic Valve Acquired 12/02/2019 06/19/2020 Overview (05/12/2020): 10/2019: Echocardiogram Final Impressions 1. Moderate-severe calcific aortic valve stenosis. See Comments. 2. Aortic valve area by Doppler 0.99 cm^2. 3. Aortic valve systolic mean Doppler gradient 22 mmHg. 4. Normal left ventricular chamber size. 5. Calculated 2-D biplane volumetric left ventricular ejection fraction 58 %. LV stroke volume index 36 ml/m2. 6. No regional wall motion abnormalities. 7. Estimated right ventricular systolic pressure 24 mmHg (systolic blood pressure 122 mmHg). 8. Normal right ventricular chamber size and systolic function. 9. Normal inferior vena cava size with normal inspiratory collapse (>50%). --Seen in Cardiology, 02/07/2020; proceed with work-up for TAVR --01/2020: Coronary angiogram showed proximal left main disease; CV surgery consulted: plan for PCI as recovery from surgery might be prolonged. Hold TAVR; recheck Echocardiogram 3 months after PCI to re-assess progression of then proceed with TAVR if indicated unless he remains symptomatic. --05/2020: status post transcatheter aortic valve replacement with 26 mm Sangeeta 3 ultra via the transfemoral approach. Valve deployment was without significant events. Noted a lengthening of his QRS with valve deployment in the setting of first- degree AV block with NC interval of 288. Because of this, proceeded to pacemaker implant immediately following TAVR. A small hematoma was noted at his pacemaker incisional site that evening, compression was held and hematoma was stabilized. Chest x-ray was unremarkable. Device interrogation showed normal function of device. PT/OT evaluation completed and recommended 24 hour supervision which can provide. Discharge recommendations: 1. Assess access sites: Femoral and subclavian 2. Continue Plavix 75 mg daily for 6 months following PCI 3. Aspirin 81 mg daily recommended a lifelong 4. Follow-up ECG 5. Follow-up CBC and BMP including creatinine 6. Pulmonary nodule for follow-up with PCP and CT in 6 months 7. Encourage cardiac rehab participation 8. SBE prophylaxis recommended lifelong 9. PT if indicated post completion of cardiac rehab History Of Falling 12/01/2019 3 Assessment & Plan (07/24/2022 11:34 AM CDT): Has baseline instability, uses walker. Undergoing PT and OT course with focus on balance and strengthening. Cellulitis Toe Left 11/22/2019 06/20/19 21 Osteomyelitis Toe 10/01/2019 06/19/2020 Overview (10/29/2019): L great toe, in context of DM2. Admitted with delirium and sepsis to [facility] on September 27, 2019. Blood cultures positive for pasteurella multocida. Treated with surgical resection, placed on two week course of Augmentin at dismissal to [facility] for skilled rehabilitation on October 01, 2019. Pain: has Tylenol and Advil prn. Wound care: cleanse with wound cleanser, cover with 4x4 sponge dressing, secure with 2 Kerlix wrap, change every other day and prn until healed. Activity instructions: weight-bearing as tolerated to the left foot trying to keep the weight to the heel as much as possible. He is wearing a Darco shoe. Follow-up eConsult with Infectious Disease requested with the following recommendations: #1 Osteomyelitis Toe (HCC) #2 Pasteurella mutlocida bloodstream infection, s/p Zosyn and ertapenem for a few days then Augmentin x 2 weeks. #3 Left 1st toe distal phalanx osteomyelitis, s/p amputation #4 Type 2 diabetes He had a 1st toe osteomyelitis that was treated with IV antibiotics in the hospital and more importantly amputation, followed by two weeks of Augmentin. RECOMMENDATIONS 1. Agree with repeat blood cultures to evaluate for ongoing pasteurella bloodstream infection 2. Previous antibiotic course and surgery should have been sufficient for treating osteomyelitis as well as pasteurella bloodstream infection 3. No additional imaging recommended for healed surgical site if no signs of soft tissue infection 4. If blood cultures are positive for pasteurella would favor treatment with a 10 day course of ceftriaxone and proceeding with TTE. Given low risk with [place]iut valves I would not proceed with MENA if TTE is negative. Assessment & Plan (10/01/2019 2:52 PM CDT): Continuing plan for amoxicillin clavulanic acid as ordered. He is apparently having some loose stool. If we have further loose stool, should send sample for C diff if this was not sent at the outside facility. Diarrhea 10/01/2019 06/04/2020 Overview (10/11/2019): Suspected related to antibiotics taken for toe osteomyelitis late August/early September 2019. Tested and negative for COVID-19 prior to admission to [facility] October 01, 2019. Treated symptomatically with Imodium. Assessment & Plan (10/01/2019 4:26 PM CDT): Most likely antibiotic related diarrhea in the context of his amoxicillin clavulanic acid use. However, if he is having ongoing diarrhea we should exclude C diff. Stool sample ordered if he is to have further loose stools. He is not on any laxatives. 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 Mass Parotid 03/10/2018 10/11/2019 Primary Malignant Neoplasm Of Prostate 01/13/2018 10/11/2019 Diabetes Mellitus Type 2 Uncontrolled 12/15/2014 10/11/2019 Intraocular Lens Implant Status Post 10/20/2012 08/13/2021 Malignant Neoplasm Of Face Basal Cell 06/27/2009 10/11/2019 Primary Malignant Neoplasm Of Prostate 10/16/2005 10/11/2019 Polyp Colon 09/13/2004 10/11/2019 Diabetes Mellitus Type 2 09/12/2004 Overview (10/01/2019): mild retinopathy an microalbuminuria, no peripheral neuropathy. Last eye exam: 05/2016. Home regimen glimepiride 4 mg b.i.d. and metformin 1000 mg b.i.d. Outside labs from [facility] with creatinine of 1.2 on 09/30/2019 Assessment & Plan (10/01/2019 2:52 PM CDT): He tells me he checks his blood glucose most days. He is eating. We will continue his home regimen. Encounters * This document contains information received from the source organization and may not represent a complete record from that organization. Date Type Department Care Team Description 04/09/2024 10:12 AM HEATING SYSTEMS INSTALLER - 04/09/2024 11:59 PM HEATING SYSTEMS INSTALLER Hospital Encounter Department of Radiology, [address] [phone] Gaby Davila APRN, C.N.P. Peripheral Arterial Disease (HCC); 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); Diabetes Mellitus Type 2 With Diabetic Neuropathy (HCC) Discharge Disposition: Home or Self Care 04/09/2024 9:40 AM HEATING SYSTEMS INSTALLER Ancillary Procedure Department of Vascular Arrived 04/09/2024 9:10 AM HEATING SYSTEMS INSTALLER Ancillary Procedure Department of Vascular Arrived 04/09/2024 9:00 AM HEATING SYSTEMS INSTALLER Office Visit Department of Vascular Medicine in [address] [phone] Gaby Davila APRN, C.N.P. Peripheral Arterial Disease (HCC) (Primary Dx); 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); Diabetes Mellitus Type 2 With Diabetic Neuropathy (HCC) Discharge Disposition: Home or Self Care 04/07/2024 Orders Only Division of [facility], [address] [phone] Amy Crane M.D., M.P.H. 04/07/2024 Clinical Communication Division [facility], [address] [phone] Minnie Avery M.D. Forms ( Physician order review ) 04/05/2024 4:40 PM HEATING SYSTEMS INSTALLER Office Visit Department of Dermatology in [address] [phone] Juan Mccoy M.D., M.B.A. Impetigo (Primary Dx); Cancer Skin Basal Cell Personal History Discharge Disposition: Home or Self Care 04/05/2024 Ancillary Procedure Department of Dermatology 04/05/2024 Clinical Communication Division of [facility], [place], [place] [address] [place] [phone] Ash Figueredo M.D. [facility] (Discharge Order) 04/05/2024 Clinical Communication Division of [facility], [place], [place] [address] [place] [phone] Ash Figueredo M.D. [facility] (Plan of Care 03/31/2024 to 05/29/2024) 04/05/2024 Clinical Communication Division of [facility], [facility] in [place], [place] [address] [place] [phone] Ash Figueredo M.D. [facility] (Major Drug Interactions) 03/31/2024 Refill Division of Endocrinology in [place], [place] [address] [place] [phone] Amber Mobley, LULÚ, C.N.P. Med Refill 03/31/2024 Refill Division of Gastroenterology in [place], [place] [address] [place] [phone] French Berman M.D. Med Refill 03/30/2024 Clinical Communication Division of [facility], [facility] in [place], [place] [address] [place] [phone] Minnie Avery M.D. Med List 03/23/2024 11:20 AM HEATING SYSTEMS INSTALLER Office Visit Department of Dermatology in [place], [place] [address] [place] [phone] Joaquim Jerry M.D. Rash (Primary Dx); Cancer Skin Basal Cell Personal History Discharge Disposition: Home or Self Care 03/23/2024 Ancillary Procedure Department of Dermatology 03/19/2024 10:30 AM HEATING SYSTEMS INSTALLER Clinical Communication Virtual Review in [place], [place] [address] [place] [address] Pre-visit Intake 03/12/2024 Clinical Communication Division of [facility], [facility], in [place], [place] [address] [place] [address] [place] [phone] Minnie Avery M.D. [facility] ([facility]) 03/11/2024 10:21 AM HEATING SYSTEMS INSTALLER - 03/11/2024 11:59 PM HEATING SYSTEMS INSTALLER Hospital Encounter Department of Cardiovascular Diseases in [place], [place] [address] [place] [address] Dmitry Levy M.D., M.P.H. Discharge Disposition: Home or Self Care 03/02/2024 Clinical Communication Division of [facility], [place], [place] [address] [place] [phone] [address] [facility] (Verbal Order 03/01/2024) 02/25/2024 Clinical Communication Division of [facility], [place], [place] [address] [place] [phone] Minnie Avery M.D. Phone Contact 02/24/2024 1:40 PM HEATING SYSTEMS INSTALLER Office Visit Division of [facility], [facility] in [place], [place] [address] [place] [phone] Santana Jerez M.D., M.B.A. History Of Falling (Primary Dx); Repeated Falls; Weakness General; Insufficiency Vascular With Ulcer Toe (HCC); Amputation Great Toe Status Post Left (HCC); Frailty Age Related Physical Debility 02/24/2024 10:30 AM HEATING SYSTEMS INSTALLER Comprehensive Visit Department of Physical Medicine and Rehabilitation in [place], [place] [address] [place] [address] Santana Mullen M.D. Stacie Lin, O.T., CLT-TERRANCE Lymphedema (Primary Dx) 02/24/2024 9:00 AM HEATING SYSTEMS INSTALLER Office Visit Department of Vascular Medicine in [place], [place] [address] [place] [phone] Nila Schafer, LULÚ, C.N.P., D.N.P. 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 Home Health Referral 02/10/2024 Orders Only Division of [facility], [place], [place] [address] [place] [address] Minnie Avery M.D. 02/09/2024 Refill Division of [facility], [place], [place] [address] [place] [address] Ayana Elliott APRN, C.N.P., M.S.N. Med Refill 02/09/2024 Refill Division of [facility], [facility] in [place], [place] [address] [place] [phone] Karan Rubio M.D. Med Refill 02/09/2024 Clinical Communication Division of [facility], [place], [place] [address] [place] [address] [address] [facility] (Plan of Treatment 01-30-2024 to 03-29-2024) 01/30/2024 Clinical Communication Division of [facility], [place], [place] [address] [place] [address] Minnie Avery M.D. Forms 01/23/2024 Orders Only Department of Vascular Medicine in [place], [place] [address] [place] [address] Santana Mullen M.D. 01/22/2024 Orders Only Department of Vascular Medicine in [place], [place] [address] [place] [address] Santana Mullen M.D. 01/21/2024 4:00 PM CDT Office Visit Department of Vascular Medicine in [place], [place] [address] [place] [address] Santana Mullen M.D. Wound Lower Limb Open Subsequent Right (Primary Dx) Discharge Disposition: Home or Self Care 01/21/2024 2:20 PM CDT Ancillary Procedure Department of Vascular 01/21/2024 2:20 PM CDT Office Visit Division of [facility], [facility] in [place], [place] [address] [place] [address] Rosalinda Weber M.D., M.H.P.E. Insufficiency Vascular With Ulcer Toe (HCC) (Primary Dx); Amputation Great Toe Status Post Left (HCC); Chronic Kidney Disease (CKD), Stage 3b Glomerular Filtration Rate (GFR) 30 To 44 (HCC) 01/21/2024 2:00 PM CDT Ancillary Procedure Department of Vascular 01/21/2024 1:55 PM CDT Ancillary Procedure Department of Vascular 01/21/2024 Orders Only Department of Social Work in [place], [place] [address] [place] [address] Bernie Ocampo M.S.W., L.I.C.S.W. 01/21/2024 Clinical Communication Division of [facility], [facility] in [place], [place] [address] [place] [address] Rosalinda Weber M.D., M.H.P.E. 01/19/2024 Orders Only Department of Vascular Medicine in [place], [place] [address] [place] [phone] Santana Mullen M.D. 01/14/2024 Clinical Communication Division [facility], [facility] in [place], [place] [address] [place] [address] Minnie Avery M.D. Forms (Shoplocal =- compression stkng below knee) 01/13/2024 Clinical Communication Division of [facility], [facility], in [place], [place] [address] [place] [address] Minnie Avery M.D. FORM - [facility] (Order [id number]) from Last 3 Months Immunizations Name Administration Dates Next Due HZV (ZOSTAVAX) 05/07/2006 HepA Adult 05/24/2016 HepB Adult 06/19/2020,12/27/2019,11/22/2019 Influenza Split 01/05/2014,12/30/2011 Influenza TIV (IM) 11/29/2023 Influenza, Quadrivalent, Adj uvanted, Preservative Free 12/30/2022,12/06/2021,01/06/2021,2019 Influenza, Seasonal, Injectable 01/05/2014,01/01,03/21/2010 Influenza, Unspecified 11/20/2019 PCV13 04/11/2014 PCV20 04/08/2023 PPSV23 07/07/2000 RSV: respiratory syncytial v irus (ABRYSVO) bivalent vaccine 12/30/2022 RZV (SHINGRIX) 11/22/2019,03/12/2018 SARS-COV-2 (COVID-19) - PFIZ ER (Discontinued)(12 years or older) 01/05/2021,05/22/2020,04/26/2020 SARS-COV-2 (COVID-19) - PFIZ ER BIVALENT TS(Discontinued)(12 YEARS OR OLDER) 07/17/2022 SARS-COV-2 (COVID-19) - PFIZ ER Fall Seasonal (12 YEARS OR OLDER) 11/29/2023 Smallpox 06/13/1936 Td (Adult), adsorbed 07/07/2000 Tdap 06/19/2020,06/19/2010 influenza trivalent high dos e (HD)(PF) 01/29/2018,05/24/2016,01/02/2015,2012 influenza vaccine QV(FLUBLOK ) (18 years or older) (PF) 01/11/2019 Family History Medical History Relation Name Comments Cancer Father Wilfrid II Other cancer Father Wilfrid II ALS Colon cancer Paternal Grandmother Morena Dominguez Amblyopia Neg Hx Blindness Neg Hx Cataracts Neg Hx Diabetes Neg Hx Glaucoma Neg Hx Hypertension Neg Hx Macular degeneration Neg Hx Retinal degeneration Neg Hx Retinal detachment Neg Hx Strabismus Neg Hx Stroke Neg Hx Thyroid disease Neg Hx Vision loss Neg Hx Relation Name Status Comments Father Wilfrid II Paternal Grandmother Morena Dominguez Social History Tobacco Use Types Packs/Day Years Used Date Smoking Tobacco: Former Pipe Passive Smoke Exposure: Never Smokeless Tobacco: Never Tobacco Cessation:Counseling Given: Not Answered Alcohol Use Standard Drinks/Week Comments Not Currently 1 (1 standard drink = 0.6 oz pur e alcohol) [facility] Utilities Answer Date Recorded In the past 12 months has e electric, gas, oil, or water [employer] threatened to shut off services in your [...] How often do you attend chur or presybeterian services? Patient declined 06/27/2021 Do you belong to any clubs o r organizations such as oriental orthodox groups, unions, fraternal or athletic groups, or [...] Answer Date Recorded PHQ-2 Score 1 04/08/2023 [facility] - Occupational Stress [...] your living situation today? I have a [facility] place to live 11/14/2023 Education Answer Date Recorded What is the highest level of school you have completed or the highest degree you have received? Doctorate 06/27/2021 Sex and Gender Information Value Date Recorded Sex Assigned at Male 01/12/2020 12:55 PM CDT Legal Sex Male 3:34 PM HEATING SYSTEMS INSTALLER Gender Identity Male 06/26/2018 10:58 AM CDT Sexual Orientation Straight 06/26/2018 10 :58 AM CDT Last Filed Vital Signs Vital Sign Reading Time Taken Comments Blood Pressure 151/76 04/09/2024 8:55 AM HEATING SYSTEMS INSTALLER Pulse 70 04/09/2024 8:55 AM HEATING SYSTEMS INSTALLER Temperature 36.9 C (98.4 F) 04/09/2024 8:55 AM HEATING SYSTEMS INSTALLER Respiratory Rate 18 10/23/2022 5:05 PM CDT Oxygen Saturation 93% 10/23/2022 5:05 PM CDT Inhaled Oxygen Concentration - - Weight 77 kg (169 lb 12.1 oz) 04/09/2024 8:55 AM HEATING SYSTEMS INSTALLER Height 180.3 cm (5' 10.98) 01/02/2024 8:48 AM C DT Body Mass Index 23.69 01/02/2024 8:48 AM CDT Plan of Treatment Upcoming Encounters Date Type Department Care Team (Late st Contact Info) Description 05/07/2024 10:00 AM HEATING SYSTEMS INSTALLER Office Visit Department of Vascular Medicine in [place], [place] [address] [place] [address] [place] [address] Discharge Disposition: Home or Self Care 05/20/2024 1:40 PM HEATING SYSTEMS INSTALLER Office Visit Department of Dermatology in [place], [place] [address] [place] [phone] [place] [phone] Health Maintenance Due Date Last Done Comments Hepatitis A Vaccines (2 of 2 - Risk 2-dose series) 11/21/2016 05/24/2016 Diabetic Office Visit with Foot Exam 01/09/2021 01/10/2020, 03/12/2018 Hemoglobin A1C 02/21/2024 11/21/2023, 11/2023, 08/16/2022, Additional history exists Depression Screening (Annual PHQ-2) 03/31/2024 Fall Risk Screen (Annual) 03/31/2024 Visit: Chronic Disease, age 18+ 07/08/2024 07/09/2023, 01/14/2023 Dilated Eye Exam 07/29/2024 07/30/2023, 05/2022, 06/19/2021, Additional history exists Creatinine Level (Kidney Function Test) 11/20/2024 11/21/2023, 07/09/2023, 04/08/2023, Additional history exists Urine Albumin 11/20/2024 11/21/2023, 07/29, 08/14/2021, Additional history exists DTaP,Tdap,and Td Vaccines (3 - Td or Tdap) 06/19/2030 06/19/2020, 06/19/2010, 07/07/2000 Orthopoxvirus Vaccine Completed 06/13/1936 Zoster Vaccines Completed 11/22/2019, 02/28, 05/07/2006 Hepatitis B Vaccines Completed 06/19/2020, 12/27/2019, 11/22/2019 Colonoscopy Discontinued 09/24/2021, 08/30, 05/15/2015, Additional history exists Colorectal Cancer Surveillance Discontinued RSV vaccine - (32-36 weeks) or 60+ years Completed 12/30/2022 Pneumococcal vaccine (50+ years) Completed 04/08/2023, 04/11/2014, 07/07/2000 COVID-19 Vaccine Completed 11/29/2023, , 12/30/2022, Additional history exists Influenza Vaccine Completed 11/29/2023, , 12/06/2021, Additional history exists CT Colonography Discontinued Cologuard Discontinued IPV Vaccines Aged Out No longer eligi ble based on patient's age to complete this topic Medical Devices Implanted Type Area Hiv/Aids Care Nurse Device Identifier Shelf Expiration Date Model / Serial / Lot Lead Ppm Capsure Fix Novus 58 - [id number] - [id number] Implanted:Qty: 1 on 05/10/2020 by Bia Ryan M.D., Ph.D. at [facility] Cardiac Lead Medtronic 02/06/2022 [id number] / [id number] / Lead Ppm Capsure Fix Novus 52 - [id number] - [id number] Implanted:Qty: 1 on 05/10/2020 by Bia Ryan M.D., Ph.D. at [facility] Cardiac Lead Medtronic 03/03/2022 [id number] / [id number] / Stnt Synergy Xd De 3.50x16 - [id number] Implanted:Qty: 1 on 02/17/2020 by Kyle Tejada M.D., Ph.D. at [facility] Cardiac Stent Left: Coronary [employer] [employer] 08/24/2021 [id number] / / [id number] Description:pLAD Stnt Synergy Xd De 3.00x16 - [id number] Implanted:Qty: 1 on 02/17/2020 by Kyle Tejada M.D., Ph.D. at [facility] Cardiac Stent Left: Coronary [place] [employer] 08/24/2021 [id number] / / [id number] Description:Ramus Vlv Sangeeta S3 Ultra 26 - [id number] - [id number] Implanted:Qty: 1 on 05/10/2020 by Brandee Rangel M.D. at [facility] Cardiac Valve Prosthesis N/A: Heart [place] [employer] 11/05/2021 [id number] / [id number] / Description:Aortic Valve Clp Apr Lgs Intnl Sm 9.0 - [id number] Implanted:Qty: 1 on 07/17/2018 by lOivia Finn M.D. at [facility] Hardware e.g. pins/screws/ rods Ethicon [id number] / / Mesh Marlex 6 X 6 - [id number] Implanted:Qty: 1 on 11/01/1997 Mesh or Patch Abdomen Other/Legacy - See Implant Description Description:Device Manufactu rer - Medix. Device Status Text - [id number]. Lens Toric Aspheric [id number] - [id number] Implanted:Qty: 1 on 10/19/2012 Ocular Lens Left: Other/Legacy - See Implant Description [employer] Description:Device Manufactu rer - [employer]. Body Location - Left. Device Status Text - [id number]. Lens Toric Aspheric [id number] - [id number] Implanted:Qty: 1 on 10/26/2012 Ocular Lens Right: Other/Legacy - See Implant Description [employer] [facility] Description:Device Manufactu rer - [employer]. Body Location - Right. Device Status Text - [id number]. Ppm Shari Shah [id number] - [id number] Implanted:Qty: 1 on 05/10/2020 by Bia Ryan M.D., Ph.D. at [facility] Pacemaker Medtronic 10/11/2021 [id number] / [id number] / Procedures Procedure Name Priority Date/Time Associated Diagnosis Comments DX FOOT RIGHT 3+ VIEWS RAD - Routine (most inpatients and all outpatients) 04/09/2024 10:49 AM HEATING SYSTEMS INSTALLER Peripheral Arterial Disease (HCC) 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) Diabetes Mellitus Type 2 With Diabetic Neuropathy (HCC) VASCULAR IMAGE EXAM Routine 04/09/2024 9 :40 AM HEATING SYSTEMS INSTALLER VASCULAR IMAGE EXAM Routine 04/09/2024 9 :10 AM HEATING SYSTEMS INSTALLER VARICELLA-ZOSTER VIRUS PCR, V Routine 04/05/2024 4:51 PM HEATING SYSTEMS INSTALLER Cancer Skin Basal Cell Personal History HERPES SIMPLEX VIRUS PCR Routine 04/05/2024 4:51 PM HEATING SYSTEMS INSTALLER Cancer Skin Basal Cell Personal History BACTERIAL CULTURE, AEROBIC + SUSC Routine 04/05/2024 4:48 PM HEATING SYSTEMS INSTALLER Cancer Skin Basal Cell Personal History DERMATOLOGY IMAGE EXAM Routine 04/05/2024 12:00 AM HEATING SYSTEMS INSTALLER DERMATOLOGY IMAGE EXAM Routine 03/23/2024 12:00 AM HEATING SYSTEMS INSTALLER INTERFACED REMOTE DEVICE CHECK Routine 03/11/2024 10:21 AM HEATING SYSTEMS INSTALLER VASCULAR IMAGE EXAM Routine 02/24/2024 7 :15 AM HEATING SYSTEMS INSTALLER VASCULAR IMAGE EXAM Routine 02/24/2024 7 :10 AM HEATING SYSTEMS INSTALLER VASCULAR IMAGE EXAM Routine 01/21/2024 2 :20 PM CDT VASCULAR IMAGE EXAM Routine 01/21/2024 2 :00 PM CDT VASCULAR IMAGE EXAM Routine 01/21/2024 1 :55 PM CDT ALBUMIN, RANDOM, U Routine 11/21/2023 3: 23 PM CDT Diabetes Mellitus Type 2 With Diabetic Nephropathy (HCC) HEMOGLOBIN A1C, B Routine 11/21/2023 8:5 0 AM CDT Diabetes Mellitus Type 2 With Diabetic Nephropathy (HCC) CREATININE WITH EGFR, S/P Routine 11/21/2023 8:50 AM CDT Diabetes Mellitus Type 2 With Diabetic Nephropathy (HCC) OPHTHALMOLOGY IMAGE EXAM Routine 07/30/2023 12:00 AM CDT COLONOSCOPY Routine 09/24/2021 11:06 AM CDT Polyp Colon Adenomatous Personal History from Last 3 Months or Most Recently Relevant to Health Maintenance Results * DX Foot Right 3+ Views (04/09/2024 10:49 AM HEATING SYSTEMS INSTALLER) Anatomical Region Laterality Modality Lower Extremity, Foot, Muscu loskeletal RST LOS, Musculoskeletal ARZ LOS, Muskuloskeletal FLA LOS Right Digit al Radiography Impressions 04/09/2024 11:45 AM HEATING SYSTEMS INSTALLER Lateral foot soft tissue ulceration at the level of the 5th metatarsal base. No radiographic evidence of osteomyelitis. No tracking soft tissue gas. Scattered moderate hypertrophic arthritis. Chronic spurs 5th metatarsal base. Old healed deformity 5th proximal phalanx. No acute fracture. Dense arterial calcifications. Narrative 04/09/2024 11:45 AM HEATING SYSTEMS INSTALLER EXAM: DX FOOT RIGHT 3+ VIEWS Procedure [...] IMG DIAGNOSTIC IMAGIN G PROCEDURES Final Result * Leg-Vascular Image Exam (04/09/2024 9:40 AM HEATING SYSTEMS INSTALLER) Only the most recent of7 resultswithin the time period is included. 04/09/2024 9:39 AM HEATING SYSTEMS INSTALLER Narrative IIMS - 04/09/2024 9:40 AM HEATING SYSTEMS INSTALLER This order has been created and auto-finalized to support the import of images acquired without order. The clinical documentation to support these images can be found on the encounter that produced images. us Provider Not In System IMG NON RAD IMAGING PROCE DURES Final Result IIMS NA * Varicella-Zoster Virus PCR (04/05/2024 4:51 PM HEATING SYSTEMS INSTALLER) Specimen Source RIGHT MALAR CHEEK,SWAB 04/07/2024 12:53 PM HEATING SYSTEMS INSTALLER DTL Varicella-Zoster Virus PCR Negative Negative 04/07/2024 12:53 PM HEATING SYSTEMS INSTALLER DTL Comment: ----ADDITIONAL INFORMATION---- This test was developed and its performance characteristics determined by [facility] in a manner consistent with CLIA requirements. This test has not been cleared or approved by the U.S. Food and Drug Administration. Skin (Right Malar Cheek) 04/05/2024 4:51 PM HEATING SYSTEMS INSTALLER Juan Mccoy M.D., M.B.A. LAB MICROBIOLOGY - GENERAL ORDERABLES Final Result Performing Organization Address [facility] de Phone Number [facility] [address] [place] [address], [facility] DT [address] [place] [address] * Herpes Simplex Virus PCR (04/05/2024 4:51 PM HEATING SYSTEMS INSTALLER) Specimen Source RIGHT MALAR CHEEK,SWAB 04/06/2024 10:03 PM HEATING SYSTEMS INSTALLER DTL HSV 1, PCR Negative Negative 04/06/2024 10:03 PM HEATING SYSTEMS INSTALLER DTL HSV 2, PCR Negative Negative 04/06/2024 10:03 PM HEATING SYSTEMS INSTALLER DTL Comment: ----ADDITIONAL INFORMATION---- This test was developed and its performance characteristics determined by [facility] in a manner consistent with CLIA requirements. This test has not been cleared or approved by the U.S. Food and Drug Administration. Skin (Right Malar Cheek) 04/05/2024 4:51 PM HEATING SYSTEMS INSTALLER Juan Mccoy M.D., M.B.A. LAB MICROBIOLOGY - GENERAL ORDERABLES Final Result Performing Organization Address [facility] de Phone Number [facility] [address] [place] [address], [facility] DT [address] [place] [address] * Bacterial Culture, Aerobic + Susceptibility (04/05/2024 4:48 PM HEATING SYSTEMS INSTALLER) Bacterial Culture, Aerobic + Susc Skin microbiota 04/07/2024 10:03 AM HEATING SYSTEMS INSTALLER DTL Skin (Right Malar Cheek) 04/05/2024 4:48 PM HEATING SYSTEMS INSTALLER Juan Mccoy M.D., M.B.A. LAB MICROBIOLOGY - GENERAL ORDERABLES Final Result [facility] [address] [place] [address], [place] DTL [facility] [address] [place] [address] * Face 507-Dermatology Image Exam (04/05/2024 12:00 AM HEATING SYSTEMS INSTALLER) Only the most recent of2 resultswithin the time period is included. Narrative IIMS - 04/06/2024 6:38 AM HEATING SYSTEMS INSTALLER This order has been created and auto-finalized to support the import of images acquired without order. The clinical documentation to support these images can be found on the encounter that produced images. us Provider Not In System IMG NON RAD IMAGING PROCE DURES Final Result Performing Organization Address City/[facility]/ZIP Co de Phone Number IIMS NA * CAR CARDIAC DEVICE INTERROGATION (03/11/2024 10:21 AM HEATING SYSTEMS INSTALLER) Date Time Interrogation Session [id number] [facility] Type Interrogation Session Remote [facility] Implantable Pulse Generator Hiv/Aids Care Nurse Medtronic [employer] LAB SYSTEM Implantable Pulse Generator Type Pacemaker [facility] Implantable Pulse Generator Model Shari XT DR MRI [id number] [facility] SYSTEM Implantable Pulse Generator Serial Number [id number] [facility] LAB SYSTEM Implantable Pulse Generator Implant Date 20200510 [facility] Battery Remaining Longevity 102.0 mo [employer] LAB SYSTEM Battery Voltage 3.010 [employer] LAB SYSTEM Battery FLEET MAINTENANCE MANAGER Trigger 2.625 [facility] LAB SYSTEM Battery Status OK [facility]OUND [employer] LAB SYSTEM Matt Statistic RA Percent Paced 7.10 [facility] Matt Statistic RV Percent Paced 99.88 [facility] Atrial Tachy Statistic AT/AF [place] Percent 0.00 [employer] LAB SYSTEM Lead Channel Sensing Intrinsic Amplitude 1.000 [facility] Lead Channel Setting Sensing Sensitivity 0.30 [facility] Lead Channel Impedance Value 475 [employer] LAB SYSTEM Lead Channel Pacing Threshold Amplitude 1.000 [employer] LAB SYSTEM Lead Channel Pacing Threshold Pulse Width 0.4 [facility] Lead Channel Measurements Date and Time 20240308 [facility] Lead Channel Setting Pacing Amplitude 2.250 [facility] Lead Channel Setting Pacing Pulse Width 0.4 [facility] Lead Channel Sensing Intrinsic Amplitude 5.500 [employer] LAB SYSTEM Lead Channel Setting Sensing Sensitivity 0.90 [facility] Lead Channel Impedance Value 380 [facility] Lead Channel Pacing Threshold Amplitude 1.000 [facility] Lead Channel Pacing Threshold Pulse Width 0.4 [facility] Lead Channel Measurements Date and Time 20240308 [facility] Lead Channel Setting Pacing Amplitude 2.000 [facility] Lead Channel Setting Pacing Pulse Width 0.4 [facility] Matt Setting Mode (NBG Code) AAI<=>DDD [facility] Matt Setting Lower Rate Limit 60 [facility] SYSTEM Matt Setting AT Mode Switch Rate 171 [facility] Matt Setting Maximum Tracking Rate 130 [facility] Matt Setting Maximum Sensor Rate 130 [facility] Matt Setting PAV Delay 180 [facility] Matt Setting TOMER Delay 150 [facility] Lead Channel Setting Sensing Polarity Bipolar [facility] Lead Channel Setting Sensing Polarity Bipolar [facility] Lead Channel Setting Pacing Polarity Bipolar [facility] Lead Channel Setting Pacing Polarity Bipolar [facility] Lead Channel Pacing Threshold Polarity Bipolar [facility] Lead Channel Pacing Threshold Polarity Bipolar [facility] Zone Setting Type Category AT/AF [facility] Murj Rate 1 171 [facility] Murj Therapies Some Rx Off [facility] Zone Setting Status Monitor [facility] Murj Zone ID 2 [facility] Zone Setting Type Category VT [facility] Murj Rate 1 150 [facility] Zone Setting Status ENABLED [facility] Murj Zone ID 6 [facility] Implantable Lead Hiv/Aids Care Nurse Medtronic [facility] Implantable Lead Model 4076 CapsureFix Novus MRI SureScan [facility] SYSTEM Implantable Lead Location Right Ventricle [facility] Implantable Lead Connection Status Connected [facility] Implantable Lead Serial Number [id number] [facility] Implantable Lead Implant Date 20200510 [facility] Implantable Lead Special Function Lead length: 58.00 cm [facility] Implantable Lead Hiv/Aids Care Nurse Medtronic [facility] LAB SYSTEM Implantable Lead Model 4076 CapsureFix Novus MRI SureScan [facility] LAB SYSTEM Implantable Lead Location Right Atrium [facility] Implantable Lead Connection Status Connected [facility] Implantable Lead Serial Number [id number] [facility] SYSTEM Implantable Lead Implant Date 20200510 [facility] Implantable Lead Special Function Lead length: 52.00 cm [facility] SYSTEM Anatomical Region Laterality Modality Other 03/15/2024 1:18 PM HEATING SYSTEMS INSTALLER Impressions 03/15/2024 1:18 PM HEATING SYSTEMS INSTALLER Encounter Impression: Title: Normal Remote: No Events * Normal Device Function * Alerts or events: None * Battery: OK, 8.50 yrs * Sensing, impedance and thresholds reviewed * Programmed parameters reviewed * Presenting EGM A sensed, V paced 90 bpm. * Heart Rate Histograms reviewed * No significant changes noted Plan: Routine remote follow up and as needed. This patient underwent device interrogation. I agree that the device interrogation was medically indicated to provide appropriate care and continue routine device interrogations as indicated. Encounter Summary: This report includes 1 transmission that was received on 2024-03-09. Battery, lead impedance, sensing amplitude and pacing threshold data was reviewed. Narrative Procedure Note Dmitry Levy M.D., M.P.H. - 03/15/2024 IMPRESSION: Encounter Impression: Title: Normal Remote: No Events * Normal Device Function * Alerts or events: None * Battery: OK, 8.50 yrs * Sensing, impedance and thresholds reviewed * Programmed parameters reviewed * Presenting EGM A sensed, V paced 90 bpm. * Heart Rate Histograms reviewed * No significant changes noted Plan: Routine remote follow up and as needed. This patient underwent device interrogation. I agree that the deviceinterrogation was medically indicated to provide appropriate care andcontinue routine device interrogations as indicated. Encounter Summary: This report includes 1 transmission that was receivedon 2024-03-09. Battery, lead impedance, sensing amplitude and pacingthreshold data was reviewed. Dmitry Levy M.D., M.P.H. CV IMPLANTABLE CARDI AC DEVICE Final Result * (ABNORMAL) Albumin, Random, Urine (11/21/2023 3:23 PM CDT) Albumin, Random, U 8.4 mg/L 2023 10:27 AM CDT DTL Comment: ----ADDITIONAL INFORMATION---- This test has been modified from the paper counter's instructions. Its performance characteristics were determined by [facility] in a manner consistent with CLIA requirements. This test has not been cleared or approved by the U.S. Food and Drug Administration. Creatinine 50 mg/dL 11/21/2023 4:13 PM CDT DTL Albumin/Creatinine Ratio 17(H) <17 mg/g 11/22/2023 10:27 AM CDT DTL Urine (Urine, Midstream) 11/21/2023 3:23 PM CDT 11/21/2023 3:47 PM CDT Nica Song APRN.N.P. LAB URINE ORDERABLE S Final Result Performing Organization Address [facility] de Phone Number [facility] [address] [place] [address], [facility] [address] [place] [address] * (ABNORMAL) Hemoglobin A1c (11/21/2023 8:50 AM CDT) Hemoglobin A1c, B 9.1(H) 4.0 - 5.6 % 11/21/2023 9:38 AM CDT DTL Comment: Hemoglobin A1c values greater than or equal to 6.5 percent are diagnostic for diabetes mellitus. Diagnosis should be confirmed by repeat testing. In diabetic patients, HbA1c goals should be discussed with healthcare provider. Blood (Blood, Venous) 11/21/2023 8:50 AM CDT 11/21/2023 9:15 AM CDT Amber Mobley APRN, C.N.P. LAB BLOOD ADD-ON Fi nal Result Performing Organization Address [facility] Co de Phone Number [facility] [address] [place] [address], [facility] [place] [facility] [address] [place] [address] * Creatinine with Estimated GFR (11/21/2023 8:50 AM CDT) Creatinine 1.12 0.74 - 1.35 mg/dL 11/21/2023 9:46 AM CDT DTL Estimated GFR (eGFR) 63 >=60 mL/min/BSA 11/21/2023 9:46 AM CDT DTL Comment: Estimated GFR calculated using the 2020 CKD_EPI creatinine equation. Blood (Blood, Venous) 11/21/2023 8:50 AM CDT 11/21/2023 9:29 AM CDT us Hattie Song APRNNBiancaPBianca LAB BLOOD ADD-ON Fi nal Result [facility] [address] [place] [address], [place] DTL [facility] [address] [place] [address] * Eyes Spectralis OCT-Ophthalmology Image Exam (07/30/2023 12:00 AM CDT) Narrative IIMS - 07/30/2023 12:43 PM CDT This order has been created and auto-finalized to support the import of images acquired without order. The clinical documentation to support these images can be found on the encounter that produced images. us Provider Not In System IMG NON RAD IMAGING PROCE DURES Final Result Performing Organization Address City/[facility] Co de Phone Number IIVA NA from Last 3 Months or Most Recently Relevant to Health Maintenance Insurance MEDICARE [employer] [place] [employer] Advance Directives For more information, please contact: [phone] Documents on File Type Date Recorded Patient Administration Physician Expl anation Advance Directives 07/23/2022 11:[address]/MOLST Advance Directives 07/19/2022 10:09 AM Codie Dominguez HCPOA/ADVOCATE/AGENT/REP RESENTATIVE/SURROGATE * DNR (Latest Code Status on File) Date Activated Date Inactivated Comments 08/01/2022 10:17 AM * Full Code Date Activated Date Inactivated Comments 07/11/2022 2:37 AM 07/17/2022 1:49 PM Question Answer Comments Full Code: Not Discussed Due to: Patient not available * DNR/DNI Date Activated Date Inactivated Comments 06/03/2020 5:17 PM 06/04/2020 6:17 PM * Full Code Date Activated Date Inactivated Comments 05/10/2020 3:10 PM 05/12/2020 5:12 PM Question Answer Comments Full Code: Discussed post felix * Full Code Date Activated Date Inactivated Comments 02/17/2020 12:29 PM 02/17/2020 8:25 PM Question Answer Comments Full Code: Not Discussed Due to: Patient not available Healthcare Agents on File Name Relationship Healthcare Agent Relationship Communication Codie Dominguez Spouse Health Care Agent Care Teams Orthopedic Shoes Salesperson Relationship Specialty Start Date End Date Minnie Avery M.D. [address] [place] [address] PCP - General Internal Medicine 10/24/22
--- OUTSIDE RECORDS SUMMARY | 2024-04-11 03:33 | XMS_ITS | Encounter Summary ---
Author Organization [facility] Address [address] [place] [address] Care Team Providers Care Coordinator Hotels Name Role Phone Minnie Avery M.D. Primary Care Provider [phone] Reason for Visit * Reason Onset Date Comments FORM - LEÓ[place] 04/05/2024 Sergey or Drug Interactions Encounter Details Date Type Department Care Team (Latest Contact Info) Description 04/05/2024 Clinical Communication Division of Community Internal Medicine, [facility], in [place], [place] [address] [place] [phone] Ash Figueredo M.D. [address] [place] [phone] FORM - [facility] (Major Drug Interactions) Social History Tobacco Use Types Packs/Day Years Used Date Smoking Tobacco: Former Pipe Passive Smoke Exposure: Never Smokeless Tobacco: Never Alcohol Use Standard Drinks/Week Comments Not Currently 1 (1 standard drink = 0.6 oz pur e alcohol) [facility] Utilities Answer Date Recorded In the past [...] How often do you attend chur or anglican services? Patient declined 06/27/2021 Do you belong to any clubs o r organizations such as evangelical groups, unions, fraternal or athletic groups, or [...] Answer Date Recorded PHQ-2 Score 1 04/08/2023 [facility] [place] of Occupat ional Health - Occupational Stress [...] your living situation today? I have a [facility] place to live 11/14/2023 Education Answer Date Recorded What is the highest level of school you have completed or the highest degree you have received? Doctorate 06/27/2021 Sex and Gender Information Value Date Recorded Sex Assigned at Male 01/12/2020 12:55 PM CDT Legal Sex Male 3:34 PM OIL PUMPER Gender Identity Male 06/26/2018 10:58 AM CDT Sexual Orientation Straight 06/26/2018 10 :58 AM CDT documented as of this encounter Plan of Treatment Upcoming Encounters Date Type Department Care Team (Late st Contact Info) Description 05/07/2024 10:00 AM OIL PUMPER Office Visit Department of Vascular Medicine in [place], [place] [address] [place] [address] Santana Mullen M.D. [address] [place] [address] Discharge Disposition: Home or Self Care 05/20/2024 1:40 PM OIL PUMPER Office Visit Department of Dermatology in [place], [place] [address] [place] [phone] Aldo Quarles M.D. [address] [place] [address] documented as of this encounter Visit Diagnoses Not on filedocumented in this encounter Additional Health Concerns Assessment Noted Time PHQ-9 Depression Total Score: 0 05/10/19 21 11:00 AM OIL PUMPER documented as of this encounter Care Teams Coordinator Hotels Relationship Specialty Start Date End Date Minnie Avery M.D. [address] [place] [phone] PCP - General Internal Medicine 10/24/22 documented as of this encounter
--- OUTSIDE RECORDS SUMMARY | 2024-04-11 03:33 | XMS_ITS | Encounter Summary ---
Author Organization [facility] Address [address] [place] [address] Care Team Providers Care Review Analyst Name Role Phone Minnie Avery M.D. Primary Care Provider [phone]- [phone] Encounter Details Date Type Department Care Team (Late st Contact Info) Description 04/09/2024 9:10 AM [facility] Ancillary Procedure Department of Vascular Arrived Social History Tobacco Use Types Packs/Day Years Used Date Smoking Tobacco: Former Pipe Passive Smoke Exposure: Never Smokeless Tobacco: Never Alcohol Use Standard Drinks/Week Comments Not Currently 1 (1 standard drink = 0.6 oz pur e alcohol) [facility] Utilities Answer Date Recorded In the past 12 months has e [employer], gas, oil, or water [employer] threatened to shut off services in your [...] often do you attend chur ch or religion services? Patient declined 06/27/2021 Do you belong to any clubs o r organizations such as anabaptism groups, unions, fraternal or athletic groups, or [...] Answer Date Recorded PHQ-2 Score 1 04/08/2023 [facility] - Occupational [...] your living situation today? I have a [facility] place to live 11/14/2023 Education Answer Date Recorded What is the highest level of school you have completed or the highest degree you have received? Doctorate 06/27/2021 Sex and Gender Information Value Date Recorded Sex Assigned at Male 01/12/2020 12:55 PM CDT Legal Sex Male 3:34 PM [facility] Gender Identity Male 06/26/2018 10:58 AM CDT Sexual Orientation Straight 06/26/2018 10 :58 AM CDT documented as of this encounter Plan of Treatment Upcoming Encounters Date Type Department Care Team (Late st Contact Info) Description 05/07/2024 10:00 AM [facility] Office Visit Department of Vascular Medicine in [place], [place] [address] [place] [phone] Santana Mullen M.D. [address] [place] [phone] Discharge Disposition: Home or Self Care 05/20/2024 1:40 PM [facility] Office Visit Department of Dermatology in [place], [place] [address] [place] [phone] Aldo Quarles M.D. [address] [place] [phone] documented as of this encounter Procedures Procedure Name Priority Date/Time Associated Diagnosis Comments VASCULAR IMAGE EXAM Routine 04/09/2024 9 :10 AM [facility] documented in this encounter Results * Foot-Vascular Image Exam (04/09/2024 9:10 AM [facility]ER) 04/09/2024 9:07 AM [facility] Narrative [facility] - 04/09/2024 9:10 AM [facility]ER This order has been created and auto-finalized [...] Total Score: 0 05/10/19 21 11:00 AM [facility] documented as of this encounter Care Teams Review Analyst Relationship Specialty Start Date End Date Minnie Avery M.D. NPGissell: [phone] [address] [place] [address] PCP - General Internal Medicine 10/24/22 documented as of this encounter
--- OUTSIDE RECORDS SUMMARY | 2024-04-11 03:33 | XMS_ITS | Referral Summary ---
Author Organization [facility] Address [address] [place] [address] Care Team Providers Care Computer Equipment Repairer Name Role Phone Minnie Avery M.D. Primary Care Provider [phone]- [phone] Source Comments Patient records contain information from all sites at [facility]. For routine questions regarding patient records, call [phone] during business hours, M-F 8:00 AM - 5:00 PM Central Time. Record requests for emergency care only can be directed to [phone] at any time.[facility] Encounters * This document contains information received from the source organization and may not represent a complete record from that organization. Date Type Department Care Team Description 04/09/2024 10:12 AM INSIGHTS MANAGER - 04/09/2024 11:59 PM INSIGHTS MANAGER Hospital Encounter Department of Radiology, [facility], in [place], [place] [address] [place] [phone] Gaby Davila APRN, C.N.P. 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 04/07/[address] Division of [facility], [place], [place] [address] [place] [phone] Minnie Avery M.D. Forms ( Physician order review ) 04/05/2024 Ancillary Procedure Department of Dermatology 04/05/2024 Clinical Communication Division of [place], [place] [address] [place] [address] Ash Figueredo M.D. [facility] (Discharge Order) 04/05/[address] [facility], [facility] in [place], [place] [address] [place] [phone] Ash Figueredo M.D. [facility] (Plan of Care 03/31/2024 to 05/29/2024) 04/05/[address] of [facility], [facility] in [place], [place] [address] [place] [address] Ash Figueredo M.D. FORM [facility] (Major Drug Interactions) 04/05/2024 4:40 PM INSIGHTS MANAGER Office Visit Department of Dermatology in [place], [place] [address] [place] [phone] Juan Mccoy M.D., M.B.A. Impetigo (Primary Dx); Cancer Skin Basal Cell Personal History Discharge Disposition: Home or Self Care 03/31/2024 Refill Division of Endocrinology in [place], [place] [address] [place] [address] Amber Mobley APRN, C.N.P. Med Refill 03/31/2024 Refill Division of Gastroenterology in [place], [place] [address] [place] [phone] French Berman M.D. Med Refill 03/30/2024 Clinical Communication Division of [facility] Internal Medicine, [place], [place] [address] [place] [phone] Minnie Avery M.D. Med List 03/23/2024 Ancillary Procedure Department of Dermatology 03/23/2024 11:20 AM INSIGHTS MANAGER Office Visit Department of Dermatology in [address] [phone] Joaquim Jerry M.D. Rash (Primary Dx); Cancer Skin Basal Cell Personal History Discharge Disposition: Home or Self Care 03/19/2024 10:30 AM INSIGHTS MANAGER Clinical Communication Virtual Review in [place], [place] [address] [place] [address] Pre-visit Intake 03/12/2024 Clinical Communication Division of [facility] Internal Medicine, [place], [place] [address] [place] [phone] Minnie Avery M.D. [facility] ([facility]) 03/11/2024 10:21 AM INSIGHTS MANAGER - 03/11/2024 11:59 PM INSIGHTS MANAGER Hospital Encounter Department of Cardiovascular Diseases in [address] [address] Dmitry Levy M.D., M.P.H. Discharge Disposition: Home or Self Care 03/02/2024 Clinical Communication Division of [facility] Internal Medicine, [address] [address] Minnie Avery M.D. [facility] (Verbal Order 03/01/2024) 02/25/2024 Clinical Communication Division of [facility] Internal Medicine, [facility] in [place], [place] [address] [place] [address] [place] [address] Minnie Avery M.D. Phone Contact 02/24/2024 Clinical Communication Division of [facility] Internal Medicine, [place], [place] [address] [place] [address] Santana Jerez M.D., M.B.A. Home Health Referral 02/24/2024 7:15 AM INSIGHTS MANAGER Ancillary Procedure Department of Vascular 02/24/2024 7:10 AM INSIGHTS MANAGER Ancillary Procedure Department of Vascular 02/24/2024 1:40 PM INSIGHTS MANAGER Office Visit Division of [facility] Internal Medicine, [facility] in [place], [place] [address] [place] [address] Santana Jerez M.D., M.B.A. 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 Stacie Lin O.T., CLT-TERRANCE Lymphedema (Primary Dx) 02/24/2024 9:00 AM INSIGHTS MANAGER Office Visit Department of Vascular Medicine in [place], [place] [address] [place] [address] Nila Schafer, LULÚ, C.N.P., D.N.P. 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 in [place], [place] [address] [place] [address] Minnie Avery M.D. 02/09/2024 Refill Division of [facility] Internal Medicine, [facility], in [place], [place] [address] [place] [address] Ayana Elliott APRN, C.N.P., M.S.N. Med Refill 02/09/2024 Refill Division of [facility] Internal Medicine, [place], [place] [address] [place] [address] Karan Rubio M.D. Med Refill 02/09/2024 Clinical Communication Division of [facility] Internal Medicine, [facility], in [place], [place] [address] [place] [address] Minnie Avery M.D. [facility] (Plan of Treatment 01-30-2024 to 03-29-2024) 01/30/2024 Clinical Communication Division of [facility] Internal Medicine, [facility] in [place], [place] [address] [place] [address] Minnie Avery M.D. Forms 01/23/2024 Orders Only Department of Vascular Medicine in [place], [place] [address] [place] [address] Santana Mullen M.D. 01/22/2024 Orders Only Department of Vascular Medicine in [place], [place] [address] [place] [phone] Santana Mullen M.D. 01/21/2024 2:20 PM CDT Ancillary Procedure Department of Vascular 01/21/2024 Orders Only Department of Social Work in [place], [place] [address] [place] [address] Bernie Ocampo M.S.W., L.I.C.S.W. 01/21/2024 2:00 PM CDT Ancillary Procedure Department of Vascular 01/21/2024 1:55 PM CDT Ancillary Procedure Department of Vascular 01/21/2024 Clinical Communication Division of [facility] Internal Medicine, [facility], in [place], [place] [address] [place] [address] Rosalinda Weber M.D., M.H.P.E. 01/21/2024 2:20 PM CDT Office Visit Division of [facility] Internal Medicine, [facility] in [place], [place] [address] [place] [address] Rosalinda Weber M.D., M.H.P.E. 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 Wound Lower Limb Open Subsequent Right (Primary Dx) Discharge Disposition: Home or Self Care 01/19/2024 Orders Only Department of Vascular Medicine in [place], [place] [address] [place] [address] Santana Mullen M.D. 01/14/2024 Clinical Communication [facility] of [facility], [place], [place] [address] [place] [address] Minnie Avery M.D. Forms ([facility]- compression stkng below knee) 01/13/2024 Clinical Communication Division of [facility] Internal Medicine, [place], [place] [address] [place] [address] Minnie Avery M.D. FORM - [facility] (Order [id number]) from Last 3 Months Allergies No known active allergies Medications * This document contains information received from the source organization and may not represent a complete record from that organization. blood-glucose meter (ACCU-CHEK CHRISTY PLUS METER) [facility] Use as directed for testing blood glucose [...] ounces) of beverage. If no bowel movement 023 Active DME Wound dressingsIndication s:Cellulitis Leg Right DME Order 1 Unspecified 3 024 Active ketoconazole (Nizoral) 2 % creamIndications:De rmatitis Seborrheic Apply topically to face 2 (two) times a day. 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 Change every 14 days for continuous glucose monitoring. 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 1 each 08/18/19 24 7:39 AM CDT 024 2024 Active ezetimibe (Zetia) 10 mg tabletIndications:D ecline Functional Status Take 1 tablet (10 mg total) by mouth daily. 90 tablet 3 04/02/19 25 4:26 PM INSIGHTS MANAGER 024 2024 Active cyanocobalamin (Vitamin B-12) 1,000 mcg/mL injection Inject 1 mL (1,000 mcg total) under the skin every 30 (thirty) days. 3 mL 04/02/19 25 4:26 PM INSIGHTS MANAGER 024 2024 Active empagliflozin (Jardiance) 25 mg tablet Take 1 tablet (25 mg total) by mouth every morning before breakfast. 90 tablet 3 04/02/19 25 4:26 PM INSIGHTS MANAGER 024 Active amoxicillin (AmoxiL) 500 mg tablet Take 500 mg by mouth as needed. 4 TABLETS BEFORE DENTAL PROC. 2000MG DOSE Active glucagon (Gvoke PFS) 1 mg/0.2 mL syringe syringe Inject 0.2 mL (1 mg total) under the skin as needed for low blood sugar (if unable to treat hypoglycemia by mouth with carbohydrates). 0.2 mL 2 024 Active lancets (Accu-Chek Fastclix Lancet Drum) Use as directed, test 1 time daily 102 each 3 04/02/19 25 4:26 PM INSIGHTS MANAGER 024 Active atorvastatin (Lipitor) 40 mg tabletIndications:H yperlipidemia Take 1 tablet (40 mg total) by mouth daily. 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) Use as directed test one time daily 100 strip 3 04/02/19 25 4:26 PM INSIGHTS MANAGER 024 Active ketoconazole (Nizoral) 2 % shampooIndications: Dermatitis Seborrheic Apply topically to affected area(s) on ears and scalp two times a day as needed 120 mL 11 04/02/19 25 4:26 PM INSIGHTS MANAGER 024 Active pen needle,diabetic dual safty (BD AutoShield Duo Pen Needle) 30 gauge x 3/16 needleIndications:D 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 10 capsule 01/23/20 5:42 PM CDT 024 Active aspirin [address] tablet Take 1 tablet (81 mg total) by mouth daily. 120 tablet 2 02/13/20 24 1:32 PM INSIGHTS MANAGER 024 Active bisacodyL (Dulcolax) 5 mg EC tablet Take 2 tablets (10 mg total) by mouth daily as needed for constipation. 25 tablet 4 04/02/19 25 4:26 PM INSIGHTS MANAGER 024 Active NaCl 0.9 % irrigationIndicatio ns:Insufficiency Vascular With Ulcer Toe (HCC) Irrigate with 30 mL as directed daily. 500 mL 11 02/13/20 24 3:28 PM INSIGHTS MANAGER 024 Active honey (MediHoney, honey,) 80 % [...] meals. 60 capsule 04/05/19 25 5:26 PM INSIGHTS MANAGER 025 2024 Active mupirocin (Bactroban) 2 % ointment 025 Active linaCLOtide (Linzess) 290 mcg capsule Take 1 capsule (290 mcg total) by mouth every morning before breakfast. 90 capsule 3 02/13/20 24 12:58 PM INSIGHTS MANAGER 024 2024 Discontin ued(Reord er) insulin NPH [...] face. 28.35 g 03/23/20 24 12:29 PM INSIGHTS MANAGER 024 2024 Active Problems Problem Noted Date Diagnosed Date History Of Falling 07/09/2023 Constipation 04/08/2023 Overview (04/09/2023): Chronic constipation and diarrhea. Assessment & Plan (04/09/2023 7:49 AM INSIGHTS MANAGER): Chronic constipation is his baseline. Possibly related [...] regimen. Assessment & Plan (04/08/2023 11:25 AM INSIGHTS MANAGER): Taking Linzess. Also uses bisacodyl every other [...] COVID-19 on January 02 - presented to [facility] with weakness, inability to walk and acute confusion. He was noted to have rebound COVID-19 infection. Treated with Paxlovid. Discharged on January 10. - currently at snf [facility] receiving physical therapy. - still requiring assistance with all activities of daily living including ambulation, bathing, feeding, transferring, toileting, medication administration. - concerned today about possible sacral pressure injury development Assessment & Plan (01/15/2023 5:27 PM CDT): Sheldon Dominguez III is a 87 y.o. male here for post hospital follow-up from [facility]. He was admitted on January 02 for acute weakness in the setting of COVID-19 infection. He was treated in hospital with renally dose Paxlovid. He was discharged on the to [facility]. He has been receiving physical therapy [...] wound care on a daily basis through [facility] health with all ulcers healed. He had [...] care. Assessment & Plan (04/09/2023 7:44 AM INSIGHTS MANAGER): He has a another wound to the [...] on Jardiance. Atherosclerotic Heart Diseas e Of [place] Coronary Artery Without Angina Pectoris 02/15/2020 Overview [...] ulceration. Assessment & Plan (04/08/2023 11:23 AM INSIGHTS MANAGER): Hemoglobin A1c 8.2%. This is consistent with [...] correction scale. Patient is currently at a snf facility but the plan is to transition [...] touch base with his provider at the snf facility to see if they wish to [...] sent prescription for freestyle Debi 2 to [facility]. If they have not heard from this company by next week recommend that they call to follow-up. Reviewed that there [place] insurance would not cover this device but [...] parenteral replacement. Lab Results Component Value Date [id number] 144 (L) 10/25/2019 MMA 0.27 (normal) Mar [...] BCC, s/p resections. 05/2020: Excision lesion right orthodoxy; pathology: SCC with follicular extensions, borders involved. [...] left cheek region as well as right orthodoxy region. Has personal history of squamous cell [...] setting of first- degree AV block with MO interval of 288. Because of this, proceeded [...] DM2. Admitted with delirium and sepsis to [facility] on September 27, 2019. Blood cultures positive for pasteurella multocida. Treated with surgical resection, placed on two week course of Augmentin at dismissal to [facility] for skilled rehabilitation on October 01, [...] proceeding with TTE. Given low risk with robinson valves I would not proceed with MENA [...] negative for COVID-19 prior to admission to [facility] October 01, 2019. Treated symptomatically with [...] metformin 1000 mg b.i.d. Outside labs from [place] with creatinine of 1.2 on 09/30/2019 Assessment & Plan (10/01/2019 2:52 PM CDT): He tells me he checks his blood glucose most days. He is eating. We will continue his home regimen. Immunizations Name Administration Dates Next Due HZV [...] ) (18 years or older) (PF) 01/11/2019 Social History Tobacco Use Types Packs/Day Years Used Date Smoking Tobacco: Former Pipe Passive Smoke Exposure: Never Smokeless Tobacco: Never Tobacco Cessation:Counseling Given: Not Answered Alcohol Use Standard Drinks/Week Comments Not Currently 1 (1 standard drink = 0.6 oz pur e alcohol) [facility] Utilities Answer Date Recorded In the past 12 months has th e electric, gas, oil, or water company [...] week 06/27/2021 How often do you attend [facility] or mormonism services? Patient declined 06/27/2021 Do you belong to any clubs o r organizations such as scientologist groups, unions, fraternal or athletic groups, or [...] your living situation today? I have a [address] [place] place to live 11/14/2023 Education Answer Date Recorded What is the highest level of school you have completed or the highest degree you have received? Doctorate 06/27/2021 Sex and Gender Information Value Date Recorded Sex Assigned at Male 01/12/2020 12:55 PM CDT Legal Sex Male 3:34 PM INSIGHTS MANAGER Gender Identity Male 06/26/2018 10:58 AM CDT Sexual Orientation Straight 06/26/2018 10 :58 AM CDT Last Filed Vital Signs Vital Sign Reading Time Taken Comments Blood Pressure 151/76 04/09/2024 8:55 AM INSIGHTS MANAGER Pulse 70 04/09/2024 8:55 AM INSIGHTS MANAGER Temperature 36.9 C (98.4 F) 04/09/2024 8:55 AM INSIGHTS MANAGER Respiratory Rate 18 10/23/2022 5:05 PM CDT Oxygen Saturation 93% 10/23/2022 5:05 PM CDT Inhaled Oxygen Concentration - - Weight 77 kg (169 lb 12.1 oz) 04/09/2024 8:55 AM INSIGHTS MANAGER Height 180.3 cm (5' 10.98) 01/02/2024 8:48 AM C DT Body Mass Index 23.69 01/02/2024 8:48 AM CDT Plan of Treatment Upcoming Encounters Date Type Department Care Team (Late st Contact Info) Description 05/07/2024 10:00 AM INSIGHTS MANAGER Office Visit Department of Vascular Medicine in [place], [place] [address] [place] [phone] Santana Mullen M.D. [address] [place] [phone] Discharge Disposition: Home or Self Care 05/20/2024 1:40 PM INSIGHTS MANAGER Office Visit Department of Dermatology in [place], [place] [address] [place] [phone] Aldo Quarles M.D. [address] [place] [phone] Medical Devices Implanted Type Area Cdl Instructor Device Identifier Shelf Expiration Date Model / Serial / Lot Lead Ppm Capsure Fix Novus 58 - [id number] - [id number] Implanted:Qty: 1 on 05/10/2020 by Bia Ryan M.D., Ph.D. at [facility] Cardiac Lead Medtronic 02/06/2022 [id number] / [id number] / Lead Ppm Capsure Fix Novus 52 - [id number] - [id number] Implanted:Qty: 1 on 05/10/2020 by Bia Ryan M.D., Ph.D. at [facility] Cardiac Lead Medtronic 03/03/2022 [id number] / [id number] / Stnt Synergy Xd De 3.50x16 - [id number] Implanted:Qty: 1 on 02/17/2020 by Kyle Tejada M.D., Ph.D. at [facility] Cardiac Stent Left: Coronary [employer] 08/24/2021 [id number] / / [id number] Description:pLAD Stnt Synergy Xd De 3.00x16 - [id number] Implanted:Qty: 1 on 02/17/2020 by Kyle Tejada M.D., Ph.D. at [facility] Cardiac Stent Left: Coronary [employer] 08/24/2021 [id number] / / [id number] Description:Ramus Vlv Sangeeta S3 Ultra 26 - [id number] - [id number] Implanted:Qty: 1 on 05/10/2020 by Brandee Rangel M.D. at [facility] Cardiac Valve Prosthesis N/A: Heart Orellana [employer] 11/05/2021 [id number] / [id number] / Description:Aortic Valve Clp Apr Lgs Intnl Sm 9.0 - [id number] Implanted:Qty: 1 on 07/17/2018 by Olivia Finn M.D. at [facility] Hardware e.g. pins/screws/ rods Ethicon [id number] / / Mesh Marlex 6 X 6 - [id number] Implanted:Qty: 1 on 11/01/1997 Mesh or Patch Abdomen Other/Legacy - See Implant Description Description:Device Manufactu rer - Medix. Device Status Text - [id number]. Lens Toric Aspheric [id number] - [id number] Implanted:Qty: 1 on 10/19/2012 Ocular Lens Left: Other/Legacy - See Implant Description [employer] Description:Device Manufactu rer - [employer]. Body Location - Left. Device Status Text - [id number]. Lens Toric Aspheric [id number] - [id number] Implanted:Qty: 1 on 10/26/2012 Ocular Lens Right: Other/Legacy - See Implant Description [employer] Description:Device Manufactu rer - [employer]. Body Location - Right. Device Status Text - [id number]. Ppm Kronenwetter - [id number] - [id number] Implanted:Qty: 1 on 05/10/2020 by Bia Ryan M.D., Ph.D. 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) VASCULAR IMAGE EXAM Routine 04/09/2024 9 :40 AM INSIGHTS MANAGER VASCULAR IMAGE EXAM Routine 04/09/2024 9 :10 AM INSIGHTS MANAGER VARICELLA-ZOSTER VIRUS PCR, V Routine 04/05/2024 4:51 PM INSIGHTS MANAGER Cancer Skin Basal Cell Personal History HERPES SIMPLEX VIRUS PCR Routine 04/05/2024 4:51 PM INSIGHTS MANAGER Cancer Skin Basal Cell Personal History BACTERIAL CULTURE, AEROBIC + SUSC Routine 04/05/2024 4:48 PM INSIGHTS MANAGER Cancer Skin Basal Cell Personal History DERMATOLOGY IMAGE EXAM Routine 04/05/2024 12:00 AM INSIGHTS MANAGER DERMATOLOGY IMAGE EXAM Routine 03/23/2024 12:00 AM INSIGHTS MANAGER INTERFACED REMOTE DEVICE CHECK Routine 03/11/2024 10:21 AM INSIGHTS MANAGER VASCULAR IMAGE EXAM Routine 02/24/2024 7 :15 AM INSIGHTS MANAGER VASCULAR IMAGE EXAM Routine 02/24/2024 7 :10 AM INSIGHTS MANAGER VASCULAR IMAGE EXAM Routine 01/21/2024 2 :20 [...] Foot Right 3+ Views (04/09/2024 10:49 AM INSIGHTS MANAGER) Anatomical Region Laterality Modality Lower Extremity, Foot, Muscu loskeletal RST LOS, Musculoskeletal ARZ LOS, Muskuloskeletal FLA LOS Right Digit al Radiography Impressions 04/09/2024 11:45 AM INSIGHTS MANAGER Lateral foot soft tissue ulceration at the level of the 5th metatarsal base. No radiographic evidence of osteomyelitis. No tracking soft tissue gas. Scattered moderate hypertrophic arthritis. Chronic spurs 5th metatarsal base. Old healed deformity 5th proximal phalanx. No acute fracture. Dense arterial calcifications. Narrative 04/09/2024 11:45 AM INSIGHTS MANAGER EXAM: DX FOOT RIGHT 3+ VIEWS Procedure Note Boaz Bloom M.D. - 04/09/2024 EXAM: DX FOOT RIGHT 3+ VIEWS IMPRESSION: Lateral foot soft tissue ulceration at the level of the 5th metatarsalbase. No radiographic evidence of osteomyelitis. No tracking soft tissuegas. Scattered moderate hypertrophic arthritis. Chronic spurs 5thmetatarsal base. Old healed deformity 5th proximal phalanx. No acute fracture. Dense arterialcalcifications. us Gaby Davila APRN CBiancaNBiancaPBianca IMG DIAGNOSTIC IMAGIN G PROCEDURES Final Result * Leg-Vascular Image Exam (04/09/2024 9:40 AM INSIGHTS MANAGER) Only the most recent of7 resultswithin the time period is included. 04/09/2024 9:39 AM INSIGHTS MANAGER Narrative IIMS - 04/09/2024 9:40 AM INSIGHTS MANAGER This order has been created and auto-finalized to support the import of images acquired without order. The clinical documentation to support these images can be found on the encounter that produced images. us Provider Not In System IMG NON RAD IMAGING PROCE DURES Final Result Performing Organization Address [facility] de Phone Number [facility] NA * Varicella-Zoster Virus PCR (04/05/2024 4:51 PM INSIGHTS MANAGER) Specimen Source RIGHT MALAR CHEEK,SWAB 04/07/2024 12:53 PM INSIGHTS MANAGER DTL Varicella-Zoster Virus PCR Negative Negative 04/07/2024 12:53 PM INSIGHTS MANAGER DTL Comment: ----ADDITIONAL INFORMATION---- This test was developed and its performance characteristics determined by [facility] in a manner consistent with CLIA requirements. This test has not been cleared or approved by the U.S. Food and Drug Administration. Skin (Right Malar Cheek) 04/05/2024 4:51 PM INSIGHTS MANAGER us Juan Mccoy M.D., M.B.A. LAB MICROBIOLOGY - GENERAL ORDERABLES Final Result Performing Organization Address City/[facility] Co de Phone Number [facility] 200 [place] [address], [facility] DTL 200 [facility] 200 [place] [address] * Herpes Simplex Virus PCR (04/05/2024 4:51 PM INSIGHTS MANAGER) Specimen Source RIGHT MALAR CHEEK,SWAB 04/06/2024 10:03 PM INSIGHTS MANAGER DTL HSV 1, PCR Negative Negative 04/06/2024 10:03 PM INSIGHTS MANAGER DTL HSV 2, PCR Negative Negative 04/06/2024 10:03 PM INSIGHTS MANAGER DTL Comment: ----ADDITIONAL INFORMATION---- This test was developed and its performance characteristics determined by [facility] in a manner consistent with CLIA requirements. This test has not been cleared or approved by the U.S. Food and Drug Administration. Skin (Right Malar Cheek) 04/05/2024 4:51 PM INSIGHTS MANAGER Juan Mccoy M.D., M.B.A. LAB MICROBIOLOGY - GENERAL ORDERABLES Final Result Performing Organization Address City/[facility]/ZIP Co de Phone Number [facility] 200 [place], [place] [phone] [place] [address] [address] * Bacterial Culture, Aerobic + Susceptibility (04/05/2024 4:48 PM INSIGHTS MANAGER) Bacterial Culture, Aerobic + Susc Skin microbiota 04/07/2024 10:03 AM INSIGHTS MANAGER DTL Skin (Right Malar Cheek) 04/05/2024 4:48 PM INSIGHTS MANAGER Juan Mccoy M.D., M.B.A. LAB MICROBIOLOGY - GENERAL ORDERABLES Final Result Performing Organization Address City/[facility]/ZIP Co de Phone Number [facility] 200 [place] [address], [address] [address] * Face 507-Dermatology Image Exam (04/05/2024 12:00 AM INSIGHTS MANAGER) Only the most recent of2 resultswithin the time period is included. Narrative II - 04/06/2024 6:38 AM INSIGHTS MANAGER This order has been created and auto-finalized to support the import of images acquired without order. The clinical documentation to support these images can be found on the encounter that produced images. us Provider Not In System IMG NON RAD IMAGING PROCE DURES Final Result II NA * CAR CARDIAC DEVICE INTERROGATION (03/11/2024 10:21 AM INSIGHTS MANAGER) Date Time Interrogation Session [id number] [facility] Type Interrogation Session Remote [facility] Implantable Pulse Generator Cdl Instructor [employer] Sig[employer] [facility] Implantable Pulse Generator Type Pacemaker [facility] Implantable Pulse Generator Model Kronenwetter XT DR MRI [id number] [facility] Implantable Pulse Generator Serial Number [id number] [facility] Implantable Pulse Generator Implant Date 20200510 [facility] Battery Remaining Longevity 102.0 mo [facility] Battery Voltage 3.010 [facility] [employer] [facility] Battery TELEVISION REPORTER Trigger 2.625 [facility] Battery Status OK [facility] Matt Statistic RA Percent Paced 7.10 [facility] Matt Statistic RV Percent Paced 99.88 [facility] Atrial Tachy Statistic AT/AF [place] Percent 0.00 [facility] Lead Channel Sensing Intrinsic Amplitude 1.000 [facility] Lead Channel Setting Sensing Sensitivity 0.30 [facility] Lead Channel Impedance Value 475 [facility] Lead Channel Pacing Threshold Amplitude 1.000 [facility] Lead Channel Pacing Threshold Pulse Width 0.4 [facility] Lead Channel Measurements Date and Time 20240308 [facility] Lead Channel Setting Pacing Amplitude 2.250 [facility] Lead Channel Setting Pacing Pulse Width 0.4 [facility] Lead Channel Sensing Intrinsic Amplitude 5.500 [facility] Lead Channel Setting Sensing Sensitivity 0.90 [facility] Lead Channel Impedance Value 380 [facility] Lead Channel Pacing Threshold Amplitude 1.000 [facility] Lead Channel Pacing Threshold Pulse Width 0.4 [facility] Lead Channel Measurements Date and Time 20240308 [facility] Lead Channel Setting Pacing Amplitude 2.000 [facility] Lead Channel Setting Pacing Pulse Width 0.4 [facility] Matt Setting Mode (NBG Code) AAI<=>DDD [facility] Matt Setting Lower Rate Limit 60 [facility] Matt Setting AT Mode Switch Rate 171 [facility] Matt Setting Maximum Tracking Rate 130 [facility] Matt Setting Maximum Sensor Rate 130 [facility] Matt Setting PAV Delay 180 [facility] Matt Setting TOMER Delay 150 [facility] Lead Channel Setting Sensing Polarity Bipolar [facility] Lead Channel Setting Sensing Polarity Bipolar [facility] Lead Channel Setting Pacing Polarity Bipolar [facility] Lead Channel Setting Pacing Polarity Bipolar [facility] Lead Channel Pacing Threshold Polarity Bipolar [facility] Lead Channel Pacing Threshold Polarity Bipolar [facility] Zone Setting Type Category AT/AF [...] 6 [facility] Implantable Lead Cdl Instructor Medtronic [facility] Implantable Lead Model 4076 CapsureFix Novus MRI SureScan [facility] Implantable Lead Location Right Ventricle [facility] Implantable Lead Connection Status Connected [facility] Implantable Lead Serial Number [id number] [facility] Implantable Lead Implant Date 20200510 [facility] Implantable Lead Special Function Lead length: 58.00 cm [facility] Implantable Lead Cdl Instructor Medtronic [facility] Implantable Lead Model 4076 CapsureFix Novus MRI SureScan [facility] Implantable Lead Location Right Atrium [facility] Implantable Lead Connection Status Connected [facility] Implantable Lead Serial Number [id number] [facility] Implantable Lead Implant Date 20200510 [facility] Implantable Lead Special Function Lead length: 52.00 cm [facility] Anatomical Region Laterality Modality Other 03/15/2024 1:18 PM INSIGHTS MANAGER Impressions 03/15/2024 1:18 PM INSIGHTS MANAGER Encounter Impression: Title: Normal Remote: No Events [...] sensing amplitude and pacingthreshold data was reviewed. us Dmitry Levy M.D., M.P.H. CV IMPLANTABLE CARDI AC DEVICE Final Result * (ABNORMAL) Albumin, Random, Urine (11/21/2023 3:23 PM CDT) Albumin, Random, U 8.4 mg/L 2023 10:27 AM CDT DTL Comment: ----ADDITIONAL INFORMATION---- This test has been modified from the electrical instrument repairer's instructions. Its performance characteristics were determined by [facility] in a manner consistent with CLIA requirements. This test has not been cleared or approved by the U.S. Food and Drug Administration. Creatinine 50 mg/dL 11/21/2023 4:13 PM CDT DTL Albumin/Creatinine Ratio 17(H) <17 mg/g 11/22/2023 10:27 AM CDT DTL Urine (Urine, Midstream) 11/21/2023 3:23 PM CDT 11/21/2023 3:47 PM CDT us Amber Mobley APRN C.N.P. LAB URINE ORDERABLE S Final Result [facility] [address] [facility] 200 [place] [address] * (ABNORMAL) Hemoglobin A1c (11/21/2023 8:50 AM [...] ADD-ON Fi nal Result Performing Organization Address City/[facility]/ZIP Co de Phone Number [facility] [address] [facility] 200 [place] [address] * Creatinine with Estimated GFR (11/21/2023 8:50 AM CDT) Creatinine 1.12 0.74 - 1.35 mg/dL 11/21/2023 9:46 AM CDT DTL Estimated GFR (eGFR) 63 >=60 mL/min/BSA 11/21/2023 9:46 AM CDT DTL Comment: Estimated GFR calculated using the 2020 CKD_EPI creatinine equation. Blood (Blood, Venous) 11/21/2023 8:50 AM CDT 11/21/2023 9:29 AM CDT Amber Mobley APRN, C.N.P. LAB BLOOD ADD-ON Fi nal Result [facility] 200 [place] [address], [facility] 200 [place] [address] * Eyes Spectralis OCT-Ophthalmology Image Exam (07/30/2023 12:00 AM CDT) Narrative II - 07/30/2023 12:43 PM CDT This order has been created and auto-finalized to support the import of images acquired without order. The clinical documentation to support these images can be found on the encounter that produced images. us Provider Not In System IMG NON RAD IMAGING PROCE DURES Final Result IIMS NA from Last 3 Months or Most Recently Relevant to Health Maintenance Insurance MEDICARE [facility] [employer] EMPLOYEE Advance Directives For more information, please contact: [phone] Documents on File Type Date Recorded Patient Computer Meteorologist Expl anation Advance Directives 07/23/2022 11:42 AM [...] Communication Codie Dominguez Spouse Health Care Agent m Care Teams Computer Equipment Repairer Relationship Specialty Start Date End Date Minnie Avery M.D. [address] [place] [phone] PCP - General Internal Medicine 10/24/22
--- OUTSIDE RECORDS SUMMARY | 2024-04-11 03:34 | XMS_ITS | Encounter Summary ---
Author Organization [facility] Address [address] [place] [address] Care Team Providers Care Pilot Highway Patrol Name Role Phone Minnie Avery M.D. Primary Care Provider [phone]- [phone] Reason for Visit * Reason Onset Date Comments Phone Contact 02/25/2024 Encounter Details Date Type Department Care Team (Late st Contact Info) Description 02/25/2024 Clinical Communication Division of Community Internal Medicine, [facility], in [place], [place] [address] [place] [phone] Minnie Avery M.D. [address] [place] [phone] Phone Contact Social History Tobacco Use Types Packs/Day Years Used Date Smoking Tobacco: Former Pipe Passive Smoke Exposure: Never Smokeless Tobacco: Never Alcohol Use Standard Drinks/Week Comments Not Currently 1 (1 standard drink = 0.6 oz pur e alcohol) [facility] Utilities Answer Date Recorded In the past [...] How often do you attend chur or pentecostalism services? Patient declined 06/27/2021 Do you belong to any clubs o r organizations such as roman catholic groups, unions, fraternal or athletic groups, or [...] Answer Date Recorded PHQ-2 Score 1 04/08/2023 [facility] of Occupat ional Health - Occupational [...] living situation today? I have a [facility] place to live 11/14/2023 Education Answer Date Recorded What is the highest level of school you have completed or the highest degree you have received? Doctorate 06/27/2021 Sex and Gender Information Value Date Recorded Sex Assigned at Male 01/12/2020 12:55 PM CDT Legal Sex Male 3:34 PM PIPE STRAIGHTENER Gender Identity Male 06/26/2018 10:58 AM CDT Sexual Orientation Straight 06/26/2018 10 :58 AM CDT documented as of this encounter Miscellaneous Notes * Telephone Encounter - Junie Walters R.N. - 02/27/2024 9:24 AM PIPE STRAIGHTENER SUBJECTIVE CHIEF COMPLAINT / REASON FOR CALL Phone Contact Information Discussed LANRE Ferguson informed the patient's spouse, Codie Bryson (JUAN on file), that [facility] is at full capacity and is unable to treat patient. LANRE Ferguson inquired if they had an alternative home health agency in mind that they would like their referral sent to instead. Codie stated that they have nopreferences other than they request that they agency is included within the first tier of [facility] insurance. PLAN Disposition/Recommendation: LANRE Ferguson will reach out to our colleagues in social work for assistancein coordinating home health care referral. Information/Education: patient/caller able to teach back Caller agreeable to plan of care: yes The following references were used: nursing clinical judgement and other [facility] STRAIGHTENER documented in this encounter Plan of Treatment Upcoming Encounters Date Type Department Care Team (Late st Contact Info) Description 05/07/2024 10:00 AM PIPE STRAIGHTENER Office Visit Department of Vascular Medicine in [place], [place] [address] [place] [phone] Santana Mullen M.D. [address] [place] [phone] Discharge Disposition: Home or Self Care 05/20/2024 1:40 PM PIPE STRAIGHTENER Office Visit Department of Dermatology in [place], [place] [address] [place] [phone] Aldo Quarles M.D. [address] [place] [phone] documented as of this encounter Visit Diagnoses Not on filedocumented in this encounter Additional Health Concerns Assessment Noted Time PHQ-9 Depression Total Score: 0 05/10/19 21 11:00 AM PIPE STRAIGHTENER documented as of this encounter Care Teams Pilot Highway Patrol Relationship Specialty Start Date End Date Minnie Avery M.D. [address] [place] [phone] PCP - General Internal Medicine 10/24/22 documented as of this encounter
--- OUTSIDE RECORDS SUMMARY | 2024-04-11 03:34 | XMS_ITS | Encounter Summary ---
Author Organization [facility] Address [address] [place] [address] Care Team Providers Care Account Manager Education Name Role Phone Minnie Avery M.D. Primary Care Provider [phone]- [phone] Reason for Visit * Reason Comments Med Refill Encounter Details Date Type Department Care Team (Late st Contact Info) Description 03/31/2024 Refill Division of Gastroenterology in [place], [place] [address] [place] [address] French Berman M.D. [address] [place] [phone] Med Refill Social History Tobacco Use Types Packs/Day Years Used Date Smoking Tobacco: Former Pipe Passive Smoke Exposure: Never Smokeless Tobacco: Never Alcohol Use Standard Drinks/Week Comments Not Currently 1 (1 standard drink = 0.6 oz pur e alcohol) [facility] Utilities Answer Date Recorded [...] How often do you attend chur or druze services? Patient declined 06/27/2021 Do you belong to any clubs o r organizations such as religious groups, unions, fraternal or athletic groups, or [...] Answer Date Recorded PHQ-2 Score 1 04/08/2023 [facility] Occupat ional Health - Occupational Stress [...] living situation today? I have a [facility] place to live 11/14/2023 Education Answer Date Recorded What is the highest level of school you have completed or the highest degree you have received? Doctorate 06/27/2021 Sex and Gender Information Value Date Recorded Sex Assigned at Male 01/12/2020 12:55 PM CDT Legal Sex Male 3:34 PM LOADER MAGAZINE GRINDER Gender Identity Male 06/26/2018 10:58 AM CDT Sexual Orientation Straight 06/26/2018 10 :58 AM CDT documented as of this encounter Plan of Treatment Upcoming Encounters Date Type Department Care Team (Late st Contact Info) Description 05/07/2024 10:00 AM LOADER MAGAZINE GRINDER Office Visit Department of Vascular Medicine in [place], [place] 200 [place] [phone] Santana Mullen M.D. 200 [place] [address] Discharge Disposition: Home or Self Care 05/20/2024 1:40 PM LOADER MAGAZINE GRINDER Office Visit Department of Dermatology in [place], [place] [address] [place] [phone] Aldo Quarles M.D. [address] [place] [address] documented as of this encounter Visit Diagnoses Not on filedocumented in this encounter Additional Health Concerns Assessment Noted Time PHQ-9 Depression Total Score: 0 05/10/19 21 11:00 AM LOADER MAGAZINE GRINDER documented as of this encounter Care Teams Account Manager Education Relationship Specialty Start Date End Date Minnie Avery M.D. [address] [place] [phone] PCP - General Internal Medicine 10/24/22 documented as of this encounter
--- OUTSIDE RECORDS SUMMARY | 2024-04-11 03:34 | XMS_ITS | Encounter Summary ---
Author Organization [facility] Address [address] [place] [address] Care Team Providers Care Automotive Refinisher Name Role Phone Minnie Avery M.D. Primary Care Provider [phone]- [phone] Reason for Visit * Reason Onset Date Comments [facility] 03/02/2024 Verbal Order 03/01/2024 Encounter Details Date Type Department Care Team (Latest Contact Info) Description 03/02/2024 Clinical Communication Division of Community Internal Medicine, [facility] in [place], [place] [address] [place] [address] Minnie Avrey M.D. [address] [place] [address] [facility] (Verbal Order 03/01/2024) Social History Tobacco Use Types Packs/Day Years Used Date Smoking Tobacco: Former Pipe Passive Smoke Exposure: Never Smokeless Tobacco: Never Alcohol Use Standard Drinks/Week Comments Not Currently 1 (1 standard drink = 0.6 oz pur e alcohol) [facility] Utilities Answer Date Recorded In the past [...] How often do you attend chur or nondenominational services? Patient declined 06/27/2021 Do you belong to any clubs o r organizations such as restorationism groups, unions, fraternal or athletic groups, or [...] Answer Date Recorded PHQ-2 Score 1 04/08/2023 [facility] of Occupat ional Health - Occupational Stress [...] your living situation today? I have a [facility] place to live 11/14/2023 Education Answer Date Recorded What is the highest level of school you have completed or the highest degree you have received? Doctorate 06/27/2021 Sex and Gender Information Value Date Recorded Sex Assigned at Male 01/12/2020 12:55 PM CDT Legal Sex Male 3:34 PM FLEECE TIER Gender Identity Male 06/26/2018 10:58 AM CDT Sexual Orientation Straight 06/26/2018 10 :58 AM CDT documented as of this encounter Plan of Treatment Upcoming Encounters Date Type Department Care Team (Late st Contact Info) Description 05/07/2024 10:00 AM FLEECE TIER Office Visit Department of Vascular Medicine in [place], [place] [address] [place] [address] Santana Mullen M.D. [address] [place] [address] Discharge Disposition: Home or Self Care 05/20/2024 1:40 PM FLEECE TIER Office Visit Department of Dermatology in [place], [place] [address] [place] [address] Aldo Quarles M.D. [address] [place] [address] documented as of this encounter Visit Diagnoses Not on filedocumented in this encounter Additional Health Concerns Assessment Noted Time PHQ-9 Depression Total Score: 0 05/10/19 21 11:00 AM FLEECE TIER documented as of this encounter Care Teams Automotive Refinisher Relationship Specialty Start Date End Date Minnie Avery M.D. [address] [place] [phone] PCP - General Internal Medicine 10/24/22 documented as of this encounter
--- OUTSIDE RECORDS SUMMARY | 2024-04-11 03:34 | XMS_ITS | Encounter Summary ---
Author Organization [facility] Address [address] [place] [address] Care Team Providers Care Motor Teacher Name Role Phone Minnie Avery M.D. Primary Care Provider [phone]- [phone] Reason for Visit * Reason Onset Date Comments Pre-visit Intake 03/19/2024 Encounter Details Date Type Department Care Team (Latest Contact Info) Description 03/19/2024 10:30 AM HASHER OPERATOR Clinical Communication Virtual Review in [place], [place] 200 [place] [phone] Pre-visit Intake Social History Tobacco Use Types Packs/Day Years Used Date Smoking Tobacco: Former Pipe Passive Smoke Exposure: Never Smokeless Tobacco: Never Alcohol Use Standard Drinks/Week Comments Not Currently 1 (1 standard drink = 0.6 oz pur e alcohol) [facility] Utilities Answer Date Recorded In the past 12 months has [facility] [employer], [employer], oil, or water [employer] threatened to shut off services in your [...] How often do you attend chur or restorationist services? Patient declined 06/27/2021 Do you belong to any clubs o r organizations such as buddhist groups, unions, fraternal or athletic groups, or [...] Answer Date Recorded PHQ-2 Score 1 04/08/2023 [facility] of Occupat ional Health - Occupational [...] your living situation today? I have a [facility] place to live 11/14/2023 Education Answer Date Recorded What is the highest level of school you have completed or the highest degree you have received? Doctorate 06/27/2021 Sex and Gender Information Value Date Recorded Sex Assigned at Male 01/12/2020 12:55 PM CDT Legal Sex Male 3:34 PM HASHER OPERATOR Gender Identity Male 06/26/2018 10:58 AM CDT Sexual Orientation Straight 06/26/2018 10 :58 AM CDT documented as of this encounter Plan of Treatment Upcoming Encounters Date Type Department Care Team (Late st Contact Info) Description 05/07/2024 10:00 AM HASHER OPERATOR Office Visit Department of Vascular Medicine in [place], [place] [address] [place] [address] Santana Mullen M.D. 200 [place] [address] Discharge Disposition: Home or Self Care 05/20/2024 1:40 PM HASHER OPERATOR Office Visit Department of Dermatology in [place], [place] [address] [place] [address] Aldo Quarles M.D. [address] [place] [address] documented as of this encounter Visit Diagnoses Not on filedocumented in this encounter Additional Health Concerns Assessment Noted Time PHQ-9 Depression Total Score: 0 05/10/19 21 11:00 AM HASHER OPERATOR documented as of this encounter Care Teams Motor Teacher Relationship Specialty Start Date End Date Minnie Avery M.D. [address] [place] [address] PCP - General Internal Medicine 10/24/22 documented as of this encounter
--- OUTSIDE RECORDS SUMMARY | 2024-04-11 03:34 | XMS_ITS | Encounter Summary ---
Author Organization [facility] Address [address] [place] [address] Care Team Providers Care Coal Dumping Equipment Operator Name Role Phone Minnie Avery M.D. Primary Care Provider +1- [phone] Encounter Details Date Type Department Care Team (Latest Contact Info) Description 03/11/2024 10:21 AM HYDRO TECHNICIAN - 03/11/2024 11:59 PM [facility] Hospital Encounter Department of Cardiovascular Diseases in [place], [place] [address] [place] [address] Dmitry Levy M.D., M.P.H. [address] [place] [phone] Discharge Disposition: Home or Self Care Social History Tobacco Use Types Packs/Day Years Used Date Smoking Tobacco: Former Pipe Passive Smoke Exposure: Never Smokeless Tobacco: Never Alcohol Use Standard Drinks/Week Comments Not Currently 1 (1 standard drink = 0.6 oz pur e alcohol) [facility] Utilities Answer Date Recorded In the past 12 months has e [employer], gas, oil, or water company threatened to [...] week 06/27/2021 How often do you attend [facility] or latter-day services? Patient declined 06/27/2021 Do you belong to any clubs o r organizations such as orthodoxy groups, unions, fraternal or athletic groups, or [...] Answer Date Recorded PHQ-2 Score 1 04/08/2023 [facility] of Occupat ional Health - Occupational [...] living situation today? I have a [facility] place to live 11/14/2023 Education Answer Date Recorded What is the highest level of school you have completed or the highest degree you have received? Doctorate 06/27/2021 Sex and Gender Information Value Date Recorded Sex Assigned at Male 01/12/2020 12:55 PM CDT Legal Sex Male 3:34 PM HYDRO TECHNICIAN Gender Identity Male 06/26/2018 10:58 AM CDT [...] 4 TABLETS BEFORE DENTAL PROC. 2000MG DOSE aspirin [address] tablet Take 1 tablet (81 mg total) by mouth daily. 120 tablet 2 02/13/2024 1:32 PM HYDRO TECHNICIAN 4 atorvastatin (Lipitor) 40 mg tabletIndications:Hy perlipidemia Take 1 tablet (40 mg total) by mouth daily. 90 tablet 3 02/13/2024 12:58 PM HYDRO TECHNICIAN 4 bisacodyL (Dulcolax) 5 mg EC tablet Take 2 tablets (10 mg total) by mouth daily as needed for constipation. 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 6 each 3 04/02/2024 4:26 PM HYDRO TECHNICIAN 4 025 cefadroxil (Duricef) 500 mg capsule Take 1 capsule (500 mg total) by mouth 2 (two) times a day. 10 capsule 01/23/2024 5:42 PM CDT 4 cyanocobalamin (Vitamin B-12) 1,000 mcg/mL injection Inject 1 mL (1,000 mcg total) under the skin every 30 (thirty) days. 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 90 tablet 3 04/02/2024 4:26 PM HYDRO TECHNICIAN 4 ezetimibe (Zetia) 10 mg tabletIndications:De meredith Functional Status Take 1 tablet (10 mg total) by mouth daily. 90 tablet 3 04/02/2024 4:26 PM HYDRO TECHNICIAN 4 025 glucagon (Gvoke PFS) 1 mg/0.2 mL syringe syringe Inject 0.2 mL (1 mg total) under the skin as needed for low blood sugar (if unable to treat hypoglycemia by mouth with carbohydrates). 0.2 mL 2 4 honey (MediHoney, honey,) 80 % gel Apply 1 mL topically daily. Apply to left 3rd and 4th toe 44 mL 1 4 ketoconazole (Nizoral) 2 % creamIndications:Carlitos matitis Seborrheic Apply topically to face 2 (two) times a day. 30 g 3 02/13/2024 12:58 PM HYDRO TECHNICIAN 4 ketoconazole (Nizoral) 2 % shampooIndications:D ermatitis Seborrheic Apply topically to affected area(s) on ears and scalp two times a day as needed 120 mL 11 04/02/2024 4:26 PM HYDRO TECHNICIAN 4 lancets (Accu-Chek Fastclix Lancet Drum) Use as directed, test 1 time daily 102 each 3 04/02/2024 4:26 PM HYDRO TECHNICIAN 4 NaCl 0.9 % irrigationIndication s:Insufficiency Vascular With Ulcer Toe (HCC) Irrigate with 30 mL as directed daily. 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 Dissolve each 17 g dose in 240 mL (8 ounces) of beverage. If no bowel movement 3 psyllium (METAMUCIL) powder Take 1 packet by mouth 2 (two) times a day. 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 Indication: type 2 diabetes 20 mL 3 4 025 linaCLOtide (Linzess) 290 mcg capsule Take 1 capsule (290 mcg total) by mouth every morning before breakfast. 90 capsule 3 02/13/2024 12:58 PM HYDRO TECHNICIAN 4 025 documented as of this encounter Plan of Treatment Upcoming Encounters Date Type Department Care Team (Late st Contact Info) Description 05/07/2024 10:00 AM HYDRO TECHNICIAN Office Visit Department of Vascular Medicine in [place], [place] [address] [place] [address] Santana Mullen M.D. [address] [place] [address] Discharge Disposition: Home or Self Care 05/20/2024 1:40 PM HYDRO TECHNICIAN Office Visit Department of Dermatology in [place], [place] [address] [place] [address] Aldo Quarles M.D. [address] [place] [phone] documented as of this encounter Procedures Procedure Name Priority Date/Time Associated Diagnosis Comments INTERFACED REMOTE DEVICE CHECK Routine 03/11/2024 10:21 AM HYDRO TECHNICIAN documented in this encounter Results * CAR CARDIAC DEVICE INTERROGATION (03/11/2024 10:21 AM HYDRO TECHNICIAN) Date Time Interrogation Session [id number] [facility] Type Interrogation Session Remote [facility] Implantable Pulse Generator Double End Tenoner Operator Wing-Wheel [facility] Implantable Pulse Generator Type Pacemaker [facility] Implantable Pulse Generator Model [place] XT DR MRI [id number] [facility] Implantable Pulse Generator Serial Number [id number] [facility] Implantable Pulse Generator Implant Date 20200510 [facility] Battery Remaining Longevity 102.0 mo [facility] Battery Voltage 3.010 [facility] Battery BUCK PRESSER Trigger 2.625 [facility] Battery Status OK [facility] Matt Statistic RA Percent Paced 7.10 [facility] Matt Statistic RV Percent Paced 99.88 [facility] Atrial Tachy Statistic AT/AF [place] Percent 0.00 [facility] Lead Channel Sensing Intrinsic Amplitude 1.000 [facility] Lead Channel Setting Sensing Sensitivity 0.30 [facility] Lead Channel Impedance Value 475 [facility] Lead Channel Pacing Threshold Amplitude 1.000 [facility] Lead Channel Pacing Threshold Pulse Width 0.4 [facility] Lead Channel Measurements Date and Time 20240308 [facility] Lead Channel Setting Pacing Amplitude 2.250 [facility] Lead Channel Setting Pacing Pulse Width 0.4 [facility] Lead Channel Sensing Intrinsic Amplitude 5.500 [facility] Lead Channel Setting Sensing Sensitivity 0.90 [facility] Lead Channel Impedance Value 380 [facility] Lead Channel Pacing Threshold Amplitude 1.000 [facility] Lead Channel Pacing Threshold Pulse Width 0.4 [facility] Lead Channel Measurements Date and Time 20240308 [facility] Lead Channel Setting Pacing Amplitude 2.000 [facility] Lead Channel Setting Pacing Pulse Width 0.4 [facility] Matt Setting Mode (NBG Code) AAI<=>DDD [facility] Matt Setting Lower Rate Limit 60 [facility] Mtat Setting AT Mode Switch Rate 171 [facility] Matt Setting Maximum Tracking Rate 130 [facility] Matt Setting Maximum Sensor Rate 130 [facility] Matt Setting PAV Delay 180 [facility] Matt Setting TOMER Delay 150 [facility] Lead Channel Setting Sensing Polarity Bipolar [facility] Lead Channel Setting Sensing Polarity Bipolar [facility] Lead Channel Setting Pacing Polarity Bipolar [facility] Lead Channel Setting Pacing Polarity Bipolar [facility] Lead Channel Pacing Threshold Polarity Bipolar [facility] Lead Channel Pacing Threshold Polarity Bipolar [facility] Zone Setting Type Category AT/AF [facility] Murj Rate 1 171 [facility] Murj Therapies Some Rx Off [facility] Zone Setting Status Monitor [facility] Murj Zone ID 2 [facility] Zone Setting Type Category VT [facility] Murj Rate 1 150 [facility] Zone Setting Status ENABLED F[facility] Murj Zone ID 6 [facility] Implantable Lead Double End Tenoner Operator Medtronic [facility] Implantable Lead Model 4076 CapsureFix Novus MRI SureScan [facility] Implantable Lead Location Right Ventricle [facility] Implantable Lead Connection Status Connected [facility] Implantable Lead Serial Number [id number] [facility] Implantable Lead Implant Date 20200510 [facility] Implantable Lead Special Function Lead length: 58.00 cm [facility] Implantable Lead Double End Tenoner Operator Medtronic [facility] Implantable Lead Model 4076 CapsureFix Novus MRI SureScan [facility] Implantable Lead Location Right Atrium [facility] Implantable Lead Connection Status Connected [facility] Implantable Lead Serial Number [id number] [facility] Implantable Lead Implant Date 20200510 [facility] Implantable Lead Special Function Lead length: 52.00 cm [facility] Anatomical Region Laterality Modality Other 03/15/2024 1:18 PM HYDRO TECHNICIAN Impressions 03/15/2024 1:18 PM HYDRO TECHNICIAN Encounter Impression: Title: Normal Remote: No Events [...] CV IMPLANTABLE CARDI AC DEVICE Final Result documented in this encounter Visit Diagnoses Not on filedocumented in this encounter Additional Health Concerns Assessment Noted Time PHQ-9 Depression Total Score: 0 05/10/19 21 11:00 AM HYDRO TECHNICIAN documented as of this encounter Care Teams Coal Dumping Equipment Operator Relationship Specialty Start Date End Date Minnie Avery M.D. [address] [place] [phone] PCP - General Internal Medicine 10/24/22 documented as of this encounter
--- OUTSIDE RECORDS SUMMARY | 2024-04-11 03:34 | XMS_ITS | Encounter Summary ---
Author Organization [facility] Address [address] [place] [address] Care Team Providers Care Office Chair Assembler Name Role Phone Minnie Avery M.D. Primary Care Provider +1- [phone] Reason for Visit * Reason Onset Date Comments [facility] 03/12/2024 [facility] Plan [facility] Encounter Details Date Type Department Care Team (Latest Contact Info) Description 03/12/2024 Clinical Communication Division of [facility], [facility], in [place], [place] [address] [place] [phone] Minnie Avery M.D. [address] [place] [address] [facility] ([facility]) Social History Tobacco Use Types Packs/Day Years Used Date Smoking Tobacco: Former Pipe Passive Smoke Exposure: Never Smokeless Tobacco: Never Alcohol Use Standard Drinks/Week Comments Not Currently 1 (1 standard drink = 0.6 oz pur e alcohol) [facility] Utilities Answer Date Recorded In the past 12 months has [facility] [employer], gas, oil, or water [employer] threatened to shut off services in your [...] How often do you attend chur or lutheran services? Patient declined 06/27/2021 Do you belong to any clubs o r organizations such as sabianist groups, unions, fraternal or athletic groups, or [...] Answer Date Recorded PHQ-2 Score 1 04/08/2023 [facility] [place] of Occupat ional Health - Occupational Stress [...] your living situation today? I have a [facility] place to live 11/14/2023 Education Answer Date Recorded What is the highest level of school you have completed or the highest degree you have received? Doctorate 06/27/2021 Sex and Gender Information Value Date Recorded Sex Assigned at Male 01/12/2020 12:55 PM CDT Legal Sex Male 3:34 PM MANAGER APPOINTMENT Gender Identity Male 06/26/2018 10:58 AM CDT Sexual Orientation Straight 06/26/2018 10 :58 AM CDT documented as of this encounter Plan of Treatment Upcoming Encounters Date Type Department Care Team (Late st Contact Info) Description 05/07/2024 10:00 AM MANAGER APPOINTMENT Office Visit Department of Vascular Medicine in [place], [place] [address] [place] [address] Santana Mullen M.D. [address] [place] [address] Discharge Disposition: Home or Self Care 05/20/2024 1:40 PM MANAGER APPOINTMENT Office Visit Department of Dermatology in [place], [place] [address] [place] [phone] Aldo Quarles M.D. [address] [place] [phone] documented as of this encounter Visit Diagnoses Not on filedocumented in this encounter Additional Health Concerns Assessment Noted Time PHQ-9 Depression Total Score: 0 05/10/19 21 11:00 AM MANAGER APPOINTMENT documented as of this encounter Care Teams Office Chair Assembler Relationship Specialty Start Date End Date Minnie Avery M.D. [address] [place] [phone] PCP - General Internal Medicine 10/24/22 documented as of this encounter
--- OUTSIDE RECORDS SUMMARY | 2024-04-11 03:34 | XMS_ITS | Encounter Summary ---
Author Organization [facility] Address [address] [place] [address] Care Team Providers Care Director Of Supply Chain Name Role Phone Minnie Avery M.D. Primary Care Provider +1- [phone] Encounter Details Date Type Department Care Team (Late st Contact Info) Description 03/23/2024 Ancillary Procedure Department of Dermatology Social History Tobacco Use Types Packs/Day Years Used Date Smoking Tobacco: Former Pipe Passive Smoke Exposure: Never Smokeless Tobacco: Never Alcohol Use Standard Drinks/Week Comments Not Currently 1 (1 standard drink = 0.6 oz pur e alcohol) [facility] Utilities Answer Date Recorded In the past 12 months has e electric, gas, oil, or water [employer] threatened to shut off services in your [...] often do you attend chur ch or yarsani services? Patient declined 06/27/2021 Do you belong to any clubs o r organizations such as islam groups, unions, fraternal or athletic groups, or [...] Answer Date Recorded PHQ-2 Score 1 04/08/2023 [facility] of Occupat ional Health - Occupational [...] your living situation today? I have a [facility] place to live 11/14/2023 Education Answer Date Recorded What is the highest level of school you have completed or the highest degree you have received? Doctorate 06/27/2021 Sex and Gender Information Value Date Recorded Sex Assigned at Male 01/12/2020 12:55 PM CDT Legal Sex Male 3:34 PM ASSISTANT CUSTOMER SERVICE MANAGER Gender Identity Male 06/26/2018 10:58 AM CDT Sexual Orientation Straight 06/26/2018 10 :58 AM CDT documented as of this encounter Plan of Treatment Upcoming Encounters Date Type Department Care Team (Late st Contact Info) Description 05/07/2024 10:00 AM ASSISTANT CUSTOMER SERVICE MANAGER Office Visit Department of Vascular Medicine in [place], [place] [address] [place] [phone] Santana Mullen M.D. [address] [place] [phone] Discharge Disposition: Home or Self Care 05/20/2024 1:40 PM ASSISTANT CUSTOMER SERVICE MANAGER Office Visit Department of Dermatology in [place], [place] [address] [place] [phone] Aldo Quarles M.D. [address] [place] [phone] documented as of this encounter Procedures Procedure Name Priority Date/Time Associated Diagnosis Comments DERMATOLOGY IMAGE EXAM Routine 03/23/2024 12:00 AM ASSISTANT CUSTOMER SERVICE MANAGER documented in this encounter Results * Face 507-Dermatology Image Exam (03/23/2024 12:00 AM ASSISTANT CUSTOMER SERVICE MANAGER) Narrative [facility] - 03/23/2024 1:04 PM ASSISTANT CUSTOMER SERVICE MANAGER This order has been created and [...] Score: 0 05/10/19 21 11:00 AM ASSISTANT CUSTOMER SERVICE MANAGER documented as of this encounter Care Teams Director Of Supply Chain Relationship Specialty Start Date End Date Minnie Avery M.D. [address] [place] [address] PCP - General Internal Medicine 10/24/22 documented as of this encounter
--- OUTSIDE RECORDS SUMMARY | 2024-04-11 03:34 | XMS_ITS | Encounter Summary ---
Author Organization [facility] Address [address] [place] [address] Care Team Providers Care Senior Property Manager Name Role Phone Minnie Avery M.D. Primary Care Provider +1- [phone] Reason for Visit * Reason Onset Date Comments Med List 03/30/2024 Encounter Details Date Type Department Care Team (Late st Contact Info) Description 03/30/2024 Clinical Communication Division of Community Internal Medicine, [facility], in [place], [place] [address] [place] [phone] Minnie Avery M.D. [address] [place] [phone] Med List Social History Tobacco Use Types Packs/Day Years Used Date Smoking Tobacco: Former Pipe Passive Smoke Exposure: Never Smokeless Tobacco: Never Alcohol Use Standard Drinks/Week Comments Not Currently 1 (1 standard drink = 0.6 oz pur e alcohol) [facility] Utilities Answer Date Recorded In [...] any clubs o r organizations such as catholic groups, unions, fraternal or athletic groups, [...] Answer Date Recorded PHQ-2 Score 1 04/08/2023 [facility] of Occupat ional Health - [...] your living situation today? I have a [facility] place to live 11/14/2023 Education Answer Date Recorded What is the highest level of school you have completed or the highest degree you have received? Doctorate 06/27/2021 Sex and Gender Information Value Date Recorded Sex Assigned at Male 01/12/2020 12:55 PM CDT Legal Sex Male 3:34 PM SOLE BUFFER Gender Identity Male 06/26/2018 10:58 AM CDT Sexual Orientation Straight 06/26/2018 10 :58 AM CDT documented as of this encounter Plan of Treatment Upcoming Encounters Date Type Department Care Team (Late st Contact Info) Description 05/07/2024 10:00 AM SOLE BUFFER Office Visit Department of Vascular Medicine in [place], [place] [address] [place] [address] Santana Mullen M.D. 200 [place] [address] Discharge Disposition: Home or Self Care 05/20/2024 1:40 PM SOLE BUFFER Office Visit Department of Dermatology in [place], [place] [address] [place] [address] Aldo Quarles M.D. [address] [place] [address] documented as of this encounter Visit Diagnoses Not on filedocumented in this encounter Additional Health Concerns Assessment Noted Time PHQ-9 Depression Total Score: 0 05/10/19 21 11:00 AM SOLE BUFFER documented as of this encounter Care Teams Senior Property Manager Relationship Specialty Start Date End Date Minnie Avery M.D. [address] [place] [address] PCP - General Internal Medicine 10/24/22 documented as of this encounter
--- OUTSIDE RECORDS SUMMARY | 2024-04-11 03:34 | XMS_ITS | Encounter Summary ---
Author Organization [facility] Address [address] [place] [address] Care Team Providers Care Commercial Lines Account Assistant Name Role Phone Minnie Avery M.D. Primary Care Provider +1- [phone] Reason for Referral * Outpatient (Routine) - Authorized Specialty Diagnoses / Procedures Referred By Ashley mack Referred To Contact Dermatology Diagnoses Rash Procedures Professional Photography Services Priya Reyez M.D. [address] [place] [address] Phone: tel: fax: [facility] Referral ID Status Reason Start Date Expiration Date V isits Requested Visits Authorized [id number] Authorized 03/23/2024 03/23/[address] PRESSMAN * Outpatient (Routine) - Closed Specialty Diagnoses / Procedures Referred By Ashley mack Referred To Contact Dermatology Diagnoses Cancer Skin Basal Cell Personal History Priya Reyez M.D. [address] [place] [address] Phone: tel: fax: [facility] Referral ID Status Reason Start Date Expiration Date Visits Re quested Visits Authorized [id number] Closed 03/23/2024 09/22/2025 1 1 Scheduling Instructions Patient needs re-check of face after field treatment RD PRESSMAN Reason for Visit * Outpatient (Routine) - Closed Specialty Diagnoses / Procedures Referred By Ashley mack Referred To Contact Dermatology Madan Garrett M.D. Phone: tel: fax: [facility] Referral ID Status Reason Start Date Expiration Date Visits Re quested Visits Authorized [id number] Closed 07/14/2023 01/12/2025 1 1 Encounter Details Date Type Department Care Team (Late st Contact Info) Description 03/23/2024 11:20 AM RECORD PRESSMAN Office Visit Department of Dermatology in [place], [place] [address] [place] [address] Joaquim Jerry M.D. [address] [place] [phone] Rash (Primary Dx); Cancer Skin Basal Cell Personal History Discharge Disposition: Home or Self Care Social History Tobacco Use Types Packs/Day Years Used Date Smoking Tobacco: Former Pipe Passive Smoke Exposure: Never Smokeless Tobacco: Never Alcohol Use Standard Drinks/Week Comments Not Currently 1 (1 standard drink = 0.6 oz pur e alcohol) [facility] Utilities Answer Date Recorded In the past 12 months has e [employer], gas, oil, or water [employer] threatened to shut off services in your [...] often do you attend chur ch or druze services? Patient declined 06/27/2021 Do you belong to any clubs o r organizations such as episcopalian groups, unions, fraternal or athletic groups, or [...] Answer Date Recorded PHQ-2 Score 1 04/08/2023 [facility] of Occupat ional Health - Occupational [...] your living situation today? I have a [facility] place to live 11/14/2023 Education Answer Date Recorded What is the highest level of school you have completed or the highest degree you have received? Doctorate 06/27/2021 Sex and Gender Information Value Date Recorded Sex Assigned at Male 01/12/2020 12:55 PM CDT Legal Sex Male 3:34 PM RECORD PRESSMAN Gender Identity Male 06/26/2018 10:58 AM CDT Sexual Orientation Straight 06/26/2018 10 :58 AM CDT documented as of this encounter Consult Notes * Joaquim Jerry M.D. - 03/23/2024 11:20 AM CST [address] - Outpatient Dermatology Supervised by: Priya Reyez M.D. Correspondence to: Joaquim Jerry M.D. SUBJECTIVE Reason for visit Follow up after treatment with 5-FU and calcipotriene History Mr. Sheldon Bryson III is a very pleasant 88 y.o. male who presents today, accompanied by his daughter, for the above. 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 He recently, 1 week ago, completedfield treatment on the face with 5-FU and calcipotriene compounded in lipoderm. He had significant reaction with redness that has not resolved although he denies any pain or tenderness associated with this. He would like to have this area checked today. OBJECTIVE Physical Examination General: Awake, alert, in no acute distress, with appropriate affect. Skin: Per patient preference, a focused examination of the scalp and face was performed and revealed: involving the face there is significant erythema and some areas with serum crust. Photographs were obtained and updated to the patient's chart; these are available for review in Qreads. ASSESSMENT / PLAN # History of non-melanoma skin cancers # Significant reaction to field treatment with 5-FU and calcipotriene compounded in lipoderm involving the face We discussed with Mr. Bryson and his daughter that at this time he has significant erythema from reaction to field treatment; we recommend treating with hydrocortisone 2.5% BID x 2 weeks to calm down the inflammation. Then we will plan to re-assess in approximately 2 weeks The patient expresses understanding and is in agreement with the above plan. All questions were answered to the best of my ability. It was a pleasure to care for Sheldon Bryson today. PATIENT EDUCATION Ready to learn. No apparent learning barriers were identified. Learning preferences include listening. Explained diagnosis and treatment plan; patient/guardian of patient expressed understanding of the content. Joaquim Jerry M.D. Cosigned by Priya Reyez M.D. at 03/23/2024 12:[address] PRESSMAN Associated attestation - Priya Reyez M.D. - 03/23/2024 12:00 PM RECORD PRESSMAN I saw and evaluated the patient, participating in the hall portions of the service. I reviewed the resident/fellow???s note. I agree with the resident/fellow???s findings and plan. documented in this encounter Plan of Treatment Upcoming Encounters Date Type Department Care Team (Late st Contact Info) Description 05/07/2024 10:00 AM RECORD PRESSMAN Office Visit Department of Vascular Medicine in [place], [place] [address] [place] [address] Santana Mullen M.D. [address] [place] [address] Discharge Disposition: Home or Self Care 05/20/2024 1:40 PM RECORD PRESSMAN Office Visit Department of Dermatology in [place], [place] [address] [place] [address] Aldo Quarles M.D. [address] [place] [phone] Scheduled Orders Name Type Priority Associated Diagnoses Orde r Schedule Professional Photography Services Procedures Routine Rash Ordered: 03/23/2024 Scheduled Referrals Name Type Priority Associated Diagnoses Order Schedule Dermatology office visit (clinic) Outpatient Referral Routine Cancer Skin Basal Cell Personal History Expected: 03/23/2024 (Approximate), Expires: 06/21/2025 documented as of this encounter Visit Diagnoses Diagnosis Rash- Primary Cancer Skin Basal Cell Personal History documented in this encounter Additional Health Concerns Assessment Noted Time PHQ-9 Depression Total Score: 0 05/10/19 21 11:00 AM RECORD PRESSMAN documented as of this encounter Care Teams Commercial Lines Account Assistant Relationship Specialty Start Date End Date Minnie Avery M.D. [address] [place] [phone] PCP - General Internal Medicine 10/24/22 documented as of this encounter
--- OUTSIDE RECORDS SUMMARY | 2024-04-11 03:34 | XMS_ITS | Encounter Summary ---
Author Organization [facility] Address [address] [place] [address] Care Team Providers Care Hydrologic Modeler Name Role Phone Minnie Avery M.D. Primary Care Provider +1- [phone] Reason for Visit * Reason Onset Date Comments Med Refill 03/31/2024 Encounter Details Date Type Department Care Team (Late st Contact Info) Description 03/31/2024 Refill Division of Endocrinology in [place], [place] [address] [place] [phone] Amber Mobley APRN, C.N.P. [address] [place] [phone] Med Refill Social History Tobacco Use Types Packs/Day Years Used Date Smoking Tobacco: Former Pipe Passive Smoke Exposure: Never Smokeless Tobacco: Never Alcohol Use Standard Drinks/Week Comments Not Currently 1 (1 standard drink = 0.6 oz pur e alcohol) [facility] Utilities Answer Date Recorded In the past 12 months has [employer], gas, oil, or water company threatened to [...] How often do you attend chur or christianity services? Patient declined 06/27/2021 Do you belong [...] Answer Date Recorded PHQ-2 Score 1 04/08/2023 [facility] of Occupat ional Health - [...] your living situation today? I have a [facility] place to live 11/14/2023 Education Answer Date Recorded What is the highest level of school you have completed or the highest degree you have received? Doctorate 06/27/2021 Sex and Gender Information Value Date Recorded Sex Assigned at Male 01/12/2020 12:55 PM CDT Legal Sex Male 3:34 PM ROD POINTER Gender Identity Male 06/26/2018 10:58 AM CDT Sexual Orientation Straight 06/26/2018 10 :58 AM CDT documented as of this encounter Plan of Treatment Upcoming Encounters Date Type Department Care Team (Late st Contact Info) Description 05/07/2024 10:00 AM ROD POINTER Office Visit Department of Vascular Medicine in [place], [place] [address] [place] [address] Santana Mullen M.D. 200 [place] [address] Discharge Disposition: Home or Self Care 05/20/2024 1:40 PM ROD POINTER Office Visit Department of Dermatology in [place], [place] [address] [place] [address] Aldo Quarles M.D. [address] [place] [address] documented as of this encounter Visit Diagnoses Diagnosis Diabetes Mellitus Type 2 With Diabetic Nephropathy (HCC) documented in this encounter Additional Health Concerns Assessment Noted Time PHQ-9 Depression Total Score: 0 05/10/19 21 11:00 AM ROD POINTER documented as of this encounter Care Teams Hydrologic Modeler Relationship Specialty Start Date End Date Minnie Avery M.D. [address] [place] [phone] PCP - General Internal Medicine 10/24/22 documented as of this encounter
--- OUTSIDE RECORDS SUMMARY | 2024-04-11 03:35 | XMS_ITS | Encounter Summary ---
Author Organization [facility] Address [address] [place] [address] Care Team Providers Care Conche Loader And Unloader Name Role Phone Minnie Avery M.D. Primary Care Provider +1- [phone] Encounter Details Date Type Department Care Team (Late st Contact Info) Description 05/29/2012 Historical Ophthalmology RST OPH Shahida Carroll M.D. [address] [place] [phone] Social History Tobacco Use Types Packs/Day Years Used Date Smoking Tobacco: Never Assessed Sex and Gender Information Value Date Recorded Sex Assigned at Male 01/12/2020 12:55 PM CDT Legal Sex Male 3:34 PM STONE GLUER Gender Identity Male 06/26/2018 10:58 AM CDT Sexual Orientation Straight 06/26/2018 10 :58 AM CDT documented as of this encounter Progress Notes * Shahida Carroll M.D. - 05/29/2012 2:33 PM CST Eye General CHIEF COMPLAINT blurred distance vision HISTORY OF PRESENT ILLNESS Blurred distance vision with his new glasses. IMPRESSION / REPORT / PLAN The following tests have been completed and need interpretation. 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 Discussed multifocal IOLs, but he decided that he does not mind wearing glasses for tasks includingreading. He might need a toric lens in the left eye depending on the corneal measurements. Due his visual requirements, it would probably be best to plan for surgery on each eye within a reasonably short period of time. 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 Will tentatively plan for CE OS first 09/07/12 and OD 09/21/12 Will schedule him for a brief follow up in late July or 1st week of August for IOL master, consent, prescriptions (If toric, will plan to operate when Dr. 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 [address] Discharge Disposition: Home or Self Care 05/20/2024 1:40 PM STONE GLUER Office Visit Department of Dermatology in [place], [place] [address] [place] [address] Aldo Quarles M.D. [address] [place] [address] documented as of this encounter Visit Diagnoses Not on filedocumented in this encounter Additional Health Concerns Infection Onset Date Last Indicated Resolved Time COVID19 Pending 12/11/2019 12/11/2019 12/12/2019 1 2:07 AM CDT COVID19 Pending 01/15/2020 01/15/2020 01/16/2020 2 :47 AM CDT COVID19 Pending 02/13/2020 02/13/2020 02/13/2020 9 :53 PM STONE GLUER COVID19 Pending 02/14/2020 02/14/2020 02/14/2020 1 2:19 PM STONE GLUER COVID19 Pending 05/08/2020 05/08/2020 05/08/2020 6 :00 PM STONE GLUER COVID19 Pending 06/03/2020 06/03/2020 06/03/2020 2 :32 PM STONE GLUER COVID19 Pending 07/11/2022 07/11/2022 07/11/2022 9 :47 PM CDT COVID19 Pending 07/15/2022 07/15/2022 07/15/2022 3 :42 PM CDT COVID19 Pending 07/17/2022 07/17/2022 07/17/2022 1 1:00 AM CDT documented as of this encounter Care Teams Conche Loader And Unloader Relationship Specialty Start Date End Date Minnie Avery M.D. [address] [place] [address] PCP - General Internal Medicine 10/24/22 documented as of this encounter
--- OUTSIDE RECORDS SUMMARY | 2024-04-11 03:35 | XMS_ITS | Encounter Summary ---
Author Organization [facility] Address [address] [place] [address] Care Team Providers Care Control Systems Developer Name Role Phone Minnie Avery M.D. Primary Care Provider +1- [phone] Reason for Visit * Reason Onset Date Comments Home Health Referral 02/24/2024 Encounter Details Date Type Department Care Team (Latest Contact Info) Description 02/24/2024 Clinical Communication Division of Community Internal Medicine, [facility], in [place], [place] [address] [place] [phone] Santana Jerez M.D., M.B.A. [address] [place] [phone] Home Health Referral Social History Tobacco Use Types Packs/Day Years Used Date Smoking Tobacco: Former Pipe Passive Smoke Exposure: Never Smokeless Tobacco: Never Alcohol Use Standard Drinks/Week Comments Not Currently 1 (1 standard drink = 0.6 oz pur e alcohol) [facility] Utilities Answer Date Recorded In the [...] week 06/27/2021 How often do you attend [facility] or quaker services? Patient declined 06/27/2021 Do you belong to any clubs o r organizations such as yazidism groups, unions, fraternal or athletic groups, or [...] Answer Date Recorded PHQ-2 Score 1 04/08/2023 [facility] of Occupat ional Health - Occupational [...] your living situation today? I have a [facility] place to live 11/14/2023 Education Answer Date Recorded What is the highest level of school you have completed or the highest degree you have received? Doctorate 06/27/2021 Sex and Gender Information Value Date Recorded Sex Assigned at Male 01/12/2020 12:55 PM CDT Legal Sex Male 3:34 PM GELATIN DYNAMITE PACKING OPERATOR Gender Identity Male 06/26/2018 10:58 AM CDT Sexual Orientation Straight 06/26/2018 10 :58 AM CDT documented as of this encounter Plan of Treatment Upcoming Encounters Date Type Department Care Team (Late st Contact Info) Description 05/07/2024 10:00 AM GELATIN DYNAMITE PACKING OPERATOR Office Visit Department of Vascular Medicine in [place], [place] [address] [place] [address] Santana Mullen M.D. [address] [place] [address] Discharge Disposition: Home or Self Care 05/20/2024 1:40 PM GELATIN DYNAMITE PACKING OPERATOR Office Visit Department of Dermatology in [place], [place] [address] [place] [phone] Aldo Quarles M.D. [address] [place] [phone] documented as of this encounter Visit Diagnoses Not on filedocumented in this encounter Additional Health Concerns Assessment Noted Time PHQ-9 Depression Total Score: 0 05/10/19 21 11:00 AM GELATIN DYNAMITE PACKING OPERATOR documented as of this encounter Care Teams Control Systems Developer Relationship Specialty Start Date End Date Minnie Avery M.D. [address] [place] [phone] PCP - General Internal Medicine 10/24/22 documented as of this encounter
--- OUTSIDE RECORDS SUMMARY | 2024-04-11 03:35 | XMS_ITS | Encounter Summary ---
Author Organization [facility] Address [address] [place] [address] Care Team Providers Care Pool Technician Name Role Phone Minnie Avery M.D. Primary Care Provider +1- [phone] Reason for Visit * Reason Onset Date Comments [facility] 02/09/2024 Plan of Treatment 01-30-2024 to 03-29-2024 Encounter Details Date Type Department Care Team (Latest Contact Info) Description 02/09/2024 Clinical Communication Division of Community Internal Medicine, [facility], in [place], [place] [address] [place] [address] Minnie Avery M.D. [address] [place] [address] [facility] (Plan of Treatment 01-30-2024 to 03-29-2024) Social History Tobacco Use Types Packs/Day Years [...] How often do you attend chur or faith services? Patient declined 06/27/2021 Do you belong [...] Recorded PHQ-2 Score 1 04/08/2023 [facility] of Occupat ional Health - Occupational Stress [...] living situation today? I have a [facility] place to live 11/14/2023 Education Answer Date Recorded What is the highest level of school you have completed or the highest degree you have received? Doctorate 06/27/2021 Sex and Gender Information Value Date Recorded Sex Assigned at Male 01/12/2020 12:55 PM CDT Legal Sex Male 3:[address] Gender Identity Male 06/26/2018 10:58 AM CDT Sexual Orientation Straight 06/26/2018 10 :58 AM CDT documented as of this encounter Plan of Treatment Upcoming Encounters Date Type Department Care Team (Late st Contact Info) Description 05/07/2024 10:[address]ER Office Visit Department of Vascular Medicine in [place], [place] [address] [place] [address] Santana Mullen M.D. [address] [place] [phone] Discharge Disposition: Home or Self Care 05/20/2024 1:[address]ER Office Visit Department of Dermatology in [place], [place] [address] [place] [phone] Aldo Quarles M.D. [address] [place] [phone] documented as of this encounter Visit Diagnoses Not on filedocumented in this encounter Additional Health Concerns Assessment Noted Time PHQ-9 Depression Total Score: 0 05/10/19 21 11:[address] documented as of this encounter Care Teams Pool Technician Relationship Specialty Start Date End Date Minnie Avery M.D. [address] [place] [phone] PCP - General Internal Medicine 10/24/22 documented as of this encounter
--- OUTSIDE RECORDS SUMMARY | 2024-04-11 03:35 | XMS_ITS | Encounter Summary ---
Author Organization [facility] Address [address] [place] [address] Care Team Providers Care Dormitory Maid Name Role Phone Minnie Avery M.D. Primary Care Provider +1- [phone] Encounter Details Date Type Department Care Team (Late st Contact Info) Description 02/28/2017 Historical Ophthalmology RST OPH Shahida Carroll M.D. [address] [place] [phone] Social History Tobacco Use Types Packs/Day Years Used Date Smoking Tobacco: Never Assessed Sex and Gender Information Value Date Recorded Sex Assigned at Male 01/12/2020 12:55 PM CDT Legal Sex Male 3:34 PM MATERIAL HANDLING CREW SUPERVISOR Gender Identity Male 06/26/2018 10:58 AM CDT Sexual Orientation Straight 06/26/2018 10 :58 AM CDT documented as of this encounter Progress Notes * Shahida Carroll M.D. - 02/28/2017 8:29 AM CST Eye General CHIEF COMPLAINT Recheck diabetic. HISTORY OF PRESENT ILLNESS General physical last week A1c 7.4?? Vision remains the same. No floaters. No flashes. No eye pain.Wants to talk about if could see you. WMs: Has to be careful about his back - gets tired later in the day. No vision changes. He has noticed that he can't walk as far as he used to in the past (discovered when he went hunting up [place] this fall.) HgA1C was stable when checked a few weeks ago. IMPRESSION / REPORT / PLAN The following tests have been completed and need interpretation. 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 Spectralis OCT 12/09/14: right eye - nml foveal contour, no intra- or subretinal edema, stable vs 2012; left eye - ERM with increased thickening in superonasal macula vs 2012, a few intraretinal cystsand intraretinal hemorrhages in the same region Spectralis OCT 04/12/15: right eye - nml foveal contour, no intra- or subretinal edema, stable vs 12/13; left eye - ERM with stable thickening in superonasal macula vs 12/13, a few intraretinal cysts and intraretinal hemorrhages in the same region but the cysts are smaller vs 12/13 Spectralis OCT 10/12/15: right eye - intact foveal contour, no subretinal fluid, a few possible tinyintraretinal cysts. left eye - ERM with stable thickening in superonasal macula vs 04/15, a few intraretinal cysts and intraretinal hemorrhages in the same region, the cysts are overall stable vs 04/15 Spectralis OCT 06/06/16: right eye - intact foveal contour, no subretinal fluid, no intraretinal cysts, stable or slightly improved vs 10/13. left eye - ERM with stable thickening in superonasal macula vs 10/13, central foveal cysts are decreased vs 10/13 Spectralis OCT 02/28/17: right eye - intact foveal contour, no subretinal fluid, no intraretinal cysts, stable vs 06/14. left eye - ERM with stable thickening in superonasal macula vs 06/14, central foveal cyst stable vs 06/14 Impression/Plan VA is 20/20 OU with current glasses (likely improved due to computerized chart) OCT is stable OU. For the left eye, I previously reviewed his OCT with Dr. Jin to see if he might be eligible for DRCR trial. 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 Also briefly discussed trial of anti-VEGF injections with Dr. Bryson, but we decided to continue to monitor without treatment for now. (Would need to get FA before initiating tx with anti-VEGF injections or laser.) Today since the OCT is stable OU, no need for FA, injections, or laser. Continue to control blood glucose, blood pressure, lipids. HgA1C 7.7 in Jan 2017 (improved vs 10/2015 8.3) Follow up in 8 months (~Oct 2017), RRTN with OCT OU His (Dr. Codie Bryson) will contact me regarding a retina evaluation. 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 [address] [place] [phone] Discharge Disposition: Home or Self Care 05/20/2024 1:40 PM MATERIAL HANDLING CREW SUPERVISOR Office Visit Department of Dermatology in [place], [place] [address] [place] [address] Aldo Quarles M.D. [address] [place] [phone] documented as of this encounter Visit Diagnoses Not on filedocumented in this encounter Additional Health Concerns Infection Onset Date Last Indicated Resolved Time COVID19 Pending 12/11/2019 12/11/2019 12/12/2019 1 2:07 AM CDT COVID19 Pending 01/15/2020 01/15/2020 01/16/2020 2 :47 AM CDT COVID19 Pending 02/13/2020 02/13/2020 02/13/2020 9 :53 PM MATERIAL HANDLING CREW SUPERVISOR COVID19 Pending 02/14/2020 02/14/2020 02/14/2020 1 2:19 PM MATERIAL HANDLING CREW SUPERVISOR COVID19 Pending 05/08/2020 05/08/2020 05/08/2020 6 :00 PM MATERIAL HANDLING CREW SUPERVISOR COVID19 Pending 06/03/2020 06/03/2020 06/03/2020 2 :32 PM MATERIAL HANDLING CREW SUPERVISOR COVID19 Pending 07/11/2022 07/11/2022 07/11/2022 9 :47 PM CDT COVID19 Pending 07/15/2022 07/15/2022 07/15/2022 3 :42 PM CDT COVID19 Pending 07/17/2022 07/17/2022 07/17/2022 1 1:00 AM CDT documented as of this encounter Care Teams Dormitory Maid Relationship Specialty Start Date End Date Minnie Avery M.D. [address] [place] [phone] PCP - General Internal Medicine 10/24/22 documented as of this encounter
--- OUTSIDE RECORDS SUMMARY | 2024-04-11 03:35 | XMS_ITS | Encounter Summary ---
Author Organization [facility] Address [address] [place] [address] Care Team Providers Care Bag Loader Name Role Phone Minnie Avery M.D. Primary Care Provider +1- [phone] Encounter Details Date Type Department Care Team (Late st Contact Info) Description 03/21/2009 Historical Ophthalmology RST OPH Noble Sheehan O.D. [address] [place] [phone] Social History Tobacco Use Types Packs/Day Years Used Date Smoking Tobacco: Never Assessed Sex and Gender Information Value Date Recorded Sex Assigned at Male 01/12/2020 12:55 PM CDT Legal Sex Male 3:34 PM SOLAR MANUFACTURER'S REPRESENTATIVE Gender Identity Male 06/26/2018 10:58 AM CDT Sexual Orientation Straight 06/26/2018 10 :58 AM CDT documented as of this encounter Progress Notes * Noble Sheehan O.D. - 03/21/2009 10:49 AM CST Eye General CHIEF COMPLAINT Annual diabetic exam. HISTORY OF PRESENT ILLNESS 73 year old male with history of non insulin dependant diabetes x 10 years. BS stable. Denies specific vision complaints. Denies pain, flashes or floaters. Denies diplopia or dryness. IMPRESSION / REPORT / PLAN #1 Cataract, both eyes, not visually significant. #2 Mild non-proliferative diabetic retinopathy, no macular edema #3 Mild Epimacular membrane, left eye plan 1. srx 2. 1 year / prn DIAGNOSIS #1 Cataract, both eyes, not visually significant. #2 Mild non-proliferative diabetic retinopathy, no macular edema #3 Mild Epimacular membrane, left eye CDM Reports - EYEGEN Id: [id number] Status: Fnl documented in this encounter Plan of Treatment Upcoming Encounters Date Type Department Care Team (Late st Contact Info) Description 05/07/2024 10:00 AM SOLAR MANUFACTURER'S REPRESENTATIVE Office Visit Department of Vascular Medicine in [place], [place] [address] [place] [address] Santana Mullen M.D. [address] [place] [phone] Discharge Disposition: Home or Self Care 05/20/2024 1:40 PM SOLAR MANUFACTURER'S REPRESENTATIVE Office Visit Department of Dermatology in [place], [place] [address] [place] [address] Aldo Quarles M.D. [address] [place] [address] documented as of this encounter Visit Diagnoses Not on filedocumented in this encounter Additional Health Concerns Infection Onset Date Last Indicated Resolved Time COVID19 Pending 12/11/2019 12/11/2019 12/12/2019 1 2:07 AM CDT COVID19 Pending 01/15/2020 01/15/2020 01/16/2020 2 :47 AM CDT COVID19 Pending 02/13/2020 02/13/2020 02/13/2020 9 :53 PM SOLAR MANUFACTURER'S REPRESENTATIVE COVID19 Pending 02/14/2020 02/14/2020 02/14/2020 1 2:19 PM SOLAR MANUFACTURER'S REPRESENTATIVE COVID19 Pending 05/08/2020 05/08/2020 05/08/2020 6 :00 PM SOLAR MANUFACTURER'S REPRESENTATIVE COVID19 Pending 06/03/2020 06/03/2020 06/03/2020 2 :32 PM SOLAR MANUFACTURER'S REPRESENTATIVE COVID19 Pending 07/11/2022 07/11/2022 07/11/2022 9 :47 PM CDT COVID19 Pending 07/15/2022 07/15/2022 07/15/2022 3 :42 PM CDT COVID19 Pending 07/17/2022 07/17/2022 07/17/2022 1 1:00 AM CDT documented as of this encounter Care Teams Bag Loader Relationship Specialty Start Date End Date Minnie Avery M.D. [address] [place] [phone] PCP - General Internal Medicine 10/24/22 documented as of this encounter
--- OUTSIDE RECORDS SUMMARY | 2024-04-11 03:35 | XMS_ITS | Encounter Summary ---
Author Organization [facility] Address [address] [place] [address] Care Team Providers Care Tight Barrel Inspector Name Role Phone Minnie Avery M.D. Primary Care Provider +1- [phone] Encounter Details Date Type Department Care Team (Late st Contact Info) Description 01/17/2005 Historical Ophthalmology RST OPH Alejandrina Gusman M.D. Social History Tobacco Use Types Packs/Day Years Used Date Smoking Tobacco: Never Assessed Sex and Gender Information Value Date Recorded Sex Assigned at Male 01/12/2020 12:55 PM CDT Legal Sex Male 3:34 PM SUSTAINABILITY PROJECT COORDINATOR Gender Identity Male 06/26/2018 10:58 AM CDT Sexual Orientation Straight 06/26/2018 10 :58 AM CDT documented as of this encounter Progress Notes * Alejandrina Gusman M.D. - 01/17/2005 12:00 AM CDT Eye General CHIEF COMPLAINT Unclear vision HISTORY OF PRESENT ILLNESS Unclear vision, left eye, x several years, slowly progressive. Patient denies visual concerns with right eye. Denies flashes, floaters, blurred vision or diplopia. Patient denies ocular pain. Blood sugars controlled with oral medication, last A1C was 6.2 December. IMPRESSION / REPORT / PLAN #1 Diabetes mellitus, no eye complications. Plan: monitor periodically. #2 Refractive error (myopia, presbyopia). Plan: spectacle prescription (Refraction 1) given, spectacle prescription (Refraction 2) given. He mentionned to me that he has a second pair of glasses with a lower bifocal that he uses for microscope use, walking around and for use with bifocals. He gave me this pair and I put the informationin under Habitual Prescription 2. I then gave him a prescription for the current distance with a bifocal that is 0.50 diopters lower than refraction 1 (refraction 2) figuring that that should work since the difference in his two current bifocals is 0.50 diopters. #3 Macular epiretinal membrane left eye. Plan: monitor periodically. Discussed that surgery is an option but NOT when the vision is so good and he has no distortion/metamorphopsia from this. #4 Cataract, both eyes, not visually significant. Plan: observe. DIAGNOSIS #1 Diabetes mellitus, no eye complications. 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 #4 Cataract, both eyes, not visually significant. CDM Reports - EYEGEN Id: [id number] Status: Fnl documented in this encounter Plan of Treatment Upcoming Encounters Date Type Department Care Team (Late st Contact Info) Description 05/07/2024 10:00 AM SUSTAINABILITY PROJECT COORDINATOR Office Visit Department of Vascular Medicine in [place], [place] [address] [place] [phone] Santana Mullen M.D. [address] [place] [phone] Discharge Disposition: Home or Self Care 05/20/2024 1:40 PM SUSTAINABILITY PROJECT COORDINATOR Office Visit Department of Dermatology in [place], [place] [address] [place] [phone] Aldo Quarles M.D. [address] [place] [phone] documented as of this encounter Visit Diagnoses Not on filedocumented in this encounter Additional Health Concerns Infection Onset Date Last Indicated Resolved Time COVID19 Pending 12/11/2019 12/11/2019 12/12/2019 1 2:07 AM CDT COVID19 Pending 01/15/2020 01/15/2020 01/16/2020 2 :47 AM CDT COVID19 Pending 02/13/2020 02/13/2020 02/13/2020 9 :53 PM SUSTAINABILITY PROJECT COORDINATOR COVID19 Pending 02/14/2020 02/14/2020 02/14/2020 1 2:19 PM SUSTAINABILITY PROJECT COORDINATOR COVID19 Pending 05/08/2020 05/08/2020 05/08/2020 6 :00 PM SUSTAINABILITY PROJECT COORDINATOR COVID19 Pending 06/03/2020 06/03/2020 06/03/2020 2 :32 PM SUSTAINABILITY PROJECT COORDINATOR COVID19 Pending 07/11/2022 07/11/2022 07/11/2022 9 :47 PM CDT COVID19 Pending 07/15/2022 07/15/2022 07/15/2022 3 :42 PM CDT COVID19 Pending 07/17/2022 07/17/2022 07/17/2022 1 1:00 AM CDT documented as of this encounter Care Teams Tight Barrel Inspector Relationship Specialty Start Date End Date Minnie Avery M.D. [address] [place] [phone] PCP - General Internal Medicine 10/24/22 documented as of this encounter
--- OUTSIDE RECORDS SUMMARY | 2024-04-11 03:35 | XMS_ITS | Encounter Summary ---
Author Organization [facility] Address [address] [place] [address] Care Team Providers Care Hebrew Teacher Name Role Phone Minnie Avery M.D. Primary Care Provider +1- [phone] Encounter Details Date Type Department Care Team (Late st Contact Info) Description 03/10/2008 Historical Ophthalmology RST OPH Anival Devries O.D. [address] [place] [phone] Social History Tobacco Use Types Packs/Day Years Used Date Smoking Tobacco: Never Assessed Sex and Gender Information Value Date Recorded Sex Assigned at Male 01/12/2020 12:55 PM CDT Legal Sex Male 3:34 PM BREAKDOWN WORKER Gender Identity Male 06/26/2018 10:58 AM CDT Sexual Orientation Straight 06/26/2018 10 :58 AM CDT documented as of this encounter Progress Notes * Anival Devries O.D. - 03/10/2008 11:56 AM CST Eye General CHIEF COMPLAINT diabetes type 2 HISTORY OF PRESENT ILLNESS Patient comes today for an annual eye exam, he is non insulin (takes medication) type 2 diabetes. His blood sugar levels are stable, normally range from 95-130 , A1C 6.7 this morning. He denies having any vision concerns, no change in floaters, no flashers of lights and Patient denies ocular pain. No blurred vision. Vision stable. IMPRESSION / REPORT / PLAN Consult requested by: Yasmani Collado [phone] #1 Cataract, both eyes, not visually significant. Plan: monitor periodically, spectacle prescription (Refraction 1) given. #2 Diabetes mellitus, no eye complications. Plan: monitor periodically. #3 Epimacular membrane, left eye Stable, monitor DIAGNOSIS #1 Cataract, both eyes, not visually significant. #2 Diabetes mellitus, no eye complications. #3 Epimacular membrane, left eye CDM Reports - EYEGEN Id: [id number] Status: Fnl documented in this encounter Plan of Treatment Upcoming Encounters Date Type Department Care Team (Late st Contact Info) Description 05/07/2024 10:00 AM BREAKDOWN WORKER Office Visit Department of Vascular Medicine in [place], [place] [address] [place] [phone] Santana Mullen M.D. [address] [place] [phone] Discharge Disposition: Home or Self Care 05/20/2024 1:40 PM BREAKDOWN WORKER Office Visit Department of Dermatology in [place], [place] [address] [place] [phone] Aldo Quarles M.D. [address] [place] [phone] documented as of this encounter Visit Diagnoses Not on filedocumented in this encounter Additional Health Concerns Infection Onset Date Last Indicated Resolved Time COVID19 Pending 12/11/2019 12/11/2019 12/12/2019 1 2:07 AM CDT COVID19 Pending 01/15/2020 01/15/2020 01/16/2020 2 :47 AM CDT COVID19 Pending 02/13/2020 02/13/2020 02/13/2020 9 :53 PM BREAKDOWN WORKER COVID19 Pending 02/14/2020 02/14/2020 02/14/2020 1 2:19 PM BREAKDOWN WORKER COVID19 Pending 05/08/2020 05/08/2020 05/08/2020 6 :00 PM BREAKDOWN WORKER COVID19 Pending 06/03/2020 06/03/2020 06/03/2020 2 :32 PM BREAKDOWN WORKER COVID19 Pending 07/11/2022 07/11/2022 07/11/2022 9 :47 PM CDT COVID19 Pending 07/15/2022 07/15/2022 07/15/2022 3 :42 PM CDT COVID19 Pending 07/17/2022 07/17/2022 07/17/2022 1 1:00 AM CDT documented as of this encounter Care Teams Hebrew Teacher Relationship Specialty Start Date End Date Minnie Avery M.D. [address] [place] [phone] PCP - General Internal Medicine 10/24/22 documented as of this encounter
--- OUTSIDE RECORDS SUMMARY | 2024-04-11 03:35 | XMS_ITS | Encounter Summary ---
Author Organization [facility] Address [address] [place] [address] Care Team Providers Care Cardiology Clinical Nurse Specialist Name Role Phone Minnie Avery M.D. Primary Care Provider +1- [phone] Encounter Details Date Type Department Care Team (Late st Contact Info) Description 11/04/2013 Historical Ophthalmology RST OPH Shahida Carroll M.D. [address] [place] [phone] Social History Tobacco Use Types Packs/Day Years Used Date Smoking Tobacco: Never Assessed Sex and Gender Information Value Date Recorded Sex Assigned at Male 01/12/2020 12:55 PM CDT Legal Sex Male 3:34 PM SPECIALIST PHYSICIANS Gender Identity Male 06/26/2018 10:58 AM CDT Sexual Orientation Straight 06/26/2018 10 :58 AM CDT documented as of this encounter Progress Notes * Shahida Carroll M.D. - 11/04/2013 8:11 AM CDT Eye General CHIEF COMPLAINT recheck cataract, yearly HISTORY OF PRESENT ILLNESS Patient here for recheck cataract, yearly exam. Patient states the vision is good. Patient denies ocular pain, flashes or floaters. 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 [address] [place] [phone] Discharge Disposition: Home or Self Care 05/20/2024 1:40 PM SPECIALIST PHYSICIANS Office Visit Department of Dermatology in [place], [place] [address] [place] [address] Aldo Quarles M.D. [address] [place] [phone] documented as of this encounter Visit Diagnoses Not on filedocumented in this encounter Additional Health Concerns Infection Onset Date Last Indicated Resolved Time COVID19 Pending 12/11/2019 12/11/2019 12/12/2019 1 2:07 AM CDT COVID19 Pending 01/15/2020 01/15/2020 01/16/2020 2 :47 AM CDT COVID19 Pending 02/13/2020 02/13/2020 02/13/2020 9 :53 PM SPECIALIST PHYSICIANS COVID19 Pending 02/14/2020 02/14/2020 02/14/2020 1 2:19 PM SPECIALIST PHYSICIANS COVID19 Pending 05/08/2020 05/08/2020 05/08/2020 6 :00 PM SPECIALIST PHYSICIANS COVID19 Pending 06/03/2020 06/03/2020 06/03/2020 2 :32 PM SPECIALIST PHYSICIANS COVID19 Pending 07/11/2022 07/11/2022 07/11/2022 9 :47 PM CDT COVID19 Pending 07/15/2022 07/15/2022 07/15/2022 3 :42 PM CDT COVID19 Pending 07/17/2022 07/17/2022 07/17/2022 1 1:00 AM CDT documented as of this encounter Care Teams Cardiology Clinical Nurse Specialist Relationship Specialty Start Date End Date Minnie Avery M.D. [address] [place] [phone] PCP - General Internal Medicine 10/24/22 documented as of this encounter
--- OUTSIDE RECORDS SUMMARY | 2024-04-11 03:35 | XMS_ITS | Encounter Summary ---
Author Organization [facility] Address [address] [place] [address] Care Team Providers Care Chair Mechanic Name Role Phone Minnie Avery M.D. Primary Care Provider +1- [phone] Encounter Details Date Type Department Care Team (Late st Contact Info) Description 10/20/2012 Historical Ophthalmology RST OPH Shahida Carroll M.D. [address] [place] [phone] Social History Tobacco Use Types Packs/Day Years Used Date Smoking Tobacco: Never Assessed Sex and Gender Information Value Date Recorded Sex Assigned at Male 01/12/2020 12:55 PM CDT Legal Sex Male 3:34 PM FOSTER CARE THERAPIST Gender Identity Male 06/26/2018 10:58 AM CDT Sexual Orientation Straight 06/26/2018 10 :58 AM CDT documented as of this encounter Progress Notes * Shahida Carroll M.D. - 10/20/2012 7:52 AM CDT Eye Postoperative MULTI-VISIT DOCUMENT This document contains multiple patient visits and is available for review in Document Viewer. CDM Reports - EYEPO Id: [id number] Status: Fnl documented in this encounter Plan of Treatment Upcoming Encounters Date Type Department Care Team (Late st Contact Info) Description 05/07/2024 10:00 AM FOSTER CARE THERAPIST Office Visit Department of Vascular Medicine in [place], [place] [address] [place] [address] Santana Mullen M.D. [address] [place] [address] Discharge Disposition: Home or Self Care 05/20/2024 1:40 PM FOSTER CARE THERAPIST Office Visit Department of Dermatology in [place], [place] [address] [place] [address] Aldo Quarles M.D. [address] [place] [phone] documented as of this encounter Visit Diagnoses Not on filedocumented in this encounter Additional Health Concerns Infection Onset Date Last Indicated Resolved Time COVID19 Pending 12/11/2019 12/11/2019 12/12/2019 1 2:07 AM CDT COVID19 Pending 01/15/2020 01/15/2020 01/16/2020 2 :47 AM CDT COVID19 Pending 02/13/2020 02/13/2020 02/13/2020 9 :53 PM FOSTER CARE THERAPIST COVID19 Pending 02/14/2020 02/14/2020 02/14/2020 1 2:19 PM FOSTER CARE THERAPIST COVID19 Pending 05/08/2020 05/08/2020 05/08/2020 6 :00 PM FOSTER CARE THERAPIST COVID19 Pending 06/03/2020 06/03/2020 06/03/2020 2 :32 PM FOSTER CARE THERAPIST COVID19 Pending 07/11/2022 07/11/2022 07/11/2022 9 :47 PM CDT COVID19 Pending 07/15/2022 07/15/2022 07/15/2022 3 :42 PM CDT COVID19 Pending 07/17/2022 07/17/2022 07/17/2022 1 1:00 AM CDT documented as of this encounter Care Teams Chair Mechanic Relationship Specialty Start Date End Date Minnie Avery M.D. [address] [place] [phone] PCP - General Internal Medicine 10/24/22 documented as of this encounter
--- OUTSIDE RECORDS SUMMARY | 2024-04-11 03:35 | XMS_ITS | Encounter Summary ---
Author Organization [facility] Address [address] [place] [address] Care Team Providers Care Scholarship Counselor Name Role Phone Minnie Avery M.D. Primary Care Provider +1- [phone] Encounter Details Date Type Department Care Team (Late st Contact Info) Description 11/19/2012 Historical Ophthalmology RST OPH Shahida Carroll M.D. [address] [place] [phone] Social History Tobacco Use Types Packs/Day Years Used Date Smoking Tobacco: Never Assessed Sex and Gender Information Value Date Recorded Sex Assigned at Male 01/12/2020 12:55 PM CDT Legal Sex Male 3:34 PM DERMATOLOGIST AND DERMATOPATHOLOGIST Gender Identity Male 06/26/2018 10:58 AM CDT Sexual Orientation Straight 06/26/2018 10 :58 AM CDT documented as of this encounter Progress Notes * Shahida Carroll M.D. - 11/19/2012 9:06 AM CDT Eye Postoperative MULTI-VISIT DOCUMENT This document contains multiple patient visits and is available for review in Document Viewer. CDM Reports - EYEPO Id: [id number] Status: Fnl documented in this encounter Plan of Treatment Upcoming Encounters Date Type Department Care Team (Late st Contact Info) Description 05/07/2024 10:00 AM DERMATOLOGIST AND DERMATOPATHOLOGIST Office Visit Department of Vascular Medicine in [place], [place] [address] [place] [address] Santana Mullen M.D. [address] [place] [address] Discharge Disposition: Home or Self Care 05/20/2024 1:40 PM DERMATOLOGIST AND DERMATOPATHOLOGIST Office Visit Department of Dermatology in [place], [place] [address] [place] [address] Aldo Quarles M.D. [address] [place] [address] documented as of this encounter Visit Diagnoses Not on filedocumented in this encounter Additional Health Concerns Infection Onset Date Last Indicated Resolved Time COVID19 Pending 12/11/2019 12/11/2019 12/12/2019 1 2:07 AM CDT COVID19 Pending 01/15/2020 01/15/2020 01/16/2020 2 :47 AM CDT COVID19 Pending 02/13/2020 02/13/2020 02/13/2020 9 :53 PM DERMATOLOGIST AND DERMATOPATHOLOGIST COVID19 Pending 02/14/2020 02/14/2020 02/14/2020 1 2:19 PM DERMATOLOGIST AND DERMATOPATHOLOGIST COVID19 Pending 05/08/2020 05/08/2020 05/08/2020 6 :00 PM DERMATOLOGIST AND DERMATOPATHOLOGIST COVID19 Pending 06/03/2020 06/03/2020 06/03/2020 2 :32 PM DERMATOLOGIST AND DERMATOPATHOLOGIST COVID19 Pending 07/11/2022 07/11/2022 07/11/2022 9 :47 PM CDT COVID19 Pending 07/15/2022 07/15/2022 07/15/2022 3 :42 PM CDT COVID19 Pending 07/17/2022 07/17/2022 07/17/2022 1 1:00 AM CDT documented as of this encounter Care Teams Scholarship Counselor Relationship Specialty Start Date End Date Minnie Avery M.D. [address] [place] [address] PCP - General Internal Medicine 10/24/22 documented as of this encounter
--- OUTSIDE RECORDS SUMMARY | 2024-04-11 03:35 | XMS_ITS | Encounter Summary ---
Author Organization [facility] Address [address] [place] [address] Care Team Providers Care Bridge Instructor Name Role Phone Minnie Avery M.D. Primary Care Provider +1- [phone] Encounter Details Date Type Department Care Team (Late st Contact Info) Description 06/06/2016 Historical Ophthalmology RST OPH Shahida Carroll M.D. [address] [place] [phone] Social History Tobacco Use Types Packs/Day Years Used Date Smoking Tobacco: Never Assessed Sex and Gender Information Value Date Recorded Sex Assigned at Male 01/12/2020 12:55 PM CDT Legal Sex Male 3:34 PM AQUARIUM SPECIALIST Gender Identity Male 06/26/2018 10:58 AM CDT Sexual Orientation Straight 06/26/2018 10 :58 AM CDT documented as of this encounter Progress Notes * Shahida Carroll M.D. - 06/06/2016 7:34 AM CST Eye General CHIEF COMPLAINT follow up on DM2 retinopathy HISTORY OF PRESENT ILLNESS Notes vision remains unchanged. Patient denies ocular pain. Denies any new flashing lights or floaters. Denies any further concerns. WMS: He was recently on a 7 day [place] cruise. IMPRESSION / REPORT / PLAN The following [...] central foveal cysts are decreased vs 10/13 Impression/Plan VA is decreased OD, but improved OS. OCT is stable in the right and improved in the left eye vs 09/2015. Will defer fluorescein angiography for now. For the left eye, I previously reviewed [...] laser.) Today since the OCT is stable OD and improved OS, no need for FA, injections, or laser. Decreased VA OD likely due to corneal issues (map dot fingerprint) Continue to control blood glucose, blood pressure, lipids. 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 [address] [place] [phone] Discharge Disposition: Home or Self Care 05/20/2024 1:40 PM AQUARIUM SPECIALIST Office Visit Department of Dermatology in [place], [place] [address] [place] [phone] Aldo Quarles M.D. [address] [place] [phone] documented as of this encounter Visit Diagnoses Not on filedocumented in this encounter Additional Health Concerns Infection Onset Date Last Indicated Resolved Time COVID19 Pending 12/11/2019 12/11/2019 12/12/2019 1 2:07 AM CDT COVID19 Pending 01/15/2020 01/15/2020 01/16/2020 2 :47 AM CDT COVID19 Pending 02/13/2020 02/13/2020 02/13/2020 9 :53 PM AQUARIUM SPECIALIST COVID19 Pending 02/14/2020 02/14/2020 02/14/2020 1 2:19 PM AQUARIUM SPECIALIST COVID19 Pending 05/08/2020 05/08/2020 05/08/2020 6 :00 PM AQUARIUM SPECIALIST COVID19 Pending 06/03/2020 06/03/2020 06/03/2020 2 :32 PM AQUARIUM SPECIALIST COVID19 Pending 07/11/2022 07/11/2022 07/11/2022 9 :47 PM CDT COVID19 Pending 07/15/2022 07/15/2022 07/15/2022 3 :42 PM CDT COVID19 Pending 07/17/2022 07/17/2022 07/17/2022 1 1:00 AM CDT documented as of this encounter Care Teams Bridge Instructor Relationship Specialty Start Date End Date Minnie Avery M.D. [address] [place] [phone] PCP - General Internal Medicine 10/24/22 documented as of this encounter
--- OUTSIDE RECORDS SUMMARY | 2024-04-11 03:35 | XMS_ITS | Encounter Summary ---
Author Organization [facility] Address [address] [place] [address] Care Team Providers Care Marine Propulsion Technician Name Role Phone Minnie Avery M.D. Primary Care Provider +1- [phone] Encounter Details Date Type Department Care Team (Late st Contact Info) Description 01/30/2006 Historical Ophthalmology RST OPH Donte Abad M.D. [address] [place] [phone] Social History Tobacco Use Types Packs/Day Years Used Date Smoking Tobacco: Never Assessed Sex and Gender Information Value Date Recorded Sex Assigned at Male 01/12/2020 12:55 PM CDT Legal Sex Male 3:34 PM MANUFACTURING APPLICATIONS ENGINEER Gender Identity Male 06/26/2018 10:58 AM CDT Sexual Orientation Straight 06/26/2018 10 :58 AM CDT documented as of this encounter Progress Notes * Donte Abad M.D. - 01/30/2006 12:00 AM CST Eye General CHIEF COMPLAINT diabetes eye exam HISTORY OF PRESENT ILLNESS Patient is here for a diabetes eye exam. Patients glucose was 154 and his hemoglobin A1C was 6.9 onOctober 26. History of macular epiretinal membrane left eye. IMPRESSION / REPORT / PLAN #1 Early cataracts #2 Minimal background diabetic retinopathy LE #3 Epiretinal membrane LE No rx. DIAGNOSIS #1 Early cataracts #2 Minimal background diabetic retinopathy LE #3 Epiretinal membrane LE CDM Reports - EYEGEN Id: [id number] Status: Fnl documented in this encounter Plan of Treatment Upcoming Encounters Date Type Department Care Team (Late st Contact Info) Description 05/07/2024 10:00 AM MANUFACTURING APPLICATIONS ENGINEER Office Visit Department of Vascular Medicine in [place], [place] [address] [place] [address] Santana Mullen M.D. [address] [place] [phone] Discharge Disposition: Home or Self Care 05/20/2024 1:40 PM MANUFACTURING APPLICATIONS ENGINEER Office Visit Department of Dermatology in [place], [place] [address] [place] [address] Aldo Quarles M.D. [address] [place] [phone] documented as of this encounter Visit Diagnoses Not on filedocumented in this encounter Additional Health Concerns Infection Onset Date Last Indicated Resolved Time COVID19 Pending 12/11/2019 12/11/2019 12/12/2019 1 2:07 AM CDT COVID19 Pending 01/15/2020 01/15/2020 01/16/2020 2 :47 AM CDT COVID19 Pending 02/13/2020 02/13/2020 02/13/2020 9 :53 PM MANUFACTURING APPLICATIONS ENGINEER COVID19 Pending 02/14/2020 02/14/2020 02/14/2020 1 2:19 PM MANUFACTURING APPLICATIONS ENGINEER COVID19 Pending 05/08/2020 05/08/2020 05/08/2020 6 :00 PM MANUFACTURING APPLICATIONS ENGINEER COVID19 Pending 06/03/2020 06/03/2020 06/03/2020 2 :32 PM MANUFACTURING APPLICATIONS ENGINEER COVID19 Pending 07/11/2022 07/11/2022 07/11/2022 9 :47 PM CDT COVID19 Pending 07/15/2022 07/15/2022 07/15/2022 3 :42 PM CDT COVID19 Pending 07/17/2022 07/17/2022 07/17/2022 1 1:00 AM CDT documented as of this encounter Care Teams Marine Propulsion Technician Relationship Specialty Start Date End Date [place] [phone] PCP - General Internal Medicine 10/24/22 documented as of this encounter
--- OUTSIDE RECORDS SUMMARY | 2024-04-11 03:35 | XMS_ITS | Encounter Summary ---
Author Organization [facility] Address [address] [place] [address] Care Team Providers Care Air Hammer Operator Name Role Phone Minnie Avery M.D. Primary Care Provider +1- [phone] Reason for Visit * Reason Onset Date Comments Forms 01/30/2024 Encounter Details Date Type Department Care Team (Late st Contact Info) Description 01/30/2024 Clinical Communication Division of Community Internal Medicine, [facility], in [place], [place] [address] [place] [phone] Minnie Avery M.D. [address] [place] [phone] Forms Social History Tobacco Use Types Packs/Day Years Used Date Smoking Tobacco: Former Pipe Passive Smoke Exposure: Never Smokeless Tobacco: Never Alcohol Use Standard Drinks/Week Comments Not Currently 1 (1 standard drink = 0.6 oz pur e alcohol) [place] Utilities Answer Date Recorded In the past 12 months has [employer], gas, oil, or water company threatened [...] How often do you attend chur or samaritan services? Patient declined 06/27/2021 Do you belong to any clubs o r organizations such as samaritan groups, unions, fraternal or athletic groups, or [...] Answer Date Recorded PHQ-2 Score 1 04/08/2023 [facility] - Occupational Stress [...] your living situation today? I have a [facility] place to live 11/14/2023 Education Answer Date Recorded What is the highest level of school you have completed or the highest degree you have received? Doctorate 06/27/2021 Sex and Gender Information Value Date Recorded Sex Assigned at Male 01/12/2020 12:55 PM CDT Legal Sex Male 3:34 PM BOMBSIGHT SPECIALIST Gender Identity Male 06/26/2018 10:58 AM CDT Sexual Orientation Straight 06/26/2018 10 :58 AM CDT documented as of this encounter Plan of Treatment Upcoming Encounters Date Type Department Care Team (Late st Contact Info) Description 05/07/2024 10:00 AM BOMBSIGHT SPECIALIST Office Visit Department of Vascular Medicine in [place], [place] 200 [place] [address] Santana Mullen M.D. 200 [place] [address] Discharge Disposition: Home or Self Care 05/20/2024 1:40 PM BOMBSIGHT SPECIALIST Office Visit Department of Dermatology in [place], [place] [address] [place] [address] Aldo Quarles M.D. [address] [place] [address] documented as of this encounter Visit Diagnoses Not on filedocumented in this encounter Additional Health Concerns Assessment Noted Time PHQ-9 Depression Total Score: 0 05/10/19 21 11:00 AM BOMBSIGHT SPECIALIST documented as of this encounter Care Teams Air Hammer Operator Relationship Specialty Start Date End Date Minnie Avery M.D. [address] [place] [phone] PCP - General Internal Medicine 10/24/22 documented as of this encounter
--- OUTSIDE RECORDS SUMMARY | 2024-04-11 03:35 | XMS_ITS | Encounter Summary ---
Author Organization [facility] Address [address] [place] [address] Care Team Providers Care Nurse Chemical Dependency Name Role Phone Minnie Avery M.D. Primary Care Provider +1- [phone] Encounter Details Date Type Department Care Team (Late st Contact Info) Description 12/09/2014 Historical Ophthalmology RST OPH Shahida Carroll M.D. [address] [place] [phone] Social History Tobacco Use Types Packs/Day Years Used Date Smoking Tobacco: Never Assessed Sex and Gender Information Value Date Recorded Sex Assigned at Male 01/12/2020 12:55 PM CDT Legal Sex Male 3:34 PM CONTROL SYSTEMS ENG Gender Identity Male 06/26/2018 10:58 AM CDT Sexual Orientation Straight 06/26/2018 10 :58 AM CDT documented as of this encounter Progress Notes * Shahida Carroll M.D. - 12/09/2014 7:39 AM CDT Eye General CHIEF COMPLAINT check up HISTORY OF PRESENT ILLNESS here for check up. Denies flashes, floaters and blurred vision. Feels vision is same as last visit.No new concerns. 09/13/14 - HbA1c 8.1 WMS: Will have repeat blood tests soon. He has a new PCP since his previous one here went to [facility]. IMPRESSION / REPORT / PLAN The following tests have been completed and need interpretation. 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 Check OCT today since the vision in his left eye has changed. OCT shows increased thickening in the superonasal macula, likely due to ERM, but I cannot rule out a contribution from non-proliferative diabetic retinopathy. Encouraged ongoing control of blood glucose. Will check OCT again in 3 months --> if increased thickening and intraretinal cysts, then we will need fluorescein angiography to further evaluate. 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 [address] [place] [phone] Discharge Disposition: Home or Self Care 05/20/2024 1:40 PM CONTROL SYSTEMS ENG Office Visit Department of Dermatology in [place], [place] [address] [place] [address] Aldo Quarles M.D. [address] [place] [address] documented as of this encounter Visit Diagnoses Not on filedocumented in this encounter Additional Health Concerns Infection Onset Date Last Indicated Resolved Time COVID19 Pending 12/11/2019 12/11/2019 12/12/2019 1 2:07 AM CDT COVID19 Pending 01/15/2020 01/15/2020 01/16/2020 2 :47 AM CDT COVID19 Pending 02/13/2020 02/13/2020 02/13/2020 9 :53 PM CONTROL SYSTEMS ENG COVID19 Pending 02/14/2020 02/14/2020 02/14/2020 1 2:19 PM CONTROL SYSTEMS ENG COVID19 Pending 05/08/2020 05/08/2020 05/08/2020 6 :00 PM CONTROL SYSTEMS ENG COVID19 Pending 06/03/2020 06/03/2020 06/03/2020 2 :32 PM CONTROL SYSTEMS ENG COVID19 Pending 07/11/2022 07/11/2022 07/11/2022 9 :47 PM CDT COVID19 Pending 07/15/2022 07/15/2022 07/15/2022 3 :42 PM CDT COVID19 Pending 07/17/2022 07/17/2022 07/17/2022 1 1:00 AM CDT documented as of this encounter Care Teams Nurse Chemical Dependency Relationship Specialty Start Date End Date Minnie Avery M.D. [address] [place] [phone] PCP - General Internal Medicine 10/24/22 documented as of this encounter
--- OUTSIDE RECORDS SUMMARY | 2024-04-11 03:35 | XMS_ITS | Encounter Summary ---
Author Organization [facility] Address [address] [place] [address] Care Team Providers Care Impregnator Operator Name Role Phone Minnie Avery M.D. Primary Care Provider +1- [phone] Encounter Details Date Type Department Care Team (Late st Contact Info) Description 06/18/2010 Historical Ophthalmology RST OPH Javad Hameed O.D., Ph.D. Social History Tobacco Use Types Packs/Day Years Used Date Smoking Tobacco: Never Assessed Sex and Gender Information Value Date Recorded Sex Assigned at Male 01/12/2020 12:55 PM CDT Legal Sex Male 3:34 PM SUPERVISOR WATERWORKS Gender Identity Male 06/26/2018 10:58 AM CDT Sexual Orientation Straight 06/26/2018 10 :58 AM CDT documented as of this encounter Progress Notes * Javad Hameed O.D., Ph.D. - 06/18/2010 12:18 PM CDT Eye General CHIEF COMPLAINT Yearly diabetic examination HISTORY OF PRESENT ILLNESS Patient reports his vision has been stable. Patient reports occasional floaters; both eye; for several years, but reports no change. He denies flashes, diplopia, Patient denies ocular pain. Patient reports his last A1C was 7.0 as of this morning. IMPRESSION / REPORT / PLAN Consult requested by: Yasmani Collado #1 Cataract, both eyes, moderately visually significant. Observe #2 Mild non-proliferative diabetic retinopathy, no macular edema Monitor yearly #3 Mild Epimacular membrane, left eye #4 Meibomian gland dysfunction Warm compress, lid massage #5 Refractive error (myopic astigmatism, presbyopia) Rx #2 given. No change recommended. plan 1. srx 2. 1 year / prn DIAGNOSIS #1 Cataract, both eyes, moderately visually significant. #2 Mild non-proliferative diabetic retinopathy, no macular edema #3 Mild Epimacular membrane, left eye #4 Meibomian gland dysfunction #5 Refractive error (myopic astigmatism, presbyopia) CDM Reports - EYEGEN Id: [id number] Status: Fnl documented in this encounter Plan of Treatment Upcoming Encounters Date Type Department Care Team (Late st Contact Info) Description 05/07/2024 10:00 AM SUPERVISOR WATERWORKS Office Visit Department of Vascular Medicine in [place], [place] [address] [place] [phone] Santana Mullen M.D. [address] [place] [phone] Discharge Disposition: Home or Self Care 05/20/2024 1:40 PM SUPERVISOR WATERWORKS Office Visit Department of Dermatology in [place], [place] [address] [place] [phone] Aldo Quarles M.D. [address] [place] [phone] documented as of this encounter Visit Diagnoses Not on filedocumented in this encounter Additional Health Concerns Infection Onset Date Last Indicated Resolved Time COVID19 Pending 12/11/2019 12/11/2019 12/12/2019 1 2:07 AM CDT COVID19 Pending 01/15/2020 01/15/2020 01/16/2020 2 :47 AM CDT COVID19 Pending 02/13/2020 02/13/2020 02/13/2020 9 :53 PM SUPERVISOR WATERWORKS COVID19 Pending 02/14/2020 02/14/2020 02/14/2020 1 2:19 PM SUPERVISOR WATERWORKS COVID19 Pending 05/08/2020 05/08/2020 05/08/2020 6 :00 PM SUPERVISOR WATERWORKS COVID19 Pending 06/03/2020 06/03/2020 06/03/2020 2 :32 PM SUPERVISOR WATERWORKS COVID19 Pending 07/11/2022 07/11/2022 07/11/2022 9 :47 PM CDT COVID19 Pending 07/15/2022 07/15/2022 07/15/2022 3 :42 PM CDT COVID19 Pending 07/17/2022 07/17/2022 07/17/2022 1 1:00 AM CDT documented as of this encounter Care Teams Impregnator Operator Relationship Specialty Start Date End Date Minnie Avery M.D. [address] [place] [phone] PCP - General Internal Medicine 10/24/22 documented as of this encounter
--- OUTSIDE RECORDS SUMMARY | 2024-04-11 03:35 | XMS_ITS | Encounter Summary ---
Author Organization [facility] Address [address] [place] [address] Care Team Providers Care Broadcast Maintenance Engineer Name Role Phone Minnie Avery M.D. Primary Care Provider +1- [phone] Encounter Details Date Type Department Care Team (Late st Contact Info) Description 04/12/2015 Historical Ophthalmology RST OPH Shahida Carroll M.D. [address] [place] [phone] Social History Tobacco Use Types Packs/Day Years Used Date Smoking Tobacco: Never Assessed Sex and Gender Information Value Date Recorded Sex Assigned at Male 01/12/2020 12:55 PM CDT Legal Sex Male 3:34 PM RAILROAD TRACK REPAIR SUPERVISOR Gender Identity Male 06/26/2018 10:58 AM CDT Sexual Orientation Straight 06/26/2018 10 :58 AM CDT documented as of this encounter Progress Notes * Shahida Carroll M.D. - 04/12/2015 11:51 AM CST Eye General CHIEF COMPLAINT Regular check up HISTORY OF PRESENT ILLNESS Patient states that he is here for a regular check up. Patient notes that his vision seems stable. Patient denies any flashes of light or floaters. Patient denies any eye pain. Patient denies any newconcerns. WMS: He is currently wearing his older pair of glasses and feels like his vision is slightly bettercompared to the newer pair. Will see his education manager later today. Needs appt with meter attendant next month. He is on metformin and glimeperide. IMPRESSION / REPORT / PLAN The following [...] but the cysts are smaller vs 12/13 Impression/Plan VA is stable OU. OCT is stable or slightly improved in the left eye vs 11/2014. No need for fluorescein angiography for now. Continue to control blood glucose, blood pressure, lipids. 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 [address] [place] [phone] Discharge Disposition: Home or Self Care 05/20/2024 1:40 PM RAILROAD TRACK REPAIR SUPERVISOR Office Visit Department of Dermatology in [place], [place] [address] [place] [address] Aldo Quarles M.D. [address] [place] [phone] documented as of this encounter Visit Diagnoses Not on filedocumented in this encounter Additional Health Concerns Infection Onset Date Last Indicated Resolved Time COVID19 Pending 12/11/2019 12/11/2019 12/12/2019 1 2:07 AM CDT COVID19 Pending 01/15/2020 01/15/2020 01/16/2020 2 :47 AM CDT COVID19 Pending 02/13/2020 02/13/2020 02/13/2020 9 :53 PM RAILROAD TRACK REPAIR SUPERVISOR COVID19 Pending 02/14/2020 02/14/2020 02/14/2020 1 2:19 PM RAILROAD TRACK REPAIR SUPERVISOR COVID19 Pending 05/08/2020 05/08/2020 05/08/2020 6 :00 PM RAILROAD TRACK REPAIR SUPERVISOR COVID19 Pending 06/03/2020 06/03/2020 06/03/2020 2 :32 PM RAILROAD TRACK REPAIR SUPERVISOR COVID19 Pending 07/11/2022 07/11/2022 07/11/2022 9 :47 PM CDT COVID19 Pending 07/15/2022 07/15/2022 07/15/2022 3 :42 PM CDT COVID19 Pending 07/17/2022 07/17/2022 07/17/2022 1 1:00 AM CDT documented as of this encounter Care Teams Broadcast Maintenance Engineer Relationship Specialty Start Date End Date Minnie Avery M.D. [address] [place] [phone] PCP - General Internal Medicine 10/24/22 documented as of this encounter
--- OUTSIDE RECORDS SUMMARY | 2024-04-11 03:35 | XMS_ITS | Encounter Summary ---
Author Organization [facility] Address [address] [place] [id number] Care Team Providers Care Electric Crane Operator Name Role Phone Minnie Avery M.D. Primary Care Provider +1- [phone] Encounter Details Date Type Department Care Team (Late st Contact Info) Description 03/05/2012 Historical Ophthalmology RST OPH Shahida Carroll M.D. [address] [place] [phone] Social History Tobacco Use Types Packs/Day Years Used Date Smoking Tobacco: Never Assessed Sex and Gender Information Value Date Recorded Sex Assigned at Male 01/12/2020 12:55 PM CDT Legal Sex Male 3:34 PM VISUAL COMMUNICATIONS INSTRUCTOR Gender Identity Male 06/26/2018 10:58 AM CDT Sexual Orientation Straight 06/26/2018 10 :58 AM CDT documented as of this encounter Progress Notes * Shahida Carroll M.D. - 03/05/2012 1:35 PM CST Eye General CHIEF COMPLAINT annual exam HISTORY OF PRESENT ILLNESS Patient returns for annual diabetic eye exam. He denies any blurred vision, flashes, floaters or diplopia. Patient denies ocular pain. 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 Discussed multifocal IOLs, but he decided that he does not mind wearing glasses for tasks includingreading. Due his visual requirements, it would probably be best to plan for surgery on each eye within a reasonably short period of time. 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 [address] [place] [phone] Discharge Disposition: Home or Self Care 05/20/2024 1:40 PM VISUAL COMMUNICATIONS INSTRUCTOR Office Visit Department of Dermatology in [place], [place] [address] [place] [address] Aldo Quarles M.D. [address] [place] [phone] documented as of this encounter Visit Diagnoses Not on filedocumented in this encounter Additional Health Concerns Infection Onset Date Last Indicated Resolved Time COVID19 Pending 12/11/2019 12/11/201912/1112/12/2019 1 2:07 AM CDT COVID19 Pending 01/15/2020 01/15/2020 01/16/2020 2 :47 AM CDT COVID19 Pending 02/13/2020 02/13/2020 02/13/2020 9 :53 PM VISUAL COMMUNICATIONS INSTRUCTOR COVID19 Pending 02/14/2020 02/14/2020 02/14/2020 1 2:19 PM VISUAL COMMUNICATIONS INSTRUCTOR COVID19 Pending 05/08/2020 05/08/2020 05/08/2020 6 :00 PM VISUAL COMMUNICATIONS INSTRUCTOR COVID19 Pending 06/03/2020 06/03/2020 06/03/2020 2 :32 PM VISUAL COMMUNICATIONS INSTRUCTOR COVID19 Pending 07/11/2022 07/11/2022 07/11/2022 9 :47 PM CDT COVID19 Pending 07/15/2022 07/15/2022 07/15/2022 3 :42 PM CDT COVID19 Pending 07/17/2022 07/17/2022 07/17/2022 1 1:00 AM CDT documented as of this encounter Care Teams Electric Crane Operator Relationship Specialty Start Date End Date Minnie Avery M.D. [address] [place] [phone] PCP - General Internal Medicine 10/24/22 documented as of this encounter
--- OUTSIDE RECORDS SUMMARY | 2024-04-11 03:35 | XMS_ITS | Encounter Summary ---
Author Organization [facility] Address [address] [place] [address] Care Team Providers Care Administrative Services Specialist Name Role Phone Minnie Avery M.D. Primary Care Provider +1- [phone] Encounter Details Date Type Department Care Team (Late st Contact Info) Description 10/12/2015 Historical Ophthalmology RST OPH Shahida Carroll M.D. [address] [place] [phone] Social History Tobacco Use Types Packs/Day Years Used Date Smoking Tobacco: Never Assessed Sex and Gender Information Value Date Recorded Sex Assigned at Male 01/12/2020 12:55 PM CDT Legal Sex Male 3:34 PM FLEXBOARD OPERATOR Gender Identity Male 06/26/2018 10:58 AM CDT Sexual Orientation Straight 06/26/2018 10 :58 AM CDT documented as of this encounter Progress Notes * Shahida Carroll M.D. - 10/12/2015 8:47 AM CDT Eye General CHIEF COMPLAINT recheck diabetic retinopathy HISTORY OF PRESENT ILLNESS Patient here for recheck diabetic retinopathy and photos. Patient states the vision is the same. Patient denies ocular pain or new vision concerns. WMS: His HgA1C improved in June, will be rechecked next month. He had been put back on metform which helped, but it upset his bowels. He might need to go on insulin. IMPRESSION / REPORT / PLAN The following [...] the cysts are overall stable vs 04/15 Impression/Plan VA is stable OU. OCT is stable in the left eye vs 03/2015. Will defer fluorescein angiography for now. Reviewed his OCT with Dr. Jin to see if he might be eligible for DRCR trial. 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 Briefly discussed trial of anti-VEGF injections with Dr. Bryson. We decided to continue to monitor without treatment for now. (Would need to get FA before initiating tx with anti-VEGF injections or laser.) Continue to control blood glucose, blood pressure, lipids. HgA1C improved to 7.2 in June from 8.0 in Mar and 9.1 in Nov. 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 [address] [place] [address] Discharge Disposition: Home or Self Care 05/20/2024 1:40 PM FLEXBOARD OPERATOR Office Visit Department of Dermatology in [place], [place] [address] [place] [address] Aldo Quarles M.D. [address] [place] [address] documented as of this encounter Visit Diagnoses Not on filedocumented in this encounter Additional Health Concerns Infection Onset Date Last Indicated Resolved Time COVID19 Pending 12/11/2019 12/11/2019 12/12/2019 1 2:07 AM CDT COVID19 Pending 01/15/2020 01/15/2020 01/16/2020 2 :47 AM CDT COVID19 Pending 02/13/2020 02/13/2020 02/13/2020 9 :53 PM FLEXBOARD OPERATOR COVID19 Pending 02/14/2020 02/14/2020 02/14/2020 1 2:19 PM FLEXBOARD OPERATOR COVID19 Pending 05/08/2020 05/08/2020 05/08/2020 6 :00 PM FLEXBOARD OPERATOR COVID19 Pending 06/03/2020 06/03/2020 06/03/2020 2 :32 PM FLEXBOARD OPERATOR COVID19 Pending 07/11/2022 07/11/2022 07/11/2022 9 :47 PM CDT COVID19 Pending 07/15/2022 07/15/202207/1507/15/2022 3 :42 PM CDT COVID19 Pending 07/17/2022 07/17/2022 07/17/2022 1 1:00 AM CDT documented as of this encounter Care Teams Administrative Services Specialist Relationship Specialty Start Date End Date Minnie Avery M.D. [address] [place] [address] PCP - General Internal Medicine 10/24/22 documented as of this encounter
--- OUTSIDE RECORDS SUMMARY | 2024-04-11 03:35 | XMS_ITS | Encounter Summary ---
Author Organization [facility] Address [address] [place] [address] Care Team Providers Care Construction Rigger Name Role Phone Minnie Avery M.D. Primary Care Provider +1- [phone] Encounter Details Date Type Department Care Team (Late st Contact Info) Description 09/22/2012 Historical Ophthalmology RST OPH Shahida Carroll M.D. [address] [place] [phone] Social History Tobacco Use Types Packs/Day Years Used Date Smoking Tobacco: Never Assessed Sex and Gender Information Value Date Recorded Sex Assigned at Male 01/12/2020 12:55 PM CDT Legal Sex Male 3:34 PM DUPLICATOR PUNCH SET UP OPERATOR Gender Identity Male 06/26/2018 10:58 AM CDT Sexual Orientation Straight 06/26/2018 10 :58 AM CDT documented as of this encounter Progress Notes * Shahida Carroll M.D. - 09/22/2012 8:20 AM CDT Eye General CHIEF COMPLAINT Cataract HISTORY OF PRESENT ILLNESS Patient returns today for IOLs and visit with WMS. Patient denies changes or new concerns since last visit. IMPRESSION / REPORT / PLAN #1 Cataract, left eye greater than right --visually significant, especially left #2 Mild non-proliferative diabetic retinopathy, no cystoid macular edema Monitor yearly - last DFE 05/2012 #3 Mild Epimacular membrane, left eye Spectralis [...] not mind wearing glasses for tasks includingreading. Recommend toric IOLs for both eyes. Due his visual requirements, it would probably be best to plan for surgery on each eye within a reasonably short period of time. 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 Garcia - will plan for toric lenses in both eyes. Consent signed today Start vigamox and ketorolac QID in the surgical eye one day before surgery. 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 200 [place] [address] Discharge Disposition: Home or Self Care 05/20/2024 1:40 PM DUPLICATOR PUNCH SET UP OPERATOR Office Visit Department of Dermatology in [place], [place] [address] [place] [address] Aldo Quarles M.D. [address] [place] [address] documented as of this encounter Visit Diagnoses Not on filedocumented in this encounter Additional Health Concerns Infection Onset Date Last Indicated Resolved Time COVID19 Pending 12/11/2019 12/11/2019 12/12/2019 1 2:07 AM CDT COVID19 Pending 01/15/2020 01/15/2020 01/16/2020 2 :47 AM CDT COVID19 Pending 02/13/2020 02/13/2020 02/13/2020 9 :53 PM DUPLICATOR PUNCH SET UP OPERATOR COVID19 Pending 02/14/2020 02/14/2020 02/14/2020 1 2:19 PM DUPLICATOR PUNCH SET UP OPERATOR COVID19 Pending 05/08/2020 05/08/2020 05/08/2020 6 :00 PM DUPLICATOR PUNCH SET UP OPERATOR COVID19 Pending 06/03/2020 06/03/2020 06/03/2020 2 :32 PM DUPLICATOR PUNCH SET UP OPERATOR COVID19 Pending 07/11/2022 07/11/2022 07/11/2022 9 :47 PM CDT COVID19 Pending 07/15/2022 07/15/2022 07/15/2022 3 :42 PM CDT COVID19 Pending 07/17/2022 07/17/2022 07/17/2022 1 1:00 AM CDT documented as of this encounter Care Teams Construction Rigger Relationship Specialty Start Date End Date Minnie Avery M.D. [address] [place] [address] PCP - General Internal Medicine 10/24/22 documented as of this encounter
[2024-04-11 03:52] VITALS: BP 118/77; PULSE 61; RESP 16; TEMP 36.3; O2SAT 94; BMI 22.5
[2024-04-11 04:10] LABS: Basophils Absolute Auto 0.04 K/uL (0.00-0.30); Basophils Percent Auto 0.5 % (0.0-3.0); Eosinophils Absolute Auto 0.25 K/uL (0.00-0.50); Hemoglobin* 14.9 gm/dL (13.5-17.5); Immature Granulocytes Abs Auto 0.07 K/uL (0.00-0.30); Immature Granulocytes Pct Auto 0.8 %; Lymphocytes Absolute Auto 2.14 K/uL (0.90-2.90); Lymphocytes Percent Auto 25.7 % (20-44); Mean Corpuscular HGB Conc 32 gm/dL (32-36); Mean Corpuscular Hemoglobin 29 pg (26-34); Mean Corpuscular Volume 88 fL (80-100); Monocytes Percent Auto 11.2 % (0.0-11.0); Neutrophils Percent Auto 58.8 % (42.0-72.0); Platelet Count* 184 K/uL (140-440); Red Blood Count 5.21 m/uL (4.30-5.90); White Blood Count* 8.33 K/uL (4.50-11.00)
[2024-04-11 04:10] LABS: PCR FLU A Negative PCR FLU A (Negative); PCR FLU B Negative PCR FLU B (Negative); PCR RSV Negative PCR RSV (Negative); SARS PCR* Negative SARS-CoV-2 (Negative)
[2024-04-11 04:26] LABS: Slide Review Reflex No
[2024-04-11 04:30] LABS: Chloride* 106 mmol/L (96-114); Potassium* 3.9 mmol/L (3.6-5.1); Sodium* 137 mmol/L (135-149)
[2024-04-11 04:32] LABS: Est. Creatinine Clearance* 57.33; Estimated Glomerular Filt Rate 72 ml/min
[2024-04-11 04:33] LABS: Anion Gap 8 mEq/L (7-15); Blood Urea Nitrogen* 26 mg/dL (7-30); Carbon Dioxide* 23 mmol/L (20-32); Glucose* 128 mg/dL (60-115)
[2024-04-11 04:34] LABS: Calcium* 9.1 mg/dL (8.4-10.6)
[2024-04-11 04:55] LABS: C Reactive Protein* < 0.5 mg/dL (0.5-1.0)
[2024-04-11 05:36] LABS: NT Pro B Type NatriureticPept* 282 pg/mL; Troponin I* < 0.01 ng/mL (0.01-0.04)
--- NOTE | 2024-04-11 08:06 | CRLHL7_ITS ---
For Patients: As a result of the Century Cures Act, medical imaging exams and procedure reports are released immediately into your electronic medical record. You may view this report before your referring provider. If you have questions, please contact your health care provider. CT ANGIOGRAM HEAD DATE: 04/11/2024 CLINICAL HISTORY: Patient with transient left leg weakness. TECHNIQUE: Standard helical CT image acquisition through the intracranial circulation following intravenous administration of contrast material with bolus tracking. 2D and 3D MIP images for post-processing were performed and interpreted on an independent workstation and 3D images were permanently archived. COMPARISON: CT same day. FINDINGS: There is no proximal intracranial large vessel occlusion. There is mild intracranial atherosclerosis in the carotid siphons and vertebral arteries bilaterally. There is no intracranial aneurysm. The right middle cerebral artery and its branches are normal. The right anterior cerebral artery and its branches are normal. The left middle cerebral artery and its branches are normal. The left anterior cerebral artery and its branches are normal. The anterior communicating artery is well visualized and appears normal. The left vertebral artery is dominant. The basilar artery is patent and appears normal. The right posterior cerebral artery is normal. The left posterior cerebral artery is normal. IMPRESSION: 1. No proximal intracranial large vessel occlusion. 2. 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 Please note that all CT scans at this facility use dose modulation, iterative reconstruction, and/or weight-based dosing when appropriate to reduce radiation dose to as low as reasonably achievable. Dictated by: Shirin Jaramillo MD @ 04/11/2024 09:23:44 (Electronically Signed)
--- NOTE | 2024-04-11 08:06 | CRLHL7_ITS ---
For Patients: As a result of the Cures Act, medical imaging exams and procedure reports are released immediately into your electronic medical record. You may view this report before your referring provider. If you have questions, please contact your health care provider. CT ANGIOGRAM NECK DATE: 04/11/2024 CLINICAL HISTORY: Patient with transient left leg weakness. TECHNIQUE: Standard helical CT image acquisition of the neck up to the skull base after bolus intravenous contrast enhancement. 2D and 3D MIP images for post-processing were performed and interpreted on an independent workstation and 3D images were permanently archived. COMPARISON: CT same day. FINDINGS: The origins of the great vessels from the aortic arch are patent. The origin of the right vertebral artery is patent. The origin of the left vertebral artery is patent. The common carotid arteries are patent. There is plaque without stenosis at the origin of the right internal carotid artery. There is plaque without stenosis at the origin of the left internal carotid artery. The rest of the cervical segments of the internal carotid arteries are patent up to the skull base. The left vertebral artery is dominant. The cervical segments of the vertebral arteries are patent up to the skull base. The visualized lung apices are unremarkable. The thyroid gland is unremarkable. The soft tissues of the neck are unremarkable. There are degenerative changes in the cervical spine. IMPRESSION: Patent cervical vasculature. Please note that all CT scans at this facility use dose modulation, iterative reconstruction, and/or weight-based dosing when appropriate to reduce radiation dose to as low as reasonably achievable. Dictated by: Shirin Jaramillo MD @ 04/11/2024 09:21:12 (Electronically Signed)
--- NOTE | 2024-04-11 08:12 | CRLHL7_ITS ---
For Patients: As a result of the Century Cures Act, medical imaging exams and procedure reports are released immediately into your electronic medical record. You may view this report before your referring provider. If you have questions, please contact your health care provider. CT HEAD DATE: 04/11/2024 CLINICAL HISTORY: Patient with transient left leg weakness. TECHNIQUE: Standard CT scanning of the head was performed. COMPARISON: 09/27/2019. FINDINGS: There is no intracranial hemorrhage. There is no territorial infarction. There are severe microangiopathic changes. There is diffuse parenchymal volume loss. There is no mass effect or midline shift. The calvarium is unremarkable. The orbits are unremarkable. The paranasal sinuses are unremarkable. The mastoid air cells are unremarkable. The soft tissues are unremarkable. IMPRESSION: 1. No intracranial hemorrhage or territorial infarction. 2. 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 Please note that all CT scans at this facility use dose modulation, iterative reconstruction, and/or weight-based dosing when appropriate to reduce radiation dose to as low as reasonably achievable. Dictated by: Shirin Jaramillo MD @ 04/11/2024 09:19:22 (Electronically Signed)
[2024-04-11] MEDS: INSULIN NPH 100 UNIT/ML 20 UNIT SUBCUT (09:07)
[2024-04-11] MEDS: 0.9 % SODIUM CHLORIDE 500 ML 500 ML 1000 ML IV (09:18)
[2024-04-11] MEDS: CLOPIDOGREL 300 MG TABLET PO (09:54)
== END 2024-04-11 10:47 | disposition home or self-care (01) ==
PROVIDERS: Emergency Provider Family Medicine
DX: R53.1 Weakness (principal)
CPT/HCPCS: 36415; 70450; 70496; 70498; 80048; 81001; 83880; 84484; 85025; 86140; 87631; 93005; 99284; 99285; A9270; J7030; Q9967

== ENCOUNTER 2024-04-16 04:12 | Outpatient (CLI) | payer OTHER, SELFPAY | END 2024-04-16 04:13 | disposition home or self-care (01) | LOC: AMB 05-10 15:11 | PROVIDERS: Visit Provider Family Medicine | DX: R53.1 Weakness (principal) | CPT/HCPCS: A0998 ==